=== PATIENT | female | born 1995 | race Caucasian/White ===

== ENCOUNTER 2020-06-07 16:32 | Observation (INO) | payer OTHER, SELFPAY ==
--- NOTE | 2020-06-07 16:32 | OBADM ---
This patient, Emi Harris, admitted to the OB room OB Post 115 for observation. Patient/family oriented to hospital policies and general routines including ID bracelet, bed and alarms, visiting hours, pain management, procedures, bathroom and other care routines, personal items, smoking policy, room service/diet, and visiting hours. Patient/Family are encouraged to report perceived risks to care and to ask questions if they do not understand what they are told or what they should do.
[2020-06-07 17:00] VITALS: TEMP 36.6; BMI 46.5
[2020-06-07 17:17] VITALS: BP 86/62; PULSE 108
[2020-06-07 17:31] VITALS: BP 103/70; PULSE 90
[2020-06-07 17:46] VITALS: BP 119/72; PULSE 89
--- NOTE | 2020-06-07 17:55 | PM.OBTRLD ---
OB - Triage/Final Diagnosis Visit Information Reason for evaluation: threatened labor Evaluation Vital signs: Vital Signs - 24 hr 06/07/20 17:17 06/07/20 17:31 06/07/20 17:46 Pulse Rate 108 H 90 89 Blood Pressure 86/62 L 103/70 119/72
[2020-06-07 18:19] LABS: Add Urine Microscopic? YES; Appearance Urine Clear (Clear); Bacteria Urine Trace /hpf; Bilirubin Urine Negative (Negative); Blood Urine Negative (Negative); Color Urine Yellow (Yellow); Glucose Urine UA 1+ mg/dL (Negative); Ketones Urine Negative (Negative); Leukocyte Esterase Ur Negative LEU/UL (NEGATIVE); Mucus Urine Few /lpf; Nitrate Urine Negative (Negative); Protein Urine 1+ mg/dL (Negative); RBC Urine 0-2 /hpf (0-2); Specific Grav Ur 1.017 (1.001-1.035); Squamous Epithelial Cell Urine Occasional /hpf (Few); Urobilinogen Urine Negative mg/dL (<2.0); WBC Urine 0-3 /hpf (0-3)
[2020-06-07 18:37] VITALS: RESP 18; TEMP 36.3
== END 2020-06-07 19:25 | disposition home or self-care (01) ==
PROVIDERS: Admitting Provider Obstetrics & Gynecology; Visit Provider Obstetrics & Gynecology
DX: O47.9 False labor, unspecified (principal); Z3A.00 Weeks of gestation of pregnancy not specified
CPT/HCPCS: 81001; 87086; 87088; G0378; G0379

== ENCOUNTER 2022-08-20 19:38 | Emergency (ER) | payer OTHER, SELFPAY ==
[2022-08-20] VITALS (11 sets, daily range): BP systolic 121–142; BP diastolic 77–92; PULSE 93; RESP 16; TEMP 36.8; O2SAT 99–100
--- NOTE | ~2022-08-20 | US_ITS ---
EXAMINATION: US OB <=14 wk fetus w TV DATE: 08/21/2022 01:55 INDICATION: Right lower quadrant pain during first trimester TECHNIQUE: Real-time pelvic transabdominal and transvaginal ultrasound was performed. COMPARISON: None. FINDINGS: The uterus measures 7.9 x 5.5 x 4.8 cm. There is an intrauterine gestational sac. There is a 9 mm x 5 mm hypoechoic area adjacent to the gestational sac. A yolk sac is identified. heart motion is identified measuring 96 beats per minute (bpm) by M-mode Doppler. The crown rump abdulaziz gth measures 4 mm, which correlates with an estimated gestational age of 6 weeks and 1 day(s) (+/-) 4 day(s). The right ovary measures 2.6 x 1.3 x 1.1 cm. The left ovary measures 3.7 x 2.4 x 2.3 cm and contains a corpus luteum. There is normal vascular flow in the ovaries. There is no free fluid in the pelvis. IMPRESSION: 1. Live intrauterine with an estimated gestational age of 6 weeks and 1 day(s) (+/-) 4 day( s) and an estimated delivery date of 04/15/2023. 2. Small subchorionic hematoma. 3. bradycardia. Reviewed, dictated and finalized at location A. CLERK IMPRESSION: 1. Live intrauterine with an estimated gestational age of 6 weeks and 1 day(s) (+/-) 4 day(s) and an estimated delivery date of 04/15/2023. 2. Small subchorionic hematoma. 3. bradycardia.
[2022-08-20 21:14] LABS: Basophils Absolute Auto 0.1 K/mm3 (0.0-0.1); Basophils Percent Auto 0.4 % (0.2-1.2); Eosinophils Absolute Auto 0.2 K/mm3 (0-0.3); Eosinophils Percent Auto 1.7 % (0-4.4); Hemoglobin 12.1 g/dL (12.0-15.0); Immature Granulocyte Absolute 0.06 K/mm3 (0.00-0.031); Immature Granulocyte Percent A 0.4 % (0-0.5); Lymphocytes Absolute Auto 2.89 K/mm3 (0.9-3.2); Lymphocytes Percent Auto 20.9 % (18.3-44.2); Mean Corpuscular HGB Conc 33.6 g/dl (32-36); Mean Corpuscular Hemoglobin 28.7 pg (26-34); Mean Corpuscular Volume 85.3 fl (80-100); Mean Platelet Volume 9.5 fl (7.4-10.4); Monocytes Absolute Auto 0.9 K/mm3 (0.1-0.6); Monocytes Percent Auto 6.3 % (2.6-8.5); Neutrophils Absolute Auto 9.7 K/mm3 (1.3-6.7); Neutrophils Percent Auto 70.3 % (45.5-73.1); Platelet Count Result 336 k/mm3 (150-375); Red Blood Count 4.22 M/mm3 (4.2-5.4); Red Cell Distribution Width 14.2 % (11.5-14.5); White Blood Count 13.8 K/mm3 (4.5-10.0)
[2022-08-20 21:16] LABS: Add Urine Microscopic? NO; Appearance Urine Clear (Clear); Bilirubin Urine Negative (Negative); Blood Urine Negative (Negative); Color Urine Light Yellow (Yellow); Glucose Urine UA Negative (Negative); Ketones Urine Negative (Negative); Leukocyte Esterase Ur Negative LEU/UL (Negative); Nitrate Urine Negative (Negative); Protein Urine Negative (Negative); Urobilinogen Urine 0.2 mg/dL (<2.0); pH Urine 6.5 (5.0-9.0)
[2022-08-20 21:18] LABS: Alanine Aminotransferase 19 U/L (6-35); Albumin Level 4.4 g/dL (3.5-5.1); Alkaline Phosphatase 85 U/L (38-126); Anion Gap 7 mmol/L (8-16); Aspartate Amino Transferase 16 U/L (14-36); Bilirubin,Total 0.3 mg/dL (0.2-1.3); Blood Urea Nitrogen 10 mg/dL (7-17); Calcium 8.9 mg/dL (8.4-10.2); Carbon Dioxide 24 mmol/L (22-30); Chloride 106 mmol/L (98-107); Estimated Glomerular Filt Rate > 60; Glucose 93 mg/dL (65-110); Lipase 45 U/L (23-300); Potassium 3.5 mmol/L (3.4-5.0); Sodium 137 mmol/L (137-145)
[2022-08-20 21:21] LABS: Bacteria Urine Trace /hpf; Mucus Urine Rare /lpf; RBC Urine 0-2 /hpf (0-2); WBC Urine 0-3 /hpf
[2022-08-21] VITALS: BP 132/80; O2SAT 100
[2022-08-21 00:01] VITALS: O2SAT 99
[2022-08-21 00:16] VITALS: O2SAT 100
[2022-08-21] MEDS: SODIUM CHLORIDE 0.9% IV 1,000 ML 999 ML IV CONT (00:37)
--- NOTE | 2022-08-21 00:40 | ED.ABDPAIN ---
HPI - Abdominal Pain General Chief Complaint: Abdominal Pain Stated Complaint: abd cramps/ 6 weeks Time Seen by Provider: 08/20/22 22:49 Source: patient Mode of arrival: ambulatory Limitations: no limitations History of Present Illness HPI narrative: Patient is a 27 y/o female who presents to the ED with c/o lower abdominal cramping. Patient is G6, P2 and currently approximately 6 weeks gestation by [facility]. She has not seen an MANAGER ENERGY yet but plans to follow with [facility] [place]. She developed cramping pain in her lower abdomen and lower back yesterday morning, 08/20, into today. Pain seems to be worse in her right lower abdomen. She has been taking Tylenol at home with minimal relief. She reports some nausea, denies vomiting, fever, diarrhea, constipation, vaginal bleeding, rectal bleeding, dysuria, hematuria. Related Data Home Medications Medication Instructions Recorded Confirmed No Home Medications 08/20/22 08/20/22 Allergies Allergy/AdvReac Type Severity Reaction Status Date / Time No Known Allergies Allergy Verified 08/20/22 19:39 Review of Systems Review of Systems: CONSTITUTIONAL: Denies fever, chills, or sweats. CARDIOVASCULAR: Denies chest pain. RESPIRATORY: Denies dyspnea. GASTROINTESTINAL: Reports lower ABD pain - worse in R lower abdomen, nausea. Denies constipation, rectal bleeding, vomiting, or diarrhea. GENITOURINARY: Denies vaginal bleeding, dysuria or hematuria. MUSCULOSKELETAL: Reports lower back cramping. All systems reviewed & are unremarkable except as noted in HPI and below PMFSH Past Medical History Medical History (Updated 08/21/22 @ 03:32 by Jeanna Marks PA-C) History of miscarriage Surgical History Surgical History (Updated 08/21/22 @ 00:56 by Jeanna Marks PA-C) No pertinent past surgical history Social History Social History (Updated 08/21/22 @ 00:56 by Jeanna Marks PA-C) Smoking status: Never smoker Exam Narrative: GENERAL: Well appearing, morbidly obese, non-toxic, in no acute distress. HEAD: Normocephalic, atraumatic. NECK: Supple. No adenopathy, no masses. RESPIRATORY: Airway patent, respirations nonlabored. Clear to auscultation bilaterally, no rales, rhonchi, wheezing. CARDIOVASCULAR: Regular rate and rhythm without murmurs, rubs, or gallops. Peripheral pulses 2+ and equal bilaterally. ABDOMINAL: Soft, mild tenderness throughout lower abdomen, worse on right side, nondistended, no hepatosplenomegaly. Normoactive BS. MUSCULOSKELETAL: Moves all extremities. Strength/ROM intact without gross deformities. SKIN: Warm, dry, normal color. No rashes. NEURO: A&O X3. Speech clear. Cranial nerves II-XII grossly intact. Steady gait. No ataxic movements. PSYCHIATRIC: Appropriate mood and affect. Normal interaction. Course Consultations Consultation #1: Discussed case w/ Dr. Cadena OBGYN, agrees w/ plan for outpatient f/u. Date: 08/21/22 Vital Signs Vital signs: Vital Signs Temperature 98.3 F 08/20/22 19:52 Pulse Rate 93 08/20/22 19:52 Respiratory Rate 16 08/20/22 19:52 Blood Pressure 139/77 08/20/22 19:52 Pulse Oximetry 99 08/20/22 19:52 Temperature 98.2 F 08/21/22 02:26 Pulse Rate 89 08/21/22 02:26 Respiratory Rate 18 08/21/22 02:26 Blood Pressure 128/84 08/21/22 02:26 Pulse Oximetry 99 08/21/22 02:26 MDM - Abdominal Pain MDM Narrative Medical decision making narrative: Patient presented to ED with report of lower abdominal cramping, approximately 6 weeks gestation, no confirmed IUP. Vitals stable upon arrival. Patient with mild lower abdominal tenderness on exam. Mild leukocytosis of 13.8. CMP unremarkable. UA without signs of infection. Beta quant ~[id number]. Ultrasound obtained to rule out ectopic and showing single live IUP, 6 weeks 1 day, with moderate subchorionic hemorrhage. Discussed case with MANAGER ENERGY on-call at [facility], patient can follow in office. No
[2022-08-21 02:26] VITALS: BP 128/84; PULSE 89; RESP 18; TEMP 36.8; O2SAT 99
[2022-08-21 02:30] VITALS: BP 129/78; PULSE 74; RESP 18; TEMP 36.8; O2SAT 100
[2022-08-21 03:41] VITALS: BP 112/74; PULSE 79; RESP 18; TEMP 36.8; O2SAT 98
== END 2022-08-21 03:43 | disposition home or self-care (01) ==
PROVIDERS: Emergency Medicine; Emergency Provider Physician Assistant; PCP Registered Nurse
DX: O26.891 Other specified pregnancy related conditions, first trimester (principal); R10.30 Lower abdominal pain, unspecified; Z3A.01 Less than 8 weeks gestation of pregnancy
CPT/HCPCS: 36415; 76801; 76817; 80053; 81003; 81025; 83690; 84702; 85025; 85461; 86850; 86900; 86901; 96361; 96365; 99284; J0131; J7030

== ENCOUNTER 2022-12-01 19:42 | Observation (INO) | payer OTHER, SELFPAY ==
[2022-12-01 20:01] VITALS: BP 134/85; PULSE 94
[2022-12-01 20:25] VITALS: BMI 38.5
--- NOTE | 2022-12-01 20:26 | OBADM ---
This patient, Emi Harris, admitted to the OB room OB Post 116 for observation. Patient/family oriented to hospital policies and general routines including ID bracelet, bed and alarms, visiting hours, pain management, procedures, bathroom and other care routines, personal items, smoking policy, room service/diet, and visiting hours. Patient/Family are encouraged to report perceived risks to care and to ask questions if they do not understand what they are told or what they should do.
--- NOTE | 2022-12-01 20:30 | PC.NURSE ---
pt presents to L&D with complaints of pelvic pressure and lower back pain. pt states she always has lower back pain but felt it was more significant today. pt states she does have a history of vaginal bleeding during this but denies any vaginal bleeding or leaking of fluid at this time. pt states she is on pelvic rest. pt does not have a history of natural pre-term labor. FHT doppled 150's. Dr. Vazquez notified of pt status and instructed to do a gentle SVE along with medication orders. Dr. Vazquez stated pt can be discharged after medications as long as SVE is appropriate.
[2022-12-01] MEDS: ACETAMINOPHEN 500 MG TABLET 1000 MG PO (20:45)
[2022-12-01] MEDS: CYCLOBENZAPRINE HCL 10 MG TABLET PO (20:47)
--- NOTE | 2022-12-01 20:49 | PC.NURSE ---
SVE done pt closed
--- NOTE | 2022-12-22 08:30 | PM.OBTRLD ---
OB - Triage/Final Diagnosis Visit Information Comments/Additional reasons for admission: I have assessed the risk for this patient, Emi Harris, and determined that she would benefit from observation care. Final Diagnosis (1) Pelvic pain: Code(s): R10.2 - Pelvic and perineal pain Status: Acute
== END 2022-12-01 21:15 | disposition home or self-care (01) ==
PROVIDERS: Admitting Provider Obstetrics & Gynecology; PCP Registered Nurse; Visit Provider Obstetrics & Gynecology
DX: O26.892 Other specified pregnancy related conditions, second trimester (principal); R10.2 Pelvic and perineal pain; Z3A.20 20 weeks gestation of pregnancy
CPT/HCPCS: 99199; A9270

== ENCOUNTER 2022-12-30 09:38 | Observation (INO) | payer OTHER, SELFPAY ==
[2022-12-30 10:00] VITALS: BMI 38.9
[2022-12-30 10:01] VITALS: BP 109/67; PULSE 92
[2022-12-30 10:16] VITALS: BP 111/69; PULSE 88
[2022-12-30 10:31] VITALS: BP 99/59; PULSE 90
[2022-12-30 10:46] VITALS: BP 112/58; PULSE 176
[2022-12-30 11:01] VITALS: BP 111/62; PULSE 75
[2022-12-30 15:14] VITALS: BP 115/64; PULSE 90
[2022-12-30] MEDS: RHO(D) IMMUNE GLOBULIN 300 MCG/2 ML SYRINGE IM (16:03)
--- NOTE | 2023-01-02 15:27 | PM.OBTRLD ---
OB - Triage/Final Diagnosis Visit Information Date of evaluation: 12/30/22 Reason for evaluation: other (abd trauma) Comments/Additional reasons for admission: I have assessed the risk for this patient, Emi Harris, and determined that she would benefit from observation care. Evaluation Laboratory results: Laboratory Tests 12/30/22 11:01 Blood Type A Negative Antibody Screen Negative Screen Not Reportable Baby's Blood Type Not Reportable Baby's YUNIOR Not Reportable KB Hemoglobin Negative Doses of RhIg Required 1
== END 2022-12-30 16:18 | disposition home or self-care (01) ==
PROVIDERS: Admitting Provider Obstetrics & Gynecology; PCP Registered Nurse; Visit Provider Obstetrics & Gynecology
DX: O9A.212 Injury, poisoning and certain other consequences of external causes complicating pregnancy, second trimester (principal); W50.0XXA Accidental hit or strike by another person, initial encounter; R10.9 Unspecified abdominal pain; Z3A.25 25 weeks gestation of pregnancy
CPT/HCPCS: 36415; 85460; 85461; 86850; 86900; 86901; 90384; 96372; G0378; G0379; J2790

== ENCOUNTER 2023-02-05 18:23 | Observation (INO) | payer OTHER, SELFPAY ==
[2023-02-05 18:41] VITALS: BMI 38.2
[2023-02-05 18:50] VITALS: BP 115/69; PULSE 87; RESP 17; TEMP 36.8
[2023-02-05 19:03] LABS: Appearance Urine Cloudy (Clear); Bacteria Urine None Seen /hpf; Bilirubin Urine Negative (Negative); Blood Urine Negative (Negative); Color Urine Dark Yellow (Yellow); Glucose Urine UA Negative (Negative); Ketones Urine Trace mg/dL (Negative); Leukocyte Esterase Ur Negative LEU/UL (Negative); Nitrate Urine Negative (Negative); Non Pathogenic Casts 0-2; Protein Urine Trace mg/dL (Negative); RBC Urine 0-2 /hpf (0-2); Specific Grav Ur 1.028 (1.001-1.035); Squamous Epithelial Cell Urine None seen /hpf (Few); WBC Urine 0-5 /hpf; pH Urine 6.5 (5.0-9.0)
[2023-02-05 19:09] LABS: Add Urine Microscopic? YES
--- NOTE | 2023-02-05 19:23 | PC.NURSE ---
Updated Dr. Vazquez on maternal and assessments. VSS. Updated on UA results. movement present. Discharge orders received.
--- NOTE | 2023-02-05 20:00 | PC.NURSE ---
Discharge instructions reviewed with patient. labor precautions and HIP precautions reviewed. Patient instructed to follow-up as schedule. Patient instructed to take home medications as prescribed. Patient declines transport to ED for evaluation of SOB and states she is not short of breath at time of discharge. Patient left OB unit ambulating without complaint at 1999.
--- NOTE | 2023-03-02 22:44 | PM.OBTRLD ---
OB - Triage/Final Diagnosis Visit Information Comments/Additional reasons for admission: I have assessed the risk for this patient, Emi Harris, and determined that she would benefit from observation care. Evaluation Laboratory results: Laboratory Tests 02/05/23 18:37 Urine Color Dark yellow Urine Appearance Cloudy H Urine pH 6.5 Ur Specific [place] 1.028 Urine Protein Trace Urine Glucose (UA) Negative Urine Ketones Trace H Ur Blood (Man) Negative Urine Nitrate Negative Urine Bilirubin Negative Urine Urobilinogen 1.0 Leukocyte Esterase Rfl Negative Urine RBC 0-2 Urine WBC 0-5 Ur Squamous Epith Cells None seen Urine Bacteria None seen Urine Casts 0-2 Final Diagnosis (1) Decreased movement: Code(s): O36.8190 - Decreased movements, unspecified trimester, not applicable or unspecified Status: Acute
== END 2023-02-05 20:00 | disposition home or self-care (01) ==
PROVIDERS: Admitting Provider Obstetrics & Gynecology; PCP Registered Nurse; Visit Provider Obstetrics & Gynecology
DX: O36.8130 Decreased fetal movements, third trimester, not applicable or unspecified (principal); Z3A.30 30 weeks gestation of pregnancy
CPT/HCPCS: 59025; 81001; 84112; G0378; G0379

== ENCOUNTER 2023-02-23 11:37 | Observation (INO) | payer OTHER, SELFPAY ==
[2023-02-23] VITALS (7 sets, daily range): BP systolic 113–126; BP diastolic 56–75; PULSE 86–114; RESP 18; TEMP 36.1–36.8; O2SAT 99–100; BMI 38.0
--- NOTE | ~2023-02-23 | CT_ITS ---
EXAMINATION: CTA chest PE protocol DATE: 02/23/2023 15:41 INDICATION: Pleuritic chest pain and dyspnea. Recent . TECHNIQUE: Computed tomography (CT) pulmonary angiogram of the chest was performed with 100 mL Omnipa que-350 intravenous contrast. Additional 3D reconstructions utilizing coronal maximum intensity proje ction (MIP) were performed. Automated exposure control and iterative reconstruction technique were em ployed. The dose-length product was 800.37 mGy-cm. COMPARISON: None FINDINGS: Good contrast opacification of the pulmonary arteries. There is mild streak artifact from dense contr ast in the superior vena cava and right atrium. Mild motion artifact most prominent in the infrahilar left lower lobe where it decreases sensitivity in the segmental and some of the subsegmental pulmona ry arteries. No pulmonary embolism. No pneumonia, pulmonary edema, pleural effusion or pneumothorax. Heart size is normal. No pericardial effusion. Thoracic aorta is normal in caliber with no dissection . No pathologically enlarged thoracic lymphadenopathy. Minimal thoracic levocurvature. IMPRESSION: 1. No pulmonary embolism or other acute cardiopulmonary disease. Reviewed, dictated and finalized at location A.
--- NOTE | ~2023-02-23 | XR_ITS ---
EXAMINATION: XR chest 2V 02/23/2023 14:34 INDICATION: Fever, shortness of breath PROCEDURE: AP portable chest COMPARISON: No prior studies for comparison. FINDINGS: The lungs are clear. The cardiomediastinal silhouette is within normal limits. There are no pleural effusions. There is no pneumothorax suspected. IMPRESSION: 1: NO ACUTE CARDIOPULMONARY DISEASE. Reviewed, dictated and finalized at location L.
--- NOTE | 2023-02-23 13:50 | ECG_ITS ---
Measurements Intervals [place] Rate: 109 P: 43 MS: 154 QRS: 24 QRSD: 86 T: 0 QT: 315 QTc: 425 Interpretive Statements SINUS TACHYCARDIA NONSPECIFIC ST AND T-WAVE ABNORMALITY ABNORMAL RHYTHM ECG NO PREVIOUS ECG AVAILABLE FOR COMPARISON Electronically Signed On 02-23-2023 16:06:11 CDT by Judson Penn M.D.
[2023-02-23] MEDS: ACETAMINOPHEN 500 MG TABLET 1000 MG PO ×2 (14:30→21:33)
[2023-02-23] MEDS: SODIUM CHLORIDE 0.9% IV 1,000 ML 999 ML IV CONT (14:31)
[2023-02-23] MEDS: ONDANSETRON INJ 4 MG/2 ML VIAL IV PUSH (14:31)
[2023-02-23 14:37] LABS: Basophils Percent Auto 0.1 % (0.2-1.2); Hematocrit 32.1 % (37.0-47.0); Hemoglobin 10.9 g/dL (12.0-15.0); Immature Granulocyte Absolute 0.09 K/mm3 (0.00-0.031); Immature Granulocyte Percent A 0.7 % (0-0.5); Lymphocytes Absolute Auto 0.81 K/mm3 (0.9-3.2); Lymphocytes Percent Auto 5.9 % (18.3-44.2); Mean Corpuscular Hemoglobin 29.2 pg (26-34); Mean Corpuscular Volume 86.1 fl (80-100); Mean Platelet Volume 9.5 fl (7.4-10.4); Monocytes Absolute Auto 0.8 K/mm3 (0.1-0.6); Monocytes Percent Auto 5.7 % (2.6-8.5); Neutrophils Absolute Auto 12.1 K/mm3 (1.3-6.7); Neutrophils Percent Auto 87.6 % (45.5-73.1); Platelet Count Result 267 k/mm3 (150-375); Red Blood Count 3.73 M/mm3 (4.2-5.4); Red Cell Distribution Width 13.2 % (11.5-14.5); White Blood Count 13.8 K/mm3 (4.5-10.0)
[2023-02-23 14:44] LABS: INR 1.1; Prothrombin Time 14.1 Seconds (11.1-14.7)
[2023-02-23 14:45] LABS: Appearance Urine Cloudy (Clear); Bacteria Urine 1+ /hpf; Bilirubin Urine 1+ (Negative); Blood Urine Negative (Negative); Color Urine Dark Yellow (Yellow); Glucose Urine UA Negative (Negative); Ketones Urine 1+ mg/dL (Negative); Leukocyte Esterase Ur 2+ LEU/UL (Negative); Need Manual Microscopic Reviewed; Nitrate Urine Negative (Negative); Non Pathogenic Casts 0-2; Partial Thromboplastin Time 29.9 SECONDS (22.3-36.8); Protein Urine 1+ mg/dL (Negative); Squamous Epithelial Cell Urine Moderate /hpf (Few); WBC Urine 21-50 /hpf; pH Urine 6.5 (5.0-9.0)
[2023-02-23 14:48] LABS: Add Urine Microscopic? YES
--- NOTE | 2023-02-23 14:55 | ED.FEVER ---
HPI - Fever General Chief Complaint: Fever Stated Complaint: fever 32 weeks Time Seen by Provider: 02/23/23 12:51 History of Present Illness HPI Narrative: 27-year-old female, G6, P2 who is currently 32 weeks , due date 04/14, reports for evaluation for multiple complaints. Patient reports sudden onset of symptoms last night including fever, generalized lower abdominal pain and cramping, nausea and vomiting, and tension type headache. Patient reports she took her temperature last night with a temporal thermometer reading 106, then took her temperature and her ear which read 105. She is reporting generalized lower abdominal pain and cramping which she states may be Yung Hackett. Her GLASS CUT OFF TENDER is Dr. Wade. She states she called the office this morning to talk to Zuleika Minaya's (ductfixing plumber) nurse who advised the patient to come to the ED for further evaluation. She is also complaining of substernal chest pain and shortness of breath. States the shortness of breath has been steadily increasing throughout her but the chest pain started last week. She reports the chest pain is intermittent in nature, worse when she is outside and better when she is inside. States the chest pain is also pleuritic in nature. Patient reports her headache is across her forehead and wraps to the back of her head. She last took Tylenol at 3 AM and has not had a fever. She denies sensation of indigestion or GERD, new onset back pain, vision changes, focal numbness or weakness, dysuria or hematuria, vaginal discharge or vaginal bleeding, rash. She does report a cough since January. Related Data Home Medications Medication Instructions Recorded Confirmed No Home Medications 08/20/22 08/20/22 Allergies Allergy/AdvReac Type Severity Reaction Status Date / Time latex Allergy Rash Verified 08/22/22 13:25 Review of Systems Review of Systems: CONSTITUTIONAL: See HPI s EYES: Denies visual changes, redness, or discharge. ENT: Denies rhinorrhea, congestion, sore throat, or otalgia. CARDIOVASCULAR: See HPI RESPIRATORY: See HPI. GASTROINTESTINAL: See HPI GENITOURINARY: Denies dysuria or hematuria. SKIN: Denies rash or itching. MUSCULOSKELETAL: Denies back pain, joint pain, or myalgia. NEUROLOGIC: See HPI PSYCHIATRIC: Denies anxiety or depression. [facility] Past Medical History Medical History History of miscarriage Surgical History Surgical History No pertinent past surgical history Social History Social History Smoking status: Never smoker Exam Narrative: GENERAL: Well-appearing, in no acute distress. Patient resting comfortably in exam bed. She is pleasant and conversational. Speaking in full sentences. HEAD: Normocephalic EYES: PERRLA, EOMI ENT: Nares clear. Mucous membranes moist. Oropharynx without tonsillar hypertrophy exudate or other lesions. Bilateral TMs are meza nonbulging. NECK: Supple. No nuchal rigidity, full range of motion of neck CHEST: No respiratory distress. Clear to auscultation, no adventitious breath sounds. No tenderness to chest wall when palpated HEART: Regular rate and rhythm. No murmur heard. Normal peripheral pulses. ABDOMEN: Soft, nontender, normal active bowel sounds. Gravid abdomen. No CVA tenderness. EXTREMITIES: Normal range of motion. No edema. SKIN: Warm, dry, no rash. NEURO: No focal deficits. Alert and oriented x3. Cranial nerves II through XII intact. Strength 5/5 in BUE and BLE. Sensation intact throughout. Ambulating w/o difficulty. PSYCH: Normal mood and affect. Course Vital Signs Vital signs: Vital Signs Pulse Rate 114 H 02/23/23 12:34 Respiratory Rate 18 02/23/23 12:34 Blood Pressure 121/74 02/23/23 12:34 Pulse Oximetry 100 02/23/23 12:34 Oxygen Delivery Room Air 06
[2023-02-23 14:58] LABS: Alanine Aminotransferase 22 U/L (6-35); Albumin Level 3.5 g/dL (3.5-5.1); Alkaline Phosphatase 140 U/L (38-126); Anion Gap 7 mmol/L (8-16); Aspartate Amino Transferase 19 U/L (14-36); Bilirubin,Total 0.9 mg/dL (0.2-1.3); Blood Urea Nitrogen 6 mg/dL (7-17); Calcium 8.3 mg/dL (8.4-10.2); Carbon Dioxide 22 mmol/L (22-30); Chloride 103 mmol/L (98-107); Estimated CRCL calculation 161 ml/min; Estimated Glomerular Filt Rate > 60; Glucose 86 mg/dL (65-110); Lipase 38 U/L (23-300); NT Pro B Type Natriuretic Pept 197 pg/mL (19.9-100); Potassium 3.7 mmol/L (3.4-5.0); Sodium 132 mmol/L (137-145); Troponin I < 0.012 ng/mL (0.000-0.034)
[2023-02-23 15:06] LABS: Strep Group A RT-PCR NOT DETECTED (Negative)
[2023-02-23 15:17] LABS: Influenza A QL RT-PCR Negative (Negative); Influenza B QL RT-PCR Negative (Negative); SARS-CoV-2 RNA PCR Negative (Negative)
[2023-02-23] MEDS: diphenhydrAMINE HCl INJ 50 MG/ML VIAL 25 MG IV PUSH (16:47)
[2023-02-23] MEDS: METOCLOPRAMIDE HCL INJ 10 MG/2 ML VIAL IV PUSH (16:48)
--- NOTE | 2023-02-23 17:21 | OBADM ---
This patient, Emi Harris, admitted to the OB room OB Post 113 for observation. Patient/family oriented to hospital policies and general routines including ID bracelet, bed and alarms, visiting hours, pain management, procedures, bathroom and other care routines, personal items, smoking policy, room service/diet, and visiting hours. Patient/Family are encouraged to report perceived risks to care and to ask questions if they do not understand what they are told or what they should do.
[2023-02-23] MEDS: LACTATED RINGERS 1,000 ML 125 ML IV CONT (19:25)
[2023-02-24] VITALS (8 sets, daily range): BP systolic 96–118; BP diastolic 55–69; PULSE 78–88; RESP 18; TEMP 36.4–36.6
[2023-02-24] MEDS: LACTATED RINGERS 1,000 ML 125 ML IV CONT ×2 (03:21→15:23)
--- NOTE | 2023-02-24 07:39 | PM.OBPNVD ---
OB - PN: Subj Subjective Date/time seen: 02/24/23 07:39 pt admitted by ED for pyelonephritis, wbc elevated, urine appears contaminated, awaiting culture. tx with rocephin. history of fever, but afebrile x 2 days. no current complaints pt is 33 gestation, , NST has been reactive Q shift OB - PN: Obj Data Labs 02/23/23 14:23 02/23/23 14:23 Labs: Laboratory Results - last 24 hr 02/23/23 02/23/23 14:23 14:30 WBC 13.8 H RBC 3.73 L Hgb 10.9 L Hct 32.1 L MCV 86.1 MCH 29.2 MCHC 34.0 RDW 13.2 Plt Count 267 MPV 9.5 Immature Gran % (Auto) 0.7 H Neut % (Auto) 87.6 H Lymph % (Auto) 5.9 L [place] % (Auto) 5.7 Eos % (Auto) 0.0 Baso % (Auto) 0.1 L Lymph # (Auto) 0.81 L [place] # (Auto) 0.8 H Eos # (Auto) 0.0 Baso # (Auto) 0.0 Abs Immat Gran (auto) 0.09 H Absolute Neuts (auto) 12.1 H Absolute Nucleated RBC 0.0 Nucleated RBC % 0.0 PT 14.1 INR 1.1 APTT 29.9 Sodium 132 L Potassium 3.7 Chloride 103 Carbon Dioxide 22 Anion Gap 7 L BUN 6 L Creatinine 0.60 L Estim Creat Clear Calc 161 Estimated GFR > 60 Glucose 86 Calcium 8.3 L Total Bilirubin 0.9 AST 19 ALT 22 Alkaline Phosphatase 140 H Troponin I < 0.012 NT-Pro-B Natriuret Pep 197 H Total Protein 7.0 Albumin 3.5 Lipase 38 Urine Color Dark yellow Urine Appearance Cloudy H Urine pH 6.5 Ur Specific [place] 1.020 Urine Protein 1+ H Urine Glucose (UA) Negative Urine Ketones 1+ H Ur Blood (Man) Negative Urine Nitrate Negative Urine Bilirubin 1+ H Urine Urobilinogen 1.0 Add Ur Microanalysis Reviewed Leukocyte Esterase Rfl 2+ H Urine RBC 3-5 H Urine WBC 21-50 H Ur Squamous Epith Cells Moderate Urine Bacteria 1+ H Urine Casts 0-2 Influenza A (RT-PCR) Negative Influenza B (RT-PCR) Negative SARS-CoV-2 RNA (RT-PCR) Negative Group A Strep (PCR) Not detected Imaging Radiologist's impression: Impressions Chest X-Ray 02/23/23 14:46 IMPRESSION: 1: NO ACUTE CARDIOPULMONARY DISEASE. Chest CTA 02/23/23 15:55 IMPRESSION: 1. No pulmonary embolism or other acute cardiopulmonary disease. OB - PN A/P Assessment and Plan (1) Pyelonephritis affecting : Qualifiers: Trimester: third trimester Qualified Code(s): O23.03 - Infections of kidney in , third trimester Code(s): O23.00 - Infections of kidney in , unspecified trimester Status: Acute Plan suspected pyelonephritis await cbc co managing with dr. jordan Time Spent With Patient Time: Total time spent is greater than 50% in coordination of care (as documented) at patient's floor/unit and/or counseling patient: Review of Systems Review of Systems: All systems reviewed & are unremarkable except as noted in HPI and below Exam Const: General: cooperative and healthy appearing Chest: Chest palpation & inspection: normal inspection of the chest Resp: Effort & Inspection: normal respiratory effort GI: Inspection: normal to inspection Skin: General skin exam: normal color Extrem: Right lower extremity: normal to inspection Left lower extremity: normal to inspection
[2023-02-24] MEDS: ONDANSETRON INJ 4 MG/2 ML VIAL IV PUSH (09:17)
[2023-02-24 09:33] LABS: Basophils Percent Auto 0.4 % (0.2-1.2); Eosinophils Absolute Auto 0.1 K/mm3 (0-0.3); Eosinophils Percent Auto 1.3 % (0-4.4); Hematocrit 28.8 % (37.0-47.0); Hemoglobin 9.6 g/dL (12.0-15.0); Immature Granulocyte Absolute 0.05 K/mm3 (0.00-0.031); Immature Granulocyte Percent A 0.6 % (0-0.5); Lymphocytes Absolute Auto 1.32 K/mm3 (0.9-3.2); Lymphocytes Percent Auto 16.1 % (18.3-44.2); Mean Corpuscular HGB Conc 33.3 g/dl (32-36); Mean Corpuscular Hemoglobin 29.1 pg (26-34); Mean Corpuscular Volume 87.3 fl (80-100); Mean Platelet Volume 9.7 fl (7.4-10.4); Monocytes Absolute Auto 0.6 K/mm3 (0.1-0.6); Monocytes Percent Auto 7.3 % (2.6-8.5); Neutrophils Absolute Auto 6.1 K/mm3 (1.3-6.7); Neutrophils Percent Auto 74.3 % (45.5-73.1); Platelet Count Result 265 k/mm3 (150-375); Red Cell Distribution Width 13.5 % (11.5-14.5); White Blood Count 8.2 K/mm3 (4.5-10.0)
--- NOTE | 2023-02-24 10:15 | PC.NURSE ---
Andrade Minaya notified of lab results, okay to D/C fluids. Give rocephin and okay to discharge.
--- NOTE | 2023-02-24 14:15 | PC.NURSE ---
1300- patient with complaints of spotting only when wiping. Patient describes as light pink and has had during . Andrade Minaya CNM notified. NST reactive. No contractions felt by patient, patient moving and movement.
--- NOTE | 2023-02-24 15:03 | PC.NURSE ---
1503- S. Marimar [facility] notified of patient's contractions. Orders received to do sterile vag exam.
--- NOTE | 2023-02-24 16:23 | PC.NURSE ---
1615--Gentle cervical exam done per orders from Andrade Minaya CNM. /50%/ballotable
[2023-02-24] MEDS: BETAMETHASONE SOD PHOS/ACETATE 30 MG/5 ML VIAL 12 MG IM (16:31)
--- NOTE | 2023-02-27 17:03 | PM.OBTRLD ---
OB - Triage/Final Diagnosis Visit Information Date of evaluation: 02/24/23 Reason for evaluation: other (pyelonephritis) Comments/Additional reasons for admission: I have assessed the risk for this patient, Emi Harris, and determined that she would benefit from observation care. Evaluation Laboratory results: Laboratory Tests 02/23/23 02/23/23 02/24/23 14:23 14:30 09:26 WBC 13.8 H 8.2 RBC 3.73 L 3.30 L Hgb 10.9 L 9.6 L Hct 32.1 L 28.8 L MCV 86.1 87.3 MCH 29.2 29.1 MCHC 34.0 33.3 RDW 13.2 13.5 Plt Count 267 265 MPV 9.5 9.7 Immature Gran % (Auto) 0.7 H 0.6 H Neut % (Auto) 87.6 H 74.3 H Lymph % (Auto) 5.9 L 16.1 L [place] % (Auto) 5.7 7.3 Eos % (Auto) 0.0 1.3 Baso % (Auto) 0.1 L 0.4 Lymph # (Auto) 0.81 L 1.32 [place] # (Auto) 0.8 H 0.6 Eos # (Auto) 0.0 0.1 Baso # (Auto) 0.0 0.0 Abs Immat Gran (auto) 0.09 H 0.05 H Absolute Neuts (auto) 12.1 H 6.1 Absolute Nucleated RBC 0.0 0.0 Nucleated RBC % 0.0 0.0 PT 14.1 INR 1.1 APTT 29.9 Sodium 132 L Potassium 3.7 Chloride 103 Carbon Dioxide 22 Anion Gap 7 L BUN 6 L Creatinine 0.60 L Estim Creat Clear Calc 161 Estimated GFR > 60 Glucose 86 Calcium 8.3 L Total Bilirubin 0.9 AST 19 ALT 22 Alkaline Phosphatase 140 H Troponin I < 0.012 NT-Pro-B Natriuret Pep 197 H Total Protein 7.0 Albumin 3.5 Lipase 38 Urine Color Dark yellow Urine Appearance Cloudy H Urine pH 6.5 Ur Specific [place] 1.020 Urine Protein 1+ H Urine Glucose (UA) Negative Urine Ketones 1+ H Ur Blood (Man) Negative Urine Nitrate Negative Urine Bilirubin 1+ H Urine Urobilinogen 1.0 Add Ur Microanalysis Reviewed Leukocyte Esterase Rfl 2+ H Urine RBC 3-5 H Urine WBC 21-50 H Ur Squamous Epith Cells Moderate Urine Bacteria 1+ H Urine Casts 0-2 Influenza A (RT-PCR) Negative Influenza B (RT-PCR) Negative SARS-CoV-2 RNA (RT-PCR) Negative Group A Strep (PCR) Not detected
== END 2023-02-24 16:40 | disposition home or self-care (01) ==
LOC: ANHED 16:44 → ANHOBPP 17:31
PROVIDERS: Advanced Practice Midwife; Admitting Provider Obstetrics & Gynecology; Emergency Provider Physician Assistant; PCP Registered Nurse; Visit Provider Obstetrics & Gynecology
DX: O23.03 Infections of kidney in pregnancy, third trimester (principal); O26.893 Other specified pregnancy related conditions, third trimester; R50.9 Fever, unspecified; R10.9 Unspecified abdominal pain; O21.9 Vomiting of pregnancy, unspecified; O99.353 Diseases of the nervous system complicating pregnancy, third trimester; Z20.822 Contact with and (suspected) exposure to COVID-19; G44.209 Tension-type headache, unspecified, not intractable; O99.513 Diseases of the respiratory system complicating pregnancy, third trimester; O99.413 Diseases of the circulatory system complicating pregnancy, third trimester; R06.02 Shortness of breath; Z3A.32 32 weeks gestation of pregnancy; R07.89 Other chest pain; R94.31 Abnormal electrocardiogram [ECG] [EKG]; Z87.59 Personal history of other complications of pregnancy, childbirth and the puerperium
CPT/HCPCS: 36415; 59025; 71046; 71275; 80053; 81001; 83690; 83880; 84484; 85025; 85610; 85730; 87086; 87088; 87636; 87651; 93005; 96361; 96365; 96372; 96375; 99285; A9270; G0378; J0696; J0702; J1200; J2405; J2765; J7030; J7120; Q9967

== ENCOUNTER 2023-02-25 14:02 | Observation (INO) | payer OTHER, SELFPAY ==
[2023-02-25] VITALS (9 sets, daily range): BP systolic 111–120; BP diastolic 67–77; PULSE 85–98; RESP 16; TEMP 36.7; O2SAT 96–100; BMI 38.0
--- NOTE | 2023-02-25 14:48 | OBADM ---
This patient, Emi Harris, admitted to the OB room OB Post 117 for observation. Patient/family oriented to hospital policies and general routines including ID bracelet, bed and alarms, visiting hours, pain management, procedures, bathroom and other care routines, personal items, smoking policy, room service/diet, and visiting hours. Patient/Family are encouraged to report perceived risks to care and to ask questions if they do not understand what they are told or what they should do.
[2023-02-25] MEDS: NIFEdipine 30 MG TAB.ER.24 PO (15:42)
[2023-02-25] MEDS: BETAMETHASONE SOD PHOS/ACETATE 30 MG/5 ML VIAL 12 MG IM (16:29)
--- NOTE | 2023-03-22 23:45 | PM.OBTRLD ---
OB - Triage/Final Diagnosis Visit Information Comments/Additional reasons for admission: I have assessed the risk for this patient, Emi Harris, and determined that she would benefit from observation care. Final Diagnosis (1) Pyelonephritis affecting : Qualifiers: Trimester: third trimester Qualified Code(s): O23.03 - Infections of kidney in , third trimester Code(s): O23.00 - Infections of kidney in , unspecified trimester Status: Acute
== END 2023-02-25 16:55 | disposition home or self-care (01) ==
PROVIDERS: Admitting Provider Obstetrics & Gynecology; PCP Registered Nurse; Visit Provider Obstetrics & Gynecology
DX: O23.03 Infections of kidney in pregnancy, third trimester (principal); Z3A.33 33 weeks gestation of pregnancy
CPT/HCPCS: 96372; A9270; G0378; G0379; J0702

== ENCOUNTER 2023-03-07 19:27 | Emergency (ER) | payer OTHER, SELFPAY ==
[2023-03-07 19:29] VITALS: BP 122/68; PULSE 100; RESP 16; TEMP 36.6; O2SAT 100
[2023-03-07 19:44] VITALS: PULSE 109; RESP 16; TEMP 36.6; O2SAT 99
--- NOTE | 2023-03-07 19:49 | ED.BACK ---
HPI - Back Pain/Injury General Chief Complaint: Urogenital-Female Stated Complaint: kidney infection-back pain/fever Time Seen by Provider: 03/07/23 19:38 Source: patient and family Mode of arrival: ambulatory Limitations: no limitations History of Present Illness HPI Narrative: 27 years old white female came to the emergency room by private car complaining of lower back pain bilaterally started 5 days ago, worse today. Worse with movement, no radiation of pain, patient is telling me that she was seen by her MINE SUPERINTENDENT recently for regular checkup and was found to have urinary tract infection started on Macrobid twice a day for 7 days, and has been on 1 tablet once a day for the last 4 days as a prophylaxis patient reported that she been running low-grade fever at 99 prior to arrival. She denies any chills, nausea, vomiting, abdominal pain, vaginal bleeding or discharge. Patient is 34 weeks , 6, para 2, abortions 3. Related Data Home Medications Medication Instructions Recorded Confirmed ferrous sulfate 325 mg (65 mg 325 mg PO DAILY 02/25/23 02/25/23 iron) tablet ondansetron 8 mg disintegrating 8 mg PO BID PRN Nausea 02/25/23 02/25/23 tablet vit no.95-ferrous 1 tablet PO DAILY 02/25/23 02/25/23 fumarate 28 mg-folic acid 800 mcg tablet () Allergies Allergy/AdvReac Type Severity Reaction Status Date / Time latex Allergy Rash Verified 03/07/23 19:32 Review of Systems Review of Systems: All systems reviewed & are unremarkable except as noted in HPI and below PMFSH Past Medical History Medical History History of miscarriage Surgical History Surgical History No pertinent past surgical history Social History Social History Smoking status: Never smoker Exam Narrative: General appearance: Well-developed, well-nourished Skin: Normal color Head: Normocephalic, nontraumatic Eyes: Clear conjunctiva ENT: Oropharynx normal, ears normal, nose normal Neck: Supple, nontender Chest and respiratory: Airway patent, no respiratory distress, no accessory muscle use Heart: Regular rate/rhythm Abdomen: Soft, nontender, no organomegaly, quiet bowel sounds Vascular: Normal peripheral pulses, normal capillary refill. Musculoskeletal: Mild diffuse tenderness across the lower back, no bruises, no swelling or rash slight limited range of motion Neurologic: Alert and oriented ?3, CONSTRUCTION QUALITY CONTROL MANAGER is normal as tested, no gross motor deficit Course Vital Signs Vital signs: Vital Signs Temperature 36.6 C 03/07/23 19:29 Pulse Rate 100 03/07/23 19:29 Respiratory Rate 16 03/07/23 19:29 Blood Pressure 122/68 03/07/23 19:29 Pulse Oximetry 100 03/07/23 19:29 Oxygen Delivery Room Air 03/07/23 19:29 Temperature 36.6 C 03/07/23 19:44 Pulse Rate 89 03/07/23 20:56 Respiratory Rate 14 03/07/23 20:56 Blood Pressure 126/64 03/07/23 20:56 Pulse Oximetry 100 03/07/23 20:56 Oxygen Delivery Room Air 03/07/23 19:29 MDM - Back Pain/Injury Lab Data 03/07/23 19:56 03/07/23 19:56 Labs: Lab Results 03/07/23 Range/Units 19:56 WBC 13.6 H (4.5-10.0) K/mm3 RBC 3.52 L (4.2-5.4) M/mm3 Hgb 10.2 L (12.0-15.0) g/dL Hct 30.1 L (37.0-47.0) % MCV 85.5 (80-100) fl MCH 29.0 (26-34) pg MCHC 33.9 (32-36) g/dl RDW 13.3 (11.5-14.5) % Plt Count 332 (150-375) k/mm3 MPV 9.2 (7.4-10.4) fl Immature Gran % (Auto) 0.5 (0-0.5) % Neut % (Auto) 75.5 H (45.5-73.1) % Lymph % (Auto) 16.
[2023-03-07] MEDS: ONDANSETRON INJ 4 MG/2 ML VIAL IV PUSH (19:59)
[2023-03-07] MEDS: SODIUM CHLORIDE 0.9% IV 1,000 ML 999 ML IV CONT (20:00)
[2023-03-07 20:02] LABS: Basophils Percent Auto 0.2 % (0.2-1.2); Eosinophils Absolute Auto 0.2 K/mm3 (0-0.3); Eosinophils Percent Auto 1.1 % (0-4.4); Hematocrit 30.1 % (37.0-47.0); Hemoglobin 10.2 g/dL (12.0-15.0); Immature Granulocyte Absolute 0.07 K/mm3 (0.00-0.031); Immature Granulocyte Percent A 0.5 % (0-0.5); Lymphocytes Absolute Auto 2.21 K/mm3 (0.9-3.2); Lymphocytes Percent Auto 16.3 % (18.3-44.2); Mean Corpuscular HGB Conc 33.9 g/dl (32-36); Mean Corpuscular Volume 85.5 fl (80-100); Mean Platelet Volume 9.2 fl (7.4-10.4); Monocytes Absolute Auto 0.9 K/mm3 (0.1-0.6); Monocytes Percent Auto 6.4 % (2.6-8.5); Neutrophils Absolute Auto 10.2 K/mm3 (1.3-6.7); Neutrophils Percent Auto 75.5 % (45.5-73.1); Platelet Count Result 332 k/mm3 (150-375); Red Blood Count 3.52 M/mm3 (4.2-5.4); Red Cell Distribution Width 13.3 % (11.5-14.5); White Blood Count 13.6 K/mm3 (4.5-10.0)
[2023-03-07 20:03] LABS: Appearance Urine Clear (Clear); Bilirubin Urine Negative (Negative); Blood Urine Negative (Negative); Color Urine Yellow (Yellow); Glucose Urine UA Negative (Negative); Ketones Urine 1+ mg/dL (Negative); Leukocyte Esterase Ur Negative LEU/UL (Negative); Nitrate Urine Negative (Negative); Protein Urine Negative (Negative); Urobilinogen Urine 0.2 mg/dL (<2.0)
[2023-03-07 20:06] LABS: Add Urine Microscopic? NO
[2023-03-07 20:12] LABS: Alanine Aminotransferase 19 U/L (6-35); Albumin Level 3.4 g/dL (3.5-5.1); Alkaline Phosphatase 119 U/L (38-126); Anion Gap 5 mmol/L (8-16); Aspartate Amino Transferase 15 U/L (14-36); Bilirubin,Total 0.3 mg/dL (0.2-1.3); Blood Urea Nitrogen 11 mg/dL (7-17); Calcium 8.6 mg/dL (8.4-10.2); Carbon Dioxide 21 mmol/L (22-30); Chloride 107 mmol/L (98-107); Estimated CRCL calculation 142 ml/min; Estimated Glomerular Filt Rate > 60; Glucose 111 mg/dL (65-110); Potassium 4.2 mmol/L (3.4-5.0); Sodium 133 mmol/L (137-145)
[2023-03-07 20:56] VITALS: BP 126/64; PULSE 89; RESP 14; O2SAT 100
[2023-03-07 21:58] VITALS: BP 127/77; PULSE 94; RESP 15; TEMP 36.6; O2SAT 99
== END 2023-03-07 21:59 | disposition home or self-care (01) ==
PROVIDERS: Emergency Provider Emergency Medicine; PCP Registered Nurse
DX: O99.891 Other specified diseases and conditions complicating pregnancy (principal); M54.50 Low back pain, unspecified; Z3A.34 34 weeks gestation of pregnancy
CPT/HCPCS: 36415; 80053; 81003; 85025; 96361; 96374; 99284; J2405; J7030

== ENCOUNTER 2023-03-09 16:34 | Observation (INO) | payer OTHER, SELFPAY ==
[2023-03-09 17:05] VITALS: BMI 38.0
[2023-03-09 17:16] VITALS: BP 113/65; PULSE 98
[2023-03-09 17:31] VITALS: BP 124/82; PULSE 91
[2023-03-09 17:33] LABS: Appearance Urine Clear (Clear); Bilirubin Urine Negative (Negative); Blood Urine Negative (Negative); Color Urine Yellow (Yellow); Glucose Urine UA Trace mg/dL (Negative); Ketones Urine Trace mg/dL (Negative); Leukocyte Esterase Ur Negative LEU/UL (NEGATIVE); Nitrate Urine Negative (Negative); Protein Urine Negative (Negative); Specific Grav Ur 1.015 (1.001-1.035); Urobilinogen Urine 0.2 mg/dL (<2.0)
[2023-03-09 17:46] VITALS: BP 118/74; PULSE 91
[2023-03-09 17:46] LABS: Add Urine Microscopic? NO
[2023-03-09 18:01] VITALS: BP 124/73; PULSE 91
[2023-03-09 18:16] VITALS: BP 127/72; PULSE 87
--- NOTE | 2023-03-09 18:29 | PC.NURSE ---
Dr Vazquez called via literary writer and informed of contraction pattern, FHTs, and UA results. Orders to discharge patient home with labor precautions and encouragement to drink her water.
--- NOTE | 2023-04-02 23:07 | P.PNOB_ITS ---
OB - Triage/Final Diagnosis Visit Information Comments/Additional reasons for admission: I have assessed the risk for this patient, Emi Harris, and determined that she would benefit from observation care. Evaluation Laboratory results: Laboratory Tests 03/09/23 17:21 Urine Color Yellow Urine Appearance Clear Urine pH 7.0 Ur Specific [place] 1.015 Urine Protein Negative Urine Glucose (UA) Trace H Urine Ketones Trace H Ur Blood (Man) Negative Urine Nitrate Negative Urine Bilirubin Negative Urine Urobilinogen 0.2 Ur Leukocyte Esterase Negative Final Diagnosis (1) False labor: Code(s): O47.9 - False labor, unspecified Status: Acute
== END 2023-03-09 18:56 | disposition home or self-care (01) ==
PROVIDERS: Admitting Provider Obstetrics & Gynecology; PCP Registered Nurse; Visit Provider Obstetrics & Gynecology
DX: O47.03 False labor before 37 completed weeks of gestation, third trimester (principal); O26.893 Other specified pregnancy related conditions, third trimester; R10.9 Unspecified abdominal pain; Z3A.34 34 weeks gestation of pregnancy
CPT/HCPCS: 81003; 87086; G0378; G0379

== ENCOUNTER 2023-03-17 10:25 | Outpatient (RCR) | payer OTHER, SELFPAY ==
[2023-03-18] MEDS: RHO(D) IMMUNE GLOBULIN 300 MCG/2 ML SYRINGE IM (12:43)
== END 2023-06-15 23:59 | disposition home or self-care (01) ==
LOC: ANHLAB 10:25
PROVIDERS: PCP Registered Nurse; Visit Provider Advanced Practice Midwife
DX: Z29.13 Encounter for prophylactic Rho(D) immune globulin (principal); O36.0130 Maternal care for anti-D [Rh] antibodies, third trimester, not applicable or unspecified; Z3A.00 Weeks of gestation of pregnancy not specified
CPT/HCPCS: 36415; 85461; 86850; 86900; 86901; 90384; 96372; J2790

== ENCOUNTER 2023-03-20 09:16 | Outpatient (RCR) | payer OTHER, SELFPAY ==
[2023-02-17 18:03] VITALS: BP 136/90; PULSE 96
[2023-02-17 18:15] VITALS: BP 133/79; PULSE 89; RESP 18; TEMP 36.6
--- NOTE | 2023-02-17 18:34 | PC.NURSE ---
Dr. Vazquez notified of 32 week PT arriving to unit with DFM. aware of vitals, reactive NST, PT marking movement via marker, no contractions. Orders for discharge received.
[2023-02-17 18:51] VITALS: BP 139/90; PULSE 96
[2023-03-20 10:15] VITALS: BP 114/61; PULSE 97
== END 2023-05-18 23:59 | disposition home or self-care (01) ==
LOC: ANHOBOP 09:16
PROVIDERS: PCP Registered Nurse; Visit Provider Obstetrics & Gynecology
DX: O36.8130 Decreased fetal movements, third trimester, not applicable or unspecified (principal); Z3A.32 32 weeks gestation of pregnancy
CPT/HCPCS: 59025

== ENCOUNTER 2023-03-26 14:06 | Observation (INO) | payer OTHER, SELFPAY ==
[2023-03-26 15:36] VITALS: BMI 40.2
--- NOTE | 2023-04-23 18:26 | PM.OBTRLD ---
OB - Triage/Final Diagnosis Visit Information Comments/Additional reasons for admission: I have assessed the risk for this patient, Emi Harris, and determined that she would benefit from observation care. Final Diagnosis (1) False labor: Code(s): O47.9 - False labor, unspecified Status: Acute
== END 2023-03-26 15:55 | disposition home or self-care (01) ==
PROVIDERS: Admitting Provider Obstetrics & Gynecology; PCP Registered Nurse; Visit Provider Obstetrics & Gynecology
DX: O47.1 False labor at or after 37 completed weeks of gestation (principal); Z3A.37 37 weeks gestation of pregnancy
CPT/HCPCS: G0378; G0379

== ENCOUNTER 2023-04-03 08:53 | Inpatient (IN) | payer OTHER, SELFPAY ==
[2023-04-03] VITALS (15 sets, daily range): BP systolic 119–142; BP diastolic 51–99; PULSE 82–110; TEMP 36.3–36.6; BMI 41.8
--- NOTE | 2023-04-03 09:37 | LDADM ---
This patient, Emi Harris, was admitted to Labor/Delivery/Recovery 101 on 04/03/23 at 08:53. Plans for labor, pain management and were discussed with patient. Patient/family oriented to hospital policies and general routines including ID bracelet, bed and alarms, visiting hours, pain management, procedures, bathroom and other care routines, personal items, smoking policy, room service/diet and guest tray routines, security routines, and visiting hours. Patient/Family are encouraged to report perceived risks to care and to ask questions if they do not understand what they are told or what they should do. See OBIX for further documentation.
[2023-04-03 09:57] LABS: Basophils Percent Auto 0.3 % (0.2-1.2); Eosinophils Absolute Auto 0.1 K/mm3 (0-0.3); Eosinophils Percent Auto 0.9 % (0-4.4); Hematocrit 29.1 % (37.0-47.0); Hemoglobin 9.7 g/dL (12.0-15.0); Immature Granulocyte Absolute 0.05 K/mm3 (0.00-0.031); Immature Granulocyte Percent A 0.5 % (0-0.5); Lymphocytes Absolute Auto 1.54 K/mm3 (0.9-3.2); Lymphocytes Percent Auto 15.4 % (18.3-44.2); Mean Corpuscular HGB Conc 33.3 g/dl (32-36); Mean Corpuscular Hemoglobin 28.1 pg (26-34); Mean Corpuscular Volume 84.3 fl (80-100); Monocytes Absolute Auto 0.5 K/mm3 (0.1-0.6); Monocytes Percent Auto 4.8 % (2.6-8.5); Neutrophils Absolute Auto 7.8 K/mm3 (1.3-6.7); Neutrophils Percent Auto 78.1 % (45.5-73.1); Platelet Count Result 276 k/mm3 (150-375); Red Blood Count 3.45 M/mm3 (4.2-5.4); Red Cell Distribution Width 13.3 % (11.5-14.5)
--- NOTE | 2023-04-03 10:25 | WPDOBADMIT ---
Obstetrics - Admit Note Admission Note: record reviewed. No pertinent additions to the history and/or any subsequent changes in the physical findings that are not consistent with the expected course of the were found. Pt arrived after SROM, hx asthma, anxiety, circumvallate placenta, anticipate vaginal delivery Additions to the history and/or subsequent changes in the physical findings follow. None.
[2023-04-03 14:19] LABS: Rapid Plasma Reagin Non-Reactive (NonReactive)
[2023-04-03] MEDS: LACTATED RINGERS 1,000 ML 125 ML IV CONT ×2 (14:32→22:45)
[2023-04-03] MEDS: OXYTOCIN 30 UNITS/NS 500 ML 30 UNITS/500 ML BAG IV CONT (14:33)
[2023-04-03] MEDS: ACETAMINOPHEN 500 MG TABLET 1000 MG PO (23:47)
[2023-04-03] MEDS: CALCIUM CARBONATE (TUMS) 500 MG (200 MG ELEMENTAL) PO (23:47)
[2023-04-04] VITALS (10 sets, daily range): BP systolic 101–137; BP diastolic 62–93; PULSE 67–132; RESP 16; TEMP 36.1–37.3; O2SAT 90–100
[2023-04-04] MEDS: AMPICILLIN 2 GM/NS 100 ML 2 GM/100 ML BAG IVPB (01:16)
--- NOTE | 2023-04-04 02:24 | P.PCNOB_ITS ---
OB - Delivery Note Procedure Delivery date: 04/04/23 Procedure: Induction method: None Delivery augmentation: Rupture of Membranes and Pitocin Delivery monitor: External FHT and Internal Uterine Route of delivery: Laceration Description: None Specimen: No Quantitative Blood Loss (ml): 100 Anesthesia type: None Disposition: Floor [place] Baby Date of : 04/04/23 Time of : 02:09 Weeks of gestation at delivery: 38 Infant gender: Female presentation: vertex position: Left Occiput Anterior Placenta delivery description: Spontaneous Cord Vessel Description: 3 Vessels and Delayed Cord Clamping score one minute: 8 score five minutes: 9 Narrative: mother and baby skin to skin in stable condition
[2023-04-04] MEDS: OXYTOCIN 30 UNITS/NS 500 ML 30 UNITS/500 ML BAG 125 UNITS IV CONT (02:40)
--- NOTE | 2023-04-04 04:12 | PC.NURSE ---
Report given to HARISH Tejeda
[2023-04-04] MEDS: IBUPROFEN 600 MG TABLET PO ×2 (04:45→16:10)
[2023-04-04] MEDS: ACETAMINOPHEN 325 MG TABLET 650 MG PO ×2 (08:09→20:36)
[2023-04-04] MEDS: MULTIVIT/MIN/PREN/FOL AC/IRON TABLET 1 TAB PO (08:09)
[2023-04-04] MEDS: DOCUSATE SODIUM 100 MG CAPSULE PO ×2 (08:09→16:10)
[2023-04-04] MEDS: POLYSACCHARIDE IRON COMPLEX 150 MG CAPSULE PO ×2 (08:09→16:10)
--- NOTE | 2023-04-04 09:19 | PM.OBPNVD ---
OB - PN: Subj Subjective Date/time seen: 04/04/23 09:19 Patient comments: no complaints and pain well controlled baby status: doing well and nursing well [place] feeding status: exclusively breast feeding OB - PN: Obj Data Labs 04/03/23 09:32 Labs: Laboratory Results - last 24 hr 04/03/23 09:32 WBC 10.0 RBC 3.45 L Hgb 9.7 L Hct 29.1 L MCV 84.3 MCH 28.1 MCHC 33.3 RDW 13.3 Plt Count 276 MPV 10.0 Immature Gran % (Auto) 0.5 Neut % (Auto) 78.1 H Lymph % (Auto) 15.4 L [place] % (Auto) 4.8 Eos % (Auto) 0.9 Baso % (Auto) 0.3 Lymph # (Auto) 1.54 [place] # (Auto) 0.5 Eos # (Auto) 0.1 Baso # (Auto) 0.0 Abs Immat Gran (auto) 0.05 H Absolute Neuts (auto) 7.8 H Absolute Nucleated RBC 0.0 Nucleated RBC % 0.0 RPR Non-reactive Blood Type A Negative Antibody Screen Positive Antibody Identification Passive Due to RH Imm Glob Antigen Identification TNP YUNIOR, IgG Interpret Not Performed YUNIOR, Poly Interpret Neg YUNIOR, Complement Interp Not Performed OB - PN A/P Plan day: 1 Plan: routine care Time Spent With Patient Time: Total time spent is greater than 50% in coordination of care (as documented) at patient's floor/unit and/or counseling patient: Time with patient: less than 15 minutes Exam Narrative: NAD abdomen soft, nontender, fundus firm below the umbilicus Extremities nontender, 1+ edema
--- NOTE | 2023-04-04 15:51 | PC.NURSE ---
1200 - RN reported that mother has been independently without pain. was sleepy at this feeding and mother requested Dolly MOREIRA to syringe feed the colostrum that mother had collected earlier so she could rest. Mother has a history and declines LC assistance at this time.
[2023-04-05 01:20] VITALS: BP 124/78; PULSE 79; RESP 16; TEMP 36.9; O2SAT 98
[2023-04-05 05:59] LABS: Hematocrit 26.5 % (37.0-47.0); Hemoglobin 8.6 g/dL (12.0-15.0)
--- NOTE | 2023-04-05 07:27 | PM.OBPNVD ---
OB - PN: Subj Subjective Date/time seen: 04/05/23 07:27 doing well, OB - PN: Obj Data Labs 04/05/23 05:42 Labs: Laboratory Results - last 24 hr 04/05/23 05:42 Hgb 8.6 L Hct 26.5 L Blood Type A Negative Baby's Blood Type A pos Baby's YUNIOR Positive OB - PN A/P Plan day: 1 Plan: routine care and discharge home Time Spent With Patient Time: Total time spent is greater than 50% in coordination of care (as documented) at patient's floor/unit and/or counseling patient: Review of Systems Review of Systems: All systems reviewed & are unremarkable except as noted in HPI and below Exam Const: General: cooperative, healthy appearing and comfortable Resp: Effort & Inspection: normal respiratory effort Cardio: Rate: regular rate Rhythm: regular rhythm GI: Other: soft Skin: General skin exam: normal color Extrem: Right lower extremity: normal to inspection Left lower extremity: normal to inspection
--- NOTE | 2023-04-05 07:32 | P.DS_ITS ---
DS: Admitting Diagnosis Discharge Date 04/05/23 Admitting Diagnosis SROM DS: Discharge Diagnosis Discharge Diagnosis (1) Vaginal delivery: Code(s): O80 - Encounter for full-term uncomplicated delivery Status: Acute OB - DS: Summary OB Procedures : None OB Procedures Intrapartum: Spontaneous Vag Delivery OB Procedures: : None Time Spent with Patient Time attestation: Total time spent providing and/or coordinating discharge services: DS: Data Data Completed and Pending Labs on day of discharge: Labs from last 24 hours 04/05/23 05:42 Hgb 8.6 L Hct 26.5 L Blood Type A Negative Antibody Screen Pending Screen Pending Baby's Blood Type A pos Baby's YUNIOR Positive Doses of RhIg Required Pending Discharge Plan Discharge Attending physician on discharge: Suzanne Vazquez Discharging Clinician: Zuleika Minaya Patient Disposition: Home, Self-Care Activity: pelvic rest Diet: regular Patient Instructions: Antibiotic Form Stand Alone Forms: General Discharge Information Follow-up/Referrals: Zuleika Minaya, KGM [Certified Nurse Assistant To The Director] - 4 Weeks Discharge Medications: New ibuprofen 600 mg Tablet 600 mg PO Q6H PRN (Reason: Cramping) Qty: 30 0RF Continued ferrous sulfate 325 mg (65 mg iron) Tablet 325 mg PO DAILY PNV cmb#95-ferrous fumarate-FA [] 28 mg iron- 800 mcg Tablet 1 tablet PO DAILY ipratropium-albuterol 18-103 mcg/actuation Aerosol 1 spray INHALATION Discontinued ondansetron 8 mg tablet,disintegrating 8 mg PO BID PRN (Reason: Nausea) Date of admission: 04/03/23 08:53 Primary Care Provider: AnelAlana Admitting Provider: Suzanne Vazquez Attending physician on admission: Suzanne Vazquez Condition: Stable
[2023-04-05 08:50] VITALS: BP 105/50; PULSE 65; RESP 16; TEMP 36.8; O2SAT 97
[2023-04-05] MEDS: MULTIVIT/MIN/PREN/FOL AC/IRON TABLET 1 TAB PO (10:07)
[2023-04-05] MEDS: DOCUSATE SODIUM 100 MG CAPSULE PO ×2 (10:07→17:20)
[2023-04-05] MEDS: POLYSACCHARIDE IRON COMPLEX 150 MG CAPSULE PO ×2 (10:07→17:20)
[2023-04-05] MEDS: IBUPROFEN 600 MG TABLET PO ×2 (10:13→19:51)
--- NOTE | 2023-04-05 14:25 | PC.NURSE ---
0457 - Introductions were made, then consulted with patient to assess needs related to . Mother led the conversation with her?plans to feed?her infant, the?experience so far and her history. Resources provided for inpatient and outpatient services with the feeding sheet, mom/baby guide and name written on the white board. Mother voiced understanding of information and will call if there is a request for assistance. Reported to the primary RN. [id number] Consulted with patient to assess needs related to . Reviewed working with infant, supporting breast and how to protect the nipples with an optimal deep latch, good positioning, and good hand washing. Reviewed positioning and alignment, supporting breast, off-centered (asymmetrical latch) and leading with the chin with big, open, wide gape. latched optimally to the right breast in football position. Education given to mother of how to visualize suck/swallow ratios and listen for drinking at the breast. was able to maintain latch without discomfort to mother. Nipple care reviewed with optimal deep latch and good positioning. Resources used to facilitate learning were used from the tool, along with the mom and baby guide. Mother voiced understanding of the education shared, to call for assistance if the does not latch or if there is discomfort with . Reported to the Primary RN
[2023-04-05] MEDS: RHO(D) IMMUNE GLOBULIN 300 MCG/2 ML SYRINGE IM (16:16)
[2023-04-05 20:00] VITALS: BP 118/76; PULSE 85; RESP 18; TEMP 36.6; O2SAT 99
[2023-04-05] MEDS: ACETAMINOPHEN 325 MG TABLET 650 MG PO (22:33)
[2023-04-06 07:25] VITALS: BP 113/69; PULSE 74; RESP 18; TEMP 36.9; O2SAT 97
[2023-04-06] MEDS: DOCUSATE SODIUM 100 MG CAPSULE PO (08:02)
[2023-04-06] MEDS: POLYSACCHARIDE IRON COMPLEX 150 MG CAPSULE PO (08:02)
[2023-04-06] MEDS: MULTIVIT/MIN/PREN/FOL AC/IRON TABLET 1 TAB PO (08:03)
[2023-04-06] MEDS: IBUPROFEN 600 MG TABLET PO (08:03)
--- NOTE | 2023-04-06 08:22 | PM.OBPNVD ---
OB - PN: Subj Subjective Date/time seen: 04/06/23 08:22 Patient comments: no complaints, pain well controlled and tolerating diet OB - PN: Obj Data Labs 04/05/23 05:42 Labs: Laboratory Results - last 24 hr 04/05/23 05:42 Blood Type A Negative Antibody Screen Not Reportable Screen Negative Baby's Blood Type A pos Baby's YUNIOR Positive Doses of RhIg Required 1 OB - PN A/P Plan day: 2 Plan: routine care and discharge home Time Spent With Patient Time: Total time spent is greater than 50% in coordination of care (as documented) at patient's floor/unit and/or counseling patient: Exam Const: General: comfortable and no acute distress Resp: Effort & Inspection: normal respiratory effort Auscultation: no rales, no rhonchi and no wheezes Cardio: Rate: regular rate Heart sounds: no click, no murmurs and no rubs GI: GI Palp: Yes Soft to palpation and No Tenderness to palpation present (GI) Auscultation: normal bowel sounds Extrem: General: normal to inspection, no pedal edema and no calf tenderness
--- NOTE | 2023-04-06 08:23 | PM.OBDSVD ---
DS: Admitting Diagnosis Discharge Date 04/06/2023 Admitting Diagnosis Term OB - DS: Summary OB Procedures : None OB Procedures Intrapartum: Spontaneous Vag Delivery OB Procedures: : None Time Spent with Patient Time attestation: Total time spent providing and/or coordinating discharge services: DS: Data Data Completed and Pending Labs on day of discharge: Labs from last 24 hours 04/05/23 05:42 Blood Type A Negative Antibody Screen Not Reportable Screen Negative Baby's Blood Type A pos Baby's YUNIOR Positive Doses of RhIg Required 1 Discharge Plan Discharge Attending physician on discharge: Suzanne Vazquez Discharging Clinician: Zuleika Minaya Patient Disposition: Home, Self-Care Activity: pelvic rest Diet: regular Patient Instructions: Antibiotic Form Stand Alone Forms: General Discharge Information Follow-up/Referrals: Zuleika Minaya, CNM [Certified Nurse Squirrel Worker] - 4 Weeks Discharge Medications: New ibuprofen 600 mg Tablet 600 mg PO Q6H PRN (Reason: Cramping) Qty: 30 0RF Continued ferrous sulfate 325 mg (65 mg iron) Tablet 325 mg PO DAILY PNV cmb#95-ferrous fumarate-FA [] 28 mg iron- 800 mcg Tablet 1 tablet PO DAILY ipratropium-albuterol 18-103 mcg/actuation Aerosol 1 spray INHALATION Discontinued ondansetron 8 mg tablet,disintegrating 8 mg PO BID PRN (Reason: Nausea) Date of admission: 04/03/23 08:53 Primary Care Provider: AnelAlana Admitting Provider: Suzanne Vazquez Attending physician on admission: Suzanne Vazquez Condition: Stable
--- NOTE | 2023-04-06 10:50 | PC.NURSE ---
Patient instructed on viewing the discharge video Mother & Baby Care, The First Two Weeks . Patient was given the opportunity and encouraged to ask questions. Patient verbalized understanding of information shared and has been given the mother/baby guide for home reference.
--- NOTE | 2023-04-06 16:13 | PC.NURSE ---
1132-Mother verbalizes she is able to independently latch infant with appropriate positioning/alignment. She denies any nipple discomfort and is responsively . Infant is currently meeting outcomes for weight, output, jaundice and feeding frequencies of 8-12 times in 24 hours. Mother declines any additional assistance/education at this time. Reminded parents to use good handwashing technique to prevent infection. Mother is feeding appropriately for growth of infant and understands stimulating to eat if needed. has had appropriate feedings in the last 24 hours meets the outcomes for weight, output and jaundice at this time. Mother states she is confident to continue breastfeed her infant at home, when to call for assistance and denies any additional assistance or education at this time. Reinforced understanding of milk production, transition of milk, signs of adequate intake, transition of stool, prevention/relief of engorgement, responsive watching for feeding cues, the different methods of stimulating to breastfeed 2-3 hours after the start of the last feeding, community resources, medication information reviewed per [facility] and when to call a provider using the resource of the mom and baby guide. Mother voiced understanding of the education shared. Reported to the primary RN.
== END 2023-04-06 11:50 | disposition home or self-care (01) | DRG 807 ==
LOC: ANHLDR 09:28 → ANHOB2 04-04 04:47
PROVIDERS: Advanced Practice Midwife; Admitting Provider Obstetrics & Gynecology; PCP Registered Nurse; Visit Provider Obstetrics & Gynecology
DX: O42.02 Full-term premature rupture of membranes, onset of labor within 24 hours of rupture (principal); Z37.0 Single live birth; Z3A.38 38 weeks gestation of pregnancy; O62.3 Precipitate labor
CPT/HCPCS: 36415; 84112; 85014; 85018; 85025; 85461; 86592; 86850; 86880; 86900; 86901; 90384; A9270; J0290; J2590; J2790; J7120

== ENCOUNTER 2024-05-20 15:51 | Emergency (ER) | payer OTHER, SELFPAY ==
[2024-05-20 15:55] VITALS: BP 144/86; PULSE 101; RESP 16; TEMP 36.8; O2SAT 100
--- NOTE | 2024-05-20 17:29 | ED.GENADULT ---
HPI - General Adult General Chief complaint: Recheck/Abnormal Lab/Rx <Tracey Wallace, OCEANOGRAPHY TEACHER - Last Filed: 05/20/24 17:33> Stated complaint: HTN 19 weeks preg <Tracey Wallace APRN - Last Filed: 05/20/24 17:33> Time Seen by Provider: 05/20/24 17:10 <Tracey Wallace APRN - Last Filed: 05/20/24 17:33> Focused HPI: Patient is a 29-year-old female who presents to the ER with complaints of high blood pressure. She is 19 weeks with her 4th child. Patient reports on Monday she had a lot of stressful events at home. She took her blood pressure and it was reading 140s to 150s over 100s. Patient reports her readings went back down to normal on Monday. She reports today she has symptoms including headache, neck pain, left eye twitching. Patient took her blood pressure readings at home and the highest she got was 160s over 130s. She called her women's health provider, Zuleika Minaya, from [facility], who advised her to come into the ER for evaluation. Patient endorses swollen fingers, but not shortness of breath, chest pain or lower extremity swelling. She took Tylenol to treat her headache earlier today, on but reports it is back and would like more Tylenol. GENERAL: Well-appearing, well-nourished, and in no acute distress. HEAD: Normocephalic, atraumatic. CHEST: Clear to auscultation. ?No respiratory distress. HEART: Regular rate and rhythm.? NEURO: ?Alert and oriented x3. Patient screened in triage and initial orders placed.? ?Additional care and disposition to be based upon?diagnostic testing and treatment. <Tracey Wallace APRN - Last Filed: 05/20/24 17:33> Related Data Home medications: Home Medications Medication Instructions Recorded Confirmed ferrous sulfate 325 mg (65 mg 325 mg PO DAILY 02/25/23 04/03/23 iron) tablet vit no.95-ferrous 1 tablet PO DAILY 02/25/23 04/03/23 fumarate 28 mg-folic acid 800 mcg tablet () ipratropium 18 mcg-albuterol 103 1 spray inhalation 03/23/23 mcg/actuation aerosol inhaler <Tracey Wallace APRN - Last Filed: 05/20/24 17:33> Allergies/adverse reactions: Allergies Allergy/AdvReac Type Severity Reaction Status Date / Time latex Allergy Rash Verified 05/20/24 15:52 <Tracey Wallace APRN - Last Filed: 05/20/24 17:33> Review of Systems Review of Systems: CONSTITUTIONAL: Denies fever GASTROINTESTINAL: Denies abdominal pain, nausea, vomiting NEUROLOGIC: Reports headache. Denies numbness, or weakness. <Cecilia Campoverde PA-C - Last Filed: 05/20/24 20:05> All systems reviewed & are unremarkable except as noted in HPI and below <Cecilia Campoverde PA-C - Last Filed: 05/20/24 20:05> [facility] Past Medical History Medical History: Medical History History of miscarriage <Tracey Wallace APRN - Last Filed: 05/20/24 17:33> Surgical History Surgical History: Surgical History No pertinent past surgical history <Tracey Wallace APRN - Last Filed: 05/20/24 17:33> Family History Family History: Family History (Updated 03/23/23 @ 15:17 by Elva Wilson RN) Grandparent Heart disease Mother Diabetes mellitus <Tracey Wallace APRN - Last Filed: 05/20/24 17:33> Social History Social History: Social History Smoking status: Never smoker Substance use: never Other substance usage details: occasional to smoke, uses a topical regularly Lack of Transportation: No Lack of Food: Never True Current Housing: I Have Housing Concerned About Future Housing: No Difficulty Paying Gas/Electric Bills: No Difficulty Paying for Meds: No Currently Unemployed: No Education: Don't Know Difficulty w/ Childcare or Family Care: No Spiritual care concerns: No <Aliya Jacob
[2024-05-20] MEDS: ACETAMINOPHEN 325 MG TABLET 650 MG PO (17:40)
[2024-05-20 17:46] LABS: Add Urine Microscopic? NO; Appearance Urine Clear (Clear); Bilirubin Urine Negative (Negative); Blood Urine Negative (Negative); Color Urine Yellow (Yellow); Glucose Urine UA Negative (Negative); Ketones Urine 2+ mg/dL (Negative); Leukocyte Esterase Ur Negative LEU/UL (Negative); Nitrate Urine Negative (Negative); Protein Urine Negative (Negative); Specific Grav Ur 1.009 (1.001-1.035); pH Urine 6.5 (5.0-9.0)
[2024-05-20 18:00] VITALS: RESP 20; O2SAT 100
[2024-05-20 18:02] VITALS: BP 138/84; PULSE 96; RESP 20; O2SAT 100
[2024-05-20] MEDS: SODIUM CHLORIDE 0.9% IV 1,000 ML 999 ML IV CONT (19:05)
[2024-05-20 19:12] LABS: Basophils Percent Auto 0.3 % (0.2-1.2); Eosinophils Absolute Auto 0.2 K/mm3 (0-0.3); Eosinophils Percent Auto 1.6 % (0-4.4); Hematocrit 31.9 % (37.0-47.0); Hemoglobin 10.9 g/dL (12.0-15.0); Immature Granulocyte Absolute 0.04 K/mm3 (0.00-0.031); Immature Granulocyte Percent A 0.3 % (0-0.5); Lymphocytes Absolute Auto 2.43 K/mm3 (0.9-3.2); Lymphocytes Percent Auto 19.1 % (18.3-44.2); Mean Corpuscular HGB Conc 34.2 g/dl (32-36); Mean Corpuscular Hemoglobin 29.5 pg (26-34); Mean Corpuscular Volume 86.2 fl (80-100); Mean Platelet Volume 9.5 fl (7.4-10.4); Monocytes Absolute Auto 0.7 K/mm3 (0.1-0.6); Monocytes Percent Auto 5.4 % (2.6-8.5); Neutrophils Absolute Auto 9.3 K/mm3 (1.3-6.7); Neutrophils Percent Auto 73.3 % (45.5-73.1); Platelet Count Result 298 k/mm3 (150-375); Red Cell Distribution Width 13.2 % (11.5-14.5); White Blood Count 12.7 K/mm3 (4.5-10.0)
[2024-05-20 19:28] LABS: Alanine Aminotransferase 12 U/L (6-35); Albumin Level 3.6 g/dL (3.5-5.1); Alkaline Phosphatase 77 U/L (38-126); Anion Gap 10 mmol/L (4-12); Aspartate Amino Transferase 14 U/L (14-36); Bilirubin,Total 0.2 mg/dL (0.2-1.3); Blood Urea Nitrogen 5 mg/dL (7-17); Calcium 9.2 mg/dL (8.4-10.2); Carbon Dioxide 22 mmol/L (22-30); Chloride 103 mmol/L (98-107); Estimated CRCL calculation 195 ml/min; Estimated Glomerular Filt Rate > 60; Glucose 101 mg/dL (65-110); Potassium 3.5 mmol/L (3.4-5.0); Sodium 135 mmol/L (137-145)
[2024-05-20 20:11] VITALS: BP 108/67; PULSE 79; RESP 13; O2SAT 100
== END 2024-05-20 20:17 | disposition home or self-care (01) ==
PROVIDERS: Registered Nurse; Emergency Provider Physician Assistant; PCP Registered Nurse
DX: O26.892 Other specified pregnancy related conditions, second trimester (principal); R03.0 Elevated blood-pressure reading, without diagnosis of hypertension; R51.9 Headache, unspecified; Z3A.19 19 weeks gestation of pregnancy
CPT/HCPCS: 36415; 80053; 81003; 85025; 96360; 99283; A9270; J7030

== ENCOUNTER 2024-06-21 13:21 | Observation (INO) | payer OTHER, SELFPAY ==
--- NOTE | ~2024-06-21 | US_ITS ---
LIMITED OBSTETRIC ULTRASOUND Ordering provider: Zuleika Minaya CNM History: . spotting/cramping/cervical length/check placenta . Comparison: None. FINDINGS: MATERNAL CERVIX: Measures 3.6 cm which is normal. PRESENTATION: Vertex. Longitudinal lie. PLACENTAL LOCATION: Anterior. No previa. HEART RATE: 157 bpm (normal is between 110 to 160 bpm). AMNIOTIC FLUID INDEX: Largest vertical pocket is 5.1 cm. OTHER: Maternal ovaries not visualized. IMPRESSION: Single live fetus of Vertex presentation. Reviewed, dictated and finalized at location A. IMPRESSION: Single live fetus of Vertex presentation.
[2024-06-21 13:40] VITALS: TEMP 36.2
[2024-06-21 13:51] VITALS: BP 132/68; PULSE 93
[2024-06-21 14:00] VITALS: BP 136/71; PULSE 91; BMI 56.2
[2024-06-21 14:22] LABS: Add Urine Microscopic? NO; Appearance Urine Clear (Clear); Bilirubin Urine Negative (Negative); Blood Urine Negative (Negative); Color Urine Yellow (Yellow); Glucose Urine UA Negative (Negative); Ketones Urine Negative (Negative); Leukocyte Esterase Ur Negative LEU/UL (Negative); Nitrate Urine Negative (Negative); Protein Urine Negative (Negative); Specific Grav Ur 1.023 (1.001-1.035); Urobilinogen Urine 0.2 mg/dL (<2.0); pH Urine 6.5 (5.0-9.0)
--- NOTE | 2024-06-21 14:55 | PC.NURSE ---
Called Andrade Minaya CNM with pt status. Informed of pt complaining of cramping and spotting. PT states that both have stopped since admission. Reactive tracing. No contractions seen on tracing. UA results given. Orders received.
--- NOTE | 2024-06-21 16:45 | PC.NURSE ---
Andrade Minaya CNM on unit. Ultrasound report given. Orders received to D/C home.
[2024-06-21] MEDS: RHO(D) IMMUNE GLOBULIN 300 MCG/2 ML SYRINGE IM (16:48)
--- NOTE | 2024-06-24 12:42 | P.PNOB_ITS ---
OB - Triage/Final Diagnosis Visit Information Date of evaluation: 06/21/24 Reason for evaluation: other (elevated blood pressure) Comments/Additional reasons for admission: I have assessed the risk for this patient, Emi Harris, and determined that she would benefit from observation care. Evaluation Laboratory results: Laboratory Tests 06/21/24 06/21/24 13:57 14:58 Urine Color Yellow Urine Appearance Clear Urine pH 6.5 Ur Specific [place] 1.023 Urine Protein Negative Urine Glucose (UA) Negative Urine Ketones Negative Ur Blood (Man) Negative Urine Nitrate Negative Urine Bilirubin Negative Urine Urobilinogen 0.2 Ur Leukocyte Esterase Negative Blood Type A Negative Antibody Screen Negative Screen Not Reportable Baby's Blood Type Not Reportable Baby's YUNIOR Not Reportable Doses of RhIg Required 1
== END 2024-06-21 16:55 | disposition home or self-care (01) ==
PROVIDERS: Advanced Practice Midwife; Admitting Provider Obstetrics & Gynecology; PCP Registered Nurse; Visit Provider Obstetrics & Gynecology
DX: O16.2 Unspecified maternal hypertension, second trimester (principal); Z3A.23 23 weeks gestation of pregnancy
CPT/HCPCS: 36415; 76815; 76817; 81003; 85461; 86850; 86900; 86901; 87086; 90384; 96372; G0378; J2790

== ENCOUNTER 2024-07-29 14:10 | Outpatient (CLI) | payer OTHER, SELFPAY | END 2024-07-29 14:11 | disposition home or self-care (01) | PROVIDERS: PCP Registered Nurse; Visit Provider Advanced Practice Midwife | DX: O99.413 Diseases of the circulatory system complicating pregnancy, third trimester (principal); R00.2 Palpitations; Z3A.28 28 weeks gestation of pregnancy | CPT/HCPCS: 93242 ==

== ENCOUNTER 2024-08-17 17:54 | Outpatient (RCR) | payer OTHER, SELFPAY ==
[2024-08-20 22:04] VITALS: BP 102/53; PULSE 107
== END 2024-11-15 23:59 | disposition home or self-care (01) ==
LOC: ANHOBOP 17:54
PROVIDERS: PCP Registered Nurse; Referring Provider Advanced Practice Midwife; Visit Provider Obstetrics & Gynecology
DX: O36.8190 Decreased fetal movements, unspecified trimester, not applicable or unspecified (principal)
CPT/HCPCS: 59025

== ENCOUNTER 2024-08-20 21:22 | Outpatient (CLI) | payer OTHER, SELFPAY ==
[2024-08-20 22:25] VITALS: BP 102/53; PULSE 107
== END 2024-08-20 22:23 | disposition home or self-care (01) ==
PROVIDERS: PCP Registered Nurse; Visit Provider Advanced Practice Midwife
DX: O41.8X90 Other specified disorders of amniotic fluid and membranes, unspecified trimester, not applicable or unspecified (principal); Z3A.00 Weeks of gestation of pregnancy not specified
CPT/HCPCS: 59025

== ENCOUNTER 2024-09-26 12:24 | Inpatient (IN) | payer OTHER, SELFPAY ==
[2024-09-26] VITALS (9 sets, daily range): BP systolic 136–144; BP diastolic 81–102; PULSE 82–108; RESP 16–18; TEMP 36.5–37; O2SAT 96–98; BMI 45.9
[2024-09-26 13:46] LABS: Basophils Percent Auto 0.3 % (0.2-1.2); Eosinophils Absolute Auto 0.1 K/mm3 (0-0.3); Eosinophils Percent Auto 1.2 % (0-4.4); Hematocrit 32.2 % (37.0-47.0); Hemoglobin 10.8 g/dL (12.0-15.0); Immature Granulocyte Absolute 0.06 K/mm3 (0.00-0.031); Immature Granulocyte Percent A 0.6 % (0-0.5); Lymphocytes Absolute Auto 1.89 K/mm3 (0.9-3.2); Lymphocytes Percent Auto 18.3 % (18.3-44.2); Mean Corpuscular HGB Conc 33.5 g/dl (32-36); Mean Corpuscular Hemoglobin 28.3 pg (26-34); Mean Corpuscular Volume 84.3 fl (80-100); Monocytes Absolute Auto 0.7 K/mm3 (0.1-0.6); Neutrophils Absolute Auto 7.5 K/mm3 (1.3-6.7); Neutrophils Percent Auto 72.6 % (45.5-73.1); Platelet Count Result 253 k/mm3 (150-375); Red Blood Count 3.82 M/mm3 (4.2-5.4); Red Cell Distribution Width 13.4 % (11.5-14.5); White Blood Count 10.3 K/mm3 (4.5-10.0)
[2024-09-26 14:01] LABS: Alanine Aminotransferase 11 U/L (6-35); Albumin Level 2.9 g/dL (3.5-5.1); Alkaline Phosphatase 138 U/L (38-126); Anion Gap 8 mmol/L (4-12); Aspartate Amino Transferase 14 U/L (14-36); Bilirubin,Total 0.4 mg/dL (0.2-1.3); Blood Urea Nitrogen 14 mg/dL (7-17); Calcium 8.7 mg/dL (8.4-10.2); Carbon Dioxide 17 mmol/L (22-30); Chloride 109 mmol/L (98-107); Estimated Glomerular Filt Rate > 60; Glucose 116 mg/dL (65-110); Potassium 4.3 mmol/L (3.4-5.0); Sodium 134 mmol/L (137-145)
[2024-09-26 14:24] LABS: Rapid Plasma Reagin Non-Reactive (NonReactive)
[2024-09-26 14:40] LABS: HIV 1/2 Ab P24 Ag Result Negative (Negative)
--- NOTE | 2024-09-26 15:36 | LDADM ---
This patient, Emi Harris, was admitted to Labor/Delivery/Recovery 106 on 09/26/24 at 12:24. Plans for labor, pain management and were discussed with patient. Patient/family oriented to hospital policies and general routines including ID bracelet, bed and alarms, visiting hours, pain management, procedures, bathroom and other care routines, personal items, smoking policy, room service/diet and guest tray routines, security routines, and visiting hours. Patient/Family are encouraged to report perceived risks to care and to ask questions if they do not understand what they are told or what they should do. See OBIX for further documentation.
--- NOTE | 2024-09-26 16:01 | WPDOBADMIT ---
Obstetrics - Admit Note Admission Note: record reviewed. No pertinent additions to the history and/or any subsequent changes in the physical findings that are not consistent with the expected course of the were found. Additions to the history and/or subsequent changes in the physical findings follow. 37 weeks, admit in labor, SVE 6-7/75/-2 AROM large amount of clear, odorless fluid, anticipate vaginal delivery
[2024-09-26 16:48] LABS: OBXCEM ROM Plus Negative (Negative)
[2024-09-26] MEDS: LACTATED RINGERS 1,000 ML 125 ML IV CONT (18:14)
[2024-09-26] MEDS: OXYTOCIN 30 UNITS/NS 500 ML 30 UNITS/500 ML BAG IV CONT (18:15)
--- NOTE | 2024-09-26 19:37 | P.PCNOB_ITS ---
OB - Vaginal Delivery Note Procedure Delivery date: 09/26/24 Delivery augmentation: Rupture of Membranes and Pitocin Delivery monitor: External FHT and External Uterine Route of delivery: Episiotomy description: None Laceration Description: Perineal - 1st Degree Specimen: No Quantitative Blood Loss (ml): 50 Anesthesia type: None Disposition: Floor Complications: No immediate complications [place] Baby Date of : 09/[birth year]/24 Time of : 19:24 Gestational Age by Date: 37 Infant gender: Male presentation: vertex position: Left Occiput Anterior Placenta delivery description: Spontaneous Cord Vessel Description: 3 Vessels score one minute: 9 score five minutes: 9
[2024-09-26] MEDS: OXYTOCIN 30 UNITS/NS 500 ML 30 UNITS/500 ML BAG 125 UNITS IV CONT (20:05)
[2024-09-26] MEDS: IBUPROFEN 600 MG TABLET PO (21:25)
[2024-09-26] MEDS: ACETAMINOPHEN 325 MG TABLET 650 MG PO (22:20)
[2024-09-27 04:00] VITALS: BP 134/91; PULSE 87; RESP 16; TEMP 36.6; O2SAT 99
--- OUTSIDE RECORDS SUMMARY | 2024-09-27 05:07 | XMS_ITS | Data Portability ---
Author Organization [facility] Address [address] [place] [address] Care Team Providers Care Field Account Director Name Role Phone KAYLA GALICIA Primary Care Provider Assessment Encounter Date Assessment Date Assessment LastModified by Organization Details LastModified Time 09/19/2024 09/19/2024 Patient is ___weeks . Discussed plan. [email or web address] Not available 09/19/2024 11:53:37 Plan of Treatment Reminders Order Date Submit Date Provider Last Modified By Organization Details Last Modified Time Details Appointments U/S OB BPP 2024 10:30A M ULTRASOUND Not available Not available Not available NST 2024 11:00A M NST SCHEDULE Not available Not available Not available OB ROUTINE 2024 11:30A M KG WeissM Not available Not available Not available U/S OB BPP 2024 10:30A M ULTRASOUND Not available Not available Not available NST 2024 11:00A M NST SCHEDULE Not available Not available Not available OB ROUTINE 2024 11:30A M KG WeissM Not available Not available Not available U/S OB BPP 2024 10:00A M ULTRASOUND Not available Not available Not available NST 2024 10:30A M NST SCHEDULE Not available Not available Not available OB ROUTINE 2024 11:15A M Suzanne VAZQUEZ MD Not available Not available Not available Lab None recorde d. Referral None recorde d. Procedures None recorde d. Surgeries None recorde d. Imaging non-str ess test [address]24 [email or web address], [address], [address], [place], [address], 09/16/2024 12:24:23 US, obstetr ic, biophys ical profile + non-str ess test [address], [address], [address], [place], [address], 09/13/2024 17:16:50 non-str ess test 2024 025 [email or web address], [address], [address], [place], [address], 09/23/2024 03:06:11 US, obstetr ic, follow- up [address], [address], [address], [place], [address], 09/19/2024 20:17:34 US, obstetr ic, biophys ical profile + non-str ess test 2024 [address], [address], [place], [address], 09/19/2024 20:17:34 Medication Orders None recorde d. Patient TargetsNo targets recorded. Patient InstructionsNo instructions recorded. Reason for Referral None Reported. Results Created Date Observation Date Name Description Value Unit Range Abnormal Flag Note LastModifiedBy Organization Detail LastModifiedTime 09/05/1909/05/2024 [facility], PHILLIP bacterial vaginosis (bv), tma Negati ve negati ve Not Available [facility] (Lab) [address] [facility], [place], [address], 09/06/2024 15:37:23 09/05/19 25 09/05/2024 [facility]OM[facility] H SWAB PLUS, PHILLIP orlando species, tma Negati ve negati ve Not Available [facility] (Lab) [address] [place], [address], 09/06/2024 15:37:23 09/05/19 25 09/05/2024 [facility] orlando glabrata, tma Negati ve negati ve Not Available [facility] (Lab) [address] [place], [address], 09/06/2024 15:37:23 09/05/19 25 09/05/2024 [facility] trichomonas vaginalis, tma Negati ve negati ve Not Available [facility] (Lab) [address] [place], [address], 09/06/2024 15:37:23 09/05/19 25 09/05/2024 [facility]IP chlamydia trachomatis, PCR Negati ve negati ve Not Available [facility] (Lab) [address] [place], [address], 09/06/2024 15:37:23 09/05/19 25 09/05/2024 [facility] neisseria gonorrhoeae, PCR Negati ve negati ve Bacte rial vagin osis detec ts the follo wing bacte monica assoc iated with bacte rial vagin osis (BV): Lacto bacil david (L. gasse ri, L. crisp atus and L. jense allegra), Gardn erell a vagin malena, and Atopo bium vagin ae. A singl e quali tativ e resul t is repor amira base on instr ument softw are to deter mine BV posit leah or negat leah statu s. The [facility] speci es group tests for C. albic ans, C. tropi calis , C. parap justine is, C. dubli niens is. Testi ng is perfo rmed using the Trans cript ion Media amira Ampli ficat ion metho d. Tests for Whitney da glabr dorita, Trich omona s vagin malena, Chlam ydia trach omati s, and Neiss eria gonor rhoea e are also inclu ded in this panel . Not Available [facility] (Lab) [address], [place], [address], 09/06/2024 15:37:23 08/20/20 24 08/20/2024 non-s tress test No observ ation record ed. [email or web address] [facility] [address], [place], [address], 08/22/2024 09:29:03 08/22/20 24 08/22/2024 US, obste tric, follo w-up No observ ation record ed. [email or web address] [address], [place], [address], 08/22/2024 13:05:40 08/22/20 24 08/22/2024 US, obste tric, follo w-up No observ ation record ed. [email or web address] [address], [place], [address], 08/23/2024 08:54:20 09/03/20 24 08/30/2024 imagi ng/di agnos tic resul t No observ ation record ed. [facility] [address], [place], [address], 09/05/2024 14:18:39 09/05/19 25 09/05/2024 non-s tress test No observ ation record ed. [email or web address] [address], [place], [address], 09/05/2024 15:36:53 09/05/19 25 09/05/2024 US, obste tric, bioph ysica l profi le + non-s tress test No observ ation record ed. [email or web address] [address], [place], [address], 09/05/2024 18:24:02 09/05/19 25 09/05/2024 US, obste tric, bioph ysica l profi le + non-s tress test No observ ation record ed. [email or web address] [address], [place], [address], 09/07/2024 13:11:57 09/13/19 25 09/13/2024 US, obste tric, bioph ysica l profi le + non-s tress test No observ ation record ed. [email or web address] [address], [place], [address], 09/13/2024 16:26:47 09/13/19 25 09/13/2024 US, obste tric, bioph ysica l profi le + non-s tress test No observ ation record ed. [email or web address] [address], [place], [address], 09/13/2024 17:48:23 09/13/19 25 09/13/2024 US, obste tric, bioph ysica l profi le + non-s tress test No observ ation record ed. [email or web address] [address], [place], [address], 09/13/2024 17:48:23 09/13/19 25 09/13/2024 non-s tress test No observ ation record ed. [email or web address] [address], [place], [address], 09/13/2024 17:49:34 09/19/19 25 09/19/2024 US, obste tric, follo w-up No observ ation record ed. [email or web address] [address], [place], [address], 09/19/2024 13:11:41 09/19/19 25 09/19/2024 US, obste tric, bioph ysica l profi le + non-s tress test No observ ation record ed. [email or web address] [address], [place], [address], 09/19/2024 13:11:51 09/19/19 25 09/19/2024 US, obste tric, follo w-up No observ ation record ed. [email or web address] [address], [place], [address], 09/25/2024 07:32:54 09/19/1909/19/2024 non-s tress test No observ ation record ed. [email or web address] [address], [place], [address], 09/19/2024 12:38:56 09/19/19 non-s tress test No observ ation record ed. [email or web address] [address], [place], [address], 09/19/2024 12:44:42 Result Notes None recorded. Problems Name Problem SNOMED Code Status Onset Date Resolution Date Notes Provider Name and Address Organization Details Recorded Time Pregnanc y 96780477 Completed 202204/17/2023 Lucero Argueta null, [facility] 4 13:03:01 Placenta l abruptio n 341714749 Completed story unclear Jony Murillo null, [facility] 3 16:40:14 Group B Streptoc occus carrier 6266725320 103 Completed Positive in previous pregnanc y Ramonita Cadena MD [address], [place], [address], [facility] 3 12:29:04 RhD negative 821303892 Completed 08/28/22 , 03/18/23 Jony Murillo [facility], [facility] 3 16:40:14 [facility] 700239338 [facility] 3 16:40:14 Anxiety 60976187 [facility], [facility] 3 16:40:13 Hypereme sis 219708244 Completed zofran pump [facility], [facility] 3 16:40:14 Placenta circumva llata 5893164 Completed [facility] 3 16:40:14 Anemia of pregnanc y 11844770 Completed 2022 [facility], [facility] 3 16:40:13 SARS-CoV -2 vaccinat ion declined 8614274761 Active 2021 Lucero Argueta [facility] 4 13:01:38 Bipolar disorder 01792204 Active 2016 Lucero Argueta [facility] 4 13:01:38 Chronic pain of right upper limb 0481042819 7416417 Active 2018 Lucero Argueta [facility], [facility] 4 13:01:38 Folic acid deficien cy 058001941 Active 2011 Lucero Argueta [facility], [facility] 4 13:01:38 Asthma 560563637 Active 2011 Lucero Argueta [facility] 4 13:01:38 Allergic rhinitis caused by pollen 63015823 Active 2018 Lucero Argueta [facility], [facility] 4 13:01:38 Chronic tension- type headache 896958243 Active 2012 Lucero kennedy, [facility] 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 4 13:01:38 Shoulder joint unstable 472969778 Active 2013 Lucero kennedy, [facility] 4 13:01:38 Attentio n deficit hyperact ivity disorder , predomin antly inattent leah type 71512907 Active 2015 Lucero kennedy, [facility] 4 13:01:38 Depressi ve disorder 56136446 Active 2017 Lucero kennedy, [facility] 4 13:01:38 Anxiety 44040638 Active 2015 Lucero Argueta [facility], [facility] 4 13:01:38 Hyperlip idemia 64093696 Active 2021 Lucero kennedy, [facility] 4 13:01:38 Subjecti ve tinnitus 71358638 Active 2012 Lucero kennedy, [facility] 4 13:01:38 Marijuan a user 084456390 Active 2019 Lucero Argueta [facility], [facility] 4 13:01:38 Hypermob ility of joint 717921749 Active 2022 Lucero kennedy, [facility] 4 13:01:38 Severe obesity 8901790017 9104 Active 2019 Lucero kennedy, [facility] 4 13:01:38 Pregnanc y 22401952 Active 2023 Lucero Argueta [facility], [facility] 4 13:03:00 Mixed anxiety and depressi ve disorder 978695958 Active Zuleika Minaya CNM [address], [place], [address], [facility] 4 14:02:49 Attentio n deficit hyperact ivity disorder 024481803 Active Luceromonika Argueta [facility], [facility] 4 13:06:36 Anterior synechia e 02715128 Active f/u 4 weeks Zuleika Minaya CNM [address], [place], [address], [facility] 4 13:48:01 Obesity 461450894 Active antenata l testing @ 34 weeks weekly; BMI 42 Jony Murillo [facility], [facility] 4 15:33:48 Placenta circumva llata 3644485 Active 2023 32wk growth u/s Jony Murillo [facility], [facility] 4 15:33:34 COVID-19 642882496 Active 2023 ASA & serial growth Suzy Hassan [facility], [facility] 4 17:42:30 Prophyla ctic immunoth erapy Active 2023 rhogam received 03/22/24 @ [facility] Jony Murillo [facility], [facility] 4 11:33:13 Hypereme sis 370780266 Active history of in last 2 pregnanc ies Jony Murillo [facility], [facility] 4 15:33:20 Migraine 83749761 Active Jony Murillo null, [facility] 4 15:34:21 Large for gestatio n age fetus 129656448 Active 97% Joe Vazquez MD [address], [place], [address], [facility] 5 12:27:52 Placenta l abruptio n 956379142 Active HISTORIC AL Joe Vazquez MD [address], [place], [address], [facility] 5 12:27:33 Problem Notes None recorded. Procedures Surgical History Date Name Laterality Status Provider Name and Address Organization Details Recorded Time 4 Date of Last Pap Smear completed Lucero Argueta [facility] 11/22/2023 13:00:24 9 Date of Last Mammogram completed Lucero Argueta [facility] 09/08/2022 10:11:27 1 drainage of abdominal wall abscess completed Luceromonika Argueta [facility] 09/08/2022 10:21:31 Imaging Results Imaging Date Name Status LastModified by Organiz ation Details LastModified Time 08/20/2024 non-stress test completed [address] [facility] [address], [place], [address], 08/22/2024 09:29:03 08/22/2024 US, obstetric, follow-up completed [facility] [address], [place], [address], 08/22/2024 13:05:40 08/22/2024 US, obstetric, follow-up completed [place] [address] [address], [place], [address], 08/23/2024 08:54:20 08/30/2024 imaging/diagnos tic result completed [facility] [address], [place], [address], 09/05/2024 14:18:39 09/05/2024 non-stress test completed [email or web address], [place], [address], 09/05/2024 15:36:53 09/05/2024 US, obstetric, biophysical profile + non-stress test completed [email or web address] [address], [place], [address], 09/05/2024 18:24:02 09/05/2024 US, obstetric, biophysical profile + non-stress test completed [email or web address] [address], [place], [address], 09/07/2024 13:11:57 09/13/2024 US, obstetric, biophysical profile + non-stress test completed angelic [address], [place], [address], 09/13/2024 16:26:47 09/13/2024 US, obstetric, biophysical profile + non-stress test completed [email or web address] [address], [place], [address], 09/13/2024 17:48:23 09/13/2024 US, obstetric, biophysical profile + non-stress test completed [email or web address], [place], [address], 09/13/2024 17:48:23 09/13/2024 non-stress test completed [email or web address] [address], [place], [address], 09/13/2024 17:49:34 09/19/2024 US, obstetric, follow-up completed [email or web address], [place], [address], 09/19/2024 13:11:41 09/19/2024 US, obstetric, biophysical profile + non-stress test completed [email or web address], [place], [address], 09/19/2024 13:11:51 09/19/2024 US, obstetric, follow-up completed [email or web address] [address], [place], [address], 09/25/2024 07:32:54 09/19/2024 [facility]-stress test [email or web address] [address], [place], [address], 09/19/2024 12:38:56 09/19/2024 non-stress test completed [email or web address] [address], [place], [address], 09/19/2024 12:44:42 Procedure Notes None recorded. Medical Equipment None Reported. Allergies Allergen ID Allergen Name Allergen Category Reaction Reaction Severity Criticality Documentation Date Start Date Code Code System Note Provider Name and Address Organization Details Recorded Time 47539 latex environme nt,medica tion itching swelling moderate moderate Not available 09/08/2022 17394 91 RxNorm Lucero kennedy [facility] 3 10:10:18 95529 Latex (substanc e) environme nt,medica tion hives rash Not available Not available Not available 04/12/20242019 84225 8007 SNOMED Lucero kennedy [facility] 4 13:01:37 Medications Name Sig Start Date Stop Date Status Note LastModified by Organization Details LastModified Time amoxicillin 500 mg capsule TAKE 1 CAPSULE BY MOUTH TWICE A DAY FOR 10 DAYS 12/23 completed Not Available Not Available Not Available promethazin e 25 mg rectal suppository Insert 1 supposito ry every day by rectal route. 11/24 completed Not Available Not Available Not Available ondansetron HCl 2 mg/mL intravenous solution 03/17 completed Not Available Not Available Not Available prednisone 20 mg tablet active Not Available Not Available Not Available nifedipine ER 30 mg tablet,exte nded release TAKE 1 TABLET BY MOUTH ONCE DAILY 03/17 completed Not Available Not Available Not Available aspirin 81 mg tablet,karoline yed release TAKE 1 TABLET BY MOUTH EVERY DAY active Not Available Not Available No t Available ondansetron 8 mg disintegrat ing tablet Place 1 tablet twice a day by transling ual route. active Not Available Not Available No t Available cephalexin 500 mg capsule 500 mg 3 times a day by oral route. 03/28 completed Not Available Not Available Not Available oseltamivir 75 mg capsule TAKE 1 CAPSULE BY MOUTH ONCE DAILY DIRECTED FOR 10 DAYS 03/17 completed Not Available Not Available Not Available lidocaine 5 % topical patch active Not Available Not Available Not Available ergocalcife rol (vitamin D2) 1,250 mcg (50,000 unit) capsule TAKE 1 CAPSULE BY MOUTH ONCE A WEEK active Not Available Not Available No t Available ibuprofen 600 mg tablet TAKE 1 TABLET BY MOUTH EVERY 6 HOURS NEEDED FOR CRAMPS 05/05 completed Not Available Not Available Not Available scopolamine 1 mg over 3 days transdermal patch Apply 1 patch transderm al route every 3 days as needed for nausea 11/24 completed Not Available Not Available Not Available ondansetron 4 mg disintegrat ing tablet DISSOLVE 1 TABLET IN MOUTH EVERY 4 TO 6 HOURS NEEDED 06/26 completed Not Available Not Available Not Available metoclopram erika 10 mg tablet Take 1 tablet 4 times a day by oral route as needed. 12/23 completed Not Available Not Available Not Available Vitamin B6 50 mg tablet Take 1 unit every day by oral route. 12/23 completed Not Available Not Available Not Available nitrofurant oin monohydrate /macrocryst als 100 mg capsule TAKE 1 CAPSULE BY MOUTH EVERY 12 HOURS 03/24 completed Not Available Not Available Not Available magnesium 12/23 completed Not Available Not Available Not Available Vitamin 11/21 completed Not Available Not Available Not Available Vitamin D3 25 mcg (1,000 unit) chewable tablet Take 2 units every day by oral route. 03/17 completed Not Available Not Available Not Available Natroba 0.9 % topical suspension 02/25 completed Not Available Not Available Not Available Emverm 100 mg chewable tablet CHEW 1 TABLET BY MOUTH ONCE. REPEAT IN 2 WEEKS 06/26 completed Not Available Not Available Not Available M-Sheri Plus 27 mg iron-1 mg tablet TAKE 1 TABLET BY MOUTH ONCE DAILY 11/24 completed Not Available Not Available Not Available Airsupra 90 mcg-80 mcg/actuati on HFA aerosol inhaler active Not Available Not Available Not Available Vitals Date Recorded Body height Body mass index (BMI) Body weight Body height Body mass index (BMI) Body weight Systolic blood pressure Diastolic blood pressure Systolic blood pressure Diastolic blood pressure Provider Name and Address Organization Details Last Updated DateTime 5 171.45 cm 46.1 kg/m2 231380. 12 g 171.45 cm 46.1 kg/m2 602527. 12 g 128 mm[Hg] 82 mm[Hg] 128 mm[Hg] 88 mm[Hg] Lucero Argueta [facility] 5 17:48:17 Date Recorded Body weight Body height Body mass index (BMI) Body weight Systolic blood pressure Diastolic blood pressure Systolic blood pressure Diastolic blood pressure Provider Name and Address Organization Details Last Updated DateTime 5 078477. 13005 g 171.45 cm 46.1 kg/m2 543937. 12 g 124 mm[Hg] 82 mm[Hg] 124 mm[Hg] 82 mm[Hg] Daniela Remy [facility] 5 12:37:21 Social History Question Answer Notes LastModified by Organizat ion Details LastModified Time Tobacco Smoking Status Never Smoker Glo Sung brent, [facility] 11/25/2022 11:02:40 What Is Your Level Of Alcohol Consumption? None [email or web address] Information not available 09/08/2022 If You Are , What Was Your Level Of Alcohol Consumption Prior To ? Occasional [email or web address] Information not available 11/25/2022 Are You Blind Or Do You Have Difficulty Seeing? No [email or web address] Information n ot available 09/08/2022 What Is Your Level Of Caffeine Consumption? Occasional [email or web address] Information not available 09/08/2022 In The 14 Days Before Symptom Onset, Have You Had Close Contact With A Laboratory-confirm ed COVID-19 While That Case Was Ill? No Information n ot available 09/08/2022 In The 14 Days Before Symptom Onset, Have You Had Close Contact With A Person Who Is Under Investigation For COVID-19 While That Person Was Ill? No [email or web address] Information not available 09/08/2022 Have You Been To An Area Known To Be High Risk For COVID-19? No [email or web address] Information not available 09/08/2022 Are You Deaf Or Do You Have Serious Difficulty Hearing? No [email or web address] Information not available 09/08/2022 What Type Of Diet Are You Following? REGULAR [email or web address] Information n ot available 09/08/2022 Do You Use Your Seat Belt Or Car Seat Routinely? Yes [email or web address] Information not available 09/08/2022 Do You Have Smoke And Carbon Monoxide Detectors In Your Home? Yes [email or web address] Information not available 09/08/2022 Do You Feel Stressed (tense, Restless, Nervous, Or Anxious, Or Unable To Sleep At Night)? [id number] [email or web address] Information not available 09/08/2022 Do You Use Any Illicit Or Recreational Drugs? Yes [address] [email or web address] Information not available 09/08/2022 Do You Use Sunscreen Routinely? Yes [email or web address] Information not available 09/08/2022 Has Tobacco Cessation Counseling Been Provided? No [email or web address] Information not available 11/25/2022 Have You Used IV Drugs? No [email or web address] Information not available 09/08/2022 Do You Or Have You Ever Used Any Other Forms Of Tobacco Or Nicotine? No Information not available 11/25/2022 Sex: Unknown Functional Status Question Answer Note LastModified by Organizat ion Details LastModified Time Do you have difficulty walking or climbing stairs? No Information not available 11/25/2022 Are you able to walk? [email or web address] Information not available 09/08/2022 Are you able to care for yourself? Yes [email or web address] Information not available 11/25/2022 Do you have difficulty dressing or bathing? No [email or web address] Information not available 11/25/2022 What is your exercise level? Occasional [email or web address] Information not available 09/08/2022 Mental Status None recorded. Family History Relationship Description Onset Age of this Age Resolved Age Notes LastModified by Organization Details LastModified Time Maternal Grandmother Bipolar disorder [email or web address] Not available 2023 10:55:47 Maternal Grandmother Depressive disorder [email or web address] Not available 12/23 11:41:24 Maternal Grandmother Anxiety disorder [email or web address] Not available 12/23 11:41:24 Maternal Grandmother Lupus erythematosu s [email or web address] Not available 2023 10:55:47 Maternal Grandmother Alzheimer's disease [email or web address] Not available 2023 10:55:47 Maternal Grandmother Heart disease [email or web address] Not available 12/23 11:41:24 Mother Diabetes mellitus [email or web address] Not available 12/23 11:41:24 Mother Hypertension screening [email or web address] Not available 2023 10:55:47 Mother Asthma [email or web address] Not available 12/23/2022 11:41:24 Paternal Grandmother Heart disease [email or web address] Not available 12/23 11:41:24 Maternal Aunt Malignant tumor of breast Not available 12/23 11:41:24 Medical History Condition Response Allergies (Food, seasonal, environmental ) Y Other Y Breast Cancer N Drug/Latex Allergies/Reactions N Blood Transfusion N Dermatologic Disorders N Lung Disease N Defects or Inherited Disease N Breast Problem N Gestational Diabetes N Hematologic disorders N Anesthesia Complications N History of STI N Deep Vein Thrombosis N Polycystic ovary syndrome N Anxiety Disorder Y Autoimmune disease N Arthritis N Infertility N Polyps Y Acid Reflux (GERD) N History of abnormal pap N Cancer N Stroke N Varicosities N Neurologic/Epilepsy Y Endometriosis N High Cholesterol N Headaches Y Fibromyalgia N Kidney Disease N Heart Problems N Kidney or Bladder Problems N Thyroid Problems Y GI Problems Y Eating Disorder N Anemia Y Art (IVF or FET) N Psychiatric Illness Y Ovarian Cancer N Diabetes N Pulmonary (TB, Asthma) N Hepatitis/Liver Disease N No Past Medical History N Eczema N Urinary Tract Infection N Abuse/Domestic Violence N Asthma Y Trauma/Violence N Depression/ depression Y Heart Disease N Pre-Eclampsia N Hypertension N Osteoporosis N Thrombophilias N Gynecological History Statement/Question Response Abnormal Pap N Date of Last Mammogram 08/26/2019 Flow Moderate Date of LMP 01/11/2024 Was last menstrual period normal Y STIs/STDs N HPV Vaccine N Duration of Flow (days) 5 Current Control Method Age at First Child 21 Date of control 12/03/2021 Are cycles usually normal Y Sexually Active? Y Menses Monthly Y Date of DEXA bone scan Age of first menstrual cycle 13 Date of Last Pap Smear 11/22/2023 Sexual Problems? N Desired Control Method N/A LMP Definite Obstetrics History GPAL:G 7 P 3 0 3 3 Type Value Full Term 3 Spontaneous 3 Living 3 Total 7 Immunizations Vaccine Type Date Status Note Provider Nam e and Address Organization Details Recorded Time Hib, unspecified formulation 8 completed Lucero kennedy, [facility] 04/12/2024 13:01:39 Hib, unspecified formulation 8 bijal kennedy, [facility] 04/12/2024 13:01:39 Hib, unspecified formulation 7 bijal kennedy, [facility] 04/12/2024 13:01:39 Hib, unspecified formulation 8 bijal kennedy, [facility] 04/12/2024 13:01:39 meningococcal B, unspecified 8 bijal kennedy [facility] 04/12/2024 13:01:39 meningococcal, unknown serogroups 8 bijal kennedy, [facility] 04/12/2024 13:01:39 meningococcal, unknown serogroups 8 bijal kennedy, [facility] 04/12/2024 13:01:39 OPV, Unspecified 8 completed Lucero Argueta null, [facility] 04/12/2024 13:01:39 OPV, Unspecified 7 completed Lucero Argueta null, [facility] 04/12/2024 13:01:39 MMRV 8 completed Lucero Ellie null, [facility] 04/12/2024 13:01:39 MMRV 8 completed Luceor Argueta null, [facility] 04/12/2024 13:01:39 MMRV 1 completed Lucero Argueta null, [facility] 04/12/2024 13:01:39 MMRV 1 completed Lucero Argueta null, [facility] 04/12/2024 13:01:39 DTaP-IPV 8 completed Lucero Argueta null, [facility] 04/12/2024 13:01:39 DTaP-IPV 8 completed Lucero Argueta null, [facility] 04/12/2024 13:01:39 DTaP-IPV 1 completed Lucero Argueta null, [facility] 04/12/2024 13:01:39 DTaP-IPV 1 completed Lucero Argueta null, [facility] 04/12/2024 13:01:39 pneumococcal polysaccharide PPV23 7 completed Lucero Argueta null, [facility] 04/12/2024 13:01:39 influenza, unspecified formulation 5 completed Lucero Argueta null, [facility] 04/12/2024 13:01:39 influenza, unspecified formulation 5 completed Lucero Argueta null, [facility] 04/12/2024 13:01:39 influenza, unspecified formulation 6 completed Lucero Argueta null, [facility] 04/12/2024 13:01:39 influenza, unspecified formulation 6 completed Lucero Duenastz null, [facility] 04/12/2024 13:01:39 influenza, unspecified formulation 7 completed Lucero Duenastz null, [facility] 04/12/2024 13:01:39 influenza, unspecified formulation 7 completed Lucero Argueta null, [facility] 04/12/2024 13:01:39 influenza, unspecified formulation 8 completed Lucero Argueta null, [facility] 04/12/2024 13:01:39 influenza, unspecified formulation 8 completed Lucero Argueta null, [facility] 04/12/2024 13:01:39 Tdap 8 completed Lucero Argueta null, [facility] 04/12/2024 13:01:39 Tdap 8 completed Lucero Argueta null, [facility] 04/12/2024 13:01:39 Tdap 1 completed Lucero Argueta null, [facility] 04/12/2024 13:01:39 Tdap 8 completed Luceromonika Argueta null, [facility] 04/12/2024 13:01:39 Tdap 8 completed Lucero Argueta null, [facility] 04/12/2024 13:01:39 Tdap 8 completed Lucero Argueta null, [facility] 04/12/2024 13:01:39 Tdap 6 completed Luecro Argueta null, [facility] 04/12/2024 13:01:39 Tdap 6 completed Lucero Argueta null, [facility] 04/12/2024 13:01:39 Tdap 7 completed Lucero Argueta null, [facility] 04/12/2024 13:01:39 varicella 8 completed Lucero Argueta null, [facility] 04/12/2024 13:01:39 varicella 8 completed Lucero Duenastz null, [facility] 04/12/2024 13:01:39 DTP 8 completed Lucero Argueta null, [facility] 04/12/2024 13:01:39 DTP 8 completed Lucero Argueta null, [facility] 04/12/2024 13:01:39 DTP 7 completed Lucero Argueta null, [facility] 04/12/2024 13:01:39 Hep B, unspecified formulation 8 completed Lucero Argueta null, [facility] 04/12/2024 13:01:39 Hep B, unspecified formulation 7 completed Lucero Argueta null, [facility] 04/12/2024 13:01:39 Hep B, unspecified formulation 5 completed Lucero Argueta null, [facility] 04/12/2024 13:01:39 Hep B, unspecified formulation 7 completed Lucero Argueta null, [facility] 04/12/2024 13:01:39 HPV, unspecified formulation 9 completed Lucero Argueta null, [facility] 04/12/2024 13:01:39 HPV, unspecified formulation 8 completed Lucero Argueta null, [facility] 04/12/2024 13:01:39 HPV, unspecified formulation 8 completed Lucero Argueta null, [facility] 04/12/2024 13:01:39 Hep B, adolescent or pediatric 6 completed Lucero Argueta null, [facility] 04/12/2024 13:01:39 Hep B, adolescent or pediatric 8 completed Lucero Argueta null, [facility] 04/12/2024 13:01:39 Hep B, adolescent or pediatric 7 completed Lucero Argueta null, [facility] 04/12/2024 13:01:39 Hep B, adolescent or pediatric 7 completed Lucero Argueta null, [facility] 04/12/2024 13:01:40 Hep B, adolescent or pediatric 5 completed Lucero Argueta null, [facility] 04/12/2024 13:01:40 Hep B, adult 8 completed Lucero Argueta null, [facility] 04/12/2024 13:01:40 Hep B, adult 7 completed Lucero Argueta null, [facility] 04/12/2024 13:01:40 Hep B, adult 5 completed Lucero Argueta null, [facility] 04/12/2024 13:01:40 Hep B, adult 7 completed Lucero Argueta null, [facility] 04/12/2024 13:01:40 Hib (HbO) 8 completed Lucero Argueta null, [facility] 04/12/2024 13:01:40 Hib (HbO) 8 completed Lucero Argueta null, [facility] 04/12/2024 13:01:40 Hib (HbO) 7 completed Lucero Argueta null, [facility] 04/12/2024 13:01:40 Hib (HbO) 8 completed Lucero kennedy, [facility] 04/12/2024 13:01:40 meningococcal MCV4P 5 completed Lucero kennedy, [facility] 04/12/2024 13:01:40 DTaP 8 completed Lucero Argueta null, [facility] 04/12/2024 13:01:40 DTaP 1 completed Lucero kennedy, [facility] 04/12/2024 13:01:40 DTaP, unspecified formulation 8 completed Lucero Argueta [facility], [facility] 04/12/2024 13:01:40 DTaP, unspecified formulation 1 completed Lucero kennedy, [facility] 04/12/2024 13:01:40 meningococcal MCV4, unspecified formulation 5 completed Lucero kennedy, [facility] 04/12/2024 13:01:40 Influenza, split virus, quadrivalent, PF 0 completed Lucero kennedy, [facility] 04/12/2024 13:01:40 Past Encounters Encounter ID Performer Location Encounter Start Date Encounter Closed Date Diagnosis/Indication Diagnosis SNOMED-CT Code Diagnosis ICD10 Code Diagnosis Note [id number] Alta Houston [facility] [address] [address] 09/08/2022 10:03:44 09/08/2022 10:54:24 [id number] Nicole Zarate [facility] [address] [address] 09/08/2022 10:04:06 09/08/2022 17:44:46 Hyperemesis gravidarum 60865901 O21.0 Little improvemen t with zofran or b6 and unisom. Difficult to keep it down. Pt has not yet tried suppositor y. Will do a trial of this. If unable to hold anything down x 24 hours she will go in for evaluation and hydration. We did briefly discuss zofran pump and this could be considered if no improvemen t. States she was miserable last and was very unhappy with care. She states that they told her it was just the baby pushing on her diaphragm and that there was nothing that could be tried. She will keep us updated and let us know if no improvemen t. We also discussed that zofran is not recommende d prior to 10 weeks. test positive [id number] Z32.01 Risk factors addressed: Tobacco Cessation, Safe Sexual Practices, environmen jim, work hazards, travel restrictio ns, seat belt use.Eat a health well balanced diet, avoid alcohol, tobacco, and street drugs.Enga ge in daily low impact exercise, avoid temperatur e extremes, and cat, rodent, and bird feces.Avoi d travel to areas where zika virus is a concern.Of fered cf/sma/nip t. Handouts given and discussed with patient.Ch ildbirth classes recommende d.New OB sheet given.If previous , counseling .Pt verbalizes that she understand s the importance of above instructio ns.All questions were answered.P atient reminded to have annual well woman examinatio n and address preventati ve healthcare . Gynecologi c examination 79841393 Z01.419 Amenorrhea 41441795 N91. 2 [id number] Alta Patino [facility] [address] [address] 09/29/2022 10:03:57 09/29/2022 11:08:56 screening 535899674 Z36.82 [id number] Joe Vazquez MD [facility] [address],[place] [address] 09/29/2022 10:05:14 09/29/2022 12:05:08 Routine care 069835311 Z34.91 [id number] Steph Tenorio [facility] [address],[place] [address] 10/13/2022 10:04:45 10/13/2022 10:37:04 Threatened miscarriage 58712368 O20.0 Z3A.13 [id number] [facility] [address],[place] [address] 10/28/2022 11:07:19 10/28/2022 11:57:48 Routine care 565640911 Z34.92 [id number] Lamar Cerna [facility] [address],[place] [address] 11/09/2022 16:36:16 11/09/2022 17:25:39 Spotting per vagina in 584778938 O26.859 Z3A.17 [id number] Deanna Paintergerardobryson [facility] [address],[place] [address] 11/09/2022 16:37:29 11/09/2022 18:15:44 Routine care 141824086 Z34.91 Pt here for BP and BS check due to abnormal symptoms. BP 138/87. BS 107. Pt reports feeling dizzy and light headed with quick movements and position changes. Pt instructed on orthostati c hypotensio n and taking position changes slowly. Pt also instructed to increase hydration. Pt states she is tolerating fluids better now with zofran pump but has just now started to keep food and fluids down. Pt informed symptoms are likely due to dehydratio n and orthostati c hypotensio n. Pt verbalized understand ing but requests CBC and CMP due to history of anemia and abnormal electrolyt es with one ER eval for IV hydration. Labs ordered and pt to lab. Deanna Guillaume ieqian, [place] [id number] Alta Patino [facility] [address],[place] [address] 11/25/2022 11:02:03 11/25/2022 13:35:21 screening 092855020 Z36.3 [id number] [facility] [address],[place] [address] 11/25/2022 11:02:32 11/25/2022 13:35:09 Routine care 851369389 Z34.92 [facility] [id number] R42 [id number] Alta Patino [facility] [address],[place] [address] 12/23/2022 09:53:00 12/23/2022 11:22:59 screening 175441964 Z36.2 O43.119 Z3A.23 [id number] [facility] [address],[place] [address] 12/23/2022 10:03:38 12/23/2022 12:34:52 Routine care 120201217 Z34.92 [id number] Steph Tenorio [facility] [address],[place] [address] 01/20/2023 11:23:02 01/20/2023 15:32:00 screening 250133485 Z36.2 O43.112 Z3A.27 [id number] Zuleika Minaya [facility] [address],[place] [address] 01/20/2023 11:23:45 01/20/2023 15:31:05 Routine care 368397905 Z34.92 [id number] Joe Vazquez MD [facility] [address],[place] [address] 02/03/2023 09:25:23 02/03/2023 10:35:56 Routine care 062415476 Z34.91 Pt here for BP and BS check due to abnormal symptoms. BP 138/87. BS 107. Pt reports feeling dizzy and light headed with quick movements and position changes. Pt instructed on orthostati c hypotensio n and taking position changes slowly. Pt also instructed to increase hydration. Pt states she is tolerating fluids better now with zofran pump but has just now started to keep food and fluids down. Pt informed symptoms are likely due to dehydratio n and orthostati c hypotensio n. Pt verbalized understand ing but requests CBC and CMP due to history of anemia and abnormal electrolyt es with one ER eval for IV hydration. Labs ordered and pt to lab. Deanna Guillaume ier, RN [id number] [facility] [address],[place] [address] 02/17/2023 11:24:45 02/17/2023 12:12:29 Maternal obesity complicating , childbirth and the puerperium, antepartum 0090616018 07 O99.213 O43.119 Z3A.31 [id number] Ramonita Cadena MD [facility] [address],[place] [address] 02/17/2023 11:25:04 02/20/2023 14:18:50 Routine care 913554464 Z34.83 Anemia of 2734 2003 O99.019 [id number] Joe Vazquez MD [facility] [address],[place] [address] 03/02/2023 15:17:03 03/02/2023 16:16:18 Routine care 558827325 Z34.91 Pyelonephritis 70376242 N12 [id number] Suzy Hassan [facility] [address],[place] [address] 03/17/2023 09:34:27 03/17/2023 10:48:08 Maternal obesity complicating , childbirth and the puerperium, antepartum 4026062565 07 O99.213 O43.[id number] [facility] [address],[place] [address] 03/17/2023 09:34:50 03/17/2023 10:40:52 Maternal obesity complicating , childbirth and the puerperium, antepartum 5648710936 07 O99.213 O43.113 Z3A.35 [id number] Zuleika Minaya [facility] [address],[place] [address] 03/17/2023 09:35:13 03/17/2023 12:18:55 Routine care 421164550 Z34.92 [id number] [facility] [address],[place] [address] 03/24/2023 09:49:45 03/24/2023 10:54:26 Maternal obesity complicating , childbirth and the puerperium, antepartum 0639682499 07 O99.213 Z3A.36 [id number] [facility] [address],[place] [address] 03/24/2023 09:50:47 03/24/2023 10:26:45 Maternal obesity complicating , childbirth and the puerperium, antepartum 9847116849 07 O99.213 Z3A.36 [id number] Zuleika Minaya [facility] [address],[place] [address] 03/24/2023 09:51:30 03/24/2023 11:11:53 Routine care 075853250 Z34.92 [id number] [facility] [address],[place] [address] 1 03/28/2023 09:49:46 03/28/2023 11:06:23 Reduced movement 704980236 O36.8199 [id number] [facility] [address],[place] [address] 03/31/2023 10:01:11 03/31/2023 10:30:16 Maternal obesity complicating , childbirth and the puerperium, antepartum 0659610511 07 O99.213 Z3A.37 [id number] [facility] [address],[place] [address] 03/31/2023 10:01:44 03/31/2023 11:06:50 Maternal obesity complicating , childbirth and the puerperium, antepartum 0768359755 07 O99.213 Z3A.37 [id number] Zuleika Minaya [facility] [address],[place] [address] 03/31/2023 10:03:08 03/31/2023 14:09:30 Routine care 884121191 Z34.92 [id number] Ramonita Cadena MD [facility] [address],[place] [address] 04/10/2023 12:08:15 04/12/2023 18:02:19 Low back pain 684916778 M54.50 Inguinal pain 406561353 R10.2 Urinary incontinence 165 270583 R32 [id number] Lucero Argueta [facility] [address],[place] [address] 05/05/2023 14:05:03 05/05/2023 14:44:09 care 208882948 Z39.2 monitor cycles, natural family planningph exxi as needed, ok for rx if desiresf.u . wwe 09/27 [id number] Zuleika Minaya [facility] [address] [address] 11/22/2023 10:46:31 11/22/2023 11:39:56 Gynecologic examination 82572094 Z01.419 [facility] 91899951 R53.83 check labs [id number] [facility] [address],[place] [address] 02/27/2024 10:55:35 02/27/2024 11:49:28 Uterine size for dates discrepancy 938265140 O26.841 Z3A.01 [facility] [address] [place] [address] 03/13/2024 13:54:56 03/13/2024 14:25:48 [id number] [facility] [address] [place] [address] 03/13/2024 13:55:48 03/13/2024 15:08:33 Amenorrhea 46220752 N91.2 + pregnancys tart vitamins Venereal d isease screening 349303011 Z11.3 Nausea and vomiting 1693 2000 R11.2 zofran as needed 4mg up to QID [id number] [facility] [address],[place] [address] 04/12/2024 11:52:58 04/12/2024 12:40:21 screening 211302320 Z36.82 Z3A.13 [id number] [facility] [address] [place] [address] 1 04/12/2024 11:53:26 04/12/2024 14:19:07 Gestation period, 12 weeks 78438312 Z3A.12 continue vitamin [id number] [facility] [address],[place] [address] 05/10/2024 09:02:08 05/10/2024 09:41:03 Placenta circumvallata 8242864 O43.112 Z3A.17 [id number] Zuleika Minaya [facility] [address] [place] [address] 05/10/2024 09:07:28 05/10/2024 10:10:37 Gestation period, 33 weeks 57130218 Z3A.33 continue vitamin Routine an [facility] care 496901929 Z34.92 screening 2437 89106 Z36.89 Gestation period, 17 weeks 63794973 Z3A.17 Intrauteri ne synechiae 841607179 N85.6 [id number] [facility] [address] [place] [address] 1 05/24/2024 10:11:30 05/24/2024 11:20:12 Increased blood pressure 99995173 R03.0 Anxiety 05122627 F41.9 send to cachorro watson CNM/MIRTHA [id number] Ste[facility] [address] [place] [address] 05/31/2024 10:57:14 05/31/2024 12:18:05 screening for malformation 296857596 Z36.3 Z3A.20 [id number] [facility] [address],[place] [address] 05/31/2024 10:58:11 05/31/2024 13:45:10 Gestation period, 20 weeks 12309062 Z3A.20 continue vitamin [id number] Zuleika Minaya [facility] [address],[place] [address] 06/26/2024 14:19:36 06/26/2024 15:06:18 Gestation period, 23 weeks 42152373 Z3A.23 [id number] [facility] [address],[place] [address] 07/26/2024 09:44:42 07/26/2024 11:11:25 Maternal obesity complicating , childbirth and the puerperium, antepartum 9091442562 07 O99.213 Z86.16 O43.113 Z3A.28 [id number] Zuleika Minaya [facility] [address],[place] [address] 07/26/2024 09:45:23 07/26/2024 11:30:51 Gestation period, 28 weeks 02061865 Z3A.28 [id number] NICOLAS ANN MD [facility] [address],[place] [address] 08/09/2024 15:53:52 08/09/2024 16:29:59 Placenta circumvallata 1014135 O43.119 - growth at 32 weeks Maternal o besity complicating , childbirth and the puerperium, antepartum 0892053388 07 O99.213 - testing at 34 weeks Prophylact ic immunotherapy 126082781 Z29.11 - needs Rhogam 09/09/23 Gestation period, 30 weeks 56895149 Z3A.30 [id number] Steph Tenorio [facility] [address],[place] [address] 08/22/2024 10:13:50 08/22/2024 11:07:40 Placenta circumvallata 2245786 O43.113 O35.3XX0 O99.213 Z3A.32 [id number] Joe Vazquez MD [facility] [address],[place] [address] 08/22/2024 10:14:33 08/22/2024 11:57:50 Nausea and vomiting 59104847 R11.2 Routine an tenatal care 321354874 Z34.91 [id number] Chelsie Farooq [facility] [address],[place] [address] 09/05/2024 14:14:59 09/05/2024 15:49:05 Maternal obesity complicating , childbirth and the puerperium, antepartum 0024599479 07 O99.213 - testing at 34 weeks [id number] Steph Tenorio [facility] [address],[place] [address] 09/05/2024 15:32:55 09/05/2024 16:15:04 Maternal obesity complicating , childbirth and the puerperium, antepartum 8243591699 07 O99.213 O16.3 Z3A.34 [id number] NICOLAS ANN MD [facility] [address],[place] [address] 09/05/2024 15:33:06 09/05/2024 17:12:58 Large for gestation age fetus 512725214 O36.60X0 Placenta circumvallata 5761691 O43.119 - growth at 32 weeks Maternal o besity complicating , childbirth and the puerperium, antepartum 9541923457 07 O99.213 - testing at 34 weeks Attention deficit hyperactivity disorder 144229158 F90.9 [id number] Lamar Cerna [facility] [address],[place] [address] 09/13/2024 11:18:35 09/13/2024 11:57:40 Maternal obesity complicating , childbirth and the puerperium, antepartum 6499091039 07 O99.213 Z3A.35 [id number] Lucero Argueta [facility] [address],[place] [address] 09/13/2024 11:18:50 09/16/2024 12:24:23 Maternal obesity complicating , childbirth and the puerperium, antepartum 1186427496 07 O99.210 [id number] [facility] [address],[place] [address] 09/13/2024 11:19:17 09/13/2024 13:45:58 Gestation period, 35 weeks 49393792 Z3A.35 [id number] Lamar Nehemiah [facility] [address],[place] [address] 09/19/2024 10:19:18 09/19/2024 11:01:52 Maternal obesity complicating , childbirth and the puerperium, antepartum 9047930761 07 O99.213 O36.60X0 O43.113 Z3A.36 [id number] Daniela Remy [facility] [address],[place] [address] 1 09/19/2024 10:19:43 09/19/2024 12:40:52 Maternal obesity complicating , childbirth and the puerperium, antepartum 5297925504 07 O99.210 [id number] Joe Vazquez MD [facility] [address],[place] [address] 09/19/2024 10:20:11 09/19/2024 12:39:23 Routine care 444481339 Z34.91 Health Concerns Section Related Observation LastModified by Organization Detai ls LastModified Time None Recorded Concern Status LastModified by Organization Details LastModified Time None Recorded Advance Directives Directive None Recorded Payers Encounter Date Sequence Insurance Name Policy Number Policy Trujillo Covered Member ID Trujillo Member ID Guarantor Name 09/13/2024 1 [employer] [facility] [address] [facility] [id number] Emi Harris [id number] Emi Harris 09/13/2024 2 [facility] (MEDICAID HMO) [id number] Emi Harris [id number] Emi Harris 09/13/2024 1 [employer] LOCAL [address] H AND W [place] [id number] Emi Kious [id number] Emi Kious 09/13/2024 2 [facility] (MEDICAID HMO) [id number] Emi Kious [id number] Emi Kious 09/19/2024 1 [employer] LOCAL [address] H AND [address] FUND [id number] Emi Kious [id number] Emi Kious 09/19/2024 2 [facility] (MEDICAID HMO) [id number] Emi Kious [id number] Emi Kious 09/19/2024 1 [employer] LOCAL [address] W FUND [id number] Emi Kious [id number] Emi Kious 09/19/2024 2 [facility] (MEDICAID HMO) [id number] Emi Kious [id number] Emi Kious 09/19/2024 1 [employer] - [employer] LOCAL [address] FUND [id number] Emi Kious [id number] Emi Kious 09/19/2024 2 [facility] (MEDICAID HMO) [id number] Emi Kious [id number] Emi Kious OBGyn Episode Ob Episode Information Episode Created Date Number of Fetuses Patient Bloodtype Patient rh Status Prepregnancy Weight lbs Domestic Partner Domestic Partner Phone Father Name Building Appraiser Status 09/08/19 23 1 CLOSED Fetus Data First Name Last Name Admitted to NICU Weight (g) Sex Living Outcome Pediatric Complications Fetus ID Race Codes Race Delivery Type , Spontane ous [id number] Preston Calculation Initial Preston Date Initial Exam Date Initial Exam Provider Initial Ultrasound Date Last Menstrual Period Date Ultra Sound Weeks Gestation 0 Eighteen To Twenty Week Preston Update Ultra Sound Date Fundal Height At Umbil Quickening Date Ultra Sound Latest Weeks Gestation Final Preston Confirmed By Final Preston Confirmed Date Final Preston Date Ultra Sound Latest Days Gestation 0 0 Menstrual History Last Menstrual Date Menses Monthly On Bcp Conception Prior Menses Frequency Hcg Plus Date Menarche Onset Age Delivery Information Delivery Date Delivery Type Labor Anesthesia Weeks Gestation Incision Type Labor Labor Length Hrs Delivered By Post Complications Tubal Sterilization Discharge Date Comments Discharge Information Feeding Method Contraceptive Method Maternal HG B and HCT Levels Ob Episode Information Episode Created Date Number of Fetuses Patient Bloodtype Patient rh Status Prepregnancy Weight lbs Domestic Partner Domestic Partner Phone Father Name Building Appraiser Status 09/08/19 23 1 CLOSED Fetus Data First Name Last Name Admitted to NICU Weight (g) Sex Living Outcome Pediatric Complications Fetus ID Race Codes Race Delivery Type , Spontane ous [id number] Preston Calculation Initial Preston Date Initial Exam Date Initial Exam Provider Initial Ultrasound Date Last Menstrual Period Date Ultra Sound Weeks Gestation 0 Eighteen To Twenty Week Preston Update Ultra Sound Date Fundal Height At Umbil Quickening Date Ultra Sound Latest Weeks Gestation Final Preston Confirmed By Final Preston Confirmed Date Final Preston Date Ultra Sound Latest Days Gestation 0 0 Menstrual History Last Menstrual Date Menses Monthly On Bcp Conception Prior Menses Frequency Hcg Plus Date Menarche Onset Age Delivery Information Delivery Date Delivery Type Labor Anesthesia Weeks Gestation Incision Type Labor Labor Length Hrs Delivered By Post Complications Tubal Sterilization Discharge Date Comments 2 Discharge Information Feeding Method Contraceptive Method Maternal HG B and HCT Levels Ob Episode Information Episode Created Date Number of Fetuses Patient Bloodtype Patient rh Status Prepregnancy Weight lbs Domestic Partner Domestic Partner Phone Father Name Building Appraiser Status 09/08/19 23 1 CLOSED Fetus Data First Name Last Name Admitted to NICU Weight (g) Sex Living Outcome Pediatric Complications Fetus ID Race Codes Race Delivery Type , Spontane ous [id number] Preston Calculation Initial Preston Date Initial Exam Date Initial Exam Provider Initial Ultrasound Date Last Menstrual Period Date Ultra Sound Weeks Gestation 0 Eighteen To Twenty Week Preston Update Ultra Sound Date Fundal Height At Umbil Quickening Date Ultra Sound Latest Weeks Gestation Final Preston Confirmed By Final Preston Confirmed Date Final Preston Date Ultra Sound Latest Days Gestation 0 0 Menstrual History Last Menstrual Date Menses Monthly On Bcp Conception Prior Menses Frequency Hcg Plus Date Menarche Onset Age Delivery Information Delivery Date Delivery Type Labor Anesthesia Weeks Gestation Incision Type Labor Labor Length Hrs Delivered By Post Complications Tubal Sterilization Discharge Date Comments 2 Discharge Information Feeding Method Contraceptive Method Maternal HG B and HCT Levels Ob Episode Information Episode Created Date Number of Fetuses Patient Bloodtype Patient rh Status Prepregnancy Weight lbs Domestic Partner Domestic Partner Phone Father Name Building Appraiser Status 09/29/19 23 1 A Negative 250 CLOSED Fetus Data First Name Last Name Admitted to NICU Weight (g) Sex Living Outcome Pediatric Complications Fetus ID Race Codes Race Delivery Type 3486.98 85 F true Full Term [id number] Vaginal Delivery Problems Problem Notes rhogam received at [facility] 08/28/22 r/t clots - passed SCHUC WNLmacrobid suppressive therapy for recent pyelonephritis Problem Name Start Date End Date Resolution Snomed Code Not e Asthma [id number] Anxiety 78321916 Placenta circumvallata [id number] serial growth u/s Placental abruption [id number] story unclear RhD negative [id number] 2, 03/18/23 Hyperemesis [id number] zofran p ump Anemia of 02/20/2023 [id number] Preston Calculation Initial Preston Date Initial Exam Date Initial Exam Provider Initial Ultrasound Date Last Menstrual Period Date Ultra Sound Weeks Gestation 04/16/2023 09/29/2022 09/08/2022 07/10/2022 9 Eighteen To Twenty Week Preston Update Ultra Sound Date Fundal Height At Umbil Quickening Date Ultra Sound Latest Weeks Gestation Final Preston Confirmed By Final Preston Confirmed Date Final Preston Date Ultra Sound Latest Days Gestation 0 04/16/20 23 0 Pre-sheri Flowsheet Flowsheet Date 09/29/2022 Willingham Score Blood Edema Fundus Height Fundus Units Glucose Ketones Leukocytes Nitrite Labor Signs Protein Cervic Dilation Cervic Effacement Cervic Station 11 Type Weight in lbs Pre/Post Dialysis Refused Weight 248.131185023924 BP Diastolic BP Location Tested BP Systolic BP Type 92 R arm 148 sitting 87 L arm 136 sitting Fetus Heart Rate Present A 145 Fetus Movement Comments S patient is a 27-year-old m ultiparous female at 11 weeks gestation she has 2 previous vaginal births at term. She is on vaccinated but has previously been infected or exposed. She was given vaccine recommendations. She has a history that is vague of abruption. Medical history of anxiety and asthma. She currently has severe hyperemesis and is using Zofran pump. we spoke care in great detail. Her anxiety and asthma appear to be stable. She will begin routine care. She is getting genetic testing. Flowsheet Date 10/13/2022 Willingham Score Blood Edema Fundus Height Fundus Units Glucose Ketones Leukocytes Nitrite Labor Signs Protein Cervic Dilation Cervic Effacement Cervic Station Type Weight in lbs Pre/Post Dialysis Refused BP Diastolic BP Location Tested BP Systolic BP Type Fetus Heart Rate Present Fetus Movement Comments Flowsheet Date 10/28/2022 Willingham Score Blood Edema Fundus Height Fundus Units Glucose Ketones Leukocytes Nitrite Labor Signs Protein Cervic Dilation Cervic Effacement Cervic Station neg none none trace Type Weight in lbs Pre/Post Dialysis Refused Weight 251.84631603933 BP Diastolic BP Location Tested BP Systolic BP Type 77 119 Fetus Heart Rate Present A 150 Present Fetus Movement A No Comments patient states that had blee ding 2 weeks ago and nausea. was seen in [facility] and had f/u US here, no bleeding since, hyperemesis still bad some days, has zofran pump when needed. last 2 babies were OP position and she did get epidural. precautions reviewed. PLan anatomy at next visit Flowsheet Date 11/09/2022 Willingham Score Blood Edema Fundus Height Fundus Units Glucose Ketones Leukocytes Nitrite Labor Signs Protein Cervic Dilation Cervic Effacement Cervic Station Type Weight in lbs Pre/Post Dialysis Refused BP Diastolic BP Location Tested BP Systolic BP Type Fetus Heart Rate Present Fetus Movement Comments Flowsheet Date 11/09/2022 Willingham Score Blood Edema Fundus Height Fundus Units Glucose Ketones Leukocytes Nitrite Labor Signs Protein Cervic Dilation Cervic Effacement Cervic Station Type Weight in lbs Pre/Post Dialysis Refused BP Diastolic BP Location Tested BP Systolic BP Type Fetus Heart Rate Present Fetus Movement Comments Flowsheet Date 11/25/2022 Willingham Score Blood Edema Fundus Height Fundus Units Glucose Ketones Leukocytes Nitrite Labor Signs Protein Cervic Dilation Cervic Effacement Cervic Station Type Weight in lbs Pre/Post Dialysis Refused BP Diastolic BP Location Tested BP Systolic BP Type Fetus Heart Rate Present Fetus Movement Comments Flowsheet Date 11/25/2022 Willingham Score Blood Edema Fundus Height Fundus Units Glucose Ketones Leukocytes Nitrite Labor Signs Protein Cervic Dilation Cervic Effacement Cervic Station neg none none trace Type Weight in lbs Pre/Post Dialysis Refused Weight 253.815741685560 BP Diastolic BP Location Tested BP Systolic BP Type 84 123 Fetus Heart Rate Present Fetus Movement A Yes Comments patient is having back pain, round ligament pain, dizzy, and spotting with intercourse. pelvic rest x 2 weeks, placenta not low lying, anatomy incomplete iron low at wic, trying to eat more protein, red meat, will check labs Flowsheet Date 12/23/2022 Willingham Score Blood Edema Fundus Height Fundus Units Glucose Ketones Leukocytes Nitrite Labor Signs Protein Cervic Dilation Cervic Effacement Cervic Station Type Weight in lbs Pre/Post Dialysis Refused BP Diastolic BP Location Tested BP Systolic BP Type Fetus Heart Rate Present Fetus Movement Comments Flowsheet Date 12/23/2022 Willingham Score Blood Edema Fundus Height Fundus Units Glucose Ketones Leukocytes Nitrite Labor Signs Protein Cervic Dilation Cervic Effacement Cervic Station Type Weight in lbs Pre/Post Dialysis Refused Weight 255.557306273664 BP Diastolic BP Location Tested BP Systolic BP Type 70 130 Fetus Heart Rate Present Fetus Movement Comments EFW 88%, anatomy incomplete, f/u 4 weeks, interested in alternatives, while gold standard for glucola, can do juice, will bring in juice and measuring cup, precautions reviewed Flowsheet Date 01/20/2023 Willingham Score Blood Edema Fundus Height Fundus Units Glucose Ketones Leukocytes Nitrite Labor Signs Protein Cervic Dilation Cervic Effacement Cervic Station Type Weight in lbs Pre/Post Dialysis Refused BP Diastolic BP Location Tested BP Systolic BP Type Fetus Heart Rate Present Fetus Movement Comments Flowsheet Date 01/20/2023 Willingham Score Blood Edema Fundus Height Fundus Units Glucose Ketones Leukocytes Nitrite Labor Signs Protein Cervic Dilation Cervic Effacement Cervic Station neg none none trace Type Weight in lbs Pre/Post Dialysis Refused Weight 256.274296104380 BP Diastolic BP Location Tested BP Systolic BP Type 81 128 Fetus Heart Rate Present Fetus Movement A Yes Comments patient is having some hip p ain, nausea and vomiting. anatomy complete, gct today, rhogam order, had rhogam last month (daughter jumped on her belly) plan second week of march efw 81% Flowsheet Date 02/03/2023 Willingham Score Blood Edema Fundus Height Fundus Units Glucose Ketones Leukocytes Nitrite Labor Signs Protein Cervic Dilation Cervic Effacement Cervic Station none trace Type Weight in lbs Pre/Post Dialysis Refused Weight 256.455729127883 BP Diastolic BP Location Tested BP Systolic BP Type 83 R arm 133 sitting Fetus Heart Rate Present A 145 Fetus Movement Comments patient is having bilateral hip pain, has not been using Zofran pump as often, would like to switch to oral as needed. was sent, Tylenol he rest for hip pain, discussed contraception after -considering trial of IUD Flowsheet Date 02/17/2023 Willingham Score Blood Edema Fundus Height Fundus Units Glucose Ketones Leukocytes Nitrite Labor Signs Protein Cervic Dilation Cervic Effacement Cervic Station Type Weight in lbs Pre/Post Dialysis Refused BP Diastolic BP Location Tested BP Systolic BP Type Fetus Heart Rate Present Fetus Movement Comments Flowsheet Date 02/17/2023 Willingham Score Blood Edema Fundus Height Fundus Units Glucose Ketones Leukocytes Nitrite Labor Signs Protein Cervic Dilation Cervic Effacement Cervic Station none 34 Type Weight in lbs Pre/Post Dialysis Refused Weight 254.656273476797 BP Diastolic BP Location Tested BP Systolic BP Type 82 118 Fetus Heart Rate Present A 150 Fetus Movement A Yes Comments Doing well. US today 58% GCT wnl. Is taking iron. Has testing scheduled for obesity. Flowsheet Date 03/02/2023 Willingham Score Blood Edema Fundus Height Fundus Units Glucose Ketones Leukocytes Nitrite Labor Signs Protein Cervic Dilation Cervic Effacement Cervic Station 33 1+ trace Type Weight in lbs Pre/Post Dialysis Refused Weight 257.417052512948 BP Diastolic BP Location Tested BP Systolic BP Type 81 R arm 126 sitting Fetus Heart Rate Present A 145 Fetus Movement Comments Prescribed suppressive thera py for recent pyelonephritis. Being monitored with growth ultrasounds, to have NSTs for abruption history. Flowsheet Date 03/17/2023 Willingham Score Blood Edema Fundus Height Fundus Units Glucose Ketones Leukocytes Nitrite Labor Signs Protein Cervic Dilation Cervic Effacement Cervic Station Type Weight in lbs Pre/Post Dialysis Refused BP Diastolic BP Location Tested BP Systolic BP Type Fetus Heart Rate Present Fetus Movement Comments Flowsheet Date 03/17/2023 Willingham Score Blood Edema Fundus Height Fundus Units Glucose Ketones Leukocytes Nitrite Labor Signs Protein Cervic Dilation Cervic Effacement Cervic Station Type Weight in lbs Pre/Post Dialysis Refused BP Diastolic BP Location Tested BP Systolic BP Type Fetus Heart Rate Present Fetus Movement Comments Flowsheet Date 03/17/2023 Willingham Score Blood Edema Fundus Height Fundus Units Glucose Ketones Leukocytes Nitrite Labor Signs Protein Cervic Dilation Cervic Effacement Cervic Station neg none none trace 1cm 30% -2 Type Weight in lbs Pre/Post Dialysis Refused Weight 263.624239959505 BP Diastolic BP Location Tested BP Systolic BP Type 83 126 Fetus Heart Rate Present Fetus Movement A Decreased Comments patient is having some contr actions, discharge and nausea. doing well, taking macrobid, gbs today, nst R, precautions reviewed f/u one week, efw 78% Flowsheet Date 03/24/2023 Willingham Score Blood Edema Fundus Height Fundus Units Glucose Ketones Leukocytes Nitrite Labor Signs Protein Cervic Dilation Cervic Effacement Cervic Station Type Weight in lbs Pre/Post Dialysis Refused BP Diastolic BP Location Tested BP Systolic BP Type Fetus Heart Rate Present Fetus Movement Comments Flowsheet Date 03/24/2023 Willingham Score Blood Edema Fundus Height Fundus Units Glucose Ketones Leukocytes Nitrite Labor Signs Protein Cervic Dilation Cervic Effacement Cervic Station Type Weight in lbs Pre/Post Dialysis Refused BP Diastolic BP Location Tested BP Systolic BP Type Fetus Heart Rate Present Fetus Movement Comments Flowsheet Date 03/24/2023 Willingham Score Blood Edema Fundus Height Fundus Units Glucose Ketones Leukocytes Nitrite Labor Signs Protein Cervic Dilation Cervic Effacement Cervic Station trace none trace 3cm 50% -2 Type Weight in lbs Pre/Post Dialysis Refused Weight 263.834479932568 BP Diastolic BP Location Tested BP Systolic BP Type 88 127 Fetus Heart Rate Present Fetus Movement A Yes Comments patient is having some swell ing, contractions, and discharge. outer of 4cm, labor precautions, ok for bid nst due to decreased movement, precautions bpp 8/8 today Flowsheet Date 03/28/2023 Willingham Score Blood Edema Fundus Height Fundus Units Glucose Ketones Leukocytes Nitrite Labor Signs Protein Cervic Dilation Cervic Effacement Cervic Station Type Weight in lbs Pre/Post Dialysis Refused Weight 267.065371450439 BP Diastolic BP Location Tested BP Systolic BP Type 80 141 Fetus Heart Rate Present Fetus Movement Comments Flowsheet Date 03/31/2023 Willingham Score Blood Edema Fundus Height Fundus Units Glucose Ketones Leukocytes Nitrite Labor Signs Protein Cervic Dilation Cervic Effacement Cervic Station Type Weight in lbs Pre/Post Dialysis Refused BP Diastolic BP Location Tested BP Systolic BP Type Fetus Heart Rate Present Fetus Movement Comments Flowsheet Date 03/31/2023 Willingham Score Blood Edema Fundus Height Fundus Units Glucose Ketones Leukocytes Nitrite Labor Signs Protein Cervic Dilation Cervic Effacement Cervic Station Type Weight in lbs Pre/Post Dialysis Refused BP Diastolic BP Location Tested BP Systolic BP Type Fetus Heart Rate Present Fetus Movement Comments Flowsheet Date 03/31/2023 Willingham Score Blood Edema Fundus Height Fundus Units Glucose Ketones Leukocytes Nitrite Labor Signs Protein Cervic Dilation Cervic Effacement Cervic Station neg none none trace 3cm 60% -2 Type Weight in lbs Pre/Post Dialysis Refused Weight 270.04335439290 BP Diastolic BP Location Tested BP Systolic BP Type 79 122 Fetus Heart Rate Present Fetus Movement A Yes Comments patient is having some contr actions, discharge and nausea. external os 5, labor precautions bpp 04/11 Flowsheet Date 04/10/2023 Willingham Score Blood Edema Fundus Height Fundus Units Glucose Ketones Leukocytes Nitrite Labor Signs Protein Cervic Dilation Cervic Effacement Cervic Station Type Weight in lbs Pre/Post Dialysis Refused Weight 253.907068120433 BP Diastolic BP Location Tested BP Systolic BP Type 86 122 Fetus Heart Rate Present Fetus Movement Comments Menstrual History Last Menstrual Date Menses Monthly On Bcp Conception Prior Menses Frequency Hcg Plus Date Menarche Onset Age 1107/10/2022 Genetic Screening And Infection History Question Response Note Mental Retardation/Autism false Patient's Age Will Be 35 Years Or Older At Estim ated Date of Delivery false Thalassemia (Chinese, Romansh, Mediterranean, Or Background): MCV < 80 false Neural Tube Defect (Meningomyelocele, Spina Bifi da, Or Anencephaly) false Congenital Heart Defect false Down Syndrome false Kali-Sachs (eg, Restoration, Cajun, Bulgarian-[place]) f alse Yuli Disease false Sickle Cell Disease Or Trait () false Hemophilia Or Other Blood Disorders false Muscular Dystrophy false Cystic Fibrosis false Levasy's Chorea false Intellectual Disability/Autism false If Yes, Was Person Tested For Fragile X? false Other Inherited Genetic Or Chromosomal Disorder false Maternal Metabolic Disorder (eg, Type 1 Diabetes , PKU) false Patient Or Baby's Father Had A Child With Defects Not Listed Above false Recurrent Loss, Or A Stillbirth false Medications (including Suppl ements, Vitamins, Herbs, OTC Drugs), Illicit/Recreational Drugs, Alcohol false If Yes, Agent(s) And Strength/Dosage false Any Other Genetic History false Live With Someone With TB Or Exposed To TB false Patient Or Partner Has History Of Genital Herpes false Rash Or Viral Illness Since Last Menstrual Perio d false History Of STD, Gonorrhea, Chlamydia, HPV, Syphi lis false Other Infection History false History of HIV false History of Hepatitis false Prior GBS-infected child false Hemoglobinopathy Or Carrier false Other Structural Defect false Recent Travel History Outside of Country false Delivery Information Delivery Date Delivery Type Labor Anesthesia Weeks Gestation Incision Type Labor Labor Length Hrs Delivered By Post Complications Tubal Sterilization Discharge Date Comments 3 Augmen amira None 38.2 false Marimar, Zuleika CNM Anemia of , Anxiety, Asthma, Hyperemes is, Placenta circumval steve, RhD negative, prolonged rupture, precip labor Discharge Information Feeding Method Contraceptive Method Maternal HG B and HCT Levels Ob Episode Information Episode Created Date Number of Fetuses Patient Bloodtype Patient rh Status Prepregnancy Weight lbs Domestic Partner Domestic Partner Phone Father Name Building Appraiser Status 09/08/19 23 1 CLOSED Fetus Data First Name Last Name Admitted to NICU Weight (g) Sex Living Outcome Pediatric Complications Fetus ID Race Codes Race Delivery Type 3912.23 1 F Full Term [id number] Vaginal Delivery Preston Calculation Initial Preston Date Initial Exam Date Initial Exam Provider Initial Ultrasound Date Last Menstrual Period Date Ultra Sound Weeks Gestation 0 Eighteen To Twenty Week Preston Update Ultra Sound Date Fundal Height At Umbil Quickening Date Ultra Sound Latest Weeks Gestation Final Preston Confirmed By Final Preston Confirmed Date Final Preston Date Ultra Sound Latest Days Gestation 0 0 Menstrual History Last Menstrual Date Menses Monthly On Bcp Conception Prior Menses Frequency Hcg Plus Date Menarche Onset Age Delivery Information Delivery Date Delivery Type Labor Anesthesia Weeks Gestation Incision Type Labor Labor Length Hrs Delivered By Post Complications Tubal Sterilization Discharge Date Comments 1 38 Discharge Information Feeding Method Contraceptive Method Maternal HG B and HCT Levels Ob Episode Information Episode Created Date Number of Fetuses Patient Bloodtype Patient rh Status Prepregnancy Weight lbs Domestic Partner Domestic Partner Phone Father Name Building Appraiser Status 09/08/19 23 1 CLOSED Fetus Data First Name Last Name Admitted to NICU Weight (g) Sex Living Outcome Pediatric Complications Fetus ID Race Codes Race Delivery Type 3486.76 1704 F Full Term [id number] Vaginal Delivery Preston Calculation Initial Preston Date Initial Exam Date Initial Exam Provider Initial Ultrasound Date Last Menstrual Period Date Ultra Sound Weeks Gestation 0 Eighteen To Twenty Week Preston Update Ultra Sound Date Fundal Height At Umbil Quickening Date Ultra Sound Latest Weeks Gestation Final Preston Confirmed By Final Preston Confirmed Date Final Preston Date Ultra Sound Latest Days Gestation 0 0 Menstrual History Last Menstrual Date Menses Monthly On Bcp Conception Prior Menses Frequency Hcg Plus Date Menarche Onset Age Delivery Information Delivery Date Delivery Type Labor Anesthesia Weeks Gestation Incision Type Labor Labor Length Hrs Delivered By Post Complications Tubal Sterilization Discharge Date Comments 6 39 Discharge Information Feeding Method Contraceptive Method Maternal HG B and HCT Levels Ob Episode Information Episode Created Date Number of Fetuses Patient Bloodtype Patient rh Status Prepregnancy Weight lbs Domestic Partner Domestic Partner Phone Father Name Building Appraiser Status 04/12/20 24 1 A Negative 272 OPEN Fetus Data First Name Last Name Admitted to NICU Weight (g) Sex Living Outcome Pediatric Complications Fetus ID Race Codes Race Delivery Type [id number] Problems Problem Notes seizures only as a child due to head trauma? 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 940831 0 32wk growth u/s Prophylactic immunotherapy 04/18/2024 [id number] rhogam receive d 03/22/24 @ [facility] Attention deficit hyperactivity disorder [id number] Obesity 135159770 testing @ 34 weeks weekly; BMI 42 COVID-19 04/17/2024 787813631 ASA & ser ial growth Hyperemesis 357183093 history of in last 2 pregnancies Mixed anxiety and depressive disorder 862988079 Anterior synechiae 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 f /u 4 weeks Preston Calculation Initial Preston Date Initial Exam Date Initial Exam Provider Initial Ultrasound Date Last Menstrual Period Date Ultra Sound Weeks Gestation 10/17/2024 02/27/2024 02/27/2024 01/11/2024 6 Eighteen To Twenty Week Preston Update Ultra Sound Date Fundal Height At Umbil Quickening Date Ultra Sound Latest Weeks Gestation Final Preston Confirmed By Final Preston Confirmed Date Final Preston Date Ultra Sound Latest Days Gestation 0 0 Pre-sheri Flowsheet Flowsheet Date 04/12/2024 Willingham Score Blood Edema Fundus Height Fundus Units Glucose Ketones Leukocytes Nitrite Labor Signs Protein Cervic Dilation Cervic Effacement Cervic Station neg none none trace Type Weight in lbs Pre/Post Dialysis Refused Weight 272.447324779475 BP Diastolic BP Location Tested BP Systolic BP Type 78 137 Fetus Heart Rate Present Fetus Movement A No Comments Patient has had some bleedin g and cramping. bleeding resolved with UTI. reviewed precautions and education, rec basa, pt unsurebegine routine course, testing, reviewed us wnl Flowsheet Date 05/10/2024 Willingham Score Blood Edema Fundus Height Fundus Units Glucose Ketones Leukocytes Nitrite Labor Signs Protein Cervic Dilation Cervic Effacement Cervic Station Type Weight in lbs Pre/Post Dialysis Refused BP Diastolic BP Location Tested BP Systolic BP Type Fetus Heart Rate Present Fetus Movement Comments Flowsheet Date 05/10/2024 Willingham Score Blood Edema Fundus Height Fundus Units Glucose Ketones Leukocytes Nitrite Labor Signs Protein Cervic Dilation Cervic Effacement Cervic Station Type Weight in lbs Pre/Post Dialysis Refused 274.965834008067 BP Diastolic BP Location Tested BP Systolic BP Type 85 128 Fetus Heart Rate Present Fetus Movement A No Comments Patient states that is havin g some cramping, discharge and nausea. baby moving freely, uterine synechaie, us otherwise unremarkable, pt doing well, nausea is getting better, thinking about unisom for sleep, undecided on circumcision Flowsheet Date 05/24/2024 Willingham Score Blood Edema Fundus Height Fundus Units Glucose Ketones Leukocytes Nitrite Labor Signs Protein Cervic Dilation Cervic Effacement Cervic Station trace trace Type Weight in lbs Pre/Post Dialysis Refused 276.223965377484 BP Diastolic BP Location Tested BP Systolic BP Type 85 132 Fetus Heart Rate Present Fetus Movement A No Comments Patient states thta is havin g s lot of stress and anxiety, cramping, spotting and swelling. discussed stress, anxiety, no suicidal symptoms, f/u next ob visit, f/u with mc watson DESULFURIZER MACHINE for anxiety treatment Flowsheet Date 05/31/2024 Willingham Score Blood Edema Fundus Height Fundus Units Glucose Ketones Leukocytes Nitrite Labor Signs Protein Cervic Dilation Cervic Effacement Cervic Station Type Weight in lbs Pre/Post Dialysis Refused BP Diastolic BP Location Tested BP Systolic BP Type Fetus Heart Rate Present Fetus Movement Comments Flowsheet Date 05/31/2024 Willingham Score Blood Edema Fundus Height Fundus Units Glucose Ketones Leukocytes Nitrite Labor Signs Protein Cervic Dilation Cervic Effacement Cervic Station Type Weight in lbs Pre/Post Dialysis Refused 279.885785089958 BP Diastolic BP Location Tested BP Systolic BP Type 85 122 Fetus Heart Rate Present Fetus Movement A Yes Comments Patient states that has some anxiety but is little better and is having some right side pain. reviewed education and precautions wants to wait on [facility] visit, will continue to monitor mood, +FM, anatomy complete Flowsheet Date 06/26/2024 Willingham Score Blood Edema Fundus Height Fundus Units Glucose Ketones Leukocytes Nitrite Labor Signs Protein Cervic Dilation Cervic Effacement Cervic Station trace none Type Weight in lbs Pre/Post Dialysis Refused 285.140326510859 BP Diastolic BP Location Tested BP Systolic BP Type 82 135 Fetus Heart Rate Present A 145 Present Fetus Movement A Yes Comments Patient fell last week and h as had some bleeding and spotting and did receive rhogam last week. Patient states that has had some cramping, pressure and pain. went to ld got rhogam, will rpt in 12 weeks. +FM precautions and education f/u 2 weeks Flowsheet Date 07/26/2024 Willingham Score Blood Edema Fundus Height Fundus Units Glucose Ketones Leukocytes Nitrite Labor Signs Protein Cervic Dilation Cervic Effacement Cervic Station Type Weight in lbs Pre/Post Dialysis Refused BP Diastolic BP Location Tested BP Systolic BP Type Fetus Heart Rate Present Fetus Movement Comments Flowsheet Date 07/26/2024 Willingham Score Blood Edema Fundus Height Fundus Units Glucose Ketones Leukocytes Nitrite Labor Signs Protein Cervic Dilation Cervic Effacement Cervic Station Type Weight in lbs Pre/Post Dialysis Refused 290.8601101459 BP Diastolic BP Location Tested BP Systolic BP Type 83 130 Fetus Heart Rate Present Fetus Movement A Yes Comments Patient is having some press ure, hip pain, trouble breathing and some BH contractions. plan spinning babies, gct today EFW 98%, discussed zurzuvae for pp, hx pp depression. reviewed precaution and education. not planning a circumcision f/u 2 weekscardiac monitor ordered x 3 days Flowsheet Date 08/09/2024 Willingham Score Blood Edema Fundus Height Fundus Units Glucose Ketones Leukocytes Nitrite Labor Signs Protein Cervic Dilation Cervic Effacement Cervic Station neg none Type Weight in lbs Pre/Post Dialysis Refused Weight 296.346331485736 BP Diastolic BP Location Tested BP Systolic BP Type 81 L arm 134 sitting Fetus Heart Rate Present Fetus Movement A Yes Comments Patient c/o of Yung [place] , states gets hard to breath sometimes with chest pains and really fast heartbeats. Completed holter monitor, overall normal, rare PVCs. Discussed monitoring symptoms if worsening. Discussed tdap. Will discuss RSV next visit. Passed GCT and labs. RTC 2 weeks with growth US. Flowsheet Date 08/22/2024 Willingham Score Blood Edema Fundus Height Fundus Units Glucose Ketones Leukocytes Nitrite Labor Signs Protein Cervic Dilation Cervic Effacement Cervic Station Type Weight in lbs Pre/Post Dialysis Refused BP Diastolic BP Location Tested BP Systolic BP Type Fetus Heart Rate Present Fetus Movement Comments Flowsheet Date 08/22/2024 Willingham Score Blood Edema Fundus Height Fundus Units Glucose Ketones Leukocytes Nitrite Labor Signs Protein Cervic Dilation Cervic Effacement Cervic Station Type Weight in lbs Pre/Post Dialysis Refused Weight 300.556579643122 BP Diastolic BP Location Tested BP Systolic BP Type 84 L arm 128 sitting Fetus Heart Rate Present A 145 Fetus Movement A Yes Comments no complaints, no problems, routine care, no contractions, no vaginal bleeding, no loss of fluid, no cramping. DIscussed [place] Flowsheet Date 09/05/2024 Willingham Score Blood Edema Fundus Height Fundus Units Glucose Ketones Leukocytes Nitrite Labor Signs Protein Cervic Dilation Cervic Effacement Cervic Station Type Weight in lbs Pre/Post Dialysis Refused BP Diastolic BP Location Tested BP Systolic BP Type Fetus Heart Rate Present Fetus Movement Comments Flowsheet Date 09/05/2024 Willingham Score Blood Edema Fundus Height Fundus Units Glucose Ketones Leukocytes Nitrite Labor Signs Protein Cervic Dilation Cervic Effacement Cervic Station Type Weight in lbs Pre/Post Dialysis Refused BP Diastolic BP Location Tested BP Systolic BP Type Fetus Heart Rate Present Fetus Movement Comments Flowsheet Date 09/05/2024 Willingham Score Blood Edema Fundus Height Fundus Units Glucose Ketones Leukocytes Nitrite Labor Signs Protein Cervic Dilation Cervic Effacement Cervic Station neg none 2cm 50% -2 Type Weight in lbs Pre/Post Dialysis Refused Weight 301.260108371039 BP Diastolic BP Location Tested BP Systolic BP Type 84 L arm 127 sitting Fetus Heart Rate Present A 145 Fetus Movement A Yes Comments Has been sick recently with URI, feeling better now. Some mild cramping, no bleeding. movement stable, somewhat decreased while sick but still moving well. BPP 8/10 today, nonreactive NST. SVE performed per patient request due to recent admission at [facility] for PTL; unchanged at 2cm. RTC 1 week. Flowsheet Date 09/13/2024 Willingham Score Blood Edema Fundus Height Fundus Units Glucose Ketones Leukocytes Nitrite Labor Signs Protein Cervic Dilation Cervic Effacement Cervic Station Type Weight in lbs Pre/Post Dialysis Refused BP Diastolic BP Location Tested BP Systolic BP Type Fetus Heart Rate Present Fetus Movement Comments Flowsheet Date 09/13/2024 Willingham Score Blood Edema Fundus Height Fundus Units Glucose Ketones Leukocytes Nitrite Labor Signs Protein Cervic Dilation Cervic Effacement Cervic Station Type Weight in lbs Pre/Post Dialysis Refused Weight 299.393701393359 BP Diastolic BP Location Tested BP Systolic BP Type 88 128 Fetus Heart Rate Present Fetus Movement Comments Flowsheet Date 09/13/2024 Willingham Score Blood Edema Fundus Height Fundus Units Glucose Ketones Leukocytes Nitrite Labor Signs Protein Cervic Dilation Cervic Effacement Cervic Station Type Weight in lbs Pre/Post Dialysis Refused Weight 299.373018155448 BP Diastolic BP Location Tested BP Systolic BP Type 82 128 Fetus Heart Rate Present Fetus Movement Comments doing well +FM bpp 06/13, ge tting over her URI, precautions and education f/u one week plan gbs at next visit Flowsheet Date 09/19/2024 Willingham Score Blood Edema Fundus Height Fundus Units Glucose Ketones Leukocytes Nitrite Labor Signs Protein Cervic Dilation Cervic Effacement Cervic Station Type Weight in lbs Pre/Post Dialysis Refused BP Diastolic BP Location Tested BP Systolic BP Type Fetus Heart Rate Present Fetus Movement Comments Flowsheet Date 09/19/2024 Willingham Score Blood Edema Fundus Height Fundus Units Glucose Ketones Leukocytes Nitrite Labor Signs Protein Cervic Dilation Cervic Effacement Cervic Station Type Weight in lbs Pre/Post Dialysis Refused Weight 299.799673659644 BP Diastolic BP Location Tested BP Systolic BP Type 82 R arm 124 sitting Fetus Heart Rate Present Fetus Movement Comments Flowsheet Date 09/19/2024 Willingham Score Blood Edema Fundus Height Fundus Units Glucose Ketones Leukocytes Nitrite Labor Signs Protein Cervic Dilation Cervic Effacement Cervic Station 4cm Type Weight in lbs Pre/Post Dialysis Refused 299.7836766820 BP Diastolic BP Location Tested BP Systolic BP Type 82 R arm 124 sitting Fetus Heart Rate Present A 144 Fetus Movement A Decreased Comments no complaints, no problems, routine care, no contractions, no vaginal bleeding, no loss of fluid, no cramping Menstrual History Last Menstrual Date Menses Monthly On Bcp Conception Prior Menses Frequency Hcg Plus Date Menarche Onset Age 0501/11/[birth year]24 Delivery Information Delivery Date Delivery Type Labor Anesthesia Weeks Gestation Incision Type Labor Labor Length Hrs Delivered By Post Complications Tubal Sterilization Discharge Date Comments Discharge Information Feeding Method Contraceptive Method Maternal HG B and HCT Levels
--- NOTE | 2024-09-27 05:38 | PC.NURSE ---
2150- Pt and infant admitted to room 288, pt and FOB oriented to room and admission packet.
[2024-09-27 05:50] LABS: Hematocrit 30.2 % (37.0-47.0); Hemoglobin 9.8 g/dL (12.0-15.0)
[2024-09-27 07:46] LABS: Glucose Point of Care 75 mg/dl (65-105)
[2024-09-27 07:52] VITALS: BP 136/88; PULSE 64; RESP 20; TEMP 37; O2SAT 93
--- NOTE | 2024-09-27 07:59 | PM.OBPNVD ---
OB - PN: Subj Subjective Date/time seen: 09/27/24 07:59 Interval history: post day 1 doing well breast feeding OB - PN: Obj Data Labs 09/27/24 04:43 09/26/24 13:36 Labs: Laboratory Results - last 24 hr 09/26/24 09/26/24 09/27/24 12:50 13:36 04:43 WBC 10.3 H RBC 3.82 L Hgb 10.8 L 9.8 L Hct 32.2 L 30.2 L MCV 84.3 MCH 28.3 MCHC 33.5 RDW 13.4 Plt Count 253 MPV 10.0 Immature Gran % (Auto) 0.6 H Neut % (Auto) 72.6 Lymph % (Auto) 18.3 [place] % (Auto) 7.0 Eos % (Auto) 1.2 Baso % (Auto) 0.3 Lymph # (Auto) 1.89 [place] # (Auto) 0.7 H Eos # (Auto) 0.1 Baso # (Auto) 0.0 Abs Immat Gran (auto) 0.06 H Absolute Neuts (auto) 7.5 H Absolute Nucleated RBC 0.000 Nucleated RBC % 0.0 Sodium 134 L Potassium 4.3 Chloride 109 H Carbon Dioxide 17 L Anion Gap 8 BUN 14 D Creatinine 0.61 L Estim Creat Clear Calc Not Reportable Estimated GFR > 60 Glucose 116 H POC Capillary Glucose Uric Acid 7.0 Calcium 8.7 Total Bilirubin 0.4 AST 14 ALT 11 Alkaline Phosphatase 138 H Total Protein 6.0 L Albumin 2.9 L Membranes Rupture Rom plus negative RPR Non-reactive HIV 1&2 Ab/P24 Ag 4thGn Negative Blood Type A Negative Antibody Screen Negative 09/27/24 07:44 WBC RBC Hgb Hct MCV MCH MCHC RDW Plt Count MPV Immature Gran % (Auto) Neut % (Auto) Lymph % (Auto) [place] % (Auto) Eos % (Auto) Baso % (Auto) Lymph # (Auto) [place] # (Auto) Eos # (Auto) Baso # (Auto) Abs Immat Gran (auto) Absolute Neuts (auto) Absolute Nucleated RBC Nucleated RBC % Sodium Potassium Chloride Carbon Dioxide Anion Gap BUN Creatinine Estim Creat Clear Calc Estimated GFR Glucose POC Capillary Glucose 75 Uric Acid Calcium Total Bilirubin AST ALT Alkaline Phosphatase Total Protein Albumin Membranes Rupture RPR HIV 1&2 Ab/P24 Ag 4thGn Blood Type Antibody Screen OB - PN A/P Plan day: 1 Plan: routine care and discharge home Time Spent With Patient Time: Total time spent is greater than 50% in coordination of care (as documented) at patient's floor/unit and/or counseling patient: Review of Systems Review of Systems: All systems reviewed & are unremarkable except as noted in HPI and below Exam Const: General: cooperative and healthy appearing Resp: Effort & Inspection: normal respiratory effort Back/Spine/Pelvis: Back: no CVA tenderness Skin: General skin exam: normal color Neuro: General: patient oriented x3 Extrem: General: normal to inspection Psych: Appearance: grossly normal
[2024-09-27] MEDS: POLYSACCHARIDE IRON COMPLEX 150 MG CAPSULE PO ×2 (08:15→22:42)
[2024-09-27] MEDS: MULTIVIT/MIN/PREN/FOL AC/IRON TABLET 1 TAB PO (08:15)
[2024-09-27 08:35] VITALS: BP 128/80; PULSE 77; RESP 16; TEMP 36.6; O2SAT 98
--- NOTE | 2024-09-27 08:57 | PC.NURSE ---
Provider Zuleika Minaya CNM at bedside - discussed patients concern of vision changes and lightheaded/nausea when changing position from sitting to standing. Blood sugar was ordered provider, which resulted as 75. Provider aware and no further orders were received. Patient encouraged to drink her juice at breakfast and assure she is getting adequate fluid.
[2024-09-27] MEDS: ACETAMINOPHEN 325 MG TABLET 650 MG PO ×2 (09:35→22:39)
[2024-09-27 12:34] VITALS: BP 128/67; PULSE 78; RESP 16; TEMP 37.3; O2SAT 98
[2024-09-27] MEDS: DOCUSATE SODIUM 100 MG CAPSULE PO (15:02)
[2024-09-27] MEDS: IBUPROFEN 600 MG TABLET PO ×2 (15:03→22:39)
--- NOTE | 2024-09-27 19:51 | PC.NURSE ---
1700. Consulted with patient to assess needs related to she explains it is her intent to exclusively breastfeed infant. Discussed with mother her successes, concerns and any questions she has. We reviewed working with the , supporting breast, protecting her nipples with an optimal deep latch, good positioning, and good hand washing. Encouraged understanding the benefits of skin to skin, responding to feeding cues, frequencies of feeding 8-12 times in 24 hours (approximately 2-3 hours), duration of feedings, milk production, intake/output feeding sheet and signs of adequate intake encouraging swallowing at the breast. Mother verbalizes she is able to independently latch with appropriate positioning and alignment. She denies any nipple discomfort and is responsively . is currently meeting outcomes for weight, output, jaundice, blood sugar and feeding frequencies of 8-12 times in 24 hours. Mother declines any additional assistance or education at this time. Mother is encouraged to call for assistance if her infant doesn?t latch, pain with latching, questions or concerns. Mother voiced understanding of information shared along with the mom/baby guide for an additional resource. Reported to the Primary RN.
[2024-09-27 19:53] VITALS: BP 117/87; PULSE 95; RESP 18; TEMP 36.8; O2SAT 99
[2024-09-27 19:54] VITALS: PULSE 95; RESP 18; O2SAT 99
[2024-09-27] MEDS: LIDOCAINE 5% PATCH 1 PATCH (22:40)
[2024-09-28 08:15] VITALS: BP 114/90; PULSE 82; RESP 16; TEMP 36.4; O2SAT 98
[2024-09-28] MEDS: DOCUSATE SODIUM 100 MG CAPSULE PO ×2 (08:20→17:19)
[2024-09-28] MEDS: MULTIVIT/MIN/PREN/FOL AC/IRON TABLET 1 TAB PO (08:20)
[2024-09-28] MEDS: POLYSACCHARIDE IRON COMPLEX 150 MG CAPSULE PO ×2 (08:20→17:19)
[2024-09-28] MEDS: ACETAMINOPHEN 325 MG TABLET 650 MG PO ×2 (08:21→17:19)
[2024-09-28] MEDS: IBUPROFEN 600 MG TABLET PO ×2 (08:21→17:19)
--- NOTE | 2024-09-28 08:35 | P.DS_ITS ---
DS: Admitting Diagnosis Discharge Date September 28, 2023 Admitting Diagnosis term DS: Discharge Diagnosis Discharge Diagnosis (1) Term delivered: Code(s): O80 - Encounter for full-term uncomplicated delivery Status: Acute OB - DS: Summary OB Procedures : None OB Procedures Intrapartum: Spontaneous Vag Delivery OB Procedures: : None Peripartum Data Laceration Description: Perineal - 1st Degree Episiotomy description: None Time Spent with Patient Time attestation: Total time spent providing and/or coordinating discharge services: Exam Const: General: comfortable and no acute distress Resp: Effort & Inspection: normal respiratory effort Auscultation: no rales, no rhonchi and no wheezes Cardio: Rate: regular rate Heart sounds: no click, no murmurs and no rubs GI: GI Palp: Yes Soft to palpation and No Tenderness to palpation present (GI) Auscultation: normal bowel sounds Extrem: General: normal to inspection, no pedal edema and no calf tenderness Discharge Plan Discharge Discharging Clinician: Joe Vazquez Patient Disposition: Home, Self-Care Activity: pelvic rest Diet: regular Patient Instructions: Antibiotic Form Patient Language: Luxembour[place] Stand Alone Forms: General Discharge Information Follow-up/Referrals: Joe Vazquez MD [Physician] - Discharge Medications: Continued PNV [id number] [] 28 mg iron- 800 mcg Tablet 1 tablet PO DAILY ipratropium-albuterol 18-103 mcg/actuation Aerosol 1 spray INHALATION PRN Date of admission: 09/26/24 12:24 Primary Care Provider: AnelAlana Admitting Provider: Joe Vazquez Attending physician on admission: Joe Vazquez Condition: Stable
== END 2024-09-28 17:45 | disposition home or self-care (01) | DRG 807 ==
LOC: ANHLDR 13:14 → ANHOB2 21:57
PROVIDERS: Advanced Practice Midwife; Admitting Provider Obstetrics & Gynecology; PCP Registered Nurse; Visit Provider Obstetrics & Gynecology
DX: O70.0 First degree perineal laceration during delivery (principal); Z37.0 Single live birth; Z3A.37 37 weeks gestation of pregnancy
CPT/HCPCS: 36415; 80053; 82948; 84112; 84550; 85014; 85018; 85025; 86592; 86703; 86850; 86900; 86901; A9270; G0432; J2590; J7120

== ENCOUNTER 2024-10-04 13:44 | Outpatient (CLI) | payer OTHER, SELFPAY ==
--- OUTSIDE RECORDS SUMMARY | 2024-10-04 13:59 | XMS_ITS | Continuity of Care Document ---
Author Organization [facility] [place] Address [address] [place] [address] Care Team Providers Care Director Operating Name Role Phone PRATIBHAJett KAYLA Primary Care Provider Assessment No assessment recorded. 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 Referral None recorde d. Procedures None recorde d. Surgeries None recorde d. Imaging US, pelvis 2024 025 [facility], [address], [address], [place], [address], 10/04/2024 14:25:47 Medication Orders None recorde d. Patient TargetsNo targets recorded. Patient InstructionsNo instructions recorded. Reason for Referral None Reported. Results Created Date Observation Date Name Description Value Unit Range Abnormal Flag Note LastModifiedBy Organization Detail LastModifiedTime 04/12/20 24 04/12/2024 US, obste tric, nucha l trans lucen cy No observ ation record ed. [facility] [address], [place], [address], 04/12/2024 13:44:09 04/12/20 24 04/12/2024 US, obste tric, nucha l trans lucen cy No observ ation record ed. [facility] [address], [place], [address], 04/15/2024 11:34:01 05/10/20 24 05/10/2024 US, obste tric, limit ed No observ ation record ed. [email or web address] [place] [address], [place], [address], 05/10/2024 11:24:11 05/10/20 24 05/10/2024 US, obste tric, limit ed No observ ation record ed. [facility], [place], [address], 05/13/2024 12:20:33 05/31/20 24 05/31/2024 US, obste tric, 2nd or 3rd trime ster No observ ation record ed. [address], [place], [address], 05/31/2024 13:14:45 05/31/20 24 05/31/2024 US, obste tric, 2nd or 3rd trime ster No observ ation record ed. [facility] [address], [place], [address], 06/03/2024 11:12:53 06/21/20 24 06/21/2024 imagi ng/di agnos tic resul t No observ ation record ed. [facility] [address], [place], [address], 06/24/2024 10:52:33 07/26/20 24 07/26/2024 US, obste tric, follo w-up No observ ation record ed. [facility] [address], [place], [address], 07/26/2024 17:01:39 07/26/20 24 07/26/2024 US, obste tric, follo w-up No observ ation record ed. [facility] [address], [place], [address], 07/29/2024 11:51:46 08/08/20 24 07/29/2024 kb r monit or No observ ation record ed. [place] [id number] [facility] [address], [place], [address], 08/13/2024 12:33:10 08/08/20 24 08/04/2024 kb r monit or No observ ation record ed. [employer] [address] [address], [place], [address], 08/08/2024 20:14:50 08/20/2008/20/2024 non-s tress test No observ ation record ed. [address] [facility] [address], [place], [address], 08/22/2024 09:29:03 08/22/20 24 08/22/2024 US, obste tric, follo w-up No observ [facility]ion [facility] ed. [facility] [address], [place], [address], 08/22/2024 13:05:40 08/22/20 24 08/22/2024 US, obste tric, follo w-up No observ ation record ed. [email or web address] [address], [place], [address], 08/23/2024 08:54:20 09/03/20 24 08/30/2024 imagi ng/di agnos tic resul t No observ ation record ed. [facility] [address], [place], [address], 09/05/2024 14:18:39 09/05/19 25 09/05/2024 non-s tress test No observ ation record ed. [email or web address] [place] [address], [place], [address], 09/05/2024 15:36:53 09/05/19 25 09/05/2024 US, obste tric, bioph ysica l profi le + non-s tress test No observ ation record ed. [email or web address] [place] [address], [place], [address], 09/05/2024 18:24:02 09/05/19 25 09/05/2024 US, obste tric, bioph ysica l profi le + non-s tress test No observ ation record ed. [email or web address] [address], [place], [address], 09/07/2024 13:11:57 09/13/19 25 09/13/2024 US, obste tric, bioph ysica l profi le + non-s tress test No observ ation record ed. [email or web address] [place] [address], [place], [address], 09/13/2024 16:26:47 09/13/19 25 09/13/2024 US, obste tric, bioph ysica l profi le + non-s tress test No observ ation record ed. [email or web address] [address], [place], [address], 09/13/2024 17:48:23 09/13/19 25 09/13/2024 US, obste tric, bioph ysica l profi le + non-s tress test No observ ation record ed. [email or web address] [address], [place], [address], 09/13/2024 17:48:23 09/13/19 25 09/13/2024 non-s tress test No observ ation record ed. [email or web address] [place] [address], [place], [address], 09/13/2024 17:49:34 09/19/19 25 09/19/2024 US, obste tric, follo w-up No observ ation record ed. [email or web address] [place] [address], [place], [address], 09/19/2024 13:11:41 09/19/19 25 09/19/2024 US, obste tric, bioph ysica l profi le + non-s tress test No observ ation record ed. [email or web address] [place] [address], [place], [address], 09/19/2024 13:11:51 09/19/19 25 09/19/2024 US, obste tric, follo w-up No observ ation record ed. [email or web address] [address], [place], [address], 09/25/2024 07:32:54 09/19/19 25 09/19/2024 non-s tress test No observ ation record ed. [email or web address] [place] [address], [place], [address], 09/19/2024 12:38:56 09/19/19 non-s tress test No observ ation record ed. [email or web address] [place] [address], [place], [address], 09/19/2024 12:44:42 10/04/19 US, pelvi s No observ ation record ed. angelic [place] [address], [place], [address], 10/04/2024 14:21:39 10/04/19 25 10/04/2024 US, pelvi s No observ ation record ed. [email or web address] [address], [place], [address], 10/04/2024 14:25:47 Result Notes None recorded. Problems Name Problem SNOMED Code Status Onset Date Resolution Date Notes Provider Name and Address Organization Details Recorded Time Pregnanc y 56952310 Completed 202204/17/[address] [facility] 4 13:03:01 Placenta l abruptio n 445569055 Completed story unclear [facility] 3 16:40:14 Group B Streptoc occus carrier 4604090401 103 Completed Positive in previous pregnanc y Ramonita Cadena MD [address], [place], [address], [facility] 3 12:29:04 RhD negative 383535647 Completed 08/28/22 , 03/18/[address] [facility] 3 16:40:14 Asthma 594652228 Completed [facility] 3 16:40:14 Anxiety 97783631 Completed [facility] 3 16:40:13 Hypereme sis 463600207 Completed zofran pump [facility] 3 16:40:14 Placenta circumva llata 8132262 Completed serial growth u/s [facility] 3 16:40:14 Anemia of pregnanc y 83873662 Completed 2022 [facility] 3 16:40:13 SARS-CoV -2 vaccinat ion declined 3234890810 Active [address] [facility] 4 13:01:38 Bipolar disorder 71241075 Active 2016 Lucero kennedy [facility] 4 13:01:38 Chronic pain of right upper limb 0410315156 4954506 Active 2018 Lucero kennedy, [facility] 4 13:01:38 Folic acid deficien cy 620788605 Active 2011 Lucero kennedy, [facility] 4 13:01:38 Asthma 006637437 Active 2011 Lucero kennedy, [facility] 4 13:01:38 Allergic rhinitis caused by pollen 49099414 Active [address] [facility] 4 13:01:38 Chronic tension- type headache 189468451 Active 2012 Luc[facility]gueta [facility], [facility] 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 4 13:01:38 Shoulder joint unstable 656593093 Active 2013 [facility] 4 13:01:38 Attentio n deficit hyperact ivity disorder , predomin antly inattent leah type 59849185 Active 2015 [facility] 4 13:01:38 Depressi ve disorder 84826120 Active 2017 [facility] 4 13:01:38 Anxiety 66199079 Active 2015 [facility] 4 13:01:38 Hyperlip idemia 31640847 Active 2021 Lucero Argueta null, [facility] 4 13:01:38 Subjecti ve tinnitus 55134738 Active 2012 Luceromonika Argueta null, [facility] 4 13:01:38 Donald a user 153534392 Active 2019 Lucero Argueta null, [facility] 4 13:01:38 Hypermob ility of joint 679851066 Active 2022 Lucero Argueta null, [facility] 4 13:01:38 Severe obesity 5637334309 9104 Active 2019 Luceromonika Argueta null, [facility] 4 13:01:38 Pregnanc y 21879863 Active 2023 Luc[facility], [facility] 4 13:03:00 Mixed anxiety and depressi ve disorder 385437055 Active Zuleika Minaya CNM [address], [place], [address], [facility] 4 14:02:49 Attentio n deficit hyperact ivity disorder 727711583 Active Lucero Ellie [facility], [facility] 4 13:06:36 Anterior synechia e 24526241 Active f/u 4 weeks Zuleika Minaya CNM [address], [place], [address], [facility] 4 13:48:01 Obesity 313743866 Active antenata l testing @ 34 weeks weekly; BMI 42 Jony Chaidezizzle null, [facility] 4 15:33:48 Placenta circumva llata 9057408 Active 2023 32wk growth u/s Jony kennedy, [facility] 4 15:33:34 COVID-19 954753927 Active 2023 ASA & serial growth Suzy kennedy, [facility] 4 17:42:30 Prophyla ctic immunoth erapy Active 2023 rhogam received 03/22/24 @ [facility] Jony kennedy, [facility] 4 11:33:13 Hypereme sis 674757993 Active history of in last 2 pregnanc ies Jony [facility]illo [facility], [facility] 4 15:33:20 Migraine 3[address]2684 Active Jony Murillo [facility] 4 15:34:21 Large for gestatio n age fetus 320142390 Active 97% Joe Vazquez MD [address], [place], [address], [facility] 5 12:27:52 Placenta l abruptio n 960814509 Active HISTORIC HEIKE Vazquez MD [address], [place], [address], [facility] 5 12:27:33 Problem Notes None recorded. Procedures Surgical History Date Name Laterality Status Provider Name and Address Organization Details Recorded Time 4 Date of Last Pap Smear completed Lucero Argueta [facility] 11/22/2023 13:00:24 9 Date of Last Mammogram completed Lucero Argueta [facility] 09/08/2022 10:11:27 1 drainage of abdominal wall abscess completed Lucero Argueta [facility] 09/08/2022 10:21:31 Imaging Results Imaging Date Name Status LastModified by Organiz ation Details LastModified Time 10/04/2024 US, pelvis active [facility] [address], [place], [address], 10/04/2024 14:21:39 Procedure Notes None recorded. Medical Equipment None Reported. Allergies Allergen ID Allergen Name Allergen Category Reaction Reaction Severity Criticality Documentation Date Start Date Code Code System Note Provider Name and Address Organization Details Recorded Time latex environme nt,medica tion itching swelling moderate moderate Not available 09/08/2022 18587 91 RxNorm Lucero kennedy, [facility] 3 10:10:18 57421 Latex (substanc e) environme nt,medica tion hives rash Not available Not available Not available 04/12/20242019 05540 8007 SNOMED Lucero kennedy, [facility] 4 13:01:37 Medications Name Sig [...] completed Not Available Not Available Not Available M- Plus 27 mg iron-1 mg tablet TAKE 1 TABLET BY MOUTH ONCE DAILY 11/24 completed Not Available Not Available Not Available Airsupra 90 mcg-80 mcg/actuati on HFA aerosol inhaler active Not Available Not Available Not Available Zurzuvae 25 mg capsule 2 CAPS DAILY active Not Available Not Available No t Available Vitals None Recorded Social History Question Answer Notes LastModified by Organizat ion Details LastModified Time Tobacco Smoking Status Never Smoker [facility] 11/25/2022 11:02:40 What Is Your Level Of Alcohol Consumption? None [email or web address] Information not available 09/08/2022 If You Are , What Was Your Level Of Alcohol Consumption Prior To ? Occasional [email or web address] Information not available 11/25/2022 Are You Blind Or Do You Have Difficulty Seeing? No [email or web address] Information n ot available 09/08/2022 What Is Your Level Of Caffeine Consumption? Occasional [email or web address] Information not available 09/08/2022 In The 14 Days Before Symptom Onset, Have You Had Close Contact With A Laboratory-confirm ed COVID-19 While That Case Was Ill? No [email or web address] Information n ot available 09/08/2022 In The 14 Days Before Symptom Onset, Have You Had Close Contact With A Person Who Is Under Investigation For COVID-19 While That Person Was Ill? No [email or web address] Information not available 09/08/2022 Have You Been To An Area Known To Be High Risk For COVID-19? No [email or web address] Information not available 09/08/2022 Are You Deaf Or Do You Have Serious Difficulty Hearing? No [email or web address] Information not available 09/08/2022 What Type Of Diet Are You Following? REGULAR [email or web address] Information n ot available 09/08/2022 Do You Use Your Seat Belt Or Car Seat Routinely? Yes [email or web address] Information not available 09/08/2022 Do You Have Smoke And Carbon Monoxide Detectors In Your Home? Yes [email or web address] Information not available 09/08/2022 Do You Feel Stressed (tense, Restless, Nervous, Or Anxious, Or Unable To Sleep At Night)? VS39030-8 [email or web address] Information not available 09/08/2022 Do You Use Any Illicit Or Recreational Drugs? Yes [place] [email or web address] Information not available 09/08/2022 Do You Use Sunscreen Routinely? Yes Information not available 09/08/2022 Has Tobacco Cessation Counseling Been Provided? No [email or web address] Information not available 11/25/2022 Have You Used IV Drugs? No [email or web address] Information not available 09/08/2022 Do You Or Have You Ever Used Any Other Forms Of Tobacco Or Nicotine? No [email or web address] Information not available 11/25/2022 Sex: Unknown Functional Status Question Answer Note LastModified by Organizat ion Details LastModified Time Do you have difficulty walking or climbing stairs? No [email or web address] Information not available 11/25/2022 Are you able to walk? YESWOREST [email or web address] Information not available 09/08/2022 Are you able to care for yourself? Yes [email or web address] Information not available 11/25/2022 Do you have difficulty dressing or bathing? No [email or web address] Information not available 11/25/2022 What is your exercise level? Occasional [email or web address] Information not available 09/08/2022 Mental Status None recorded. Family History Relationship Description Onset Age of this Age Resolved Age Notes LastModified by Organization Details LastModified Time Maternal Grandmother Bipolar disorder [email or web address] Not available 2023 10:55:47 Maternal Grandmother Depressive disorder [email or web address] Not available 12/23 11:41:24 Maternal Grandmother Anxiety disorder Not available 12/23 11:41:24 Maternal Grandmother Lupus erythematosu s [email or web address] Not available 2023 10:55:47 Maternal Grandmother Alzheimer's disease [email or web address] Not available 2023 10:55:47 Maternal Grandmother Heart disease [email or web address] Not available 12/23 11:41:24 Mother Diabetes mellitus Not available 12/23 11:41:24 Mother Hypertension screening [email or web address] Not available 2023 10:55:47 Mother Asthma [email or web address] Not available 12/23/2022 11:41:24 Paternal Grandmother Heart disease [email or web address] Not available 12/23 11:41:24 Maternal Aunt Malignant tumor of breast [email or web address] Not available 12/23 11:41:24 Medical History Condition Response Allergies (Food, seasonal, environmental ) Y Other Y Drug/Latex Allergies/Reactions N Blood Transfusion N Breast Cancer N Dermatologic Disorders N Lung Disease N Defects or Inherited Disease N Breast Problem N Gestational Diabetes N Hematologic disorders N Anesthesia Complications N History of STI N Deep Vein Thrombosis N Polycystic ovary syndrome N Anxiety Disorder Y Autoimmune disease N Arthritis N Polyps Y Infertility N Acid Reflux (GERD) N History of abnormal pap N Cancer N Varicosities N Stroke N Neurologic/Epilepsy Y Endometriosis N High Cholesterol N Fibromyalgia N Headaches Y Kidney Disease N Heart Problems N Thyroid Problems Y Kidney or Bladder Problems N GI Problems Y Eating Disorder N Anemia [...] Hib, unspecified formulation 8 completed Lucero kennedy, [facility] 04/12/2024 13:01:39 Hib, unspecified formulation 8 bijal kennedy, [facility] 04/12/2024 13:01:39 Hib, unspecified formulation 7 bijal kennedy [facility] 04/12/2024 13:01:39 Hib, unspecified formulation 8 bijal kennedy [facility] 04/12/2024 13:01:39 meningococcal B, unspecified 8 bijal kennedy [facility] 04/12/2024 13:01:39 meningococcal, unknown serogroups 8 completed Lucero Argueta null, [facility] 04/12/2024 13:01:39 meningococcal, unknown serogroups 8 completed Lucero Argueta null, [facility] 04/12/2024 13:01:39 OPV, Unspecified 8 completed Lucero Argueta null, [facility] 04/12/2024 13:01:39 OPV, Unspecified 7 completed Lucero Argueta null, [facility] 04/12/2024 13:01:39 MMRV 8 completed Lucero Argueta null, [facility] 04/12/2024 13:01:39 MMRV 8 completed Lucero Argueta null, [facility] 04/12/2024 13:01:39 MMRV 1 completed Lucero Argueta null, [facility] 04/12/2024 13:01:39 MMRV 1 completed Lucero Argueta null, [facility] 04/12/2024 13:01:39 DTaP-IPV 8 completed Lucero Argueta null, [facility] 04/12/2024 13:01:39 DTaP-IPV 8 completed Lucero Argueta null, [facility] 04/12/2024 13:01:39 DTaP-IPV 1 completed Lucero Argueta null, [facility] 04/12/2024 13:01:39 DTaP-IPV 1 completed Lucero Argueta null, [facility] 04/12/2024 13:01:39 pneumococcal polysaccharide PPV23 7 completed Lucero Argueta null, [facility] 04/12/2024 13:01:39 influenza, unspecified formulation 5 completed Lucero Argueta null, [facility] 04/12/2024 13:01:39 influenza, unspecified formulation 5 completed Lucero Argueta null, [facility] 04/12/2024 13:01:39 influenza, unspecified formulation 6 completed Lucero Argueta null, [facility] 04/12/2024 13:01:39 influenza, unspecified formulation 6 completed Lucero Argueta null, [facility] 04/12/2024 13:01:39 influenza, unspecified formulation 7 completed Lucero Argueta null, [facility] 04/12/2024 13:01:39 influenza, unspecified formulation 7 completed Lucero Argueta null, [facility] 04/12/2024 13:01:39 influenza, unspecified formulation 8 completed Lucero Argueta null, [facility] 04/12/2024 13:01:39 influenza, unspecified formulation 8 completed Lucero Argueta null, [facility] 04/12/2024 13:01:39 Tdap 8 completed Lucero Argueta null, [facility] 04/12/2024 13:01:39 Tdap 8 completed Lucero Argueta null, [facility] 04/12/2024 13:01:39 Tdap 1 completed Lucero Argueta null, [facility] 04/12/2024 13:01:39 Tdap 8 completed Lucero Argueta null, [facility] 04/12/2024 13:01:39 Tdap 8 completed Lucero Argueta null, [facility] 04/12/2024 13:01:39 Tdap 8 completed Lucero Argueta null, [facility] 04/12/2024 13:01:39 Tdap 6 completed Lucero Argueta null, [facility] 04/12/2024 13:01:39 Tdap 6 completed Lucero Argueta null, [facility] 04/12/2024 13:01:39 Tdap 7 completed Lucero Argueta null, [facility] 04/12/2024 13:01:39 varicella 8 completed Lucero Argueta null, [facility] 04/12/2024 13:01:39 varicella 8 completed Lucero Argueta null, [facility] 04/12/2024 13:01:39 DTP 8 completed Lucero Argueta null, [facility] 04/12/2024 13:01:39 DTP 8 completed Lucero Argueta null, [facility] 04/12/2024 13:01:39 DTP 7 completed Lucero Argueta null, [facility] 04/12/2024 13:01:39 Hep B, unspecified formulation 8 completed Lucero Argueta null, [facility] 04/12/2024 13:01:39 Hep B, unspecified formulation 7 completed Lucero Argueta null, [facility] 04/12/2024 13:01:39 Hep B, unspecified formulation 5 completed Lucero Argueta null, [facility] 04/12/2024 13:01:39 Hep B, unspecified formulation 7 completed Lucero Argueta null, [facility] 04/12/2024 13:01:39 HPV, unspecified formulation 9 completed Lucero Argueta null, [facility] 04/12/2024 13:01:39 HPV, unspecified formulation 8 completed Lucero Argueta null, [facility] 04/12/2024 13:01:39 HPV, unspecified formulation 8 completed Lucero Argueta null, [facility] 04/12/2024 13:01:39 Hep B, adolescent or pediatric 6 completed Lucero Argueta null, [facility] 04/12/2024 13:01:39 Hep B, adolescent or pediatric 8 completed Lucero Argueta null, [facility] 04/12/2024 13:01:39 Hep B, adolescent or pediatric 7 completed Lucero Argueta null, [facility] 04/12/2024 13:01:39 Hep B, adolescent or pediatric 7 completed Lucero Argueta null, [facility] 04/12/2024 13:01:40 Hep B, adolescent or pediatric 5 completed Lucero Argueta null, [facility] 04/12/2024 13:01:40 Hep B, adult 8 completed Lucero Argueta null, [facility] 04/12/2024 13:01:40 Hep B, adult 7 completed Lucero Argueta null, [facility] 04/12/2024 13:01:40 Hep B, adult 5 completed Lucero Argueta null, [facility] 04/12/2024 13:01:40 Hep B, adult 7 completed Lucero Argueta null, [facility] 04/12/2024 13:01:40 Hib (HbO) 8 completed Lucero Argueta null, [facility] 04/12/2024 13:01:40 Hib (HbO) 8 completed Lucero Argueta null, [facility] 04/12/2024 13:01:40 Hib (HbO) 7 completed Lucero Argueta null, [facility] 04/12/2024 13:01:40 Hib (HbOC) 8 completed Lucero Argueta null, [facility] 04/12/2024 13:01:40 meningococcal MCV4P 5 completed Lucero Argueta null, [facility] 04/12/2024 13:01:40 DTaP 8 completed Lucero Argueta null, [facility] 04/12/2024 13:01:40 DTaP 1 completed Lucero Argueta null, [facility] [facility] 04/12/2024 13:01:40 DTaP, unspecified formulation 8 completed Lucero Argueta null, [facility] 04/12/2024 13:01:40 DTaP, unspecified formulation 1 completed Lucero Argueta null, [facility] 04/12/2024 13:01:40 meningococcal MCV4, unspecified formulation 5 completed Lucero kennedy, [facility] 04/12/2024 13:01:40 Influenza, split virus, quadrivalent, PF 0 completed Lucero kennedy, [facility] 04/12/2024 13:01:40 Past Encounters Encounter ID Performer Location Encounter Start Date Encounter Closed Date Diagnosis/Indication Diagnosis SNOMED-CT Code Diagnosis ICD10 Code Diagnosis Note [id number] Chelsie Farooq [facility] [address],[place] [address] 09/05/2024 14:14:59 09/05/2024 15:49:05 Maternal obesity complicating , childbirth and the puerperium, antepartum 4296145016 07 O99.213 - testing at 34 weeks [id number] Steph [facility] [address],[place] [address] 09/05/2024 15:32:55 09/05/2024 16:15:04 Maternal obesity complicating , childbirth and the puerperium, antepartum 3092324249 07 O99.213 O16.3 Z3A.34 [id number] NICOLAS ANN MD [facility] [address],[place] [address] 09/05/2024 15:33:06 09/05/2024 17:12:58 Large for gestation age fetus 321260986 O36.60X0 Placenta circumvallata 5538075 O43.119 - growth at 32 weeks Maternal o besity complicating , childbirth and the puerperium, antepartum 6575317639 07 O99.213 - testing at 34 weeks Attention deficit hyperactivity disorder 392429012 F90.9 [id number] Lamar Cerna [facility] [address],[place] [address] 09/13/2024 11:18:35 09/13/2024 11:57:40 Maternal obesity complicating , childbirth and the puerperium, antepartum 3660144411 07 O99.213 Z3A.35 [id number] Lucero Argueta [facility] [address],[place] [address] 09/13/2024 11:18:50 09/16/2024 12:24:23 Maternal obesity complicating , childbirth and the puerperium, antepartum 8788782991 07 O99.210 [id number] Zuleika Minaya CNM [facility] [address],[place] [address] 09/13/2024 11:19:17 09/13/2024 13:45:58 Gestation period, 35 weeks 57599033 Z3A.35 [id number] [facility] [address],[place] [address] 09/19/2024 10:19:18 09/19/2024 11:01:52 Maternal obesity complicating , childbirth and the puerperium, antepartum 3443460754 07 O99.213 O36.60X0 O43.113 Z3A.36 [id number] Daniela Remy [facility] [address],[place] [address] 09/19/2024 10:19:43 09/19/2024 12:40:52 Maternal obesity complicating , childbirth and the puerperium, antepartum 4521303953 07 O99.210 [id number] Joe Vazquez MD [facility] [address],[place] [address] 09/19/2024 10:20:11 09/19/2024 12:39:23 Routine care 471183146 Z34.91 [id number] [facility] [address],[place] [address] 10/04/2024 13:41:55 10/04/2024 14:23:24 Abnormal uterine bleeding 2026398204 9100 N93.9 Health Concerns Section Related Observation LastModified by Organization Detai ls LastModified Time None Recorded Concern Status LastModified by Organization Details LastModified Time None Recorded Payers Encounter Date Sequence Insurance Name Policy Number Policy Trujillo Covered Member ID Trujillo Member ID Guarantor Name 10/04/2024 1 [employer] - [employer] LOCAL [address] [facility] [id number] Emi Harris [id number] Emi Harris 10/04/2024 2 [facility] (MEDICAID HMO) [id number] 003 Emi Harris [id number] Emi Harris OBGyn Episode Ob Episode Information Episode Created Date Number of Fetuses Patient Bloodtype Patient rh Status Prepregnancy Weight lbs Domestic Partner Domestic Partner Phone Father Name Power Line Lineman Status 04/12/20 24 1 A Negative 272 OPEN Fetus Data First Name Last Name Admitted to NICU Weight (g) Sex Living Outcome Pediatric Complications Fetus ID Race Codes Race Delivery Type [id number] Problems Problem Notes seizures only as a child due to head trauma? placental abruption with first Problem Name Start Date End Date Resolution Snomed Code Not e Large for gestation age fetus 97% Placental abruption [id number] HISTORICAL Migraine 42614097 Placenta circumvallata 04/15/2024 445561 0 32wk growth u/s Prophylactic immunotherapy 04/18/2024 [id number] rhogam receive d 03/22/24 @ [facility] Attention deficit hyperactivity disorder 073112603 Obesity 459286243 testing @ 34 weeks weekly; BMI 42 COVID-19 04/17/2024 012237172 ASA & ser ial growth Hyperemesis 471582763 history of in last 2 pregnancies Mixed anxiety and depressive disorder 990778860 Anterior synechiae 65990196 f /u 4 weeks [place] Calculation Initial [...] Ultra Sound Latest Days Gestation 0 0 Pre-leandro Flowsheet Flowsheet Date 04/12/2024 [place]ham Score Blood Edema Fundus Height Fundus Units Glucose Ketones Leukocytes Nitrite Labor Signs Protein Cervic Dilation Cervic Effacement Cervic Station neg none none trace Type Weight in lbs Pre/Post Dialysis Refused Weight 272.834011408540 BP Diastolic BP Location Tested BP Systolic [...] Type Weight in lbs Pre/Post Dialysis Refused 274.766921084499 BP Diastolic BP Location Tested BP Systolic [...] Type Weight in lbs Pre/Post Dialysis Refused 276.596868857407 BP Diastolic BP Location Tested BP Systolic BP Type 85 132 Fetus Heart Rate Present Fetus Movement A No Comments Patient states thta is havin g s lot of stress and anxiety, cramping, spotting and swelling. discussed stress, anxiety, no suicidal symptoms, f/u next ob visit, f/u with mc [facility]son [employer] for anxiety treatment Flowsheet Date 05/31/2024 [place] [...] Type Weight in lbs Pre/Post Dialysis Refused 279.261073025461 BP Diastolic BP Location Tested BP Systolic BP Type 85 122 Fetus Heart Rate Present Fetus Movement A Yes Comments Patient states that has some anxiety but is little better and is having some right side pain. reviewed education and precautions wants to wait on naya [employer] visit, will continue to monitor mood, +FM, anatomy complete Flowsheet Date 06/26/2024 [place] Score Blood Edema Fundus Height Fundus Units Glucose Ketones Leukocytes Nitrite Labor Signs Protein Cervic Dilation Cervic Effacement Cervic Station trace none Type Weight in lbs Pre/Post Dialysis Refused 285.569156372045 BP Diastolic BP Location Tested BP Systolic [...] Type Weight in lbs Pre/Post Dialysis Refused 290.8125838074 BP Diastolic BP Location Tested BP Systolic [...] Weight in lbs Pre/Post Dialysis Refused Weight 296.952450101386 BP Diastolic BP Location Tested BP Systolic BP Type 81 L arm 134 sitting Fetus Heart Rate Present Fetus Movement A Yes Comments Patient c/o of [place] , states gets hard to breath [...] Weight in lbs Pre/Post Dialysis Refused Weight 300.935440169924 BP Diastolic BP Location Tested BP Systolic [...] Weight in lbs Pre/Post Dialysis Refused Weight 301.069501307006 BP Diastolic BP Location Tested BP Systolic [...] Weight in lbs Pre/Post Dialysis Refused Weight 299.262786879651 BP Diastolic BP Location Tested BP Systolic BP Type 88 128 Fetus Heart Rate Present Fetus Movement Comments Flowsheet Date 09/13/2024 [place]ham Score Blood Edema Fundus Height Fundus Units Glucose Ketones Leukocytes Nitrite Labor Signs Protein Cervic Dilation Cervic Effacement Cervic Station Type Weight in lbs Pre/Post Dialysis Refused Weight 299.883023529552 BP Diastolic BP Location Tested BP Systolic [...] Weight in lbs Pre/Post Dialysis Refused Weight 299.397335133971 BP Diastolic BP Location Tested BP Systolic BP Type 82 R arm 124 sitting Fetus Heart Rate Present Fetus Movement Comments Flowsheet Date 09/19/2024 [place]ham Score Blood Edema Fundus Height Fundus Units Glucose Ketones Leukocytes Nitrite Labor Signs Protein Cervic Dilation Cervic Effacement Cervic Station 4cm Type Weight in lbs Pre/Post Dialysis Refused 299.2872767350 BP Diastolic BP Location Tested BP Systolic BP Type 82 R arm 124 sitting Fetus Heart Rate Present A 144 Fetus Movement A Decreased Comments no complaints, no problems, routine care, no contractions, no vaginal bleeding, no loss of fluid, no cramping Flowsheet Date 10/04/2024 [place] Score Blood Edema Fundus Height Fundus [...]
--- OUTSIDE RECORDS SUMMARY | 2024-10-04 13:59 | XMS_ITS | Clinical Summary ---
Author Organization [facility] Address [address] [place] [address]. [place], [place] [address] [place] [address] Care Team Providers Care Processing Rep Name Role Phone Alana Sanchez [facility] Primary Care Provider [phone] Allergies Active Allergy Reactions Criticality Noted Date Comments Latex Hives,Rash Medium 01/29/2020 Medications vitamin D2, ergocalciferol, (DRISDOL) 1.25 mg capsule Take 1 capsule (1.25 mg total) by mouth every 7 days. 4 Active ondansetron (ZOFRAN-ODT) 4 MG disintegrating tablet Take 1 tablet (4 mg total) by mouth every 12 (twelve) hours as needed. 4 Active Albuterol-Budesoni de (AIRSUPRA) 90-80 MCG/ACT AerosolIndications :Mild intermittent asthma with exacerbation (HHS/HCC) Inhale 2 puffs into the lungs every 4 (four) hours as needed (wheezing). 32.1 g 1 5 Active dextromethorphan-g uaiFENesin ER (MUCINEX DM) 30-600 MG TABLET SR 12 HR 12 hr tabletIndications: Acute cough,Fluid level behind tympanic membrane of both ears,COVID-19 Take 1 tablet by mouth every 12 (twelve) hours as needed. 28 tablet 4 025 Discontinu ed(Therapy completed) predniSONE (DELTASONE) 20 MG tabletIndications: Mild intermittent asthma with exacerbation (HHS/HCC) Take 1 tablet (20 mg total) by mouth daily for 5 days. 5 tablet 5 025 Active Problems Problem Noted Date Diagnosed Date Hypermobile joints 01/18/2023 COVID-19 vaccination declined 01/13/2022 Hyperlipidemia 01/13/2022 Class 3 severe obesity due t o excess calories without serious comorbidity with body mass index (BMI) of 40.0 to 44.9 in adult ([facility]) 01/20/2020 Marijuana use 01/20/2020 Acromioclavicular joint separation, right, seque la 10/22/2019 Seasonal allergic rhinitis due to pollen 019 Chronic right shoulder pain 04/10/2019 Depressive disorder 02/12/2018 Bipolar affective disorder ([facility]) Anxiety 10/21/2015 Overview (08/02/2018): Date Onset: 10/21/2015 Attention deficit hyperactiv ity disorder (ADHD), 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 Overview (08/02/2018): Date Onset: 05/15/2015 Shoulder instability 12/09/2013 Chronic tension headache 11/28/2012 Subjective tinnitus 11/28/2012 Folate deficiency 10/08/2011 Overview (08/02/2018): Note: ADD Asthma ([facility]) 10/08/2011 Estimated Date of Delivery Comme nts Yes 10/16/2024 Resolved Problems Problem Noted Date Diagnosed Date Resolved Date ([facility]) 10/19/2020 01/14/20 22 Prior with placent al abruption, antepartum ([facility]) 06/24/2020 01/13/2022 Overview (08/21/2020): Last Assessment & Plan: Denies having hypertension and her last . We discussed the risk of recurrence of placental abruption and or hemorrhage. Maternal Medicine recommendations: 1. aspirin prescribed for preeclampsia risk reduction 2. recommend anticipation, by the referring professor of psychiatry, of potential recurrence of placental abruption and or hemorrhage Abnormal maternal glucose to lerance, antepartum ([facility]) 06/24/2020 01/25/2024 Overview (08/21/2020): First-trimester glucose challenge test elevated with appropriate GTT. Last Assessment & Plan: At increased risk of gestational diabetes. Maternal Medicine recommendations: 1. repeat glucose testing at 26-28 weeks Oligohydramnios, antepartum ([facility]) 06/22/2020 01/13/2022 Overview (08/21/2020): 06/16/20 borderline GÓMEZ 9cm on outside scan. Hypothyroid 06/22/2020 01/25/2024 Overview (08/21/2020): Per PNR-SOGA checking labs q trimester. Last Assessment & Plan: Maternal Medicine recommendations: 1. reassess thyroid function every trimester Suicidal thoughts 06/01/2020 01/25/2024 Nausea and vomiting during p regnancy prior to 22 weeks gestation ([facility]) 05/15/2020 01/13/2022 Circumvallate placenta in se cond trimester ([facility]) 03/08/2016 09/18/2018 Obesity 03/08/2016 01/20/2020 Supervision of normal first teen in first trimester ([facility]) 02/25/2016 09/18/2018 Uncomplicated asthma ([facility]) 02/25/2016 09/18/2018 Neck pain 08/29/2013 12/28/2018 Encounter for other general counseling or advice on contraception 06/06/2013 09/18/2018 Overview (08/02/2018): Date Onset: 06/06/2013 Chronic pharyngitis 11/28/2012 09/19/19 20 Dizziness 11/28/2012 05/18/2020 Other disorder of bone and cartilage 11/06/2012 12/28/2018 Overview (08/02/2018): Date Onset: 11/06/2012 MRSA infection 11/05/2012 10/18/2018 Overview (08/02/2018): Date Onset: 11/05/2012 Tonsillar hypertrophy 11/05/20122018 Overview (08/02/2018): Date Onset: 11/05/2012 Prediabetes 01/25/2024 Encounters Date Type Department Care Team Description 09/10/2024 10:00 AM SKETCH ARTIST Office Visit [facility] [address] [place], [place] [id number] Alana Sanchez FNP Cough (Pt is here for a cough, she has had this cough for about 2 weeks, pt thinks she may have bronchitis) 09/10/2024 Travel 08/29/2024 1:25 PM SKETCH ARTIST - 08/29/2024 6:56 PM SKETCH ARTIST Emergency [facility] Emergency Room [address] [place] [address] Saman Amado MD Flank Pain (33 weeks /) Discharge Disposition: Transfer to Acute Care Hospital 08/29/2024 Travel 07/29/2024 Scan HEALTH INFO SRVCS Scanned, Doc Med Group Holter Monitor Report (SCAN) from Last 3 Months Immunizations Name Administration Dates Next Due DTaP-IPV (Kinrix) 08/16/2001,05/04/1998 Dtap (Acel-Immune) 08/16/2001,08/07/1998 Dtap (Generic) 08/16/2001,08/07/1998 Dtp (Generic) 1997,1997,1997 Fluzone 6 Months+ Quad (0.5 mL Prefilled Syringe) 06/02/2020 HPV 12/19/2008,08/07/2008,06/06/2008 Hepatitis B 05/13/2015, 8,1997,04/30 Hepatitis B (Generic: Adult) 05/13/2015, 02/10/1998,1997,04/30 Hepatitis B Pediatric 11/17/2015, 015,02/10/1998,05/29,1997 Hib (Generic) 08/07/1998, 8,1997,07/10 Hib Vaccine, Hboc 08/07/1998, 8,1997,07/10 Influenza (Generic) 07/16/2018, 7,06/06/2016,06/01 Influenza Adult (Generic) 07/16/2018,02/2017,06/06/2016,06/01 MMR (Generic) 08/16/2001,08/07/1998 Mebjjfj-Yxygg-Kcxuwfq-Varicell Sc Inj 08/16/2001 ,08/07/1998 Meningococcal 08/07/2008 Meningococcal (Generic) 08/07/2008 Meningococcal (Menactra) 06/01/2015 Meningococcal B 08/07/2008 Meningococcal Vac A,C,Y,W-135 Sc 06/01/2015 Opv 1997,1997 Pneumococcal (Pneumovax 23) 09/04/2016 Polio Ipv (Generic) 08/16/2001,05/04/1998 Tdap (Boostrix) 06/21/2016,06/06/2008 Tdap (Generic) 09/09/2017, 6,10/24/2010,06/06,1997,1997,1997 Varicella Vaccine 12/06/2017,05/04/1998 Family History Medical History Relation Comments No Known Problems Father Alzheimers Maternal Aunt No Known Problems Maternal Grandfather No Known Problems Maternal Grandmother Diabetes Mother Hypertension Mother Lung Disease Mother Asthma Other Breast Cancer Other family hx Diabetes Other family hx Hypertension Other cardiac arrest Other Heart Disease Paternal Grandfather No Known Problems Paternal Grandmother Relation Status Comments Father Maternal Aunt Maternal Grandfather Maternal Grandmother Mother Other Paternal Grandfather Paternal Grandmother Social History Tobacco Use Types Packs/Day Years Used Date Smoking Tobacco: Former Cigarettes Q uit: 11/2023 Smokeless Tobacco: Never Tobacco Cessation:Counseling Given: Yes Comments:smokes marijuana Alcohol Use Standard Drinks/Week Comments No 0 (1 standard drink = 0.6 oz pur e alcohol) AUDIT-C Answer Date Recorded Frequency of Alcohol Consumption Never 10/18/2018 Average Number of Drinks Not on file 019 Frequency of Binge Drinking Not on file 10/05 PHQ-2 Answer Date Recorded Patient Health Questionnaire-2 Score 0 04/28/2023 Estimated Date of Delivery Comme nts Yes 10/16/2024 Sex and Gender Information Value Date Recorded Sex Assigned at Female 01/29/2020 9:58 AM CDT Legal Sex Female 5:31 PM CDT Gender Identity Female 01/29/2020 9:58 AM CDT Sexual Orientation Straight 01/29/2020 9: 58 AM CDT Last Filed Vital Signs Vital Sign Reading Time Taken Comments Blood Pressure 124/79 09/10/2024 9:55 AM SKETCH ARTIST Pulse 102 09/10/2024 9:55 AM SKETCH ARTIST Temperature 36.8 ??C (98.3 ??F) 09/10/2024 9:55 AM CS T Respiratory Rate 18 09/10/2024 9:55 AM SKETCH ARTIST Oxygen Saturation 98% 09/10/2024 9:55 AM SKETCH ARTIST Inhaled Oxygen Concentration - - Weight 137 kg (302 lb) 09/10/2024 9:55 AM SKETCH ARTIST Height 172.7 cm (5' 8 ) 09/10/2024 9:55 AM SKETCH ARTIST Body Mass Index 45.92 09/10/2024 9:55 AM SKETCH ARTIST Plan of Treatment Upcoming Encounters Date Type Department Care Team (Late st Contact Info) Description 01/24/2025 2:00 PM CDT Office Visit [facility] [address] [place] [address] Alana Sanchez [place] [address] [place] [address] Health Maintenance Due Date Last Done Comments Pneumococcal Vaccine: Pediatrics (0 to 5 Years) and At-Risk Patients (6 to 64 Years) (2 of 2 - PCV) 09/04/2017 09/04/2016 PHQ-2 (Physician Dunn Loring) 04/28/2024 04/28/2023 COVID-19 Vaccine ( season) 2024 Influenza Adult (#1) 2024 06/02/2020, 07/16/2018, 07/16/2018, Additional history exists PHQ-2 (Physician Dunn Loring) 09/04/2024 04/28/2023 Annual Physical 01/24/2025 01/25/2024, 01/02, 01/13/2022, Additional history exists Cervical Cancer Screening Pap Smear (Age 21 to 29) Every 3 Years 08/29/2027 08/29/2024, 08/29/2024, 03/13/2024, Additional history exists Cervical Cancer Screening 08/29/2027 DTaP, Tdap and Td Vaccines (12 - Td or Tdap) 09/09/2027 09/09/2017, 06/21/2016, 06/21/2016, Additional history exists HPV Vaccines Completed 12/19/2008, 12/2007, 06/06/2008 Meningococcal Vaccine Aged Out 06/01/2015 , 06/01/2015, 08/07/2008, Additional history exists No longer eligible based on patient's age to complete this topic Hepatitis B Vaccines Completed 11/17/2015, 06/29/2015, 05/13/2015, Additional history exists Hepatitis C Completed 04/12/2024, 05/2024, 09/29/2022, Additional history exists Meningococcal B Vaccine Aged Out No l onger eligible based on patient's age to complete this topic RSV Immunization or 60+ Years (No Doses Required) Completed RSV Immunizations Under 20 Months Aged Out No longer eligible based on patient's age to complete this topic Procedures Procedure Name Priority Date/Time Associated Diagnosis Comments DRUG SCREEN RAPID STAT 08/29/2024 2:4 0 PM SKETCH ARTIST URINALYSIS, AUTO, COMPLETE STAT 08/29/2024 2:40 PM SKETCH ARTIST CRITICAL CARE Routine 08/29/2024 2:00 PM SKETCH ARTIST URIC ACID BLOOD STAT 08/29/2024 1:35 PM SKETCH ARTIST MAGNESIUM STAT 08/29/2024 1:35 PM SKETCH ARTIST LACTIC ACID W REFLEX (SEPSIS) STAT 08/29/2024 1:35 PM SKETCH ARTIST HCG QUANT (SERUM)-CHORIONIC GONADOTROPIN STAT 08/29/2024 1:35 PM SKETCH ARTIST LIPASE STAT 08/29/2024 1:35 PM SKETCH ARTIST COMPREHENSIVE METABOLIC PANEL STAT 08/29/2024 1:35 PM SKETCH ARTIST CBC W/DIFF AUTOMATED STAT 08/29/2024 1:35 PM SKETCH ARTIST HOLTER DOCUMENT (SCAN ORDER) 07/29/2024 OUTSIDE CYTOPATH CERV/VAG INTERPRET (PAP) (SCAN ORDER) 04/24/2019 from Last 3 Months or Most Recently Relevant to Health Maintenance Results * DRUG SCREEN RAPID (08/29/2024 2:40 PM SKETCH ARTIST) AMPHETAMINE (U) NONE DETECTED NONE DETECTED 08/29/2024 3:19 PM SKETCH ARTIST [facility] BARBITURATES SCREEN (U) NONE DETECTED NONE DETECTED 08/29/2024 3:19 PM SKETCH ARTIST [facility] BENZODIAZEPINES SCREEN (U) NONE DETECTED NONE DETECTED 08/29/2024 3:19 PM [facility] BUPRENORPHINE SCREEN (U) NONE DETECTED NONE DETECTED 08/29/2024 3:19 PM [facility] COCAINE METABOLITES (U) NONE DETECTED NONE DETECTED 08/29/2024 3:19 PM [facility] METHAMPHETAMINE (U) NONE DETECTED NONE DETECTED 08/29/2024 3:19 PM [facility] METHADONE (U) NONE DETECTED NONE DETECTED 08/29/2024 3:19 PM [facility] OPIATE SCREEN (U) NONE DETECTED NONE DETECTED 08/29/2024 3:19 PM [facility] OXYCODONE SCREEN (U) NONE DETECTED NONE DETECTED 08/29/2024 3:19 PM [facility] PHENCYCLIDINE PCP (U) NONE DETECTED NONE DETECTED 08/29/2024 3:19 PM [facility] CANNABINOIDS SCREEN (U) NONE DETECTED NONE DETECTED 08/29/2024 3:19 PM [facility] TRICYCLIC ANTIDEPRESSANT SCREEN (U) NONE DETECTED NONE DETECTED 08/29/2024 3:19 PM [facility] Comment: NOTE: RESULTS OF THIS DRUG SCREEN SHOULD BE USED FOR MEDICAL PURPOSES ONLY AND NOT FOR LEGAL OR EMPLOYEMENT PURPOSES. MEDICATIONS CONTAINING EPHEDRINE MAY CAUSE FALSE POSITIVE AMPHETAMINE. AMPHETAMINE- ?500 NG/ML BARBITURATE- ?200 NG/ML BENZODIAZEPINE- ?? 150 NG/ML BUPRENORPHINE- ? 10 NG/ML COCAINE- ?150 NG/ML METHAMPHETAMINES- 500 NG/ML METHADONE- ?200 NG/ML OPIATE- ? 100 NG/ML OXYCODONE- ?100 NG/ML PCP- ? 25 NG/ML THC- ? 50 NG/ML TCA- ?300 NG/ML URINE SPECIMEN / Unknown 08/29/2024 2:40 PM SKETCH ARTIST Saman Amado MD URINE ORDERABLES Final Result [facility] [address] [place] [address], * (ABNORMAL) URINALYSIS, AUTO, COMPLETE (08/29/2024 2:40 PM SKETCH ARTIST) COLOR (U) YELLOW 08/29/2024 3:16 PM [facility] TRANSPARENCY CLEAR 08/29/2024 3:16 PM [facility] SPECIFIC GRAVITY (U) 1.015 1.000 - 1.030 08/29/2024 3:16 PM [facility] U PH 6.0 5.0 - 9.0 08/29/2024 3:16 PM [facility] LEUKOCYTES (U) NEGATIVE NEGATIVE 08/29/2024 3:16 PM [facility] NITRITES NEGATIVE NEGATIVE 08/29/2024 3:16 PM SKETCH ARTIST [facility] PROTEIN RANDOM (U) NEGATIVE NEGATIVE 08/29/2024 3:16 PM [facility] GLUCOSE (U) TRACE(A) NEGATIVE 08/29/2024 3:16 PM [facility] KETONES MG/DL (U) NEGATIVE NEGATIVE 08/29/2024 3:16 PM [facility] BILIRUBIN (U) NEGATIVE NEGATIVE 08/29/2024 3:16 PM [facility] BLOOD (U) NEGATIVE NEGATIVE 08/29/2024 3:16 PM [facility] WBC/HPF NONE SEEN 0 - 5 /HPF 08/29/2024 3:16 PM [facility] RBC/HPF NONE SEEN 0 - 5 /HPF 08/29/2024 3:16 PM [facility] EPI/HPF NONE SEEN /HPF 08/29/2024 3:16 PM [facility] URINE SPECIMEN OBTAINED BY CLEAN CATCH PROCEDURE / Unknown 08/29/2024 2:40 PM SKETCH ARTIST Saman Amado MD URINE ORDERABLES Final Result Performing Organization Address City/State/[facility] Co de Phone Number [facility] [address] [place] [address], * Critical Care (08/29/2024 2:00 PM SKETCH ARTIST) Narrative Saman Amado MD - 08/29/2024 2:00 PM SKETCH ARTIST Saman Amado MD ? 08/29/2024 ??6:56 PM Critical Care Performed by: Saman Amado MD Authorized by: Saman Amado MD ?? Critical care provider statement: ??Critical care time (minutes): ??47 ??Critical care time was exclusive of: ??Separately billable procedures and treating other patients ??Critical care was necessary to treat or prevent imminent or life-threatening deterioration of the following conditions: OB emergency. ??Critical care was time spent personally by me on the following activities: ??Blood draw for specimens, development of treatment plan with patient or surrogate, discussions with consultants, evaluation of patient's response to treatment, examination of patient and pulse oximetry ??I assumed direction of critical care for this patient from another provider in my specialty: yes ?Care discussed with: accepting provider at another facility ?? Saman Amado MD PROCEDURE/MINOR SURGICA L ORDERABLES Final Result * LACTIC ACID W REFLEX (SEPSIS) (08/29/2024 1:35 PM SKETCH ARTIST) Pathologist [facility] LACTIC ACID VENOUS 1.2 0.4 - 2.0 MMOL/L 08/29/2024 2:16 PM [facility] 08/29/2024 1:35 PM SKETCH ARTIST Saman Amado MD LABORATORY Final R esult [facility] [address] [place] [address], [place] [phone] * (ABNORMAL) COMPREHENSIVE METABOLIC PANEL (08/29/2024 1:35 PM SKETCH ARTIST) Pathologist [facility] GLUCOSE 105(H) 70 - 99 MG/DL 08/29/2024 2:28 PM [facility] BUN 9 7 - 18 MG/DL 08/29/2024 2:28 PM [facility] CREATININE S/P/B 0.75 0.55 - 1.02 MG/DL 08/29/2024 2:28 PM [facility] SODIUM S/P/B 139 136 - 145 MMOL/L 08/29/2024 2:28 PM [facility] POTASSIUM S/P/B 3.9 3.5 - 5.1 MMOL/L 08/29/2024 2:28 PM [facility] CHLORIDE S/P/B 106 100 - 108 MMOL/L 08/29/2024 2:28 PM [facility] CO2 21.4 21 - 32 MMOL/L 08/29/2024 2:28 PM [facility] CALCIUM S/P/B 8.9 8.5 - 10.1 MG/DL 08/29/2024 2:28 PM [facility] BILIRUBIN TOTAL S/P/B 0.2 0.2 - 1.2 MG/DL 08/29/2024 2:28 PM [facility] TOTAL PROTEIN S/P/B 6.4 6.4 - 8.2 G/DL 08/29/2024 2:28 PM [facility] ALBUMIN S/P/B 2.3(L) 3.4 - 5.0 G/DL 08/29/2024 2:28 PM [facility] AST 11(L) 15 - 37 U/L 08/29/2024 2:28 PM [facility] ALT 16 14 - 55 U/L 08/29/2024 2:28 PM [facility] ALKALINE PHOSPHATASE S/P/B 131 50 - 136 U/L 08/29/2024 2:28 PM [facility] ANION GAP 11.6 5 - 15 MMOL/L 08/29/2024 2:28 PM [facility] BUN CREATININE RATIO 12.0 6 - 26 08/29/2024 2:28 PM [facility] A/G RATIO 0.6(L) 1.0 - 2.0 RATIO 08/29/2024 2:28 PM [facility] GFR ESTIMATE >90 >90 ML/MIN/1.7 3 M2 08/29/2024 2:28 PM [facility] Comment: NOTE: eGFR is not calculated for patients <18 years of age. This is an estimated GFR calculation using the new CKD EPI creatinine equation without race and so does not require a correction factor for race. This estimated GFR should not be used for calculating drug doses. 08/29/2024 1:35 PM SKETCH ARTIST Saman Amado MD LABORATORY Final R esult Performing Organization Address [facility] de Phone Number [facility] [address] [place] [phone], * (ABNORMAL) Quantitative HCG (08/29/2024 1:35 PM SKETCH ARTIST) [facility] HCG QUANTITATIVE 14,919(H) 0 - 6 MIU/ML 08/29/2024 2:28 PM SKETCH ARTIST [facility] Comment: WEEKS OF ? REFERENCE RANGES NON- FEMALE ?0-6 ? 0.2 - 1 ? 5 - 50 ? 1 - 2 ? 50 - 500 ? 2 - 3 ? 100 - 5000 ? 3 - 4 ? 500 - 10,000 ? 4 - 5 ? 1000 - 50,000 ? 5 - 6 ? 10,000 - 100,000 ? 6 - 8 ? 15,000 - 200,000 ? 2 - 3 MONTHS ?10,000 - 100,000 08/29/2024 1:35 PM SKETCH ARTIST Saman Amado MD LABORATORY Final R esult Performing Organization Address [facility]/State/ZIP Co de Phone Number [facility] [address] [facility] [place] [address], * (ABNORMAL) CBC W/DIFF AUTOMATED (08/29/2024 1:35 PM SKETCH ARTIST) WBC 11.95(H) 4.4 - 11.0 x10'3/uL 08/29/2024 1:46 PM SKETCH ARTIST [facility] RBC 3.61(L) 4.50 - 5.10 x10'6/uL 08/29/2024 1:46 PM [facility] HGB 10.4(L) 12.3 - 15.3 G/DL 08/29/2024 1:46 PM [facility] HCT 30.3(L) 35.9 - 44.6 % 08/29/2024 1:46 PM [facility] MCV 83.9 80.0 - 96.0 FL 08/29/2024 1:46 PM [facility] MCH 28.8 25.3 - 30.9 PG 08/29/2024 1:46 PM [facility] MCHC 34.3(H) 31.0 - 34.1 G/DL 08/29/2024 1:46 PM [facility] RDW 13.0 12.4 - 15.1 % 08/29/2024 1:46 PM [facility] PLT 292 151 - 353 x10'3/uL 08/29/2024 1:46 PM [facility] MPV 9.3(L) 9.6 - 12.0 FL 08/29/2024 1:46 PM [facility] RBC MORPHOLOGY NORMAL 08/29/2024 1:46 PM [facility] PLT MORPH. NORMAL 08/29/2024 1:46 PM [facility] WBC MORPHOLOGY NORMAL 08/29/2024 1:46 PM [facility] LYMPHOCYTES % 16.5 15.8 - 45.0 % 08/29/2024 1:46 PM [facility] NEUTROPHILS % 74.7(H) 42.1 - 71.9 % 08/29/2024 1:46 PM SKETCH ARTIST [facility] MONOCYTES % 6.7 5.7 - 12.5 % 08/29/2024 1:46 PM [facility] EOSINOPHILS 1.4 0.0 - 5.6 % 08/29/2024 1:46 PM [facility] BASOPHILS 0.2 0.0 - 1.3 % 08/29/2024 1:46 PM [facility] ABS. NEUTROPHILS 8.93(H) 1.40 - 6.00 x10'3/uL 08/29/2024 1:46 PM [facility] IMMATURE GRANS % 0.5 0.0 - 0.5 % 08/29/2024 1:46 PM [facility] ABS. LYMPHOCYTES 1.97 0.80 - 4.70 x10'3/uL 08/29/2024 1:46 PM [facility] 08/29/2024 1:35 PM SKETCH ARTIST us Saman Amado MD LABORATORY Final R esult [facility] [address] [place] [address], * (ABNORMAL) MAGNESIUM (08/29/2024 1:35 PM SKETCH ARTIST) MAGNESIUM 1.5(L) 1.8 - 2.4 MG/DL 08/29/2024 5:04 PM [facility] 08/29/2024 1:35 PM SKETCH ARTIST Saman Amado MD LABORATORY Final R esult Performing Organization Address City/[facility] Co de Phone Number [facility] [address] [place] [address], [place] [phone] * LIPASE (08/29/2024 1:35 PM SKETCH ARTIST) LIPASE 19 16 - 77 UNITS/L 08/29/2024 2:28 PM SKETCH ARTIST [facility] 08/29/2024 1:35 PM SKETCH ARTIST Saman Amado MD LABORATORY Final R esult Performing Organization Address [facility] de Phone Number [facility] [address] [place] [address], [place] [phone] * URIC ACID BLOOD (08/29/2024 1:35 PM SKETCH ARTIST) URIC ACID 4.8 2.6 - 6.0 MG/DL 08/29/2024 5:16 PM SKETCH ARTIST [facility] 08/29/2024 1:35 PM SKETCH ARTIST Saman Amado MD LABORATORY Final R esult Performing Organization Address City/[facility] Co de Phone Number [facility] [address] [place] [address], [place] [phone] * HOLTER DOCUMENT (SCAN ORDER) (07/29/2024) 07/29/2024 [facility] Scanned SCANNING Final Resu lt * PAP SMEAR (04/24/2019) 04/24/2019 [facility] Scanned SCANNING Final Resu lt from Last 3 Months or Most Recently Relevant to Health Maintenance Additional Health Concerns Infection Onset Date Last Indicated MRSA 09/23/2018 09/23/2018 Insurance [employer] Advance Directives Documents on File Type Date Recorded Patient Clinical Rehabilitation Coordinator Expl anation Legal Documents 09/22/2020 2:48 PM RECVD/C OMPLETED ATTY REQUEST FOR [facility] [employer] DOS 07/17/20-PRESENT * Full Code (Latest Code Status on File) Date Activated Date Inactivated Comments 10/19/2020 7:01 PM 10/22/2020 5:22 PM * Full Code Date Activated Date Inactivated Comments 10/16/2020 1:34 PM 10/16/2020 4:43 PM * Full Code Date Activated Date Inactivated Comments 09/24/2020 11:38 AM 09/24/2020 2:08 PM * Full Code Date Activated Date Inactivated Comments 07/17/2020 10:19 PM 07/18/2020 11:36 AM * Full Code Date Activated Date Inactivated Comments 07/09/2020 10:20 PM 07/10/2020 12:36 AM Care Teams Processing Rep Relationship Specialty Start Date End Date Alana Sanchez FNP [address] [place] [address] [place] [address] PCP - General NURSE PRACTITIONER 04/06/24
--- OUTSIDE RECORDS SUMMARY | 2024-10-04 13:59 | XMS_ITS | Clinical Summary ---
Author Organization [facility] Address [address] [place] [address] Care Team Providers Care Insurance Special Agent Name Role Phone Juan Castillo MD Primary Care Provider [phone] Source Comments [facility],non-owned Affiliates and Associated Physician Practices is amultiple site organization consisting of ambulatory clinics and hospital sitesin [place], [place], [place] and [place]. This disclosure is being madepursuant to the Care Everywhere program and may not contain all information available regarding this patient. Last updated 18.[facility] Loccit (ML4D) Allergies Active Allergy Reactions Criticality Noted Date Comments Latex Rash Medium 06/24/2020 Medications * Be aware that medications may not be up to date on this document. Alwaysverify current medications with the patient. Medication Sig Dispensed Refills Start Date End Date Status montelukast (SINGULAIR) 10 MG tablet Take 10 mg by mouth at bedtime. Active loratadine (CLARITIN) 10 MG tablet Take 10 mg by mouth once daily. Active budesonide-formote rol (SYMBICORT) 80-4.5 MCG/ACT inhaler Inhale 2 Puffs by mouth 2 times daily. Active albuterol HFA (PROVENTIL;VENTOLI N;PROAIR) 108 (90 BASE) MCG/ACT inhaler Inhale 2 Puffs by mouth every 6 hours as needed. Active albuterol-ipratrop ium (DUO-NEB) 0.5-2.5 (3) MG/3ML nebulizer solution ipratropium 0.5 mg-albuterol 3 mg (2.5 mg base)/3 mL nebulization soln 06/25/2019 Active levothyroxine (SYNTHROID) 50 MCG tabletIndications: Hypothyroidism Take 75 mcg by mouth once daily Reasons: Underactive Thyroid 10/04/2019 Active venlafaxine XR 24hr (EFFEXOR XR) 150 MG capsule venlafaxine ER 150 mg capsule,extended release 24 hr Active magnesium 30 MG tablet Take 30 mg by mouth once daily Active pyridoxine (VITAMIN B-6) 25 MG tablet Take 50 mg by mouth once daily Active ondansetron (ZOFRAN) 4 MG tabletIndications: Nausea and/or Vomiting in Take 4 mg by mouth every 6 hours as needed for Nausea/Vomiting Reasons: Nausea and Vomiting in Active metoclopramide (REGLAN) 10 MG tabletIndications: Nausea and/or Vomiting in Take 10 mg by mouth 3 times daily before meals Reasons: Nausea and Vomiting in Active busPIRone (BUSPAR) 10 MG tabletIndications: Major Depressive Disorder Take 10 mg by mouth once Reasons: Major Depressive Disorder Active FLUoxetine (PROZAC) 40 MG capsuleIndications :Depression Take 40 mg by mouth once daily Reasons: Depression Active diphenhydrAMINE (BENADRYL) 25 MG capsule Take 25 mg by mouth at bedtime Active aspirin (ASPIRIN) 81 MG chew tabletIndications: preeclampsia prevention Take 2 tablets by mouth once daily Reasons: preeclampsia prevention 100 tablet 11 06/24/2020 Active lidocaine (Lidoderm) 5 % patch Apply 1 (one) patch to skin every 24 hours Apply patch to most painful area and remove after 12 hours. May reapply a new patch 12 hours later. 3 patch 2 09/01/2024 Active Vit-DSS-Fe Fum-FA ( vitamin with iron) tabletIndications: Elevated blood pressure affecting in third trimester, antepartum (HCC) Take 1 (one) tablet by mouth once daily 90 tablet 3 09/02/2024 Active Active Problems Problem Noted Date Diagnosed Date Elevated blood pressure affe cting in third trimester, antepartum 08/29/2024 Abnormal maternal glucose tolerance, antepartum 06/24/2020 Overview (06/24/2020): First-trimester glucose challenge test elevated with appropriate GTT. Assessment & Plan (06/24/2020 11:37 AM CDT): At increased risk of gestational diabetes. Maternal Medicine recommendations: 1. repeat glucose testing at 26-28 weeks Prior with placental abruption, antepa rtum 06/24/2020 Assessment & Plan (06/24/2020 11:39 AM CDT): Denies having hypertension and her last . We discussed the risk of recurrence of placental abruption and or hemorrhage. Maternal Medicine recommendations: 1. aspirin prescribed for preeclampsia risk reduction 2. recommend anticipation, by the referring institutional custodian, of potential recurrence of placental abruption and or hemorrhage Oligohydramnios, antepartum 06/22/2020 Overview (06/22/2020): 06/16/20 borderline GÓMEZ 9cm on outside scan. Hypothyroid 06/22/2020 Overview (06/22/2020): Per PNR-SOGA checking labs q trimester. Assessment & Plan (06/24/2020 11:29 AM CDT): Maternal Medicine recommendations: 1. reassess thyroid function every trimester Suicidal ideation 06/22/2020 Overview (06/22/2020): Depression with suicidal ideation this per PNR. Patient has counselor and on Prozac. Has safety contract with [facility]. Supervision of high-risk of walter rollins igravida 06/22/2020 Overview (06/24/2020): A-, Negative, Immune, RPR-NR, Hbsag-NR, HIV-NR plts-330 Quad= Negative 03/25 GCT-144 04/02 3hr : 99,165,140,118 Depression 02/12/2018 Assessment & Plan (06/24/2020 11:29 AM CDT): Mood appears appropriate on current medication. At risk for mood deterioration in and . We discussed the safety of fluoxetine and . Fluoxetine (Prozac): U.S. FDA category C. Animal Reproductive studies have shown an adverse effect on the fetus; however, there are no adequate well controlled studies in humans. Slight increased risk of cardiovascular defects compared to the general population (2 in 100). The use of SSRIs late in may increase the risk of persistent pulmonary hypertension in the , abstinence syndrome (tremors, sleep disturbance, hypertonicity, high-pitched cry) after . Newborns exposed late in the 3rd trimester should be closely monitored for 48 hours after . Maternal Medicine recommendations: 1. Reassess mood at visits 2. Notify Ski Lift Mechanic of fluoxetine use if continued into the 3rd trimester, as the would benefit from increased supervision in the first 48 hr of life Maternal morbid obesity, antepartum 03/08/2016 Overview (06/24/2020): 2TM anatomy: incomplete Assessment & Plan (06/24/2020 11:41 AM CDT): Obese women have higher rates of spontaneous miscarriage. Morbid obesity is associated with a host of complications: increased risk for preeclampsia and gestational hypertension, delivery, macrosomia, gestational diabetes, deep venous thrombosis, delivery, stillbirth and certain defects, such as open neural tube defects. deliveries are associated with an increased risk of complications, such as anesthetic complications, wound complications and infections. During , limited weight gain is recommended. The [place] of Medicine recommends a total weight gain in between 11-20 lb for women who have obese body habitus as defined by a body mass index greater than or equal to 30. Maternal Medicine recommendations: 1. Aspirin prescribed for preeclampsia risk reduction 2. Total weight gain goal 0 to 15 lb 3. Reassess growth at 32 and 36 weeks 4. Weekly BPP starting at 36 weeks Encounter for anatomic survey 02/25/2016 Anxiety Assessment & Plan (06/24/2020 11:31 AM CDT): Mood appears appropriate today. Remains at risk for mood deterioration in and . Buspar [Buspirone]: US FDA class B. Limited data. No increased risk of congenital anomalies. It is excreted in breast milk. No strong contraindication to . 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 [address] [place] [address] Gisela Arceo RN Hospital Follow-up 09/02/2024 Orders Only [facility] [address] [place] [address]. [address] [place] [address] Alva Johnson RN Elevated blood pressure affecting in third trimester, antepartum (HCC) 08/30/2024 Telephone [facility] [address] [place] [address]. [address] [place] [address] Gisela Arceo RN Hospitalization 08/29/2024 7:30 PM BIOLOGICAL PLANT OPERATOR - 08/31/2024 11:30 AM BIOLOGICAL PLANT OPERATOR Hospital Encounter [facility] 5E ANTEPARTUM/MOTHER BABY [address] [place] [address] Carlos Lee MD Maternal Medicine Discharge Disposition: Home or Self Care 08/29/2024 Travel from Last 3 Months Immunizations Name Administration Dates Next Due DTAP/IPV 08/16/2001,05/04/1998 DTaP VACCINE IM (6wk-6yrs) 08/16/2001,08/07/1998 HEP B VACCINE, ADULT 3 DOSE 05/13/2015,0 02/10/1998,1997,04/30 HEP B VACCINE, PED/ADOL 11/17/2015,06/29/2015 HIB-HAEMOPHILUS INFLUENZAE B CONJUGATE VACCINE 08/07/1998,1997,1997,07/10 Human Papilloma Virus Vaccine 12/19/2008, 008,06/06/2008 INFLUENZA VACCINE 07/16/2018, 7,06/06/2016,06/01 Immune Globulin (Gamastan/baygan) 09/03/2016, MENINGOCOCCAL CONJUGATE (MCV4P) 06/01/2015 MENINGOCOCCAL VACCINE 08/07/2008 MMR/VARICELLA 08/16/2001,08/07/1998 Meningococcal B Recombinant 2 Dose, IM 8 PNEUMOCOCCAL PPSV23 09/04/2016 POLIO OPV 1997,1997 TDAP (7yrs+) 09/09/2017, 6,10/24/2010,06/06,1997,1997,1997 VARICELLA 12/06/2017,05/04/1998 Family History Medical History Relation Name Comments Alcohol abuse Father Hypertension Mother Anesthesia Reaction Neg Hx Bleeding Disorders Neg Hx Childhood Hearing Disorder Neg Hx Relation Name Status Comments Father Maternal Grandfather Alive Maternal Grandmother Alive Mother Alive Paternal Grandfather Alive Paternal Grandmother Alive half-sister Alive Social History Tobacco Use Types Packs/Day Years Used Date Smoking Tobacco: Never Passive Smoke Exposure: Never Smokeless Tobacco: Never Tobacco Cessation:Counseling Given: No Alcohol Use Standard Drinks/Week Comments Not Currently 0 (1 standard drink = 0.6 oz pur e alcohol) Overall Financial Resource Strain (CARDIA) Answe r Date Recorded How hard is it for you to pa y for the very basics like food, housing, medical care, and heating? Not hard at all 08/29/2024 [facility] [place] [facility] ional [facility] - Occupational Stress Questionnaire Answer Date Recorded Do you feel stress - tense, restless, nervous, or anxious, or unable to sleep at night because your mind is troubled all the time - these days? Only a little 08/29/2024 Hunger Vital Sign Answer Date Recorded Within the past 12 months, y ou worried that your food would run out before you got the money to buy more. Never true 08/29/20 24 Within the past 12 months, t he food you bought just didn't last and you didn't have money to get more. Never true 08/29/2024 PRAPARE - Transportation Answer Date Re corded In the past 12 months, has l ack of transportation kept you from medical appointments or from getting medications? No 08/05 In the past 12 months, has l ack of transportation kept you from meetings, work, or from getting things needed for daily living? No 08/29/2024 Housing Stability Vital Sign Answer Bautista e Recorded In the last 12 months, was t here a time when you were not able to pay the mortgage or rent on time? No 08/29/2024 In the past 12 months, how m any times have you moved where you were living? 0 08/29/2024 At any time in the past 12 m [facility], were you homeless or living in a long term (including now)? No 08/29/2024 Estimated Date of Delivery Comme nts Yes 10/17/2024 Based on Ultraso und Sex and Gender Information Value Date Recorded Sex Assigned at Not on file Gender Identity Not on file Sexual Orientation Not on file Last Filed Vital Signs Vital Sign Reading Time Taken Comments Blood Pressure 97/62 08/31/2024 8:59 AM BIOLOGICAL PLANT OPERATOR Pulse 101 08/31/2024 9:34 AM BIOLOGICAL PLANT OPERATOR Temperature 37 ??C (98.6 ??F) 08/31/2024 8:59 AM BIOLOGICAL PLANT OPERATOR Respiratory Rate 18 08/31/2024 8:59 AM BIOLOGICAL PLANT OPERATOR Oxygen Saturation 99% 08/31/2024 8:59 AM BIOLOGICAL PLANT OPERATOR Inhaled Oxygen Concentration - - Weight 136.1 kg (300 lb) 08/29/2024 7:50 PM BIOLOGICAL PLANT OPERATOR Height 172.7 cm (5' 8 ) 08/29/2024 7:50 PM BIOLOGICAL PLANT OPERATOR Body Mass Index 45.61 08/29/2024 7:50 PM BIOLOGICAL PLANT OPERATOR Plan of Treatment Health Maintenance Due Date Last Done Comments PAP SMEAR 1997 HIV SCREENING 2012 MENINGOCOCCAL (Group B) VACCINE (2 of 2 - Bexsero SCDM 2-dose series) 2013 08/07/2008 HEPATITIS C SCREENING 04/26/2015 COVID-19 VACCINE ( - season) 2024 INFLUENZA VACCINE (#1) 2024 , 07/16/2018, 06/09/2017, Additional history exists OB-ONE HOUR GLUCOSE 07/11/2024 OB-TDAP CURRENT 07/18/20242017, 06/21/2016, 10/24/2010, Additional history exists OB-RHOGAM INJECTION 07/25/2024 DEPRESSION SCREENING 09/04/2024 DTAP/TDAP/TD VACCINES (8 - Td or Tdap) 09/09/2027 09/09/2017, 06/21/2016, 10/24/2010, Additional history exists ZOSTER VACCINE (1 of 2) 2047 HIB VACCINE Completed 08/07/1998, 11/02, 1997, Additional history exists HPV VACCINE Completed 12/19/2008, 12/2007, 06/06/2008 MENINGOCOCCAL VACCINE Completed 06/01/2015, 008 HEPATITIS B VACCINE Completed 11/17/2015, 06/29/2015, 05/13/2015, Additional history exists PNEUMOCOCCAL VACCINE Aged Out 09/04/2016 No long er eligible based on patient's age to complete this topic OB-GROUP B STREP SCREEN Completed 08/29/2024 Respiratory Syncytial Virus (RSV) Vaccine Pt: or over 60 yrs (No Doses Required) Completed Procedures Procedure Name Priority Date/Time Associated Diagnosis Comments IMAGING/RADIOLOGY/XRAY RESULTS ORDER 09/02/2024 10:35 PM BIOLOGICAL PLANT OPERATOR PROTEIN URINE TIMED QUANTITATIVE Routine 08/30/2024 7:41 PM BIOLOGICAL PLANT OPERATOR Elevated blood pressure affecting in third trimester, antepartum (HCC) SONOGRAM - COMPLETE Routine 08/30/2024 8 :15 AM BIOLOGICAL PLANT OPERATOR US RETROPERITONEAL COMPLETE STAT 08/30/2024 7:30 AM BIOLOGICAL PLANT OPERATOR Elevated blood pressure affecting in third trimester, antepartum (HCC) labor in third trimester without delivery (HCC) TRICHOMONAS VAGINALIS AMPLIFIED PROBE Routine 08/29/2024 10:21 PM BIOLOGICAL PLANT OPERATOR CHLAMYDIA + GC AMPLIFIED PROBE Routine 08/29/2024 10:20 PM BIOLOGICAL PLANT OPERATOR CULTURE STREP B Routine 08/29/2024 10:20 PM BIOLOGICAL PLANT OPERATOR URINALYSIS REFLEX MICROSCOPIC REFLEX CULTURE STAT 08/29/2024 8:47 PM BIOLOGICAL PLANT OPERATOR Elevated blood pressure affecting in third trimester, antepartum (HCC) PROTEIN CREATININE RATIO URINE RANDOM PNL STAT 08/29/2024 8:47 PM BIOLOGICAL PLANT OPERATOR Elevated blood pressure affecting in third trimester, antepartum (HCC) BLOOD TYPE VERIFICATION Routine 08/29/20 8:15 PM BIOLOGICAL PLANT OPERATOR TYPE + SCREEN PANEL STAT 08/29/2024 7 :59 PM BIOLOGICAL PLANT OPERATOR Elevated blood pressure affecting in third trimester, antepartum (HCC) LDH BLOOD STAT 08/29/2024 7:59 PM BIOLOGICAL PLANT OPERATOR Elevated blood pressure affecting in third trimester, antepartum (HCC) SYPHILIS ANTIBODY CASCADING REFLEX STAT 08/29/2024 7:59 PM BIOLOGICAL PLANT OPERATOR Elevated blood pressure affecting in third trimester, antepartum (HCC) COMPREHENSIVE METABOLIC PANEL STAT 08/29/2024 7:59 PM BIOLOGICAL PLANT OPERATOR Elevated blood pressure affecting in third trimester, antepartum (HCC) CBC W AUTO DIFFERENTIAL STAT 08/29/20 7:59 PM BIOLOGICAL PLANT OPERATOR Elevated blood pressure affecting in third trimester, antepartum (HCC) from Last 3 Months Results * IMAGING RADIOLOGY XRAY RESULTS ORDER (09/02/2024 10:35 PM BIOLOGICAL PLANT OPERATOR) Anatomical Region Laterality Modality Other Narrative 09/02/2024 10:35 PM BIOLOGICAL PLANT OPERATOR Ordered by an unspecified provider. Scanned Document IMAGING * PROTEIN URINE TIMED QUANTITATIVE (08/30/2024 7:41 PM BIOLOGICAL PLANT OPERATOR) Volume 24 Hour Urine 1,900 mL 08/30/2024 8:12 PM BIOLOGICAL PLANT OPERATOR [facility] Collection Time Hours 24 hrs 08/30/2024 8:12 PM BIOLOGICAL PLANT OPERATOR [facility] Protein 24 Hour Urine 144 <300 mg/24hr 08/30/2024 8:12 PM BIOLOGICAL PLANT OPERATOR [facility] Protein Urine 7.6 <11.9 mg/dL 08/30/2024 8:12 PM BIOLOGICAL PLANT OPERATOR [facility] Urine TIMED URINE SPECIMEN / Unknown Timed Urine Volume Measurement / Unknown 08/30/2024 7:41 PM BIOLOGICAL PLANT OPERATOR 08/30/2024 7:55 PM BIOLOGICAL PLANT OPERATOR Carlos Lee MD LAB - URINE CH EMISTRY ORDERABLES Performing Organization Address City/State/[facility] Co de Phone Number [facility] [address] [place] [address] * SONOGRAM - COMPLETE (08/30/2024 8:15 AM BIOLOGICAL PLANT OPERATOR) Linked Results Indication ======== Class III , Obesity GHTN vs Preeclampsia History ====== OB History ? 7. Para 3 ? [id number] Maternal Assessment Physical Exam ??Height 170 cm, 5 ft 7 in. Weight 123 kg, 272 lb. Initial weight 123 kg, 271 lb. BMI 42.60 kg/m?. Initial BMI 42.44 kg/m?. Weight gain 0 ? kg, 1 lb Method ====== Transabdominal ultrasound, Transabdominal ultrasound examination ========= [place] . Number of fetuses: 1 Dating ====== ? Date ?Details ? Gest. age ? ZEB Stated ZEB ? 33 w + 1 d ?10/17/2024 Previous U/S ?? 02/27/2024 ? GA, GA 6 w + 5 d ? 33 w + 1 d ? 10/17/2024 Assigned dating based on ultrasound (GA), selected on 08/30/2024 ? 33 w + 1 d ?10/17/2024 General Evaluation Cardiac activity present. FHR 155 bpm. Presentation: cephalic Placenta: Placental site: anterior Umbilical cord: Cord vessels: 3 vessel cord. Insertion site: suboptimal Amniotic Fluid Assessment === Amount of AF: normal MVP 6.1 cm. GÓMEZ 19.7 cm. Q1 6.1 cm, Q2 3.1 cm, Q3 5.0 cm, Q4 5.5 cm Biophysical Profile 2: breathing movements 2: Gross body movements 2: tone 2: Amniotic fluid volume 8/8 Biophysical profile score Biometry BPD ?90.9 ?mm ?36w 6d ??>99% ?Hadlock HC ? 333.2 ?? mm ?38w 0d ??>99% ?Hadlock AC ? 320.5 ?? mm ?36w 0d ??99% ? Hadlock Femur ?65.9 ?mm ?34w 0d ??61% ? Hadlock Humerus ?61.5 ?mm ?35w 4d ??98% ? Kwaku HC / AC ?1.04 Weight Calculation: EFW ?2,760 ?? g ? 97% ? Hadlock EFW (lb,oz) ?6 lb 1 ??oz EFW by ? Hadlock (UWE-PI-PA-FL) LGA Growth Overview Exam date ?GA ?BPD (mm) ?HC (mm) AC (mm) FL (mm) HL (mm) EFW (g) 08/30/2024 ? 33w 1d ??90.9 ?>99% ?333.2 ?? >99% ?320.5 ?? 99% ? 65.9 ?61% ? 61.5 ?98% ? 2760 ?97% Anatomy The following structures appear normal: Head / Neck ?Cranium. Lateral ventricles. Choroid plexus. Midline falx. Cavum septi pellucidi. Face ?Lips. Profile. Nose. Nasal bone. Heart / Thorax Aortic arch view. ? Right lung. Left lung. Diaphragm. Abdomen ?Stomach. Kidneys. Bladder. Extremities / Skeleton Left leg. The following structures could not be adequately visualized: Head / Neck ?Cerebellum. Cisterna magna. Heart / Thorax 4-chamber view. RVOT view. LVOT view. 3-vessel view. 3-ctdxdy-egiyrmu view. Situs. Bicaval view. Ductal arch view. Great vessels. Abdomen ?Cord insertion. Bowel. Spine ??Cervical spine. Thoracic spine. Lumbar spine. Sacral spine. Extremities / Skeleton Arms. Hands. Feet. Right leg. sex: male. Doppler Umbilical Artery: normal PI ? 0.70 ?11% ? Cory S / D ?2.11 ?16% ? Cory Impression ========= Single, live intrauterine at 33w1d Amniotic fluid volume: normal size is LGA Biophysical profile: 04/11 Umbilical Artery Doppler is normal Incomplete anatomic survey No malformations seen within the limitations of ultrasound Comment ======== The patient was inpatient at the time of the study Follow-up ======== Follow up ultrasound/anaten atal testing/Doppler studies as clinically indicated and per inpatient MFM team Coding ====== Procedures ? 28052: Umbilical Doppler ? 25923: US Preg Uterus Detailed ? 17688: Biophysical Profile W/O [employer] PACS Anatomical Region Laterality Modality Other 08/30/2024 8:15 AM BIOLOGICAL PLANT OPERATOR Carlos Lee MD [facility] ORDERABLES * US Retroperitoneal Complete (08/30/2024 7:30 AM BIOLOGICAL PLANT OPERATOR) Anatomical Region Laterality Modality Abdomen Ultrasound 08/30/2024 8:25 AM BIOLOGICAL PLANT OPERATOR Impressions 08/30/2024 9:58 AM BIOLOGICAL PLANT OPERATOR IMPRESSION: 1.Normal renal size. No evidence of nephrolithiasis, hydronephrosis, or solid renal mass. > Dictated by Krupa Nielson Dr, MD (residential worker). I, Mic Bolton MD have personally reviewed and interpreted this examination/study. > Interpreting Provider: Mic Bolton MD on 08/30/2024 9:58 AM Narrative 08/30/2024 9:58 AM BIOLOGICAL PLANT OPERATOR PROCEDURE: ??US RETROPERITONEAL COMPLETE, DATE/TIME OF EXAM: ??08/30/2024 7:52 AM, LOCATION ??[facility] INDICATION: O16.3: Unspecified maternal hypertension, third trimester (HCC) O60.03: labor without delivery, third trimester ([facility]) ADDITIONAL CLINICAL INFORMATION: Ordering Provider Reason For Exam: ??Flank pain, r/o kidney stone Technologist Note: Additional: COMPARISON: None. FINDINGS: Right kidney: 11.7 x 7.1 x 7.0 cm Left kidney: 12.7 x 6.7 x 6.8 cm The renal parenchymal echogenicity is normal. There is no evidence of a solid renal mass, renal calculi, or hydronephrosis. Blood flow is seen within the renal arteries and veins. The bladder is distended and appears normal. Procedure Note Mic Bolton MD - 08/30/2024 PROCEDURE: US RETROPERITONEAL COMPLETE, DATE/TIME OF EXAM: 08/30/2024 7:52 AM, LOCATION [facility] INDICATION: O16.3: Unspecified maternal hypertension, third trimester (HCC) O60.03: labor without delivery, third trimester ([facility]) ADDITIONAL CLINICAL INFORMATION: Ordering Provider Reason For Exam: Flank pain, r/o kidney stone Technologist Note: Additional: COMPARISON: None. FINDINGS: Right kidney: 11.7 x 7.1 x 7.0 cm Left kidney: 12.7 x 6.7 x 6.8 cm The renal parenchymal echogenicity is normal. There is no evidence of a solid renal mass, renal calculi, or hydronephrosis. Blood flow is seen within the renal arteries and veins. The bladder is distended andappears normal. IMPRESSION: 1.Normal renal size. No evidence of nephrolithiasis, hydronephrosis, or solid renal mass. > Dictated by Krupa Nielson Dr, MD (residential worker). I, Mic Bolton MD have personally reviewed and interpreted this examination/study. > Interpreting Provider: Mic Bolton MD on 08/30/2024 9:58 AM Carlos Lee MD US ORDERABLES * TRICHOMONAS VAGINALIS AMPLIFIED PROBE (08/29/2024 10:21 PM BIOLOGICAL PLANT OPERATOR) Trichomonas vaginalis Amplified Probe Negative Negative 08/30/2024 8:39 PM BIOLOGICAL PLANT OPERATOR [facility] Other URINE / Unknown Collection / Unknown 08/29/2024 10:21 PM BIOLOGICAL PLANT OPERATOR 08/29/2024 10:32 PM BIOLOGICAL PLANT OPERATOR Narrative [facility] - 08/30/2024 8:39 PM BIOLOGICAL PLANT OPERATOR This test was developed and its performance characteristics determined by the [facility], [facility]. Urine specimens tested by the [facility] have not been cleared or approved by the U.S. Food and Drug Administration (FDA). The laboratory is regulated under the Clinical Laboratory Improvement Amendments (CLIA) as qualified to perform high-complexity testing. This test is used for clinical purposes. It should not be regarded as investigational or for research. Results based on detection/no detection of ribosomal RNA by amplified method. Carlos Lee MD LAB - MICROBIO LOGY ORDERABLES [facility] [address] [place] [address], [facility] [phone] * CHLAMYDIA + GC AMPLIFIED PROBE (08/29/2024 10:20 PM BIOLOGICAL PLANT OPERATOR) Chlamydia Amplified Probe Negative Negative 08/30/2024 8:37 PM BIOLOGICAL PLANT OPERATOR [facility] GC Amplified Probe Negative Negative 08/30/2024 8:37 PM [employer]OLOGICAL PLANT OPERATOR [facility] Microbiology URINE / Unknown Collection / Unknown 08/29/2024 10:20 PM [employer]OLOGICAL PLANT OPERATOR 08/29/2024 10:38 PM BIOLOGICAL PLANT OPERATOR Narrative [facility] - 08/30/2024 8:37 PM BIOLOGICAL PLANT OPERATOR Results based on detection/no detection of ribosomal RNA by amplified method. Carlos Lee MD LAB - MICROBIO LOGY ORDERABLES Performing Organization Address City/[facility]/ZIP Co de Phone Number [facility] [address] [place] [address], [facility] [phone] * CULTURE STREP B (08/29/2024 10:20 PM BIOLOGICAL PLANT OPERATOR) Culture Strep B Negative for beta-hemolytic Streptococcus Group B NAHUN 09/02/2024 7:03 AM BIOLOGICAL PLANT OPERATOR [facility] Microbiology MISCELLANEOUS SAMPLES / Unknown Collection / Unknown 08/29/2024 10:20 PM BIOLOGICAL PLANT OPERATOR 08/29/2024 10:34 PM BIOLOGICAL PLANT OPERATOR Carlos Lee MD LAB - MICROBIO LOGY ORDERABLES Performing Organization Address City/[facility] Co de Phone Number [facility] [address] [place] [address], [facility] [phone] * (ABNORMAL) URINALYSIS REFLEX MICROSCOPIC REFLEX CULTURE (08/29/2024 8:47 PM BIOLOGICAL PLANT OPERATOR) Color UA Yellow Yellow, Straw 08/29/2024 10:45 PM BIOLOGICAL PLANT OPERATOR [facility] Clarity UA Clear Clear 08/29/2024 10:45 PM BIOLOGICAL PLANT OPERATOR [facility] Glucose UA Normal Normal 08/29/2024 10:45 PM BIOLOGICAL PLANT OPERATOR [facility] Bilirubin UA Negative Negative 08/29/2024 10:45 PM BIOLOGICAL PLANT OPERATOR [facility] Ketone UA 2+(A) Negative 08/29/2024 10:45 PM BIOLOGICAL PLANT OPERATOR [facility] Specific [place] UA 1.021 1.005 - 1.030 08/29/2024 10:45 PM BIOLOGICAL PLANT OPERATOR [facility] Blood UA Negative Negative 08/29/2024 10:45 PM BIOLOGICAL PLANT OPERATOR [facility] pH UA 5.5 5.0 - 9.0 pH 08/29/2024 10:45 PM BIOLOGICAL PLANT OPERATOR [facility] Protein UA Negative Negative 08/29/2024 10:45 PM BIOLOGICAL PLANT OPERATOR [facility] Urobilinogen UA Normal Normal mg/dL 024 10:45 PM BIOLOGICAL PLANT OPERATOR [facility] Nitrite UA Negative Negative 08/29/2024 10:45 PM BIOLOGICAL PLANT OPERATOR [facility] Leukocyte UA Negative Negative 08/29/2024 10:45 PM BIOLOGICAL PLANT OPERATOR [facility] Urine URINE SPECIMEN OBTAINED BY CLEAN CATCH PROCEDURE / Unknown Collection / Unknown 08/29/2024 8:47 PM BIOLOGICAL PLANT OPERATOR 08/29/2024 10:31 PM BIOLOGICAL PLANT OPERATOR Narrative [facility] - 08/29/2024 10:45 PM BIOLOGICAL PLANT OPERATOR Carlos Lee MD LAB - URINALYS IS ORDERABLES [facility] [address] [place] [address] * PROTEIN CREATININE RATIO URINE RANDOM PNL (08/29/2024 8:47 PM BIOLOGICAL PLANT OPERATOR) Pathologist [facility] Protein Urine 7.0 <11.9 mg/dL 08/29/2024 10:58 PM BIOLOGICAL PLANT OPERATOR [facility] Creatinine Urine 83.54 mg/dL 08/29/2024 10:[address] [facility] Protein/Creatin ine Ratio Urine 0.08 08/29/2024 10:[address] [facility] Urine URINE SPECIMEN OBTAINED BY CLEAN CATCH PROCEDURE / Unknown Collection / Unknown 08/29/2024 8:47 PM BIOLOGICAL PLANT OPERATOR 08/29/2024 10:31 PM BIOLOGICAL PLANT OPERATOR Carlos Lee MD LAB - URINE CH EMISTRY ORDERABLES [facility] [address] [place] [address] * BLOOD TYPE VERIFICATION (08/29/2024 8:15 PM BIOLOGICAL PLANT OPERATOR) ABO Rh A NEG 08/29/2024 9:1 6 PM BIOLOGICAL PLANT OPERATOR [facility] Blood Bank BLOOD SPECIMEN / Unknown Lab Venipuncture / Unknown 08/29/2024 8:15 PM BIOLOGICAL PLANT OPERATOR 08/29/2024 8:15 PM BIOLOGICAL PLANT OPERATOR Carlos Lee MD LAB - BLOOD BA NK ORDERABLES Performing Organization Address [facility] Co de Phone Number [facility] [address] [place] [address] * SYPHILIS ANTIBODY CASCADING REFLEX (08/29/2024 7:59 PM BIOLOGICAL PLANT OPERATOR) Pathologist [facility] Treponema pallidum Antibody Non Reactive Non Reactive 08/29/2024 8:48 PM BIOLOGICAL PLANT OPERATOR [facility] Comment: No Laboratory evidence of syphilis infection. ?? Note: ??Circulating antibodies may be low or undetectable in early infection. ??If recent exposure is suspected, re-draw sample in 2-4 weeks and repeat testing. Blood BLOOD SPECIMEN / Unknown Lab Venipuncture / Unknown 08/29/2024 7:59 PM BIOLOGICAL PLANT OPERATOR 08/29/2024 8:04 PM BIOLOGICAL PLANT OPERATOR Carlos Lee MD LAB - SEROLOGY ORDERABLES Performing Organization Address [facility] de Phone Number [facility] [address] [place] [address] * TYPE + SCREEN PANEL (08/29/2024 7:59 PM BIOLOGICAL PLANT OPERATOR) [facility] ABO Rh A NEG 08/29/2024 8:43 PM BIOLOGICAL PLANT OPERATOR [facility] Comment:No history; collect retype. Antibody Screen NEG 8:43 PM BIOLOGICAL PLANT OPERATOR [facility] Blood Bank BLOOD SPECIMEN / Unknown Lab Venipuncture / Unknown 08/29/2024 7:59 PM BIOLOGICAL PLANT OPERATOR 08/29/2024 8:04 PM BIOLOGICAL PLANT OPERATOR Carlos Lee MD LAB - BLOOD BA NK ORDERABLES Performing Organization Address [facility] de Phone Number [facility] [address] [place] [address] * (ABNORMAL) CBC W AUTO DIFFERENTIAL (08/29/2024 7:59 PM BIOLOGICAL PLANT OPERATOR) [facility] WBC 13.6(H) 4.0 - 10.7 x10E9/L 08/29/2024 8:[address] [facility] RBC Count 3.66(L) 3.90 - 5.20 x10E12/L 08/29/2024 8:[address] [facility] Hemoglobin 10.3(L) 11.9 - 15.8 g/dL 08/29/2024 8:[address] [facility] Hematocrit 31.5(L) 34.8 - 46.1 % 08/29/2024 8:[address] [facility] MCV 86.1 80.0 - 98.0 fL 08/29/2024 8:[address] [facility] MCH 28.1 26.7 - 33.6 pg 08/29/2024 8:[address] [facility] MCHC 32.7 31.7 - 36.3 g/dL 08/29/2024 8:[address] [facility] RDW-CV 13.0 11.3 - 14.8 % 08/29/2024 8:[address] [facility] Platelet Count 302 150 - 420 x10E9/L 08/29/2024 8:[address] [facility] MPV 9.4 7.8 - 11.4 fL 08/29/2024 8:[address] [facility] Neutrophil % 76.6(H) 41.0 - 74.0 % 08/29/2024 8:[address] [facility] Lymphocyte % 16.7(L) 17.0 - 47.0 % 08/29/2024 8:[address] [facility] Monocyte % 5.2 3.0 - 11.0 % 08/29/2024 8:[address] [facility] Eosinophil % 0.8 0.0 - 7.0 % 08/29/2024 8:[address] [facility] Basophil % 0.3 0.0 - 1.6 % 08/29/2024 8:[address] [facility] Immature Granulocytes % 0.4 0.0 - 1.0 % 08/29/2024 8:[address] [facility] Neutrophil Absolute 10.38(H) 1.60 - 7.50 x10E9/L 08/29/2024 8:[address] [facility] Lymphocyte Absolute 2.27 1.00 - 4.40 x10E9/L 08/29/2024 8:[address] [facility] Monocyte Absolute 0.71 0.15 - 1.00 x10E9/L 08/29/2024 8:[address] [facility] Eosinophil Absolute 0.11 0.00 - 0.60 x10E9/L 08/29/2024 8:[address] [facility] Basophil Absolute 0.04 0.00 - 0.13 x10E9/L 08/29/2024 8:[address] [facility] Blood BLOOD SPECIMEN / Unknown Lab Venipuncture / Unknown 08/29/2024 7:59 PM BIOLOGICAL PLANT OPERATOR 08/29/2024 8:[address] [facility] Carlos Lee MD LAB - HEMATOLO GY ORDERABLES [facility] [address] [place], [place] [id number] * (ABNORMAL) COMPREHENSIVE METABOLIC PANEL (08/29/2024 7:59 PM BIOLOGICAL PLANT OPERATOR) [facility] Glucose 85 70 - 99 mg/dL 08/29/2024 8:[address] [facility] Sodium 137 136 - 145 mmol/L 08/29/2024 8:[address] [facility] Potassium 3.8 3.5 - 5.1 mmol/L 08/29/2024 8:[address] [facility] Chloride 111(H) 98 - 107 mmol/L 08/29/2024 8:[address] [facility] CO2 19(L) 22 - 29 mmol/L 08/29/2024 8:[address] [facility] Calcium 8.7 8.4 - 10.4 mg/dL 08/29/2024 8:[address] [facility] Anion Gap 7 6 - 16 mmol/L 08/29/2024 8:[address] [facility] BUN 9 5.3 - 18.7 mg/dL 08/29/2024 8:[address] [facility] Creatinine 0.57 0.57 - 1.11 mg/dL 08/29/2024 8:[address] [facility] Alkaline Phosphatase 122 40 - 150 U/L 08/29/2024 8:31 PM BIOLOGICAL PLANT OPERATOR [facility] ALT 9 0 - 55 U/L 08/29/2024 8:31 PM BIOLOGICAL PLANT OPERATOR [facility] AST 10 5 - 34 U/L 08/29/2024 8:31 PM BIOLOGICAL PLANT OPERATOR [facility] Protein Total 6.5 6.4 - 8.3 gm/dL 08/29/2024 8:31 PM BIOLOGICAL PLANT OPERATOR [facility] Albumin 2.5(L) 3.4 - 5.0 gm/dL 08/29/2024 8:31 PM BIOLOGICAL PLANT OPERATOR [facility] Bilirubin Total 0.2 0.2 - 1.2 mg/dL 08/29/2024 8:31 PM BIOLOGICAL PLANT OPERATOR [facility] eGFR by CKD-EPI >90 >=90 mL/min/1.7 3 m2 08/29/2024 8:31 PM BIOLOGICAL PLANT OPERATOR [facility] Blood BLOOD SPECIMEN / Unknown Lab Venipuncture / Unknown 08/29/2024 7:59 PM BIOLOGICAL PLANT OPERATOR 08/29/2024 8:04 PM BIOLOGICAL PLANT OPERATOR Carlos Lee MD LAB - CHEMISTR Y ORDERABLES [facility] [address] [place] [address] * LDH BLOOD (08/29/2024 7:59 PM BIOLOGICAL PLANT OPERATOR) LDH 136 125 - 220 U/L 08/29/2024 8:31 PM BIOLOGICAL PLANT OPERATOR [facility] Blood BLOOD SPECIMEN / Unknown Lab Venipuncture / Unknown 08/29/2024 7:59 PM BIOLOGICAL PLANT OPERATOR 08/29/2024 8:04 PM BIOLOGICAL PLANT OPERATOR Carlos Lee MD LAB - CHEMISTR Y ORDERABLES Performing Organization Address City/[facility]/ZIP Co de Phone Number [facility] [address] [place] [address] from Last 3 Months Additional Health Concerns Infection Onset Date 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 Source: [facility]. 09/23/2018 Advance Directives * Full Code (Latest Code Status on File) Date Activated Date Inactivated Comments 08/29/2024 7:38 PM 08/31/2024 12:42 PM Care Teams Insurance Special Agent Relationship Specialty Start Date End Date Juan Castillo MD [facility] [place] [address] PCP - General Family Medicine 06/07/13
--- OUTSIDE RECORDS SUMMARY | 2024-10-04 13:59 | XMS_ITS | Data Portability ---
Author Organization [facility] [place] Address [address] [place] [place] [address] [place] [address] Care Team Providers Care Confectionery Maker Name Role Phone FARHAD GALICIAIE Primary Care Provider [phone] Assessment Encounter Date Assessment Date Assessment LastModified by Organization Details LastModified Time 09/19/2024 09/19/2024 Patient is ___weeks . Discussed plan. [email or web address] Not available 09/19/2024 11:53:37 Plan of Treatment Reminders Order Date Submit Date Provider Last Modified By Organization Details Last Modified Time Details Appointments U/S BENCH JEWELER COMPLET E 2024 01:20P M ULTRASOUND Not available Not available Not available Lab None recorde d. Referral None recorde d. Procedures None recorde d. Surgeries None recorde d. Imaging US, obstetr ic, biophys ical profile + non-str ess test 2024 025 [email or web address] [place], [address], [place], [address], 09/13/2024 17:16:50 non-str ess test 2024 025 [email or web address] [place], [address], [place], [address], 09/23/2024 03:06:11 US, obstetr ic, follow- up 2024 025 [email or web address] [place], [address], [place], [address], 09/19/2024 20:17:34 US, obstetr ic, biophys ical profile + non-str ess test 2024 025 [email or web address] [place], [address], [place], [address], 09/19/2024 20:17:34 US, pelvis 2024 025 [email or web address] [place], [address], [place], [address], 10/04/2024 14:25:47 Medication Orders None recorde d. Patient TargetsNo targets recorded. Patient InstructionsNo instructions recorded. Reason for Referral None Reported. Results Created Date Observation Date Name Description Value Unit Range Abnormal Flag Note LastModifiedBy Organization Detail LastModifiedTime 09/05/19 25 09/05/2024 [facility] PHILLIP bacterial vaginosis (bv), tma Negati ve negati ve Not Available [facility] (Lab) [address] [place], [address], 09/06/2024 15:37:23 09/05/19 25 09/05/2024 [facility] orlando species, tma Negati ve negati ve Not Available [facility] (Lab) [address] [place], [address], 09/06/2024 15:37:23 09/05/19 25 09/05/2024 [facility] orlando glabrata, tma Negati ve negati ve Not Available [facility] (Lab) [address] [place], [address], 09/06/2024 15:37:23 09/05/19 25 09/05/2024 [facility]IP trichomonas vaginalis, tma Negati ve negati ve Not Available [facility] (Lab) [address] [place], [address], 09/06/2024 15:37:23 09/05/19 25 09/05/2024 [facility], PHILLIP chlamydia trachomatis, PCR Negati ve negati ve Not Available [facility] (Lab) [address] [facility], [place], [address], 09/06/2024 15:37:23 09/05/19 25 09/05/2024 [facility], PHILLIP neisseria gonorrhoeae, PCR [...] ded in this panel . Not Available [facility] (Lab) [address], [place], [address], 09/06/2024 15:37:23 08/20/20 24 08/20/2024 non-s tress test No observ ation record ed. [address] [facility] [address], [place], [address], 08/22/2024 09:29:03 08/22/20 24 08/22/2024 US, obste tric, follo w-up No observ ation record ed. [facility] [address], [place], [address], 08/22/2024 13:05:40 08/22/20 24 08/22/2024 US, obste tric, follo w-up No observ ation record ed. [email or web address] [address], [place], [address], 08/23/2024 08:54:20 09/03/20 24 08/30/2024 imagi ng/di agnos tic resul t No observ ation record ed. [facility] [address] [facility] [place], [address], 09/05/2024 14:18:39 09/05/19 25 09/05/2024 non-s tress test No observ ation record ed. [place] [address], [place], [address], 09/05/2024 15:36:53 09/05/19 25 09/05/2024 US, obste tric, bioph ysica l profi le + non-s tress test No observ ation record ed. [email or web address] [place] [address], [place], [address], 09/05/2024 18:24:02 09/05/19 25 09/05/2024 US, obste tric, bioph ysica l profi le + non-s tress test No observ ation record ed. [email or web address] [address], [place], [address], 09/07/2024 13:11:57 09/13/19 25 09/13/2024 US, obste tric, bioph ysica l profi le + non-s tress test No observ ation record ed. [email or web address] [place] [address], [place], [address], 09/13/2024 16:26:47 09/13/19 25 09/13/2024 US, obste tric, bioph ysica l profi le + non-s tress test No observ ation record ed. [email or web address] [address], [place], [address], 09/13/2024 17:48:23 09/13/19 25 09/13/2024 US, obste tric, bioph ysica l profi le + non-s tress test No observ ation record ed. [email or web address] [address], [place], [address], 09/13/2024 17:48:23 09/13/1909/13/2024 non-s tress test No observ ation record ed. [email or web address] [place] [address], [place], [address], 09/13/2024 17:49:34 09/19/19 25 09/19/2024 US, obste tric, follo w-up No observ ation record ed. [email or web address] [place] [address], [place], [address], 09/19/2024 13:11:41 09/19/19 25 09/19/2024 US, obste tric, bioph ysica l profi le + non-s tress test No observ ation record ed. [email or web address] [place] [address], [place], [address], 09/19/2024 13:11:51 09/19/19 25 09/19/2024 US, obste tric, follo w-up No observ ation record ed. [email or web address] [address], [place], [address], 09/25/2024 07:32:54 09/19/19 25 09/19/2024 non-s tress test No observ ation record ed. [email or web address] [place] [address], [place], [address], 09/19/2024 12:38:56 09/19/19 non-s tress test No observ ation record ed. [email or web address] [place] [address], [place], [address], 09/19/2024 12:44:42 10/04/19 25 US, pelvi s No observ ation record ed. [email or web address] [place] [address], [place], [address], 10/04/2024 14:21:39 10/04/1910/04/2024 US, pelvi s No observ ation record ed. [email or web address], [place], [address], 10/04/2024 14:25:47 Result Notes None recorded. Problems Name Problem SNOMED Code Status Onset Date Resolution Date Notes Provider Name and Address Organization Details Recorded Time Pregnanc y 62484439 Completed 202204/17/2023 Lucero kennedy, [facility] 4 13:03:01 Placenta l abruptio n 945095283 Completed story unclear Jony kennedy, [facility] 3 16:40:14 Group B Streptoc occus carrier 0528461974 103 Completed Positive in previous pregnanc y Ramonita Cadena MD [address], [place], [address], [facility] 3 12:29:04 RhD negative 462429570 Completed 08/28/22 , 03/18/23 Jony kennedy, [facility] 3 16:40:14 Asthma 880503708 Completed Jony kennedy [facility] 3 16:40:14 Anxiety 71372350 Completed Jony Murillo [facility], [facility] 3 16:40:13 Hypereme sis 461595736 Completed zofran pump Jony Murillo [facility], [facility] 3 16:40:14 Placenta circumva llata 2595051 Completed serial growth u/s Jony Murillo [facility], [facility] 3 16:40:14 Anemia of pregnanc y 20968963 Completed 2022 Jony Murillo [facility], [facility] 3 16:40:13 SARS-CoV -2 vaccinat ion declined 7736784966 Active 2021 Lucero Argueta [facility] 4 13:01:38 Bipolar disorder 77839674 Active 2016 Lucero Argueta [facility], [facility] 4 13:01:38 Chronic pain of right upper limb 1973375131 4277916 Active 2018 Lucero Argueta [facility] 4 13:01:38 Folic acid deficien cy 244086235 Active 2011 Lucero Argueta [facility], [facility] 4 13:01:38 Asthma 935289548 Active 2011 Lucero Argueta [facility] 4 13:01:38 Allergic rhinitis caused by pollen 04735947 Active 2018 Lucero Argueta [facility] 4 13:01:38 Chronic tension- type headache 440335653 Active 2012 Lucero Argueta [facility] 4 13:01:38 Dislocat ion of acromioc lavicula r joint 711824670 Active 2019 Lucero kennedy, [facility] 4 13:01:38 Shoulder joint unstable 509735040 Active 2013 Lucero kennedy, [facility] 4 13:01:38 Attentio n deficit hyperact ivity disorder , predomin antly inattent leah type 48338089 Active 2015 Lucero kennedy, [facility] 4 13:01:38 Depressi ve disorder 47185642 Active 2017 Lucero Argueta [facility], [facility] 4 13:01:38 Anxiety 73380275 Active 2015 Lucero Argueta [facility], [facility] 4 13:01:38 Hyperlip idemia 42639497 Active 2021 Lucero Argueta [facility], [facility] 4 13:01:38 Subjecti ve tinnitus 66591624 Active 2012 Lucero Argueta [facility], [facility] 4 13:01:38 Marijuan a user 430954795 Active 2019 Lucero kennedy, [facility] 4 13:01:38 Hypermob ility of joint 357421510 Active 2022 Lucero kennedy, [facility] 4 13:01:38 Severe obesity 8887498382 9104 Active 2019 Lucero Argueta [facility], [facility] 4 13:01:38 Pregnanc y 70513674 Active 2023 Lucero kennedy, [facility] 4 13:03:00 Mixed anxiety and depressi ve disorder 681563509 Active Zuleika Minaya CNM [address], [place], [address], [facility] 4 14:02:49 Attentio n deficit hyperact ivity disorder 582052504 Active Lucero Duenastz null, [facility] 4 13:06:36 Anterior synechia e 21223350 Active f/u 4 weeks Zuleika Minaya CNM [address], [place], [address], [facility] 4 13:48:01 Obesity 790544102 Active antenata l testing @ 34 weeks weekly; BMI 42 Jony Murillo [facility], [facility] 4 15:33:48 Placenta circumva llata 1162752 Active 2023 32wk growth u/s Jony Murillo [facility], [facility] 4 15:33:34 COVID-19 054262103 Active 2023 ASA & serial growth Suzy Hassan [facility], [facility] 4 17:42:30 Prophyla ctic immunoth erapy Active 2023 rhogam received 03/22/24 @ [facility] Jony Murillo [facility], [facility] 4 11:33:13 Hypereme sis 689964095 Active history of in last 2 pregnanc ies Jony Murillo [facility], [facility] 4 15:33:20 Migraine 38087954 Active Jony Murillo [facility] 4 15:34:21 Large for gestatio n age fetus 690722315 Active 97% Joe Vazquez MD [address], [place], [address], [place] [facility] 5 12:27:52 Placenta l abruptio n 126596662 Active HISTORIC HEIKE Vazquez MD [address], [place], [address], [place] [facility] 5 12:27:33 Problem Notes None recorded. Procedures Surgical History Date Name Laterality Status Provider Name and Address Organization Details Recorded Time 4 Date of Last Pap Smear completed [facility] 11/22/2023 13:00:24 9 Date of [facility] 10:11:27 1 drainage of abdominal wall abscess [facility] 09/08/2022 10:21:31 Imaging Results Imaging Date Name Status LastModified by Organiz ation Details LastModified Time 08/20/2024 non-stress test completed [address] [facility] [address], [place], [address], 08/22/2024 09:29:03 08/22/2024 US, obstetric, follow-up completed [facility] [address], [place], [address], 08/22/2024 13:05:40 08/22/2024 US, obstetric, follow-up completed [place] [email or web address] [address], [place], [address], 08/23/2024 08:54:20 08/30/2024 imaging/diagnos tic result completed [facility] [address] , [place], [address], 09/05/2024 14:18:39 09/05/2024 non-stress test completed [email or web address] [place] [address], [place], [address], 09/05/2024 15:36:53 09/05/2024 US, obstetric, biophysical profile + non-stress test completed [email or web address] [place] [address], [place], [address], 09/05/2024 18:24:02 09/05/2024 US, obstetric, biophysical profile + non-stress test completed [email or web address] [address], [place], [address], 09/07/2024 13:11:57 09/13/2024 US, obstetric, biophysical profile + [facility] [address], [place], [address], 09/13/2024 16:26:47 09/13/2024 US, obstetric, biophysical profile + non-stress test completed [email or web address] [address], [place], [address], 09/13/2024 17:48:23 09/13/2024 US, obstetric, biophysical profile + non-stress test completed [email or web address] [address], [place], [address], 09/13/2024 17:48:23 09/13/2024 non-stress test completed [email or web address] [place] [address], [place], [address], 09/13/2024 17:49:34 09/19/2024 US, obstetric, follow-up completed [email or web address] [place] [address], [place], [address], 09/19/2024 13:11:41 09/19/2024 US, obstetric, biophysical profile + non-stress test completed [email or web address] [place] [address], [place], [address], 09/19/2024 13:11:51 09/19/2024 US, obstetric, follow-up completed [address], [place], [address], 09/25/2024 07:32:54 09/19/2024 non-stress test active [address], [place], [address], 09/19/2024 12:38:56 09/19/2024 non-stress test completed [address], [place], [address], 09/19/2024 12:44:42 10/04/2024 US, pelvis active [email or web address] [place] [address], [place], [address], 10/04/2024 14:21:39 10/04/2024 US, pelvis active [email or web address], [place], [address], 10/04/2024 14:25:47 Procedure Notes None recorded. Medical Equipment None Reported. Allergies Allergen ID Allergen Name Allergen Category Reaction Reaction Severity Criticality Documentation Date Start Date Code Code System Note Provider Name and Address Organization Details Recorded Time 18482 latex environme nt,medica tion itching swelling moderate moderate Not available 09/08/2022 59070 91 RxNorm Lucero kennedy [facility] 3 10:10:18 50837 Latex (substanc e) environme nt,medica tion hives rash Not available Not available Not available 04/12/20242019 00191 8007 SNOMED Lucero kennedy [facility] 4 13:01:37 Medications Name Sig Start [...] Available Not Available No t Available Vitals Date Recorded Body height Body mass index (BMI) Body weight Body height Body mass index (BMI) Body weight Systolic blood pressure Diastolic blood pressure Systolic blood pressure Diastolic blood pressure Provider Name and Address Organization Details Last Updated DateTime 5 171.45 cm 46.1 kg/m2 341694. 12 g 171.45 cm 46.1 kg/m2 480828. 12 g 128 mm[Hg] 82 mm[Hg] 128 mm[Hg] 88 mm[Hg] Lucero Argueta [facility] 5 17:48:17 Date Recorded Body weight Body height Body mass index (BMI) Body weight Systolic blood pressure Diastolic blood pressure Systolic blood pressure Diastolic blood pressure Provider Name and Address Organization Details Last Updated DateTime 5 318299. 18949 g 171.45 cm 46.1 kg/m2 889727. 12 g 124 mm[Hg] 82 mm[Hg] 124 mm[Hg] 82 mm[Hg] Daniela Remy [facility] 5 12:37:21 Social History Question Answer Notes LastModified by Organizat ion Details LastModified Time Tobacco Smoking Status Never Smoker Glo kennedy, [facility] 11/25/2022 11:02:40 What Is Your Level Of Alcohol Consumption? None [email or web address] Information not available 09/08/2022 If You Are , What Was Your Level Of Alcohol Consumption Prior To ? Occasional Information not available 11/25/2022 Are You Blind Or Do You Have Difficulty Seeing? No [email or web address] Information n ot available 09/08/2022 What Is Your Level Of Caffeine Consumption? Occasional [email or web address] Information not available 09/08/2022 In The 14 Days Before Symptom Onset, Have You Had Close Contact With A Laboratory-confirm ed COVID-19 While That Case Was Ill? No [email or web address] Information n ot available 09/08/2022 In The 14 Days Before Symptom Onset, Have You Had Close Contact With A Person Who Is Under Investigation For COVID-19 While That Person Was Ill? No [email or web address] Information not available 09/08/2022 Have You Been To An Area Known To Be High Risk For COVID-19? No [email or web address] Information not available 09/08/2022 Are You Deaf Or Do You Have Serious Difficulty Hearing? No Information not available 09/08/2022 What Type Of Diet Are You Following? REGULAR [email or web address] Information n ot available 09/08/2022 Do You Use Your Seat Belt Or Car Seat Routinely? Yes [email or web address] Information not available 09/08/2022 Do You Have Smoke And Carbon Monoxide Detectors In Your Home? Yes [email or web address] Information not available 09/08/2022 Do You Feel Stressed (tense, Restless, Nervous, Or Anxious, Or Unable To Sleep At Night)? [id number] [email or web address] Information not available 09/08/2022 Do You Use Any Illicit Or Recreational Drugs? Yes [place] Information not available 09/08/2022 Do You Use Sunscreen Routinely? Yes [email or web address] Information not available 09/08/2022 Has Tobacco Cessation Counseling Been Provided? No [email or web address] Information not available 11/25/2022 Have You Used IV Drugs? No [email or web address] Information not available 09/08/2022 Do You Or Have You Ever Used Any Other Forms Of Tobacco Or Nicotine? No [email or web address] Information not available 11/25/2022 Sex: Unknown Functional Status Question Answer Note LastModified by Organizat ion Details LastModified Time Do you have difficulty walking or climbing stairs? No [email or web address] Information not available 11/25/2022 Are you able to walk? YESWOREST [email or web address] Information not available 09/08/2022 Are you able to care for yourself? Yes [email or web address] Information not available 11/25/2022 Do you have difficulty dressing or bathing? No Information not available 11/25/2022 What is your exercise level? Occasional Information not available 09/08/2022 Mental Status None recorded. Family History Relationship Description Onset Age of this Age Resolved Age Notes LastModified by Organization Details LastModified Time Maternal Grandmother Bipolar disorder [email or web address] Not available 2023 10:55:47 Maternal Grandmother Depressive disorder [email or web address] Not available 12/23 11:41:24 Maternal Grandmother Anxiety disorder [email or web address] Not available 12/23 11:41:24 Maternal Grandmother Lupus erythematosu s [email or web address] Not available 2023 10:55:47 Maternal Grandmother Alzheimer's disease [email or web address] Not available 2023 10:55:47 Maternal Grandmother Heart disease [email or web address] Not available 12/23 11:41:24 Mother Diabetes mellitus [email or web address] Not available 12/23 11:41:24 Mother Hypertension screening [email or web address] Not available 2023 10:55:47 Mother Asthma [email or web address] Not available 12/23/2022 11:41:24 Paternal Grandmother Heart disease [email or web address] Not available 12/23 11:41:24 Maternal Aunt Malignant tumor of breast [email or web address] Not available 12/23 11:41:24 Medical History Condition [...] Time Hib, unspecified formulation 8 completed Lucero kennedy [facility] 04/12/2024 13:01:39 Hib, unspecified formulation 8 bijal kennedy [facility] 04/12/2024 13:01:39 Hib, unspecified formulation 7 bijal kennedy [facility] 04/12/2024 13:01:39 Hib, unspecified formulation 8 bijal kennedy [facility] 04/12/2024 13:01:39 meningococcal B, unspecified 8 bijal kennedy [facility] 04/12/2024 13:01:39 meningococcal, unknown serogroups 8 completed Lucero Argueta null, [facility] 04/12/2024 13:01:39 meningococcal, unknown serogroups 8 completed Lucero Argueta null, [facility] 04/12/2024 13:01:39 OPV, Unspecified 8 completed Lucero Argueta null, [facility] 04/12/2024 13:01:39 OPV, Unspecified 7 completed Lucero Argueta null, [facility] 04/12/2024 13:01:39 MMRV 8 completed Lucero Argueta null, [facility] 04/12/2024 13:01:39 MMRV 8 completed Lucero Argueta null, [facility] 04/12/2024 13:01:39 MMRV 1 completed Lucero Argueta null, [facility] 04/12/2024 13:01:39 MMRV 1 completed Lucero Argueta null, [facility] 04/12/2024 13:01:39 DTaP-IPV 8 completed Lucero Argueta null, [facility] 04/12/2024 13:01:39 DTaP-IPV 8 completed Lucero Argueta null, [facility] 04/12/2024 13:01:39 DTaP-IPV 1 completed Lucero Argueta null, [facility] 04/12/2024 13:01:39 DTaP-IPV 1 completed Lucero Argueta null, [facility] 04/12/2024 13:01:39 pneumococcal polysaccharide PPV23 7 completed Lucero Argueta null, [facility] 04/12/2024 13:01:39 influenza, unspecified formulation 5 completed Lucero Argueta null, [facility] 04/12/2024 13:01:39 influenza, unspecified formulation 5 completed Lucero Argueta null, [facility] 04/12/2024 13:01:39 influenza, unspecified formulation 6 completed Lucero Argueta null, [facility] 04/12/2024 13:01:39 influenza, unspecified formulation 6 completed Lucero Argueta null, [facility] 04/12/2024 13:01:39 influenza, unspecified formulation 7 completed Lucero Argueta null, [facility] 04/12/2024 13:01:39 influenza, unspecified formulation 7 completed Lucero Argueta null, [facility] 04/12/2024 13:01:39 influenza, unspecified formulation 8 completed Lucero Argueta null, [facility] 04/12/2024 13:01:39 influenza, unspecified formulation 8 completed Lucero Argueta null, [facility] 04/12/2024 13:01:39 Tdap 8 completed Lucero Argueta null, [facility] 04/12/2024 13:01:39 Tdap 8 completed Lucero Argueta null, [facility] 04/12/2024 13:01:39 Tdap 1 completed Lucero Argueta null, [facility] 04/12/2024 13:01:39 Tdap 8 completed Lucero Argueta null, [facility] 04/12/2024 13:01:39 Tdap 8 completed Lucero Argueta null, [facility] 04/12/2024 13:01:39 Tdap 8 completed Lucero Argueta null, [facility] 04/12/2024 13:01:39 Tdap 6 completed Lucero Argueta null, [facility] 04/12/2024 13:01:39 Tdap 6 completed Lucero Argueta null, [facility] 04/12/2024 13:01:39 Tdap 7 completed Lucero Argueta null, [facility] 04/12/2024 13:01:39 varicella 8 completed Lucero Argueta null, [facility] 04/12/2024 13:01:39 varicella 8 completed Lucero Argueta null, [facility] 04/12/2024 13:01:39 DTP 8 completed Lucero Argueta null, [facility] 04/12/2024 13:01:39 DTP 8 completed Lucero Argueta null, [facility] 04/12/2024 13:01:39 DTP 7 completed Luceromonika Argueta null, [facility] 04/12/2024 13:01:39 Hep B, unspecified formulation 8 completed Lucero Argueta null, [facility] 04/12/2024 13:01:39 Hep B, unspecified formulation 7 completed Lucero Argueta null, [facility] 04/12/2024 13:01:39 Hep B, unspecified formulation 5 completed Lucero Argueta null, [facility] 04/12/2024 13:01:39 Hep B, unspecified formulation 7 completed Lucero Argueta null, [facility] 04/12/2024 13:01:39 HPV, unspecified formulation 9 completed Lucero Argueta null, [facility] 04/12/2024 13:01:39 HPV, unspecified formulation 8 completed Lucero Argueta null, [facility] 04/12/2024 13:01:39 HPV, unspecified formulation 8 completed Lucero Argueta null, [facility] 04/12/2024 13:01:39 Hep B, adolescent or pediatric 6 completed Lucero Argueta null, [facility] 04/12/2024 13:01:39 Hep B, adolescent or pediatric 8 completed Lucero Argueta null, [facility] 04/12/2024 13:01:39 Hep B, adolescent or pediatric 7 completed Lucero Argueta null, [facility] 04/12/2024 13:01:39 Hep B, adolescent or pediatric 7 completed Lucero Argueta null, [facility] 04/12/2024 13:01:40 Hep B, adolescent or pediatric 5 completed Lucero Argueta null, [facility] 04/12/2024 13:01:40 Hep B, adult 8 completed Lucero Argueta null, [facility] 04/12/2024 13:01:40 Hep B, adult 7 completed Lucero Argueta null, [facility] 04/12/2024 13:01:40 Hep B, adult 5 completed Lucero Argueta null, [facility] 04/12/2024 13:01:40 Hep B, adult 7 completed Lucero Argueta null, [facility] 04/12/2024 13:01:40 Hib ([facility]) 8 completed Lucero Argueta null, [facility] 04/12/2024 13:01:40 Hib ([facility]) 8 completed Lucero Argueta null, [facility] 04/12/2024 13:01:40 Hib ([facility]) 7 completed Lucero Argueta null, [facility] 04/12/2024 13:01:40 Hib ([facility]) 8 completed Lucero Argueta null, [facility] 04/12/2024 13:01:40 meningococcal MCV4P 5 completed Lucero Argueta null, [facility] 04/12/2024 13:01:40 DTaP 8 completed Lucero Argueta null, [facility] 04/12/2024 13:01:40 DTaP 1 completed Lucero Argueta null, [facility] 04/12/2024 13:01:40 DTaP, unspecified formulation 8 completed Lucero Argueta null, [facility] 04/12/2024 13:01:40 DTaP, unspecified formulation 1 completed Lucero Argueta null, [facility] 04/12/2024 13:01:40 meningococcal MCV4, unspecified formulation 5 completed Lucero Ellie null, [facility] 04/12/2024 13:01:40 Influenza, split virus, quadrivalent, PF 0 completed Lucero Argueta [facility] 04/12/2024 13:01:40 Past Encounters Encounter ID Performer Location Encounter Start Date Encounter Closed Date Diagnosis/Indication Diagnosis SNOMED-CT Code Diagnosis ICD10 Code Diagnosis Note [id number] Alta Patino [place] [address] [address] 09/08/2022 10:03:44 09/08/2022 10:54:24 [id number] Nicole Zarate [place] [address] [address] 09/08/2022 10:04:06 09/08/2022 17:44:46 Hyperemesis gravidarum 76944695 O21.0 Little improvemen t with zofran or [...] d prior to 10 weeks. test positive 113641389 Z32.01 Risk factors addressed: Tobacco Cessation, Safe [...] annual well woman examinatio n and address [facility] . Gynecologi c examination 72147990 Z01.419 Amenorrhea 47305742 N91. 2 [id number] Alta Patino [place] [address],[place] [address] 09/29/2022 10:03:57 09/29/2022 11:08:56 screening 250496855 Z36.82 [id number] Joe Vazquez MD [place] [address],[place] [address] 09/29/2022 10:05:14 09/29/2022 12:05:08 Routine care 018216737 Z34.91 [id number] Steph Tenorio [place] [address],[place] [address] 10/13/2022 10:04:45 10/13/2022 10:37:04 Threatened miscarriage 97936084 O20.0 Z3A.13 [id number] [facility] [address],[place] [address] 10/28/2022 11:07:19 10/28/2022 11:57:48 Routine care 312483427 Z34.92 [id number] Lamar Cerna [place] [address],[place] [address] 11/09/2022 16:36:16 11/09/2022 17:25:39 Spotting per vagina in 509135140 O26.859 Z3A.17 [id number] Deanna molina [place] [address],[place] [address] 11/09/2022 16:37:29 11/09/2022 18:15:44 Routine care 116679268 Z34.91 Pt here for BP and BS [...] pt to lab. Deanna Guillaume ier, RN [id number] Alta Patino [place] [address],[place] [address] 1 11/25/2022 11:02:03 11/25/2022 13:35:21 screening 986443258 Z36.3 [id number] Zuleika Minaya [facility] [address],[place] [address] 11/25/2022 11:02:32 11/25/2022 13:35:09 Routine care 700459070 Z34.92 [facility] 688425269 R42 [id number] [facility] [address],[place] [address] 12/23/2022 09:53:00 12/23/2022 11:22:59 screening 867248996 Z36.2 O43.119 Z3A.23 [id number] Zuleika Minaya [facility] [address],[place] [address] 1 12/23/2022 10:03:38 12/23/2022 12:34:52 Routine care 119546104 Z34.92 [id number] Steph Tenorio [place] [address],[place] [address] 01/20/2023 11:23:02 01/20/2023 15:32:00 screening 986523594 Z36.2 O43.112 Z3A.27 [id number] Zuleika Minaya [facility] [address],[place] [address] 1 01/20/2023 11:23:45 01/20/2023 15:31:05 Routine care 933679826 Z34.92 [id number] Joe Vazquez MD [place] [address],[place] [address] 1 02/03/2023 09:25:23 02/03/2023 10:35:56 Routine care 632156797 Z34.91 Pt here for BP and BS [...] Labs ordered and pt to lab. Deanna molina, RN [id number] Lamar Cerna [place] [address],[place] [address] 02/17/2023 11:24:45 02/17/2023 12:12:29 Maternal obesity complicating , childbirth and the puerperium, antepartum 4262292207 07 O99.213 O43.119 Z3A.31 [id number] Ramonita Cadena MD [place] [address],[place] [address] 02/17/2023 11:25:04 02/20/2023 14:18:50 Routine care 051471778 Z34.83 [place]emia of 2734 2003 O99.019 [id number] Joe Vazquez MD [place] [address],[place] [address] 03/02/2023 15:17:03 03/02/2023 16:16:18 Routine care 070373248 Z34.91 Pyelonephritis 96256662 N12 [id number] Suzy Hassan [place] [address],[place] [address] 03/17/2023 09:34:27 03/17/2023 10:48:08 Maternal obesity complicating , childbirth and the puerperium, antepartum 6433136831 07 O99.213 O43.113 Z3A.35 [id number] [facility] [address],[place] [address] 03/17/2023 09:34:50 03/17/2023 10:40:52 Maternal obesity complicating , childbirth and the puerperium, antepartum 2969065890 07 O99.213 O43.113 Z3A.35 [id number] Zuleika Minaya [facility] [address],[place] [address] 03/17/2023 09:35:13 03/17/2023 12:18:55 Routine care 790520728 Z34.92 [id number] [facility] [address],[place] [address] 03/24/2023 09:49:45 03/24/2023 10:54:26 Maternal obesity complicating , childbirth and the puerperium, antepartum 7832217284 07 O99.213 Z3A.36 [id number] [facility] [address],[place] [address] 03/24/2023 09:50:47 03/24/2023 10:26:45 Maternal obesity complicating , childbirth and the puerperium, antepartum 7894697025 07 O99.213 Z3A.36 [id number] Zuleika Minaya [facility] [address],[place] [address] 1 03/24/2023 09:51:30 03/24/2023 11:11:53 Routine care 995492046 Z34.92 [id number] [facility] [address] [place] [address] 03/28/2023 09:49:46 03/28/2023 11:06:23 Reduced movement 962331047 O36.8199 [id number] [facility] [address],[place] [address] 1 03/31/2023 10:01:11 03/31/2023 10:30:16 Maternal obesity complicating , childbirth and the puerperium, antepartum 4622490746 07 O99.213 Z3A.37 [id number] Aiyana Mcwilliams [place] [address],[place] [address] 03/31/2023 10:01:44 03/31/2023 11:06:50 Maternal obesity complicating , childbirth and the puerperium, antepartum 3791515321 07 O99.213 Z3A.37 [id number] Zuleika Minaya [facility] [address],[place] [address] 03/31/2023 10:03:08 03/31/2023 14:09:30 Routine care 647164787 Z34.92 [id number] Ramonita Cadena MD [place] [address],[place] [address] 04/10/2023 12:08:15 04/12/2023 18:02:19 Low back pain 773509134 M54.50 Inguinal pain 597187074 R10.2 Urinary incontinence 165 897859 R32 [id number] Lucero Argueta [place] [address],[place] [address] 05/05/2023 14:05:03 05/05/2023 14:44:09 care 667522176 Z39.2 monitor cycles, natural family planningph exxi as needed, ok for rx if desiresf.u . wwe 09/27 [id number] Zuleika Minaya [facility] [address],[place] [address] 11/22/2023 10:46:31 11/22/2023 11:39:56 Gynecologic examination 81200195 Z01.419 Fatigue 34352140 R53.83 check labs [id number] [facility] [address],[place] [address] 02/27/2024 10:55:35 02/27/2024 11:49:28 Uterine size for dates discrepancy 884863058 O26.841 Z3A.01 [facility] [address],[place] [address] 03/13/2024 13:54:56 03/13/2024 14:25:48 [id number] [facility] [address],[place] [address] 03/13/2024 13:55:48 03/13/2024 15:08:33 Amenorrhea 59255379 N91.2 + pregnancys tart vitamins Venereal d isease screening 641940164 Z11.3 Nausea and vomiting 1693 1999 R11.2 zofran as needed 4mg up to QID [id number] [facility] [address],[place] [address] 04/12/2024 11:52:58 04/12/2024 12:40:21 screening 913610352 Z36.82 Z3A.13 [id number] [facility] [address],[place] [address] 04/12/2024 11:53:26 04/12/2024 14:19:07 Gestation period, 12 weeks 15925959 Z3A.12 continue vitamin [id number] [place] [address] [place] [address] 05/10/2024 09:02:08 05/10/2024 09:41:03 Placenta circumvallata 1765778 O43.112 Z3A.17 [id number] Zuleika Minaya [facility] [address],[place] [address] 05/10/2024 09:07:28 05/10/2024 10:10:37 Gestation period, 33 weeks 71695001 Z3A.33 continue vitamin Routine an [facility] 485556503 Z34.92 screening 2437 60704 Z36.89 Gestation period, 17 weeks 68771507 Z3A.17 Intrauteri ne synechiae 591057051 N85.6 [id number] [facility] [address] [place] [address] 05/24/2024 10:11:30 05/24/2024 11:20:12 Increased blood pressure 53401710 R03.0 Anxiety 70657941 F41.9 send to cachorro watson CNM/MIRTHA [id number] Steph Tenorio [place] [address],[place] [address] 1 05/31/2024 10:57:14 05/31/2024 12:18:05 screening for malformation 158083374 Z36.3 Z3A.20 [id number] Zuleika Minaya [facility] [address],[place] [address] 05/31/2024 10:58:11 05/31/2024 13:45:10 Gestation period, 20 weeks 66722871 Z3A.20 continue vitamin [id number] Zuleika Minaya [facility] [address],[place] [address] 06/26/2024 14:19:36 06/26/2024 15:06:18 Gestation period, 23 weeks 80949089 Z3A.23 [id number] [facility] [address],[place] [address] 07/26/2024 09:44:42 07/26/2024 11:11:25 Maternal obesity complicating , childbirth and the puerperium, antepartum 6305440397 07 O99.213 Z86.16 O43.113 Z3A.28 [id number] Zuleika Minaya [facility] [address],[place] [address] 07/26/2024 09:45:23 07/26/2024 11:30:51 Gestation period, 28 weeks 47581012 Z3A.28 [id number] NICOLAS ANN MD [facility] [address],[place] [address] 08/09/2024 15:53:52 08/09/2024 16:29:59 Placenta circumvallata 3800171 O43.119 - growth at 32 weeks Maternal o besity complicating , childbirth and the puerperium, antepartum 3059364272 07 O99.213 - testing at 34 weeks Prophylact ic immunotherapy 767378255 Z29.11 - needs Rhogam 09/09/23 Gestation period, 30 weeks 11580335 Z3A.30 [id number] [facility] [address],[place] [address] 08/22/2024 10:13:50 08/22/2024 11:07:40 Placenta circumvallata 2536213 O43.113 O35.3XX0 O99.213 Z3A.32 [id number] Joe Vazquez MD [place] [address],[place] [address] 08/22/2024 10:14:33 08/22/2024 11:57:50 Nausea and vomiting 94778609 R11.2 Routine an tenatal care 268638171 Z34.91 [id number] Chelsie Farooq [place] [address],[place] [address] 09/05/2024 14:14:59 09/05/2024 15:49:05 Maternal obesity complicating , childbirth and the puerperium, antepartum 5935266110 07 O99.213 - testing at 34 weeks [id number] [facility] [address],[place] [address] 1 09/05/2024 15:32:55 09/05/2024 16:15:04 Maternal obesity complicating , childbirth and the puerperium, antepartum 2433850293 07 O99.213 O16.3 Z3A.34 [id number] NICOLAS ANN MD [facility] [address],[place] [address] 09/05/2024 15:33:06 09/05/2024 17:12:58 Large for gestation age fetus 989479834 O36.60X0 Placenta circumvallata 3315943 O43.119 - growth at 32 weeks Maternal o besity complicating , childbirth and the puerperium, antepartum 6751709200 07 O99.213 - testing at 34 weeks Attention deficit hyperactivity disorder 668557960 F90.9 [id number] Lamar Cerna [place] [address],[place] [address] 09/13/2024 11:18:35 09/13/2024 11:57:40 Maternal obesity complicating , childbirth and the puerperium, antepartum 9880699880 07 O99.213 Z3A.35 [id number] Lucero Argueta [facility] [address],[place] [address] 09/13/2024 11:18:50 09/16/2024 12:24:23 Maternal obesity complicating , childbirth and the puerperium, antepartum 8641325856 07 O99.210 [id number] Zuleika Minaya [facility] [address],[place] [address] 09/13/2024 11:19:17 09/13/2024 13:45:58 Gestation period, 35 weeks 09665115 Z3A.35 [id number] [facility] [address],[place] [address] 1 09/19/2024 10:19:18 09/19/2024 11:01:52 Maternal obesity complicating , childbirth and the puerperium, antepartum 3768849221 07 O99.213 O36.60X0 O43.113 Z3A.36 [id number] Daniela Remy [facility] [address],[place] [address] 09/19/2024 10:19:43 09/19/2024 12:40:52 Maternal obesity complicating , childbirth and the puerperium, antepartum 6399365652 07 O99.210 [id number] Joe Vazquez MD [facility] [address],[place] [address] 09/19/2024 10:20:11 09/19/2024 12:39:23 Routine care 607002839 Z34.[id number] [facility] [address],[place] [address] 10/04/2024 13:41:55 10/04/2024 14:23:24 Abnormal uterine bleeding 9310537106 9100 N93.9 Health Concerns Section Related Observation LastModified by Organization Detai ls LastModified Time None Recorded Concern Status LastModified by Organization Details LastModified Time None Recorded Advance Directives Directive None Recorded Payers Encounter Date Sequence Insurance Name Policy Number Policy Trujillo Covered Member ID Trujillo Member ID Guarantor Name 09/13/2024 1 [employer] LOCAL [address] H AND W FUND [id number] Emi Kious [id number] Emi Kious 09/13/2024 2 [facility] (MEDICAID HMO) [id number] Emi Kious [id number] Emi Kious 09/19/2024 1 [employer] LOCAL 520 H AND W FUND [id number] Emi Kious [id number] Emi Kious 09/19/2024 2 [facility] (MEDICAID HMO) [id number] Emi Kious [id number] Emi Kious 09/19/2024 1 [employer] LOCAL 520 H AND W FUND [id number] Emi Kious [id number] Emi Kious 09/19/2024 2 [facility] (MEDICAID HMO) [id number] Emi Kious [id number] Emi Kious 09/19/2024 1 [employer] LOCAL 520 H AND W FUND [id number] Emi Kious [id number] Emi Kious 09/19/2024 2 [facility] (MEDICAID HMO) [id number] Emi Kious [id number] Emi Kious 10/04/2024 1 [employer] LOCAL 520 H AND W FUND [id number] Emi Kious [id number] Emi Kious 10/04/2024 2 [facility] (MEDICAID HMO) [id number] Emi Kious [id number] Emi Kious OBGyn Episode Ob Episode Information Episode Created Date Number of Fetuses Patient Bloodtype Patient rh Status Prepregnancy Weight lbs Domestic Partner Domestic Partner Phone Father Name Quality Management Coordinator Status 09/08/19 23 1 CLOSED Fetus Data First Name Last Name Admitted to NICU Weight (g) Sex Living Outcome Pediatric Complications Fetus ID Race Codes Race Delivery Type , Spontane ous 13573 Preston Calculation Initial Preston Date Initial Exam [...] Post Complications Tubal Sterilization Discharge Date Comments 9 Discharge Information Feeding Method Contraceptive Method Maternal HG B and HCT Levels Ob Episode Information Episode Created Date Number of Fetuses Patient Bloodtype Patient rh Status Prepregnancy Weight lbs Domestic Partner Domestic Partner Phone Father Name Quality Management Coordinator Status 09/08/19 23 1 CLOSED Fetus Data First Name Last Name Admitted to NICU Weight (g) Sex Living Outcome Pediatric Complications Fetus ID Race Codes Race Delivery Type , Spontane ous 86061 Preston Calculation Initial Preston Date Initial Exam [...] Domestic Partner Domestic Partner Phone Father Name Quality Management Coordinator Status 09/08/19 23 1 CLOSED Fetus Data First Name Last Name Admitted to NICU Weight (g) Sex Living Outcome Pediatric Complications Fetus ID Race Codes Race Delivery Type , Spontane ous 87293 Preston Calculation Initial Preston Date Initial Exam [...] Domestic Partner Domestic Partner Phone Father Name Quality Management Coordinator Status 09/29/19 23 1 A Negative 250 CLOSED Fetus Data First Name Last Name Admitted to NICU Weight (g) Sex Living Outcome Pediatric Complications Fetus ID Race Codes Race Delivery Type 3486.98 85 F true Full Term 87537 Vaginal Delivery Problems Problem Notes rhogam received at [facility] 08/28/22 r/t clots - passed SCHUC WNLmacrobid suppressive therapy for recent pyelonephritis Problem Name Start Date End Date Resolution Snomed Code Not e Asthma 072479550 Anxiety 48713686 Placenta circumvallata 2733336 serial growth u/s Placental abruption 552804593 story unclear RhD negative 525986246 2, 03/18/23 Hyperemesis 066174729 zofran p ump Anemia of 02/20/2023 [id number] Preston Calculation Initial Preston Date Initial Exam [...] Latest Days Gestation 0 04/16/20 23 0 Pre- Flowsheet Flowsheet Date 09/29/2022 [place] Score Blood Edema Fundus Height Fundus Units Glucose Ketones Leukocytes Nitrite Labor Signs Protein Cervic Dilation Cervic Effacement Cervic Station 11 Type Weight in lbs Pre/Post Dialysis Refused Weight 248.787464492782 BP Diastolic BP Location Tested BP Systolic [...] Weight in lbs Pre/Post Dialysis Refused Weight 251.63225656487 BP Diastolic BP Location Tested BP Systolic BP Type 77 119 Fetus Heart Rate Present A 150 Present Fetus Movement A No Comments patient states that had blee ding 2 weeks ago and nausea. was seen in [place] and had f/u US here, no bleeding [...] Weight in lbs Pre/Post Dialysis Refused Weight 253.462264739162 BP Diastolic BP Location Tested BP Systolic [...] Weight in lbs Pre/Post Dialysis Refused Weight 255.921603313025 BP Diastolic BP Location Tested BP Systolic [...] Weight in lbs Pre/Post Dialysis Refused Weight 256.181843901594 BP Diastolic BP Location Tested BP Systolic [...] Weight in lbs Pre/Post Dialysis Refused Weight 256.885584626034 BP Diastolic BP Location Tested BP Systolic [...] Weight in lbs Pre/Post Dialysis Refused Weight 254.182039904986 BP Diastolic BP Location Tested BP Systolic [...] Weight in lbs Pre/Post Dialysis Refused Weight 257.884532031501 BP Diastolic BP Location Tested BP Systolic [...] Weight in lbs Pre/Post Dialysis Refused Weight 263.264828777403 BP Diastolic BP Location Tested BP Systolic [...] Weight in lbs Pre/Post Dialysis Refused Weight 263.843738520456 BP Diastolic BP Location Tested BP Systolic [...] Weight in lbs Pre/Post Dialysis Refused Weight 267.988569930563 BP Diastolic BP Location Tested BP Systolic [...] Weight in lbs Pre/Post Dialysis Refused Weight 270.95254391876 BP Diastolic BP Location Tested BP Systolic BP Type 79 122 Fetus Heart Rate Present Fetus Movement A Yes Comments patient is having some contr actions, discharge and nausea. external os 5, labor precautions bpp 8/8 Flowsheet Date 04/10/2023 [place] Score Blood Edema Fundus Height Fundus Units Glucose Ketones Leukocytes Nitrite Labor Signs Protein Cervic Dilation Cervic Effacement Cervic Station Type Weight in lbs Pre/Post Dialysis Refused Weight 253.801799583659 BP Diastolic BP Location Tested BP Systolic [...] Estim ated Date of Delivery false Thalassemia (Citizen Of [place], [place]ese, Mediterranean, Or Background): MCV < 80 false Neural Tube Defect (Meningomyelocele, Spina Bifi da, Or Anencephaly) false Congenital Heart Defect false Down Syndrome false K[place]-Sachs (eg, Sabianist, Cajun, Colombian-[place]) f alse Yuli Disease false Sickle Cell Disease Or Trait () false Hemophilia Or Other Blood Disorders false Muscular Dystrophy false Cystic Fibrosis false Henderson's Chorea false Intellectual Disability/Autism false If Yes, [...] Complications Tubal Sterilization Discharge Date Comments 3 amira None 38.2 false Marimar, Zuleika CNM Anemia of , Anxiety, Asthma, Hyperemes is, Placenta circumval steve, RhD negative, prolonged rupture, precip labor Discharge Information Feeding Method Contraceptive Method Maternal HG B and HCT Levels Ob Episode Information Episode Created Date Number of Fetuses Patient Bloodtype Patient rh Status Prepregnancy Weight lbs Domestic Partner Domestic Partner Phone Father Name Quality Management Coordinator Status 09/08/19 1 CLOSED Fetus Data First Name Last Name Admitted to NICU Weight (g) Sex Living Outcome Pediatric Complications Fetus ID Race Codes Race Delivery Type 3912.23 1 F Full Term 91146 Vaginal Delivery Preston Calculation Initial Preston Date [...] Domestic Partner Domestic Partner Phone Father Name Quality Management Coordinator Status 09/08/19 1 CLOSED Fetus Data First Name Last Name Admitted to NICU Weight (g) Sex Living Outcome Pediatric Complications Fetus ID Race Codes Race Delivery Type 3486.76 1704 F Full Term 51243 Vaginal Delivery Preston Calculation Initial Preston Date [...] Domestic Partner Domestic Partner Phone Father Name Quality Management Coordinator Status 04/12/20 24 1 A Negative 272 OPEN Fetus Data First Name Last Name Admitted to NICU Weight (g) Sex Living Outcome Pediatric Complications Fetus ID Race Codes Race Delivery Type 39458 Problems Problem Notes seizures only as a child due to head trauma? placental abruption with first Problem Name Start Date End Date Resolution Snomed Code Not e Large for gestation age fetus 634750208 97% Placental abruption [id number] HISTORICAL Migraine [id number] Placenta circumvallata 04/15/2024 [id number] 0 32wk growth u/s Prophylactic immunotherapy 04/18/2024 [id number] rhogam receive d 03/22/24 @ [facility] Attention deficit hyperactivity disorder [id number] Obesity 956544913 testing @ 34 weeks weekly; BMI 42 COVID-19 04/17/2024 [id number] ASA & ser ial growth Hyperemesis 766524602 history of in last 2 pregnancies Mixed anxiety and depressive disorder 374780855 Anterior synechiae 19670721 f /u 4 weeks Preston Calculation Initial [...] Ultra Sound Latest Days Gestation 0 0 Pre- Flowsheet Flowsheet Date 04/12/2024 Willingham Score Blood Edema Fundus Height Fundus Units Glucose Ketones Leukocytes Nitrite Labor Signs Protein Cervic Dilation Cervic Effacement Cervic Station neg none none trace Type Weight in lbs Pre/Post Dialysis Refused Weight 272.943430909096 BP Diastolic BP Location Tested BP Systolic [...] Type Weight in lbs Pre/Post Dialysis Refused 274.929128330599 BP Diastolic BP Location Tested BP Systolic [...] Type Weight in lbs Pre/Post Dialysis Refused 276.926938205623 BP Diastolic BP Location Tested BP Systolic BP Type 85 132 Fetus Heart Rate Present Fetus Movement A No Comments Patient states thta is havin g s lot of stress and anxiety, cramping, spotting and swelling. discussed stress, anxiety, no suicidal symptoms, f/u next ob visit, f/u with [facility] LUMBER CHECKER for anxiety treatment Flowsheet Date 05/31/2024 [place]illingham [...] Type Weight in lbs Pre/Post Dialysis Refused 279.899710001633 BP Diastolic BP Location Tested BP Systolic BP Type 85 122 Fetus Heart Rate Present Fetus Movement A Yes Comments Patient states that has some anxiety but is little better and is having some right side pain. reviewed education and precautions wants to wait on pysch LUMBER CHECKER visit, will continue to monitor mood, +FM, anatomy complete Flowsheet Date 06/26/2024 Willingham Score Blood Edema Fundus Height Fundus Units Glucose Ketones Leukocytes Nitrite Labor Signs Protein Cervic Dilation Cervic Effacement Cervic Station trace none Type Weight in lbs Pre/Post Dialysis Refused 285.177811451172 BP Diastolic BP Location Tested BP Systolic [...] Type Weight in lbs Pre/Post Dialysis Refused 290.7999403802 BP Diastolic BP Location Tested BP Systolic [...] Weight in lbs Pre/Post Dialysis Refused Weight 296.684203291612 BP Diastolic BP Location Tested BP Systolic [...] Weight in lbs Pre/Post Dialysis Refused Weight 300.315289353189 BP Diastolic BP Location Tested BP Systolic [...] Weight in lbs Pre/Post Dialysis Refused Weight 301.023435277744 BP Diastolic BP Location Tested BP Systolic [...] Weight in lbs Pre/Post Dialysis Refused Weight 299.251607049279 BP Diastolic BP Location Tested BP Systolic BP Type 88 128 Fetus Heart Rate Present Fetus Movement Comments Flowsheet Date 09/13/2024 Willingham Score Blood Edema Fundus Height Fundus Units Glucose Ketones Leukocytes Nitrite Labor Signs Protein Cervic Dilation Cervic Effacement Cervic Station Type Weight in lbs Pre/Post Dialysis Refused Weight 299.909535197011 BP Diastolic BP Location Tested BP Systolic BP Type 82 128 Fetus Heart Rate Present Fetus Movement Comments doing well +FM bpp 10/10, ge tting over her URI, precautions and [...] Weight in lbs Pre/Post Dialysis Refused Weight 299.199387670746 BP Diastolic BP Location Tested BP Systolic BP Type 82 R arm 124 sitting Fetus Heart Rate Present Fetus Movement Comments Flowsheet Date 09/19/2024 Willingham Score Blood Edema Fundus Height Fundus Units Glucose Ketones Leukocytes Nitrite Labor Signs Protein Cervic Dilation Cervic Effacement Cervic Station 4cm Type Weight in lbs Pre/Post Dialysis Refused 299.4921294540 BP Diastolic BP Location Tested BP Systolic [...]
--- OUTSIDE RECORDS SUMMARY | 2024-10-04 13:59 | XMS_ITS | Encounter Summary ---
Author Organization [facility] Address [address] [place] [address]. [place], [place] [address] [place] [address] Care Team Providers Care Ore Washer Name Role Phone BrenAlana massey Aliya [facility] Primary Care Provider [phone] BrenAlana massey [facility] Primary Care Provider [phone] Encounter Details Date Type Department Care Team (Late st Contact Info) Description 03/01/2023 MyChart Message Enc [facility] [address] [place] [address] [place], [facility] Provider Air Quality Message Social History Tobacco Use Types Packs/Day Years Used Date Smoking Tobacco: Every Day Smokeless Tobacco: Never Comments:smokes marijuana Alcohol Use Standard Drinks/Week Comments No 0 (1 standard drink = 0.6 oz pur e alcohol) AUDIT-C Answer Date Recorded Frequency of Alcohol Consumption Never 10/18/2018 Average Number of Drinks Not on file 019 Frequency of Binge Drinking Not on file 10/05 PHQ-2 Answer Date Recorded Patient Health Questionnaire-2 Score 0 01/16/2023 Comments Yes Sex and Gender Information Value Date Recorded Sex Assigned at Female 01/29/2020 9:58 AM CDT Legal Sex Female 5:31 PM CDT Gender Identity Female 01/29/2020 9:58 AM CDT Sexual Orientation Straight 01/29/2020 9: 58 AM CDT documented as of this encounter Functional Status * RETIRED Are you deaf or do you have serious difficulty hearing Answer Date of Assessment Author Status No 10/20/2020 4:38 AM 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 Answer Date of Assessment Author Status No 10/20/2020 4:38 AM MACHINE OPERATOR SLITTER TECHNICIAN Activ e * Do you have serious difficulty walking or climbing stairs? Answer Date of Assessment Author Status No 10/20/2020 4:38 AM Melody Harp R N Active * Do you have difficulty dressing or bathing? Answer Date of Assessment Author Status No 10/20/2020 4:38 AM Melody Harp R N Active * Because of a physical, mental, or emotional condition, do you have difficulty doing errands alone such as visiting a doctor's office or shopping? Answer Date of Assessment Author Status No 10/20/2020 4:38 AM Melody Harp R N Active documented as of this encounter Mental Status * Because of a physical, mental, or emotional condition, do you have serious difficulty concentrating, remembering, or making decisions? Answer Entry Date Author Status No 10/20/2020 4:38 AM Melody Harp R N Active documented in this encounter Plan of Treatment Upcoming Encounters Date Type Department Care Team (Late st Contact Info) Description 01/24/2025 2:00 PM CDT Office Visit [facility] [address] [place] [address] Alana Sanchez FNP [address] [place] [address] documented as of this encounter Visit Diagnoses Not on filedocumented in this encounter Additional Health Concerns Infection Onset Date Last Indicated Resolved Time MRSA 09/23/2018 09/23/2018 COVID-19 Rule Out 04/17/2024 04/17/2024 04/17/2024 11:24 AM CDT COVID-19 Confirmed 04/17/2024 04/17/2024 12:32 AM CDT documented as of this encounter Care Teams Ore Washer Relationship Specialty Start Date End Date Alana Sanchez FNP [address] [place] [address] PCP - General NURSE PRACTITIONER 07/31/18 03/21/24 Alana Sanchez, RANGEL [address] [place] [address] [place] [address] PCP - General NURSE PRACTITIONER 04/06/24 documented as of this encounter
--- OUTSIDE RECORDS SUMMARY | 2024-10-04 13:59 | XMS_ITS | Referral Summary ---
Author Organization [facility] Address [address] [place] [address] Care Team Providers Care Rental Clerk Name Role Phone Juan Castillo MD Primary Care Provider [phone] Source Comments [facility],non-owned Affiliates and Associated Physician Practices is amultiple site organization consisting of ambulatory clinics and hospital sitesin [place], [place], [place] and [place]. This disclosure is being madepursuant to the Care Everywhere program and may not contain all information available regarding this patient. Last updated 18.[facility] Encounters Date Type Department Care Team Description 09/02/2024 Telephone [facility] MATERNAL/ EVALUATION UNIT [address] [place] [address]. [address] [place] [address] Gisela Arceo, RN Hospital Follow-up 09/02/2024 Orders Only [facility]/ EV[facility]UATION UNIT [address] [place] [address]. [address] [place] [id number] Alva Johnson, HARISH Elevated blood pressure affecting in third trimester, antepartum (HCC) 08/29/2024 7:30 PM PET TRAINING INSTRUCTOR - 08/31/2024 11:30 AM PET TRAINING INSTRUCTOR Hospital Encounter [facility] 5E ANTEPARTUM/MOTHER BABY [address] [phone] Carlos Lee MD Maternal Medicine Discharge Disposition: Home or Self Care 08/30/2024 Telephone [facility]/ EVALUATION UNIT [address] [place] [address]. [address] [place] [phone] Gisela Arceo, RN Hospitalization 08/29/2024 Travel from Last 3 Months Allergies Active Allergy Reactions Criticality Noted Date [...] reduction 2. recommend anticipation, by the referring certified court/medical interpreter, of potential recurrence of placental abruption and [...] with CRC. Supervision of high-risk of walter bailey 06/22/2020 Overview (06/24/2020): A-, Negative, Immune, RPR-NR, [...] 1. Reassess mood at visits 2. Notify Shower Attendant of fluoxetine use if continued into the [...] , limited weight gain is recommended. The [place] recommends a total weight gain [...] deficiency 10/08/2011 06/22/2020 Overview (10/30/2019): Note: ADD Immunizations Name Administration Dates Next Due DTAP/IPV [...] 1997,1997 TDAP (7yrs+) 09/09/2017, 6,10/24/2010,06/06,1997,1997,1997 VARICELLA 12/06/2017,05/04/1998 Social History Tobacco Use Types Packs/Day Years [...] and heating? Not hard at all 08/29/2024 [facility] - Occupational Stress [...] any time in the past 12 m [facility], were you homeless or living in a [facility] (including now)? No 08/29/2024 Estimated Date of Delivery Comme nts Yes 10/17/2024 Based on Ultraso und Sex and Gender Information Value Date Recorded Sex Assigned at Not on file Gender Identity Not on file Sexual Orientation Not on file Last Filed Vital Signs Vital Sign Reading Time Taken Comments Blood Pressure 97/62 08/31/2024 8:59 AM PET TRAINING INSTRUCTOR Pulse 101 08/31/2024 9:34 AM PET TRAINING INSTRUCTOR Temperature 37 ??C (98.6 ??F) 08/31/2024 8:59 AM PET TRAINING INSTRUCTOR Respiratory Rate 18 08/31/2024 8:59 AM PET TRAINING INSTRUCTOR Oxygen Saturation 99% 08/31/2024 8:59 AM PET TRAINING INSTRUCTOR Inhaled Oxygen Concentration - - Weight 136.1 kg (300 lb) 08/29/2024 7:50 PM PET TRAINING INSTRUCTOR Height 172.7 cm (5' 8 ) 08/29/2024 7:50 PM PET TRAINING INSTRUCTOR Body Mass Index 45.61 08/29/2024 7:50 PM PET TRAINING INSTRUCTOR Functional Status Functional Status Response Date of Assess ment Is person deaf or have serious hearing difficult y? No 08/29/2024 Is person blind or have serious difficulty seein g? No 08/29/2024 Does person have serious dif ficulty walking/climbing stairs? No 08/29/2024 Does person have difficulty dressing/bathing? No 08/29/2024 Does person have difficulty doing errands alone? No 08/29/2024 Cognitive Status Response Date of Assessm ent Does person have difficulty concentrating/remembering/making decisions? No 08/29/2024 Plan of Treatment Not on file Procedures Procedure Name Priority Date/Time Associated Diagnosis Comments IMAGING/RADIOLOGY/XRAY RESULTS ORDER 09/02/2024 10:35 PM PET TRAINING INSTRUCTOR PROTEIN URINE TIMED QUANTITATIVE Routine 08/30/2024 7:41 PM PET TRAINING INSTRUCTOR Elevated blood pressure affecting in third trimester, antepartum (HCC) SONOGRAM - COMPLETE Routine 08/30/2024 8 :15 AM PET TRAINING INSTRUCTOR US RETROPERITONEAL COMPLETE STAT 08/30/2024 7:30 AM PET TRAINING INSTRUCTOR Elevated blood pressure affecting in third trimester, antepartum (HCC) labor in third trimester without delivery (HCC) TRICHOMONAS VAGINALIS AMPLIFIED PROBE Routine 08/29/2024 10:21 PM PET TRAINING INSTRUCTOR CHLAMYDIA + GC AMPLIFIED PROBE Routine 08/29/2024 10:20 PM PET TRAINING INSTRUCTOR CULTURE STREP B Routine 08/29/2024 10:20 PM PET TRAINING INSTRUCTOR URINALYSIS REFLEX MICROSCOPIC REFLEX CULTURE STAT 08/29/2024 8:47 PM PET TRAINING INSTRUCTOR Elevated blood pressure affecting in third trimester, antepartum (HCC) PROTEIN CREATININE RATIO URINE RANDOM PNL STAT 08/29/2024 8:47 PM PET TRAINING INSTRUCTOR Elevated blood pressure affecting in third trimester, antepartum (HCC) BLOOD TYPE VERIFICATION Routine 08/29/20 8:15 PM PET TRAINING INSTRUCTOR TYPE + SCREEN PANEL STAT 08/29/2024 7 :59 PM PET TRAINING INSTRUCTOR Elevated blood pressure affecting in third trimester, antepartum (HCC) LDH BLOOD STAT 08/29/2024 7:59 PM PET TRAINING INSTRUCTOR Elevated blood pressure affecting in third trimester, antepartum (HCC) SYPHILIS ANTIBODY CASCADING REFLEX STAT 08/29/2024 7:59 PM PET TRAINING INSTRUCTOR Elevated blood pressure affecting in third trimester, antepartum (HCC) COMPREHENSIVE METABOLIC PANEL STAT 08/29/2024 7:59 PM PET TRAINING INSTRUCTOR Elevated blood pressure affecting in third trimester, antepartum (HCC) CBC W AUTO DIFFERENTIAL STAT 08/29/20 7:59 PM PET TRAINING INSTRUCTOR Elevated blood pressure affecting in third trimester, antepartum (HCC) from Last 3 Months Results * IMAGING RADIOLOGY XRAY RESULTS ORDER (09/02/2024 10:35 PM PET TRAINING INSTRUCTOR) Anatomical Region Laterality Modality Other Narrative 09/02/2024 10:35 PM PET TRAINING INSTRUCTOR Ordered by an unspecified provider. Scanned Document IMAGING * PROTEIN URINE TIMED QUANTITATIVE (08/30/2024 7:41 PM PET TRAINING INSTRUCTOR) Volume 24 Hour Urine 1,900 mL 08/30/2024 8:12 PM PET TRAINING INSTRUCTOR [facility] Collection Time Hours 24 hrs 08/30/2024 8:12 PM PET TRAINING INSTRUCTOR [facility] Protein 24 Hour Urine 144 <300 mg/24hr 08/30/2024 8:12 PM PET TRAINING INSTRUCTOR [facility] Protein Urine 7.6 <11.9 mg/dL 08/30/2024 8:12 PM PET TRAINING INSTRUCTOR [facility] Urine TIMED URINE SPECIMEN / Unknown Timed Urine Volume Measurement / Unknown 08/30/2024 7:41 PM PET TRAINING INSTRUCTOR 08/30/2024 7:55 PM PET TRAINING INSTRUCTOR Carlos Lee MD LAB - URINE CH EMISTRY ORDERABLES [facility] [address] [place], [place] [id number] * SONOGRAM - COMPLETE (08/30/2024 8:15 AM PET TRAINING INSTRUCTOR) Linked Results Indication ======== Class III , [...] movements 2: tone 2: Amniotic fluid volume 04/11 Biophysical profile score Biometry BPD ?90.9 ?mm [...] lb 1 ??oz EFW by ? Hadlock ([id number]-PV-FL) LGA Growth Overview Exam date ?GA ?BPD [...] view. RVOT view. LVOT view. 3-vessel view. 3-qjeotw-ixsgnho view. Situs. Bicaval view. Ductal arch view. [...] studies as clinically indicated and per inpatient [facility] team Coding ====== Procedures ? 91453: Umbilical Doppler ? 64571: US Preg Uterus Detailed ? 18535: Biophysical Profile W/O NST [facility] [place] PACS Anatomical Region Laterality Modality Other 08/30/2024 8:15 AM PET TRAINING INSTRUCTOR Carlos Lee MD [facility] ORDERABLES * US Retroperitoneal Complete (08/30/2024 7:30 AM PET TRAINING INSTRUCTOR) Anatomical Region Laterality Modality Abdomen Ultrasound 08/30/2024 8:25 AM PET TRAINING INSTRUCTOR Impressions 08/30/2024 9:58 AM PET TRAINING INSTRUCTOR IMPRESSION: 1.Normal renal size. No evidence of nephrolithiasis, hydronephrosis, or solid renal mass. > Dictated by Krupa Nielson Dr, MD (residential green building designer). I, Mic Bolton MD have personally reviewed and interpreted this examination/study. > Interpreting Provider: Mic Bolton MD on 08/30/2024 9:58 AM Narrative 08/30/2024 9:58 AM PET TRAINING INSTRUCTOR PROCEDURE: ??US RETROPERITONEAL COMPLETE, DATE/TIME OF EXAM: ??08/30/2024 7:52 AM, LOCATION ??[facility] INDICATION: O16.3: Unspecified maternal hypertension, third trimester (HCC) O60.03: labor without delivery, third trimester ([facility]) ADDITIONAL CLINICAL INFORMATION: Ordering Provider Reason For [...] DATE/TIME OF EXAM: 08/30/2024 7:52 AM, LOCATION [facility] INDICATION: O16.3: Unspecified maternal hypertension, third trimester (HCC) O60.03: labor without delivery, third trimester ([facility]) ADDITIONAL CLINICAL INFORMATION: Ordering Provider Reason For [...] Dictated by Krupa Nielson Dr, MD (residential green building designer). I, Mic Bolton MD have personally reviewed and interpreted this examination/study. > Interpreting Provider: Mic Bolton MD on 08/30/2024 9:58 AM Carlos Lee MD US ORDERABLES * TRICHOMONAS VAGINALIS AMPLIFIED PROBE (08/29/2024 10:21 PM PET TRAINING INSTRUCTOR) Trichomonas vaginalis Amplified Probe Negative Negative 08/30/2024 8:39 PM PET TRAINING INSTRUCTOR [facility] MICROBIOLOGY Other URINE / Unknown Collection / Unknown 08/29/2024 10:21 PM PET TRAINING INSTRUCTOR 08/29/2024 10:32 PM PET TRAINING INSTRUCTOR Narrative [facility] MICROBIOLOGY - 08/30/2024 8:39 PM PET TRAINING INSTRUCTOR This test was developed and its performance characteristics determined by the [facility] Microbiology Laboratory, [facility]. Urine specimens tested by the [facility] [place] have not been cleared or approved by [...] - MICROBIO LOGY ORDERABLES Performing Organization Address [facility] Co de Phone Number [facility] MICROBIOLOGY [address] [place] [address], [facility] [phone] * CHLAMYDIA + GC AMPLIFIED PROBE (08/29/2024 10:20 PM PET TRAINING INSTRUCTOR) Chlamydia Amplified Probe Negative Negative 08/30/2024 8:37 PM PET TRAINING INSTRUCTOR [facility] MICROBIOLOGY GC Amplified Probe Negative Negative 08/30/2024 8:37 PM PET TRAINING INSTRUCTOR [facility] MICROBIOLOGY Microbiology URINE / Unknown Collection / Unknown 08/29/2024 10:20 PM PET TRAINING INSTRUCTOR 08/29/2024 10:38 PM PET TRAINING INSTRUCTOR Narrative [facility] MICROBIOLOGY - 08/30/2024 8:37 PM PET TRAINING INSTRUCTOR Results based on detection/no detection of ribosomal RNA by amplified method. Carlos Lee MD LAB - MICROBIO LOGY ORDERABLES Performing Organization Address [facility] Phone Number [facility] MICROBIOLOGY [address] [place] [address], [facility] [phone] * CULTURE STREP B (08/29/2024 10:20 PM PET TRAINING INSTRUCTOR) Culture Strep B Negative for beta-hemolytic Streptococcus Group B NAHUN 09/02/2024 7:03 AM PET TRAINING INSTRUCTOR [facility] MICROBIOLOGY Microbiology MISCELLANEOUS SAMPLES / Unknown Collection / Unknown 08/29/2024 10:20 PM PET TRAINING INSTRUCTOR 08/29/2024 10:34 PM PET TRAINING INSTRUCTOR Carlos Lee MD LAB - MICROBIO LOGY ORDERABLES Performing Organization Address [facility] Co de Phone Number [facility] MICROBIOLOGY [address] [place] [address], [facility] [phone] * (ABNORMAL) URINALYSIS REFLEX MICROSCOPIC REFLEX CULTURE (08/29/2024 8:47 PM PET TRAINING INSTRUCTOR) Color UA Yellow Yellow, Straw 08/29/2024 10:45 PM PET TRAINING INSTRUCTOR [facility] Clarity UA Clear Clear 08/29/2024 10:45 PM PET TRAINING INSTRUCTOR [facility] Glucose UA Normal Normal 08/29/2024 10:45 PM PET TRAINING INSTRUCTOR [facility] Bilirubin UA Negative Negative 08/29/2024 10:45 PM PET TRAINING INSTRUCTOR [facility] Ketone UA 2+(A) Negative 08/29/2024 10:45 PM [facility] Specific [place] UA 1.021 1.005 - 1.030 08/29/2024 10:45 PM PET TRAINING INSTRUCTOR [facility] Blood UA Negative Negative 08/29/2024 10:45 PM [facility] pH UA 5.5 5.0 - 9.0 pH 08/29/2024 10:45 PM PET TRAINING INSTRUCTOR [facility] Protein UA Negative Negative 08/29/2024 10:45 PM PET TRAINING INSTRUCTOR [facility] Urobilinogen UA Normal Normal mg/dL 024 10:45 PM [facility] Nitrite UA Negative Negative 08/29/2024 10:45 PM [facility] Leukocyte UA Negative Negative 08/29/2024 10:45 PM [facility] Urine URINE SPECIMEN OBTAINED BY CLEAN CATCH PROCEDURE / Unknown Collection / Unknown 08/29/2024 8:47 PM PET TRAINING INSTRUCTOR 08/29/2024 10:31 PM PET TRAINING INSTRUCTOR Narrative [facility] - 08/29/2024 10:45 PM PET TRAINING INSTRUCTOR Carlos Lee MD LAB - URINALYS IS ORDERABLES [facility] [address] [place], [place] [id number] * PROTEIN CREATININE RATIO URINE RANDOM PNL (08/29/2024 8:47 PM PET TRAINING INSTRUCTOR) Protein Urine 7.0 <11.9 mg/dL 08/29/2024 10:58 PM PET TRAINING INSTRUCTOR [facility] Creatinine Urine 83.54 mg/dL 08/29/2024 10:58 PM [facility] Protein/Creatin ine Ratio Urine 0.08 08/29/2024 10:58 PM PET TRAINING INSTRUCTOR [facility] Urine URINE SPECIMEN OBTAINED BY CLEAN CATCH PROCEDURE / Unknown Collection / Unknown 08/29/2024 8:47 PM PET TRAINING INSTRUCTOR 08/29/2024 10:31 PM PET TRAINING INSTRUCTOR Carlos Lee MD LAB - URINE CH EMISTRY ORDERABLES Performing Organization Address [facility] Co de Phone Number [facility] [address] [place] [address] * BLOOD TYPE VERIFICATION (08/29/2024 8:15 PM PET TRAINING INSTRUCTOR) ABO Rh A NEG 08/29/2024 9:1 6 PM PET TRAINING INSTRUCTOR [facility] Blood Bank BLOOD SPECIMEN / Unknown Lab Venipuncture / Unknown 08/29/2024 8:15 PM PET TRAINING INSTRUCTOR 08/29/2024 8:15 PM PET TRAINING INSTRUCTOR Carlos Lee MD LAB - BLOOD BA NK ORDERABLES Performing Organization Address [facility] Co de Phone Number [facility] [address] [place] [address] * SYPHILIS ANTIBODY CASCADING REFLEX (08/29/2024 7:59 PM PET TRAINING INSTRUCTOR) Treponema pallidum Antibody Non Reactive Non Reactive 08/29/2024 8:48 PM PET TRAINING INSTRUCTOR [facility] Comment: No Laboratory evidence of syphilis infection. ?? Note: ??Circulating antibodies may be low or undetectable in early infection. ??If recent exposure is suspected, re-draw sample in 2-4 weeks and repeat testing. Blood BLOOD SPECIMEN / Unknown Lab Venipuncture / Unknown 08/29/2024 7:59 PM PET TRAINING INSTRUCTOR 08/29/2024 8:04 PM PET TRAINING INSTRUCTOR Carlos Lee MD LAB - SEROLOGY ORDERABLES Performing Organization Address [facility] Co de Phone Number [facility] [address] [place] [address] * TYPE + SCREEN PANEL (08/29/2024 7:59 PM PET TRAINING INSTRUCTOR) ABO Rh A NEG 08/29/2024 8:43 PM [facility] Comment:No history; collect retype. Antibody Screen NEG 8:43 PM [facility] Blood Bank BLOOD SPECIMEN / Unknown Lab Venipuncture / Unknown 08/29/2024 7:59 PM PET TRAINING INSTRUCTOR 08/29/2024 8:04 PM PET TRAINING INSTRUCTOR Carlos Lee MD LAB - BLOOD BA NK ORDERABLES [facility] [address] [phone] * (ABNORMAL) CBC W AUTO DIFFERENTIAL (08/29/2024 7:59 PM PET TRAINING INSTRUCTOR) Pathologist [facility] WBC 13.6(H) 4.0 - 10.7 x10E9/L 08/29/2024 8:09 PM [facility] RBC Count 3.66(L) 3.90 - 5.20 x10E12/L 08/29/2024 8:09 PM [facility] Hemoglobin 10.3(L) 11.9 - 15.8 g/dL 08/29/2024 8:09 PM [facility] Hematocrit 31.5(L) 34.8 - 46.1 % 08/29/2024 8:09 PM [facility] MCV 86.1 80.0 - 98.0 fL 08/29/2024 8:09 PM [facility] MCH 28.1 26.7 - 33.6 pg 08/29/2024 8:09 PM [facility] MCHC 32.7 31.7 - 36.3 g/dL 08/29/2024 8:09 PM [facility] RDW-CV 13.0 11.3 - 14.8 % 08/29/2024 8:09 PM [facility] Platelet Count 302 150 - 420 x10E9/L 08/29/2024 8:09 PM [facility] MPV 9.4 7.8 - 11.4 fL 08/29/2024 8:09 PM [facility] Neutrophil % 76.6(H) 41.0 - 74.0 % 08/29/2024 8:09 PM [facility] Lymphocyte % 16.7(L) 17.0 - 47.0 % 08/29/2024 8:09 PM [facility] Monocyte % 5.2 3.0 - 11.0 % 08/29/2024 8:09 PM [facility] Eosinophil % 0.8 0.0 - 7.0 % 08/29/2024 8:09 PM [facility] Basophil % 0.3 0.0 - 1.6 % 08/29/2024 8:09 PM [facility] Immature Granulocytes % 0.4 0.0 - 1.0 % 08/29/2024 8:09 PM [facility] Neutrophil Absolute 10.38(H) 1.60 - 7.50 x10E9/L 08/29/2024 8:09 PM [facility] Lymphocyte Absolute 2.27 1.00 - 4.40 x10E9/L 08/29/2024 8:09 PM [facility] Monocyte Absolute 0.71 0.15 - 1.00 x10E9/L 08/29/2024 8:09 PM [facility] Eosinophil Absolute 0.11 0.00 - 0.60 x10E9/L 08/29/2024 8:09 PM [facility] Basophil Absolute 0.04 0.00 - 0.13 x10E9/L 08/29/2024 8:09 PM [facility] Blood BLOOD SPECIMEN / Unknown Lab Venipuncture / Unknown 08/29/2024 7:59 PM PET TRAINING INSTRUCTOR 08/29/2024 8:04 PM [facility] Carlos Lee MD LAB - HEMATOLO GY ORDERABLES [facility] [address] [place] [address] * (ABNORMAL) COMPREHENSIVE METABOLIC PANEL (08/29/2024 7:59 PM PET TRAINING INSTRUCTOR) [facility] Signature Glucose 85 70 - 99 mg/dL 08/29/2024 8:31 PM [facility] Sodium 137 136 - 145 mmol/L 08/29/2024 8:31 PM [facility] Potassium 3.8 3.5 - 5.1 mmol/L 08/29/2024 8:31 PM [facility] Chloride 111(H) 98 - 107 mmol/L 08/29/2024 8:31 PM [facility] CO2 19(L) 22 - 29 mmol/L 08/29/2024 8:31 PM [facility] Calcium 8.7 8.4 - 10.4 mg/dL 08/29/2024 8:31 PM [facility] Anion Gap 7 6 - 16 mmol/L 08/29/2024 8:31 PM [facility] BUN 9 5.3 - 18.7 mg/dL 08/29/2024 8:31 PM [facility] Creatinine 0.57 0.57 - 1.11 mg/dL 08/29/2024 8:31 PM [facility] Alkaline Phosphatase 122 40 - 150 U/L 08/29/2024 8:31 PM [facility] ALT 9 0 - 55 U/L 08/29/2024 8:31 PM [facility] AST 10 5 - 34 U/L 08/29/2024 8:31 PM [facility] Protein Total 6.5 6.4 - 8.3 gm/dL 08/29/2024 8:31 PM [facility] Albumin 2.5(L) 3.4 - 5.0 gm/dL 08/29/2024 8:31 PM [facility] Bilirubin Total 0.2 0.2 - 1.2 mg/dL 08/29/2024 8:31 PM [facility] eGFR by CKD-EPI >90 >=90 mL/min/1.7 3 m2 08/29/2024 8:31 PM [facility] Blood BLOOD SPECIMEN / Unknown Lab Venipuncture / Unknown 08/29/2024 7:59 PM PET TRAINING INSTRUCTOR 08/29/2024 8:04 PM [facility] Carlos Lee MD LAB - CHEMISTR Y ORDERABLES [facility] [address] [place] [address] * LDH BLOOD (08/29/2024 7:59 PM PET TRAINING INSTRUCTOR) LDH 136 125 - 220 U/L 08/29/2024 8:31 PM PET TRAINING INSTRUCTOR [facility] Blood BLOOD SPECIMEN / Unknown Lab Venipuncture / Unknown 08/29/2024 7:59 PM PET TRAINING INSTRUCTOR 08/29/2024 8:04 PM PET TRAINING INSTRUCTOR Carlos Lee MD LAB - CHEMISTR Y ORDERABLES [facility] [address] [place] [address] from Last 3 Months Additional Health Concerns Infection Onset Date 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 Source: [facility] - [facility]. 09/23/2018 Advance Directives * Full Code (Latest Code Status on File) Date Activated Date Inactivated Comments 08/29/2024 7:38 PM 08/31/2024 12:42 PM Care Teams Rental Clerk Relationship Specialty Start Date End Date Juan Castillo MD [address] [place] [address] [place] [address] PCP - General Family Medicine 06/07/13
--- OUTSIDE RECORDS SUMMARY | 2024-10-04 13:59 | XMS_ITS | Encounter Summary ---
Author Organization [facility] Address [address] [place] [address] Care Team Providers Care Manager Universal Name Role Phone Juan Castillo MD Primary Care Provider Encounter Details Date Type Department Care Team (Late st Contact Info) Description 03/24/2016 Office Visit [facility] Maternal & Care [address] [place] [id number] [facility] Social History Tobacco Use Types Packs/Day Years Used Date Smoking Tobacco: Never Smokeless Tobacco: Never Alcohol Use Standard Drinks/Week Comments No 0 (1 standard drink = 0.6 oz pur e alcohol) Comments Yes Sex and Gender Information Value Date Recorded Sex Assigned at Not on file Gender Identity Not on file Sexual Orientation Not on file documented as of this encounter Plan of Treatment Not on file documented as of this encounter Visit Diagnoses Not on filedocumented in this encounter Additional Health Concerns Infection Onset Date Last Indicated Resolved Time MRSA Hx Comment:Added from external infection. Source: [facility] - [facility]. 09/23/2018 documented as of this encounter Care Teams Manager Universal Relationship Specialty Start Date End Date Juan Castillo MD [address] [place] [address] [place], [place] [phone] PCP - General Family Medicine 06/07/13 documented as of this encounter
--- OUTSIDE RECORDS SUMMARY | 2024-10-04 13:59 | XMS_ITS | Patient Health Summary ---
Author Organization [facility] Address [address] [place] [address] Care Team Providers Care Vessel Ordinary Seaman Name Role Phone Juan Castillo MD Primary Care Provider [phone] Note from [facility],non-owned Affiliates and Associated Physician Practices is amultiple site organization consisting of ambulatory clinics and hospital sitesin [place], [place], [place] and [place]. This disclosure is being madepursuant to the Care Everywhere program and may not contain all information available regarding this patient. Last updated 18.[facility] Allergies * Latex(Rash) -Medium Criticality Medications * Be aware that medications may not be up to date on this document. Alwaysverify current medications with the patient. * montelukast (SINGULAIR) 10 MG tablet Take 10 mg by mouth at bedtime. * loratadine (CLARITIN) 10 MG tablet Take 10 mg by mouth once daily. * budesonide-formoterol (SYMBICORT) 80-4.5 MCG/ACT inhaler Inhale 2 Puffs by mouth 2 times daily. * albuterol HFA (PROVENTIL;VENTOLIN;PROAIR) 108 (90 BASE) MCG/ACT inhaler Inhale 2 Puffs by mouth every 6 hours as needed. * albuterol-ipratropium (DUO-NEB) 0.5-2.5 (3) MG/3ML nebulizer solution(Started 06/25/2019) ipratropium 0.5 mg-albuterol 3 mg (2.5 mg base)/3 mL nebulization soln * levothyroxine (SYNTHROID) 50 MCG tablet(Started 10/04/2019) Take 75 mcg by mouth once daily Reasons: Underactive Thyroid * venlafaxine XR 24hr (EFFEXOR XR) 150 MG capsule venlafaxine ER 150 mg capsule,extended release 24 hr * magnesium 30 MG tablet Take 30 mg by mouth once daily * pyridoxine (VITAMIN B-6) 25 MG tablet Take 50 mg by mouth once daily * ondansetron (ZOFRAN) 4 MG tablet Take 4 mg by mouth every 6 hours as needed for Nausea/Vomiting Reasons: Nausea and Vomiting in * metoclopramide (REGLAN) 10 MG tablet Take 10 mg by mouth 3 times daily before meals Reasons: Nausea and Vomiting in * busPIRone (BUSPAR) 10 MG tablet Take 10 mg by mouth once Reasons: Major Depressive Disorder * FLUoxetine (PROZAC) 40 MG capsule Take 40 mg by mouth once daily Reasons: Depression * diphenhydrAMINE (BENADRYL) 25 MG capsule Take 25 mg by mouth at bedtime * aspirin (ASPIRIN) 81 MG chew tablet(Started 06/24/2020) Take 2 tablets by mouth once daily Reasons: preeclampsia prevention 11 refills by 06/24/2021 * lidocaine (Lidoderm) 5 % patch(Started 09/01/2024) Apply 1 (one) patch to skin every 24 hours Apply patch to most painful area and remove after 12 hours. May reapply a new patch 12 hours later. 2 refills by 08/31/2025 * Vit-DSS-Fe Fum-FA ( vitamin with iron) tablet(Started 09/02/2024) Take 1 (one) tablet by mouth once daily 3 refills by 09/02/2025 Active Problems Problem Noted Date Diagnosed Date Elevated blood pressure affe cting in third trimester, antepartum 08/29/2024 Abnormal maternal glucose tolerance, antepartum 06/24/2020 Prior with placental abruption, antepa rtum 06/24/2020 Oligohydramnios, antepartum 06/22/2020 Hypothyroid 06/22/2020 Suicidal ideation 06/22/2020 Supervision of high-risk of young ria igravida 06/22/2020 Depression 02/12/2018 Maternal morbid obesity, antepartum 03/08/2016 Encounter for anatomic survey 02/25/2016 Anxiety Resolved Problems Problem Noted Date Diagnosed Date [...] disorder (ADHD), 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 1 Anxiety 10/21/2015 06/22/2020 Shoulder instability 12/09/2013 020 Neck pain 08/29/2013 06/22/2020 Subjective tinnitus 11/28/2012 06/22/20 20 Dizziness 11/28/2012 06/22/2020 Chronic tension headache 11/28/2012 Asthma 10/08/2011 06/22/2020 Folate deficiency 10/08/2011 06/22/2020 Immunizations * DTAP/IPV(Given 08/16/2001, 05/04/1998) * DTaP VACCINE IM (6wk-6yrs)(Given 08/16/2001, 08/07/1998) * HEP B VACCINE, ADULT 3 DOSE(Given 05/13/2015, 02/10/1998, 1997, 1997) * HEP B VACCINE, PED/ADOL(Given 11/17/2015, 06/29/2015) * HIB-HAEMOPHILUS INFLUENZAE B CONJUGATE VACCINE(Given 08/07/1998, 1997, 1997, 1997) * Human Papilloma Virus Vaccine(Given 12/19/2008, 08/07/2008, 06/06/2008) * INFLUENZA VACCINE(Given 07/16/2018, 06/09/2017, 06/06/2016, 06/01/2015) * Immune Globulin (Gamastan/baygan)(Given 09/03/2016, 07/30/2016) * MENINGOCOCCAL CONJUGATE (MCV4P)(Given 06/01/2015) * MENINGOCOCCAL VACCINE(Given 08/07/2008) * MMR/VARICELLA(Given 08/16/2001, 08/07/1998) * Meningococcal B Recombinant 2 Dose, IM(Given 08/07/2008) * PNEUMOCOCCAL PPSV23(Given 09/04/2016) * POLIO OPV(Given 1997, 1997) * TDAP (7yrs+)(Given 09/09/2017, 06/21/2016, 10/24/2010, 06/06/2008, 1997, 1997, 1997) * VARICELLA(Given 12/06/2017, 05/04/1998) Social History Tobacco Use Types Packs/Day Years [...] and heating? Not hard at all 08/29/2024 [facility] [place] [facility] - Occupational Stress [...] any time in the past 12 m [facility], were you homeless or living in a [place] health care facility (including now)? No 08/29/2024 Estimated Date of Delivery Comme nts Yes 10/17/2024 Based on Ultraso und Sex and Gender Information Value Date Recorded Sex Assigned at Not on file Gender Identity Not on file Sexual Orientation Not on file Last Filed Vital Signs Vital Sign Reading Time Taken Comments Blood Pressure 97/62 08/31/2024 8:59 AM ORNAMENTAL IRONWORKER Pulse 101 08/31/2024 9:34 AM ORNAMENTAL IRONWORKER Temperature 37 ??C (98.6 ??F) 08/31/2024 8:59 AM ORNAMENTAL IRONWORKER Respiratory Rate 18 08/31/2024 8:59 AM ORNAMENTAL IRONWORKER Oxygen Saturation 99% 08/31/2024 8:59 AM ORNAMENTAL IRONWORKER Inhaled Oxygen Concentration - - Weight 136.1 kg (300 lb) 08/29/2024 7:50 PM ORNAMENTAL IRONWORKER Height 172.7 cm (5' 8 ) 08/29/2024 7:50 PM ORNAMENTAL IRONWORKER Body Mass Index 45.61 08/29/2024 7:50 PM ORNAMENTAL IRONWORKER Procedures * IMAGING/RADIOLOGY/XRAY RESULTS ORDER(Performed 09/02/2024) * PROTEIN URINE TIMED QUANTITATIVE(Performed 08/30/2024) Performed for Elevated blood pressure affecting in third trimester, antepartum ([facility]) * SONOGRAM - COMPLETE(Performed 08/30/2024) * US RETROPERITONEAL COMPLETE(Performed 08/30/2024) Performed for Elevated blood pressure affecting in third trimester, antepartum ([facility]), labor in third trimester without delivery ([facility]) * TRICHOMONAS VAGINALIS AMPLIFIED PROBE(Performed 08/29/2024) * CHLAMYDIA + GC AMPLIFIED PROBE(Performed 08/29/2024) * CULTURE STREP B(Performed 08/29/2024) * URINALYSIS REFLEX MICROSCOPIC REFLEX CULTURE(Performed 08/29/2024) Performed for Elevated blood pressure affecting in third trimester, antepartum ([facility]) * PROTEIN CREATININE RATIO URINE RANDOM PNL(Performed 08/29/2024) Performed for Elevated blood pressure affecting in third trimester, antepartum ([facility]) * BLOOD TYPE VERIFICATION(Performed 08/29/2024) * TYPE + SCREEN PANEL(Performed 08/29/2024) Performed for Elevated blood pressure affecting in third trimester, antepartum ([facility]) * LDH BLOOD(Performed 08/29/2024) Performed for Elevated blood pressure affecting in third trimester, antepartum ([facility]) * SYPHILIS ANTIBODY CASCADING REFLEX(Performed 08/29/2024) Performed for Elevated blood pressure affecting in third trimester, antepartum ([facility]) * COMPREHENSIVE METABOLIC PANEL(Performed 08/29/2024) Performed for Elevated blood pressure affecting in third trimester, antepartum ([facility]) * CBC W AUTO DIFFERENTIAL(Performed 08/29/2024) Performed for Elevated blood pressure affecting in third trimester, antepartum ([facility]) * SONOGRAM - COMPLETE(Performed 07/24/2020) Performed for Prior with placental abruption, antepartum ([facility]), Supervision of high-risk of young multigravida ([facility]), Encounter for anatomic survey ([facility]), Maternal morbid obesity, antepartum ([facility]), Oligohydramnios, antepartum, single or unspecified fetus ([facility]) * SONOGRAM - COMPLETE(Performed 06/24/2020) Performed for Encounter for anatomic survey ([facility]), Oligohydramnios, antepartum, single or unspecified fetus ([facility]), Supervision of high-risk of young multigravida ([facility]) * FIRST TRI NUCHAL TRANSLUCENCY W:SEQ SCREEN(Performed 03/04/2016) Performed for Supervision of normal first teen in first trimester ([facility]), Encounter for nuchal translucency testing ([facility]) * FIRST TRI NUCHAL TRANSLUCENCY W:SEQ SCREEN(Performed 02/29/2016) Performed for Uncomplicated asthma, unspecified asthma severity, Encounter for nuchal translucency testing ([facility]) * XR SHOULDER RIGHT 2VW OR MORE(Performed 01/10/2014) Performed for Shoulder instability * CT NECK SOFT TISSUE WO CONT(Performed 07/11/2013) Performed for Stylohyoid tendonitis, Neck pain * CULTURE MRSA(Performed 06/26/2013) Performed for Hx MRSA infection Results * IMAGING RADIOLOGY XRAY RESULTS ORDER (09/02/2024 10:35 PM ORNAMENTAL IRONWORKER) Anatomical Region Laterality Modality Other Narrative 09/02/2024 10:35 PM ORNAMENTAL IRONWORKER Ordered by an unspecified provider. Scanned Document IMAGING * PROTEIN URINE TIMED QUANTITATIVE (08/30/2024 7:41 PM ORNAMENTAL IRONWORKER) Volume 24 Hour Urine 1,900 mL 08/30/2024 8:12 PM ORNAMENTAL IRONWORKER [facility] Collection Time Hours 24 hrs 08/30/2024 8:[address] [facility] Protein 24 Hour Urine 144 <300 mg/24hr 08/30/2024 8:[address] [facility] Protein Urine 7.6 <11.9 mg/dL 08/30/2024 8:[address] [facility] Urine TIMED URINE SPECIMEN / Unknown Timed Urine Volume Measurement / Unknown 08/30/2024 7:41 PM ORNAMENTAL IRONWORKER 08/30/2024 7:55 PM ORNAMENTAL IRONWORKER Carlos Lee MD LAB - URINE CH EMISTRY ORDERABLES Performing Organization Address City/State/[facility] Co de Phone Number [facility] [address], [place] [id number] * SONOGRAM - COMPLETE (08/30/2024 8:15 AM ORNAMENTAL IRONWORKER) Only the most recent of3 resultswithin the time period is included. Linked Results Indication ======== Class III , [...] lb 1 ??oz EFW by ? Hadlock ([id number]) LGA Growth Overview Exam date ?GA ?BPD [...] view. RVOT view. LVOT view. 3-vessel view. 8-qtxntj-vtpvheu view. Situs. Bicaval view. Ductal arch view. [...] inpatient MFM team Coding ====== Procedures ? 37432: Umbilical Doppler ? 81562: US Preg Uterus Detailed ? 43565: Biophysical Profile [facility] PACS Anatomical Region Laterality Modality Other 08/30/2024 8:15 AM ORNAMENTAL IRONWORKER Carlos Lee MD M ORDERABLES * US Retroperitoneal Complete (08/30/2024 7:30 AM ORNAMENTAL IRONWORKER) Anatomical Region Laterality Modality Abdomen Ultrasound 08/30/2024 8:25 AM ORNAMENTAL IRONWORKER Impressions 08/30/2024 9:58 AM ORNAMENTAL IRONWORKER IMPRESSION: 1.Normal renal size. No evidence of nephrolithiasis, hydronephrosis, or solid renal mass. > Dictated by Krupa Nielson Dr, MD (vice president of recruiting). IMic MD have personally reviewed and interpreted this examination/study. > Interpreting Provider: Mic Bolton MD on 08/30/2024 9:58 AM Narrative 08/30/2024 9:58 AM ORNAMENTAL IRONWORKER PROCEDURE: ??US RETROPERITONEAL COMPLETE, DATE/TIME OF EXAM: ??08/30/2024 7:52 AM, LOCATION ??[facility] INDICATION: O16.3: Unspecified maternal hypertension, third trimester (HCC) O60.03: labor without delivery, third trimester ([facility]) ADDITIONAL CLINICAL INFORMATION: Ordering Provider Reason For [...] DATE/TIME OF EXAM: 08/30/2024 7:52 AM, LOCATION [facility] INDICATION: O16.3: Unspecified maternal hypertension, third trimester (HCC) O60.03: labor without delivery, third trimester ([facility]) ADDITIONAL CLINICAL INFORMATION: Ordering Provider Reason For [...] > Dictated by Krupa Nielson Dr, MD (vice president of recruiting). I, Mic Bolton MD have personally reviewed and interpreted this examination/study. > Interpreting Provider: Mic Bolton MD on 08/30/2024 9:58 AM Carlos Lee MD US ORDERABLES * TRICHOMONAS VAGINALIS AMPLIFIED PROBE (08/29/2024 10:21 PM ORNAMENTAL IRONWORKER) Trichomonas vaginalis Amplified Probe Negative Negative 08/30/2024 8:39 PM ORNAMENTAL IRONWORKER [facility] Other URINE / Unknown Collection / Unknown 08/29/2024 10:21 PM ORNAMENTAL IRONWORKER 08/29/2024 10:32 PM ORNAMENTAL IRONWORKER Narrative [facility] - 08/30/2024 8:39 PM ORNAMENTAL IRONWORKER This test was developed and its performance characteristics determined by the [facility], [facility]. Urine specimens tested by the [facility] have not been cleared or approved by [...] Lee MD LAB - MICROBIO LOGY ORDERABLES [facility] [address] [place], [place] [address], [facility] [phone] * CHLAMYDIA + GC AMPLIFIED PROBE (08/29/2024 10:20 PM ORNAMENTAL IRONWORKER) Chlamydia Amplified Probe Negative Negative 08/30/2024 8:37 PM ORNAMENTAL IRONWORKER [facility] GC Amplified Probe Negative Negative 08/30/2024 8:37 PM ORNAMENTAL IRONWORKER [facility] Microbiology URINE / Unknown Collection / Unknown 08/29/2024 10:20 PM ORNAMENTAL IRONWORKER 08/29/2024 10:38 PM ORNAMENTAL IRONWORKER Narrative [facility] - 08/30/2024 8:37 PM ORNAMENTAL IRONWORKER Results based on detection/no detection of ribosomal RNA by amplified method. Carlos Lee MD LAB - MICROBIO LOGY ORDERABLES [facility] [address] [place] [address], [facility] [phone] * CULTURE STREP B (08/29/2024 10:20 PM ORNAMENTAL IRONWORKER) Culture Strep B Negative for beta-hemolytic Streptococcus Group B NAHUN 09/02/2024 7:03 AM ORNAMENTAL IRONWORKER [facility] Microbiology MISCELLANEOUS SAMPLES / Unknown Collection / Unknown 08/29/2024 10:20 PM ORNAMENTAL IRONWORKER 08/29/2024 10:34 PM ORNAMENTAL IRONWORKER Carlos Lee MD LAB - MICROBIO LOGY ORDERABLES Performing Organization Address City/[facility]/ZIP Co de Phone Number [facility] [address] [place] [address], [facility] [phone] * (ABNORMAL) URINALYSIS REFLEX MICROSCOPIC REFLEX CULTURE (08/29/2024 8:47 PM ORNAMENTAL IRONWORKER) Color UA Yellow Yellow, Straw 08/29/2024 10:45 PM ORNAMENTAL IRONWORKER [facility] Clarity UA Clear Clear 08/29/2024 10:45 PM ORNAMENTAL IRONWORKER [facility] Glucose UA Normal Normal 08/29/2024 10:45 PM ORNAMENTAL IRONWORKER [facility] Bilirubin UA Negative Negative 08/29/2024 10:45 PM ORNAMENTAL IRONWORKER [facility] Ketone UA 2+(A) Negative 08/29/2024 10:45 PM ORNAMENTAL IRONWORKER [facility] Specific [place] UA 1.021 1.005 - 1.030 08/29/2024 10:45 PM ORNAMENTAL IRONWORKER [facility] Blood UA Negative Negative 08/29/2024 10:45 PM ORNAMENTAL IRONWORKER [facility] pH UA 5.5 5.0 - 9.0 pH 08/29/2024 10:45 PM ORNAMENTAL IRONWORKER [facility] Protein UA Negative Negative 08/29/2024 10:45 PM ORNAMENTAL IRONWORKER [facility] Urobilinogen UA Normal Normal mg/dL 024 10:45 PM ORNAMENTAL IRONWORKER [facility] Nitrite UA Negative Negative 08/29/2024 10:45 PM ORNAMENTAL IRONWORKER [facility] Leukocyte UA Negative Negative 08/29/2024 10:45 PM ORNAMENTAL IRONWORKER [facility] Urine URINE SPECIMEN OBTAINED BY CLEAN CATCH PROCEDURE / Unknown Collection / Unknown 08/29/2024 8:47 PM ORNAMENTAL IRONWORKER 08/29/2024 10:31 PM ORNAMENTAL IRONWORKER Narrative [facility] - 08/29/2024 10:45 PM ORNAMENTAL IRONWORKER Carlos Lee MD LAB - URINALYS IS ORDERABLES Performing Organization Address [facility] Co de Phone Number [facility] [address] [place] [address] * PROTEIN CREATININE RATIO URINE RANDOM PNL (08/29/2024 8:47 PM ORNAMENTAL IRONWORKER) Protein Urine 7.0 <11.9 mg/dL 08/29/2024 10:58 PM ORNAMENTAL IRONWORKER [facility] Creatinine Urine 83.54 mg/dL 08/29/2024 10:58 PM ORNAMENTAL IRONWORKER [facility] Protein/Creatin ine Ratio Urine 0.08 08/29/2024 10:58 PM ORNAMENTAL IRONWORKER [facility] Urine URINE SPECIMEN OBTAINED BY CLEAN CATCH PROCEDURE / Unknown Collection / Unknown 08/29/2024 8:47 PM ORNAMENTAL IRONWORKER 08/29/2024 10:31 PM ORNAMENTAL IRONWORKER Carlos Lee MD LAB - URINE CH EMISTRY ORDERABLES Performing Organization Address [facility] de Phone Number [facility] [address] [place] [address] * BLOOD TYPE VERIFICATION (08/29/2024 8:15 PM ORNAMENTAL IRONWORKER) ABO Rh A NEG 08/29/2024 9:1 6 PM ORNAMENTAL IRONWORKER [facility] Blood Bank BLOOD SPECIMEN / Unknown Lab Venipuncture / Unknown 08/29/2024 8:15 PM ORNAMENTAL IRONWORKER 08/29/2024 8:15 PM ORNAMENTAL IRONWORKER Carlos Lee MD LAB - BLOOD BA NK ORDERABLES Performing Organization Address [facility] Co de Phone Number [facility] [address] [place] [id number] [place] [address] * SYPHILIS ANTIBODY CASCADING REFLEX (08/29/2024 7:59 PM ORNAMENTAL IRONWORKER) Pathologist [facility] Treponema pallidum Antibody Non Reactive Non Reactive 08/29/2024 8:48 PM ORNAMENTAL IRONWORKER [facility] Comment: No Laboratory evidence of syphilis infection. ?? Note: ??Circulating antibodies may be low or undetectable in early infection. ??If recent exposure is suspected, re-draw sample in 2-4 weeks and repeat testing. Blood BLOOD SPECIMEN / Unknown Lab Venipuncture / Unknown 08/29/2024 7:59 PM ORNAMENTAL IRONWORKER 08/29/2024 8:04 PM ORNAMENTAL IRONWORKER Carlos Lee MD LAB - SEROLOGY ORDERABLES Performing Organization Address City/[facility] Co de Phone Number [facility] [address] [place] [address] * TYPE + SCREEN PANEL (08/29/2024 7:59 PM ORNAMENTAL IRONWORKER) [facility] ABO Rh A NEG 08/29/2024 8:43 PM ORNAMENTAL IRONWORKER [facility] Comment:No history; collect retype. Antibody Screen NEG 8:43 PM ORNAMENTAL IRONWORKER [facility] Blood Bank BLOOD SPECIMEN / Unknown Lab Venipuncture / Unknown 08/29/2024 7:59 PM ORNAMENTAL IRONWORKER 08/29/2024 8:04 PM ORNAMENTAL IRONWORKER Carlos Lee MD LAB - BLOOD BA NK ORDERABLES Performing Organization Address [facility] Co de Phone Number [facility] [address] [place] [address] * (ABNORMAL) CBC W AUTO DIFFERENTIAL (08/29/2024 7:59 PM ORNAMENTAL IRONWORKER) [facility] WBC 13.6(H) 4.0 - 10.7 x10E9/L 08/29/2024 8:09 PM ORNAMENTAL IRONWORKER [facility] RBC Count 3.66(L) 3.90 - 5.20 x10E12/L 08/29/2024 8:09 PM ORNAMENTAL IRONWORKER [facility] Hemoglobin 10.3(L) 11.9 - 15.8 g/dL 08/29/2024 8:[address] [facility] Hematocrit 31.5(L) 34.8 - 46.1 % 08/29/2024 8:[address] [facility] MCV 86.1 80.0 - 98.0 fL 08/29/2024 8:[address] [facility] MCH 28.1 26.7 - 33.6 pg 08/29/2024 8:[address] [facility] MCHC 32.7 31.7 - 36.3 g/dL 08/29/2024 8:[address] [facility] RDW-CV 13.0 11.3 - 14.8 % 08/29/2024 8:[address] [facility] Platelet Count 302 150 - 420 x10E9/L 08/29/2024 8:[address] [facility] MPV 9.4 7.8 - 11.4 fL 08/29/2024 8:[address] [facility] Neutrophil % 76.6(H) 41.0 - 74.0 % 08/29/2024 8:[address] [facility] Lymphocyte % 16.7(L) 17.0 - 47.0 % 08/29/2024 8:[address] [facility] Monocyte % 5.2 3.0 - 11.0 % 08/29/2024 8:[address] [facility] Eosinophil % 0.8 0.0 - 7.0 % 08/29/2024 8:[address] [facility] Basophil % 0.3 0.0 - 1.6 % 08/29/2024 8:[address] [facility] Immature Granulocytes % 0.4 0.0 - 1.0 % 08/29/2024 8:[address] [facility] Neutrophil Absolute 10.38(H) 1.60 - 7.50 x10E9/L 08/29/2024 8:[address] [facility] Lymphocyte Absolute 2.27 1.00 - 4.40 x10E9/L 08/29/2024 8:[address] [facility] Monocyte Absolute 0.71 0.15 - 1.00 x10E9/L 08/29/2024 8:[address] [facility] Eosinophil Absolute 0.11 0.00 - 0.60 x10E9/L 08/29/2024 8:[address] [facility] Basophil Absolute 0.04 0.00 - 0.13 x10E9/L 08/29/2024 8:[address] [facility] Blood BLOOD SPECIMEN / Unknown Lab Venipuncture / Unknown 08/29/2024 7:59 PM ORNAMENTAL IRONWORKER 08/29/2024 8:04 PM ORNAMENTAL IRONWORKER Carlos Lee MD LAB - HEMATOLO GY ORDERABLES [facility] [address] [place] [address] * (ABNORMAL) COMPREHENSIVE METABOLIC PANEL (08/29/2024 7:59 PM ORNAMENTAL IRONWORKER) Glucose 85 70 - 99 mg/dL 08/29/2024 8:[address] [facility] Sodium 137 136 - 145 mmol/L 08/29/2024 8:[address] [facility] Potassium 3.8 3.5 - 5.1 mmol/L 08/29/2024 8:[address] [facility] Chloride 111(H) 98 - 107 mmol/L 08/29/2024 8:[address] [facility] CO2 19(L) 22 - 29 mmol/L 08/29/2024 8:[address] [facility] Calcium 8.7 8.4 - 10.4 mg/dL 08/29/2024 8:[address] [facility] Anion Gap 7 6 - 16 mmol/L 08/29/2024 8:[address] [facility] BUN 9 5.3 - 18.7 mg/dL 08/29/2024 8:[address] [facility] Creatinine 0.57 0.57 - 1.11 mg/dL 08/29/2024 8:[address] [facility] Alkaline Phosphatase 122 40 - 150 U/L 08/29/2024 8:[address] [facility] ALT 9 0 - 55 U/L 08/29/2024 8:[address] [facility] AST 10 5 - 34 U/L 08/29/2024 8:[address] [facility] Protein Total 6.5 6.4 - 8.3 gm/dL 08/29/2024 8:[address] [facility] Albumin 2.5(L) 3.4 - 5.0 gm/dL 08/29/2024 8:31 PM [facility] Bilirubin Total 0.2 0.2 - 1.2 mg/dL 08/29/2024 8:31 PM [facility] eGFR by CKD-EPI >90 >=90 mL/min/1.7 3 m2 08/29/2024 8:31 PM ORNAMENTAL IRONWORKER [facility] Blood BLOOD SPECIMEN / Unknown Lab Venipuncture / Unknown 08/29/2024 7:59 PM ORNAMENTAL IRONWORKER 08/29/2024 8:04 PM ORNAMENTAL IRONWORKER Carlos Lee MD LAB - CHEMISTR Y ORDERABLES Performing Organization Address City/[facility]/ZIP Co de Phone Number [facility] [address] [place] [address] * LDH BLOOD (08/29/2024 7:59 PM ORNAMENTAL IRONWORKER) LDH 136 125 - 220 U/L 08/29/2024 8:31 PM ORNAMENTAL IRONWORKER [facility] Blood BLOOD SPECIMEN / Unknown Lab Venipuncture / Unknown 08/29/2024 7:59 PM ORNAMENTAL IRONWORKER 08/29/2024 8:04 PM ORNAMENTAL IRONWORKER Carlos Lee MD LAB - CHEMISTR Y ORDERABLES Performing Organization Address City/[facility] Co de Phone Number [facility] [address] [place] [address] * FIRST TRI NUCHAL TRANSLUCENCY W:SEQ SCREEN (03/04/2016 8:44 AM CDT) Only the most recent of2 resultswithin the time period is included. Anatomical Region Laterality Modality Other 03/04/2016 8:44 AM CDT Narrative 03/04/2016 1:25 PM CDT ? [facility] ? [facility] ?PHONE: ??FAX: ? Pat. Name: ?TRANG OLIVEIRA Pat. No: ?[id number] Study Date: ?? 03/04/2016 ??8:44am , Age: ? 1995, 21 Pregnancies: ?? 1 Height: ? 67 in Weight: ? 227 lb LMP: ?12/01/2015 GA by LMP: ?13w3d GA by 1st: ?13w3d GA by US: ? 13w1d GA Selected: ??13w3d (LMP) ZEB: ?09/06/2016 Referring MD: EMILEE KIM MD Sewing Machine Repairer: ??Modesta Contreras RDMS BMI: ?35.55 Hist/Ind: ? Nuchal Translucency ?Class II Obesity MEASUREMENTS & AGE ? GROWTH EVALUATION Measurement ??GA ? Range ? Srce %for GA Ratios ----- ---- ------- CRL ??7.0 cm 13w1d ([id number]) Hadl CRL 41% GA for sonogram 13w1d ([id number]) based on (CRL) Avg ? Markers for Chromosomal Abnormality: NT ?? 1.2 mm (Normal) Heart Rate: 148 bpm CLINICAL SUMMARY Study Number 2 IMPRESSION: 1) [place] gestation, 13w3d 2) CRL measurement is consistent with LMP-based ZEB of 09/06/16 3) No gross structural abnormalities were detected on first trimester anatomic survey 4) The nuchal translucency measures 1.2 ??mm 5) A circumvallate placenta is suspected RECOMMEND: 1) Await first trimester results of sequential screen for aneuploidy 2) Patient may return for 2nd blood draw to complete screen at 15-22 weeks (optimum 16-18 weeks) 3) anatomic survey around 20 weeks Thank you for allowing us the opportunity to care for your patient. Johnna Pillai MD <Electronic Signature> ??03/04/2016 01:23pm Juwan Arroyo MD [facility] ORDERABLES * XR SHOULDER 2+ VW RIGHT (01/10/2014 1:13 PM CDT) Anatomical Region Laterality Modality Upper Extremity Radiographic Halle ging 01/10/2014 1:31 PM CDT Impressions 01/10/2014 1:31 PM CDT Normal exam. Narrative 01/10/2014 1:31 PM CDT EXAMINATION: RIGHTXR SHOULDER 2+ VW RIGHT*[id number] dated 01/10/2014. HISTORY: Other joint derangement, not elsewhere classified, shoulder region. FINDINGS: Internal and extra-articular views of the right shoulder as well as an axillary view of the right shoulder were obtained. No prior examinations are available for comparison. The bone mineralization is normal. ??No fractures or dislocations are seen. ??No soft tissue swelling or radiopaque foreign bodies are noted. ??No other imaging abnormality is appreciated. Procedure Note Parag Salas MD - 01/10/2014 EXAMINATION: RIGHTXR SHOULDER 2+ VW RIGHT*[id number] dated 01/10/2014. HISTORY: Other joint derangement, not elsewhere classified, shoulder region. FINDINGS: Internal and extra-articular views of the right shoulder as well as an axillary view of the right shoulder were obtained. No prior examinations are available for comparison. The bone mineralization is normal. No fractures or dislocations are seen. No soft tissue swelling or radiopaque foreign bodies are noted. No other imaging abnormality is appreciated. IMPRESSION Normal exam. 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 Normal appearance of the styloid processes and stylohyoid ligaments. 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 [place] Journal of Neuroradiology (AJNR) 2001 22:7625-6021). Dictated by Jermaine More on 07/11/2013 11:00 AM I, Marlyn Urias, have personally reviewed the images and I agree with this report. 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 FINDINGS: No prior study is available for comparison. The right styloid process measures 2.4 cm in length and the left styloid process measures 1.4 cm in length. No ossification of the stylohyoid ligaments is seen on either side. No swelling of the muscle complex comprising the posterior belly of the digastrics and stylohyoid is seen on either side. No lymphadenopathy is seen. The muscles of the neck appear normal. The cervical internal carotid arteries and internal jugular veins appear normal. Fascial planes are preserved and the deep spaces of the neck appear normal. Soft tissue nodules in the parotid glands bilaterally measuring up to 5 mm short axis are most consistent with lymph nodes, likely reactive in nature. The visualized airway appears normal. The visualized portions of the posterior fossa and brain appear normal. The cervical spine appears normal. The visualized orbits and paranasal sinuses appear normal. The visualized lung apices are clear. Procedure Note Marlyn Urias MD - 07/11/2013 EXAMINATION: Computed tomography (CT) of the neck without contrast HISTORY: Bilateral neck pain with physical exam findings suggestive of stylohyoid tendinitis TECHNIQUE: CT of the neck was performed without contrast according to standard protocol. FINDINGS: No prior study is available for comparison. The right styloid process measures 2.4 cm in length and the left styloid process measures 1.4 cm in length. No ossification of the stylohyoid ligaments is seen on either side. No swelling of the muscle complex comprising the posterior belly of the digastrics and stylohyoid is seen on either side. No lymphadenopathy is seen. The muscles of the neck appear normal. The cervical internal carotid arteries and internal jugular veins appear normal. Fascial planes are preserved and the deep spaces of the neck appear normal. Soft tissue nodules in the parotid glands bilaterally measuring up to 5 mm short axis are most consistent with lymph nodes, likely reactive in nature. The visualized airway appears normal. The visualized portions of the posterior fossa and brain appear normal. The cervical spine appears normal. The visualized orbits and paranasal sinuses appear normal. The visualized lung apices are clear. IMPRESSION 1. Normal appearance of the styloid processes and stylohyoid ligaments. 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 [place] Journal of Neuroradiology (AJNR) 2001 22:2224-9671). Dictated by Jermaine More on 07/11/2013 11:00 AM I, Marlyn Urias, have personally reviewed the images and I agree with this report. Mj Carlisle MD CT ORDERABLES * CULTURE MRSA (06/26/2013 2:40 PM CDT) Culture Negative for MRSA 06/28/2013 5:20 AM CDT [facility] MICROBIOLOGY Microbiology SPECIMEN FROM NASAL FOSSAE / Unknown Collection / Unknown 06/26/2013 2:40 PM CDT 06/26/2013 4:28 PM CDT Mj Carlisle MD LAB - MICROBIOLOGY O RDERABLES [facility] MICROBIOLOGY [address] [place], [address] Care Teams Vessel Ordinary Seaman Relationship Specialty Start Date End Date Juan Castillo MD [address] [place] [address] [place] [address] PCP - General Family Medicine 06/07/13
[2024-10-04 14:07] LABS: Hematocrit 35.2 % (37.0-47.0); Hemoglobin 11.3 g/dL (12.0-15.0); Mean Corpuscular HGB Conc 32.1 g/dl (32-36); Mean Corpuscular Hemoglobin 27.7 pg (26-34); Mean Corpuscular Volume 86.3 fl (80-100); Mean Platelet Volume 9.1 fl (7.4-10.4); Platelet Count Result 345 k/mm3 (150-375); Red Blood Count 4.08 M/mm3 (4.2-5.4); White Blood Count 10.2 K/mm3 (4.5-10.0)
== END 2024-10-04 13:45 | disposition home or self-care (01) ==
LOC: ANHLAB 13:49
PROVIDERS: PCP Registered Nurse; Visit Provider Advanced Practice Midwife
DX: N93.9 Abnormal uterine and vaginal bleeding, unspecified (principal)
CPT/HCPCS: 36415; 85027

== ENCOUNTER 2024-10-08 16:15 | Emergency (ER) | payer OTHER, SELFPAY ==
--- NOTE | ~2024-10-08 | US_ITS ---
EXAM: PELVIC ULTRASOUND HISTORY: 12 days PP, bleeding, pain COMPARISON: None FINDINGS: UTERUS: 13 x 6 x 10.6 cm. Fluid filled endometrium demonstrating complex echogenicity. Doppler interrogation was performed on a single image without increased vascularity. RIGHT OVARY: The right ovary is unremarkable in echogenicity and size measuring 3.5 x 2.1 x 2.4 cm. Dopplerable flow is identified. LEFT OVARY: The left ovary is unremarkable in echogenicity and size measuring 2.1 x 1.1 x 1.7 cm Dopplerable flow is identified. No free fluid is identified within the pelvis. IMPRESSION: Fluid filled endometrium with complex echogenicity, consistent with patient's history and presentatio n. Doppler interrogation was performed on the single image without increased vascularity suggesting a ty pe 0 - type I RPOC, given the grayscale ultrasound appearance. Reviewed, dictated and finalized at location A. MOUNTER IMPRESSION: Fluid filled endometrium with complex echogenicity, consistent with patient's h istory and presentation. Doppler interrogation was performed on the single image without increased vascu larity suggesting a type 0 - type I RPOC, given the grayscale ultrasound appear ance.
--- OUTSIDE RECORDS SUMMARY | 2024-10-08 16:18 | XMS_ITS | Data Portability ---
Author Organization [facility] [place] Address [address] [place] [address] [address] [place] [address] Care Team Providers Care Reclamation Engineer Name Role Phone MELANIELLIE KAYLA Primary Care Provider Assessment Encounter Date Assessment Date Assessment LastModified by Organization Details LastModified Time 09/19/2024 09/19/2024 Patient is ___weeks . Discussed plan. [email or web address] Not available 09/19/2024 11:53:37 Plan of Treatment Reminders Order Date Submit Date Provider Last Modified By Organization Details Last Modified Time Details Appointments None recorded. Lab None recorded. Referral None recorded. Procedures None recorded. Surgeries None recorded. Imaging US, obstetric, biophysical profile + non-stress test 2024 [email or web address], [address], [place], [address], 17:16:50 non-stress test 2024 025 lauren khalil [place], [address], [place], [address], 03:06:11 US, obstetric, follow-up 2024 025 [email or web address] [place], [address], [place], [address], 20:17:34 US, obstetric, biophysical profile + non-stress test 2024 025 [email or web address] [place], [address], [place], [address], 20:17:34 US, pelvis 2024 025 [email or web address] [place], [address], [place], [address], 22:38:13 Medication Orders None recorded. Patient TargetsNo targets recorded. Patient InstructionsNo instructions recorded. Reason for Referral None Reported. Results Created Date Observation Date Name Description Value Unit Range Abnormal Flag Note LastModifiedBy Organization Detail LastModifiedTime 09/05/1909/05/2024 [facility], PHILLIP bacterial vaginosis (bv), tma Negati ve negati ve Not Available [facility] (Lab) [address] [place], [address], 09/06/2024 15:37:23 09/05/19 25 09/05/2024 [facility] SWAB [facility], PHILLIP orlando species, tma Negati ve negati ve Not Available [facility] (Lab) [address] [facility], [place], [address], 09/06/2024 15:37:23 09/05/19 25 09/05/2024 [facility]IP orlando glabrata, tma Negati ve negati ve Not Available [facility] (Lab) [address] [facility], [place], [address], 09/06/2024 15:37:23 09/05/19 25 09/05/2024 [facility] PHILLIP trichomonas vaginalis, tma Negati ve negati ve Not Available [facility] (Lab) [address] [place], [address], 09/06/2024 15:37:23 09/05/19 25 09/05/2024 [facility] PHILLIP chlamydia trachomatis, PCR Negati ve negati ve Not Available [facility] (Lab) [address] [facility], [place], [address], 09/06/2024 15:37:23 09/05/19 25 09/05/2024 WOMEN 'S [...] ded in this panel . Not Available [facility] (Lab) [address] [facility], [place], [address], 09/06/2024 15:37:23 08/20/20 24 08/20/2024 non-s tress test No observ ation record ed. [address] [facility] [address], [place], [address], 08/22/2024 09:29:03 08/22/20 24 08/22/2024 US, obste tric, follo w-up No observ ation record ed. [facility] [address], [place], [address], 08/22/2024 13:05:40 08/22/20 24 08/22/2024 US, obste tric, follo w-up No observ ation record ed. [email or web address] [address], [place], [address], 08/23/2024 08:54:20 09/03/20 24 08/30/2024 imagi ng/di agnos tic resul t No observ ation record ed. [facility] [address] [facility], [place], [address], 09/05/2024 14:18:39 09/05/19 25 09/05/2024 non-s tress test No observ ation record ed. [place] [address], [place], [address], 09/05/2024 15:36:53 09/05/19 25 09/05/2024 US, obste tric, bioph ysica l profi le + non-s tress test No observ ation record ed. [email or web address] [place] [address], [place], [address], 09/05/2024 18:24:02 09/05/19 25 09/05/2024 US, obste tric, bioph ysica l profi le + non-s tress test No observ ation record ed. [email or web address] [address], [place], [address], 09/07/2024 13:11:57 09/13/19 25 09/13/2024 US, obste tric, bioph ysica l profi le + non-s tress test No observ ation record ed. [email or web address] [place] [address], [place], [address], 09/13/2024 16:26:47 09/13/19 25 09/13/2024 US, obste tric, bioph ysica l profi le + non-s tress test No observ ation record ed. [email or web address] [address], [place], [address], 09/13/2024 17:48:23 09/13/19 25 09/13/2024 US, obste tric, bioph ysica l profi le + non-s tress test No observ ation record ed. [email or web address] [address], [place], [address], 09/13/2024 17:48:23 09/13/19 25 09/13/2024 non-s tress test No observ ation record ed. [email or web address] [place] [address], [place], [address], 09/13/2024 17:49:34 09/19/19 25 09/19/2024 US, obste tric, follo w-up No observ ation record ed. [email or web address] [place] [address], [place], [address], 09/19/2024 13:11:41 09/19/19 25 09/19/2024 US, obstbyrson tric, bioph ysica l profi le + non-s tress test No observ ation record ed. [email or web address] [place] [address], [place], [address], 09/19/2024 13:11:51 09/19/19 25 09/19/2024 US, obste tric, follo w-up No observ ation record ed. [email or web address] [address], [place], [address], 09/25/2024 07:32:54 09/19/19 25 09/19/2024 non-s tress test No observ ation record ed. [email or web address] [place] [address], [place], [address], 09/19/2024 12:38:56 09/19/19 non-s tress test No observ ation record ed. [email or web address] [place] [address], [place], [address], 09/19/2024 12:44:42 10/04/19 25 10/04/2024 US, pelvi s No observ ation record ed. [email or web address] [place] [address], [place], [address], 10/04/2024 17:38:08 10/04/19 25 10/04/2024 US, pelvi s No observ ation record ed. [email or web address] [address], [place], [address], 10/08/2024 09:49:32 Result Notes None recorded. Problems Name Problem SNOMED Code Status Onset Date Resolution Date Notes Provider Name and Address Organization Details Recorded Time Pregnanc y 00045560 Completed 202204/17/2023 MARY kennedy, [facility] 5 12:14:35 Placenta l abruptio n 472888998 Completed story unclear Jony Murillo [facility] 3 16:40:14 Group B Streptoc occus carrier 8596747466 103 Completed Positive in previous pregnanc y Ramonita Cadena MD [address], [place], [address], [facility] 3 12:29:04 RhD negative 942232477 Completed 08/28/22 , 03/18/23 Jony kennedy, [facility] 3 16:40:14 Asthma 858403021 Completed Jony Murillo null, [facility] 3 16:40:14 Anxiety 66641220 Completed Jony Murillo null, [facility] 3 16:40:13 Hypereme sis 529106641 Completed zofran pump Monirosie Murillo [facility], [facility] 3 16:40:14 Placenta circumva llata 1039374 Completed serial growth u/s Jony Murillo [facility], [facility] 3 16:40:14 Anemia of pregnanc y 82071549 Completed 2022 Jony Murillo [facility], [facility] 3 16:40:13 SARS-CoV -2 vaccinat ion declined 8241094215 Active 2021 Lucero Argueta [facility], [facility] 4 13:01:38 Bipolar disorder 81921584 Active 2016 Lucero Argueta [facility] 4 13:01:38 Chronic pain of right upper limb 4965547656 0439340 Active 2018 Lucero Argueta [facility], [facility] 4 13:01:38 Folic acid deficien cy 081494899 Active 2011 Lucero Argueta [facility] 4 13:01:38 Asthma 030265633 Active 2011 Lucero Argueta [facility] 4 13:01:38 Allergic rhinitis caused by pollen 62103244 Active 2018 Lucero Argueta [facility] 4 13:01:38 Chronic tension- type headache 980505814 Active 2012 Lucero Argueta [facility], [facility] 4 13:01:38 Dislocat ion of acromioc lavicula r joint 495882377 Active 2019 Lucero Argueta [facility] 4 13:01:38 Shoulder joint unstable 426785077 Active 2013 Lucero Argueta [facility], [facility] 4 13:01:38 Attentio n deficit hyperact ivity disorder , predomin antly inattent leah type 20258541 Active 2015 Lucero Argueta null, [facility] 4 13:01:38 Depressi ve disorder 55807583 Active 2017 Lucero Argueta [facility], [facility] 4 13:01:38 Anxiety 86286014 Active 2015 Lucero Argueta [facility], [facility] 4 13:01:38 Hyperlip idemia 29154615 Active 2021 Lucero Argueta [facility], [facility] 4 13:01:38 Subjecti ve tinnitus 44670433 Active 2012 Lucero Argueta [facility], [facility] 4 13:01:38 Marijuan a user 180716378 Active 2019 Lucero Argueta [facility], [facility] 4 13:01:38 Hypermob ility of joint 290943936 Active 2022 Lucero Argueta [facility], [facility] 4 13:01:38 Severe obesity 7739071658 9104 Active 2019 Lucero Argueta [facility], [facility] 4 13:01:38 Pregnanc y 70101786 Completed 202310/08/2024 MARY Raya null, [facility] 5 12:14:35 Mixed anxiety and depressi ve disorder 025374403 Completed Zuleika Minaya CNM [address], [place], [address], [facility] 4 14:02:49 Attentio n deficit hyperact ivity disorder 806144648 Completed Lucero Argueta [facility], [facility] 4 13:06:36 Anterior synechia e 09224831 Completed f/u 4 weeks Zuleika Minaya CNM [address], [place], [address], [facility] 4 13:48:01 Obesity 020754431 Completed antenata l testing @ 34 weeks weekly; BMI 42 Jony Murillo [facility], [facility] 4 15:33:48 Placenta circumva llata 7955652 Completed 2023 32wk growth u/s Jony Murillo [facility], [facility] 4 15:33:34 COVID-19 221695385 Completed 2023 ASA & serial growth Suzy Hassan [facility], [facility] 4 17:42:30 Prophyla ctic immunoth erapy Completed 2023 rhogam received 03/22/24 @ [facility] Monirosie Murillo [facility], [facility] 4 11:33:13 Hypereme sis 979065189 Completed history of in last 2 pregnanc ies Jony Murillo [facility], [facility] 4 15:33:20 Migraine 54966719 Completed Jony Murillo [facility], [facility] 4 15:34:21 Large for gestatio n age fetus 682695223 Completed 97% Joe Vazquez MD [address], [place], [address], [facility] 5 12:27:52 Placenta l abruptio n 621408500 Completed HISTORIC HEIKE Vazquez MD [address], [place], [address], [place] [facility] 5 12:27:33 Problem Notes None recorded. Procedures Surgical History Date Name Laterality Status Provider Name and Address Organization Details Recorded Time 4 Date of Last Pap Smear completed [facility] 11/22/2023 13:00:24 9 Date of [facility] 10:11:27 1 drainage of abdominal wall abscess completed Luceromonika Argueta [facility] 09/08/2022 10:21:31 Imaging Results Imaging Date Name Status LastModified by Organiz ation Details LastModified Time 08/20/2024 non-stress test completed [address] [facility] [address], [place], [address], 08/22/2024 09:29:03 08/22/2024 US, obstetric, follow-up completed [facility] [address], [place], [address], 08/22/2024 13:05:40 08/22/2024 US, obstetric, follow-up completed [address], [place], [address], 08/23/2024 08:54:20 08/30/2024 imaging/diagnos tic result completed [facility] [address] , [place], [address], 09/05/2024 14:18:39 09/05/2024 non-stress test completed [address], [place], [address], 09/05/2024 15:36:53 09/05/2024 US, obstetric, biophysical profile + non-stress test completed [address], [place], [address], 09/05/2024 18:24:02 09/05/2024 US, obstetric, biophysical profile + non-stress test completed [email or web address] [address], [place], [address], 09/07/2024 13:11:57 09/13/2024 US, obstetric, biophysical profile + non-stress test completed angelic [place] [address], [place], [address], 09/13/2024 16:26:47 09/13/2024 US, obstetric, biophysical profile + non-stress test completed [email or web address] [address], [place], [address], 09/13/2024 17:48:23 09/13/2024 US, obstetric, biophysical profile + non-stress test completed [email or web address] [address], [place], [address], 09/13/2024 17:48:23 09/13/2024 non-stress test completed [email or web address] [place] [address], [place], [address], 09/13/2024 17:49:34 09/19/2024 US, obstetric, follow-up completed [address], [place], [address], 09/19/2024 13:11:41 09/19/2024 US, obstetric, biophysical profile + non-stress test completed [address], [place], [address], 09/19/2024 13:11:51 09/19/2024 US, obstetric, follow-up completed [email or web address] [address], [place], [address], 09/25/2024 07:32:54 09/19/2024 non-stress test active [email or web address] [place] [address] [address], [place], [address], 09/19/2024 12:38:56 09/19/2024 non-stress test completed [address], [place], [address], 09/19/2024 12:44:42 10/04/2024 US, pelvis completed [place] [address], [place], [address], 10/04/2024 17:38:08 10/04/2024 US, pelvis completed [email or web address] [address], [place], [address], 10/08/2024 09:49:32 Procedure Notes None recorded. Medical Equipment None Reported. Allergies Allergen ID Allergen Name Allergen Category Reaction Reaction Severity Criticality Documentation Date Start Date Code Code System Note Provider Name and Address Organization Details Recorded Time 72320 latex environme nt,medica tion itching swelling moderate moderate Not available 09/08/2022 84301 91 RxNorm [address] [facility] 3 10:10:18 03532 Latex (substanc e) environme nt,medica tion hives rash Not available Not available Not available 04/12/20242019 36751 [address] [facility] 4 13:01:37 Medications Name Sig [...] Updated DateTime 5 171.45 cm 46.1 kg/m2 429773. 12 g 171.45 cm 46.1 kg/m2 047747. 12 g 128 mm[Hg] 82 mm[Hg] 128 mm[Hg] 88 mm[Hg] Lucero Argueta [facility] 5 17:48:17 Date Recorded Body weight Body height Body mass index (BMI) Body weight Systolic blood pressure Diastolic blood pressure Systolic blood pressure Diastolic blood pressure Provider Name and Address Organization Details Last Updated DateTime 5 292479. 76481 g 171.45 cm 46.1 kg/m2 288485. 12 g 124 mm[Hg] 82 mm[Hg] 124 mm[Hg] 82 mm[Hg] Daniela Remy [facility] 5 12:37:21 Social History Question Answer Notes LastModified by Organizat ion Details LastModified Time Tobacco Smoking Status Never Smoker Glodelia Sung brent, [facility] 11/25/2022 11:02:40 What Is Your Level Of Alcohol Consumption? None [email or web address] Information not available 09/08/2022 If You Are , What Was Your Level Of Alcohol Consumption Prior To ? Occasional [email or web address] Information not available 11/25/2022 Are You Blind Or Do You Have Difficulty Seeing? No [email or web address] Information n ot available 09/08/2022 What Is Your Level Of Caffeine Consumption? Occasional Information not available 09/08/2022 In The 14 Days Before Symptom Onset, Have You Had Close Contact With A Laboratory-confirm ed COVID-19 While That Case Was Ill? No [email or web address] Information n ot available 09/08/2022 In The 14 Days Before Symptom Onset, Have You Had Close Contact With A Person Who Is Under Investigation For COVID-19 While That Person Was Ill? No [email or web address] Information not available 09/08/2022 Have You Been To An Area Known To Be High Risk For COVID-19? No [email or web address] Information not available 09/08/2022 Are You Deaf Or Do You Have Serious Difficulty Hearing? No [email or web address] Information not available 09/08/2022 What Type Of Diet Are You Following? REGULAR [email or web address] Information n ot available 09/08/2022 Do You Use Your Seat Belt Or Car Seat Routinely? Yes Information not available 09/08/2022 Do You Have Smoke And Carbon Monoxide Detectors In Your Home? Yes [email or web address] Information not available 09/08/2022 Do You Feel Stressed (tense, Restless, Nervous, Or Anxious, Or Unable To Sleep At Night)? [id number] [email or web address] Information not available 09/08/2022 Do You Use Any Illicit Or Recreational Drugs? Yes Florence [email or web address] Information not available 09/08/2022 Do You Use Sunscreen Routinely? Yes [email or web address] Information not available 09/08/2022 Has Tobacco Cessation Counseling Been Provided? No [email or web address] Information not available 11/25/2022 Have You Used IV Drugs? No Information not available 09/08/2022 Do You Or Have You Ever Used Any Other Forms Of Tobacco Or Nicotine? No [email or web address] Information not available 11/25/2022 Sex: Unknown Functional Status Question Answer Note LastModified by Organizat ion Details LastModified Time Do you have difficulty walking or climbing stairs? No [email or web address] Information not available 11/25/2022 Are you able to walk? YESWOREST [email or web address] Information not available 09/08/2022 Are you able to care for yourself? Yes [email or web address] Information not available 11/25/2022 Do you have difficulty dressing or bathing? No [email or web address] Information not available 11/25/2022 What is your exercise level? Occasional [email or web address] Information not available 09/08/2022 Mental Status None recorded. Family History Relationship Description Onset Age of this Age Resolved Age Notes LastModified by Organization Details LastModified Time Maternal Grandmother Bipolar disorder [email or web address] Not available 2023 10:55:47 Maternal Grandmother Depressive disorder Not available 12/23 11:41:24 Maternal Grandmother Anxiety disorder [email or web address] Not available 12/23 11:41:24 Maternal Grandmother Lupus erythematosu s [email or web address] Not available 2023 10:55:47 Maternal Grandmother Alzheimer's disease [email or web address] Not available 2023 10:55:47 Maternal Grandmother Heart disease [email or web address] Not available 12/23 11:41:24 Mother Diabetes mellitus [email or web address] Not available 12/23 11:41:24 Mother Hypertension screening Not available 2023 10:55:47 Mother Asthma [email or web address] Not available 12/23/2022 11:41:24 Paternal Grandmother Heart disease [email or web address] Not available 12/23 11:41:24 Maternal Aunt Malignant tumor of breast [email or web address] Not available 12/23 11:41:24 Medical History Condition Response Allergies (Food, seasonal, environmental ) Y Other Y Drug/Latex Allergies/Reactions N Breast Cancer N Blood Transfusion N Lung Disease N Dermatologic Disorders N Defects or Inherited Disease N Breast Problem N Gestational Diabetes N Hematologic disorders N Anesthesia Complications N History of STI N Deep Vein Thrombosis N Polycystic ovary syndrome N Anxiety Disorder Y Autoimmune disease N Arthritis N Polyps Y Infertility N History of abnormal pap N Acid Reflux (GERD) N Cancer N Varicosities N Stroke N Neurologic/Epilepsy Y Endometriosis N High Cholesterol N Headaches Y Fibromyalgia N Kidney Disease N Heart Problems N Thyroid [...] Hib, unspecified formulation 8 completed [address] kennedy [facility] 04/12/2024 13:01:39 Hib, unspecified formulation 8 bijal kennedy, [facility] 04/12/2024 13:01:39 Hib, unspecified formulation [address] [facility] 04/12/2024 13:01:39 Hib, unspecified formulation [address] [facility] 04/12/2024 13:01:39 meningococcal B, unspecified [address] [facility] 04/12/2024 13:01:39 meningococcal, unknown serogroups [address] [facility] 04/12/2024 13:01:39 meningococcal, unknown serogroups 8 completed Lucero Argueta null, [facility] 04/12/2024 13:01:39 OPV, Unspecified 8 completed Lucero Argueta null, [facility] 04/12/2024 13:01:39 OPV, Unspecified 7 completed Lucero Argueta null, [facility] 04/12/2024 13:01:39 MMRV 8 completed Lucero Argueta null, [facility] 04/12/2024 13:01:39 MMRV 8 completed Lucero Argueta null, [facility] 04/12/2024 13:01:39 MMRV 1 completed Lucero Argueta null, [facility] 04/12/2024 13:01:39 MMRV 1 completed Lucero Argueta null, [facility] 04/12/2024 13:01:39 DTaP-IPV 8 completed Lucero Argueta null, [facility] 04/12/2024 13:01:39 DTaP-IPV 8 completed Lucero Argueta null, [facility] 04/12/2024 13:01:39 DTaP-IPV 1 completed Lucero Argueta null, [facility] 04/12/2024 13:01:39 DTaP-IPV 1 completed Lucero Argueta null, [facility] 04/12/2024 13:01:39 pneumococcal polysaccharide PPV23 7 completed Lucero Argueta null, [facility] 04/12/2024 13:01:39 influenza, unspecified formulation 5 completed Lucero Argueta null, [facility] 04/12/2024 13:01:39 influenza, unspecified formulation 5 completed Lucero Argueta null, [facility] 04/12/2024 13:01:39 influenza, unspecified formulation 6 completed Lucero Argueta null, [facility] 04/12/2024 13:01:39 influenza, unspecified formulation 6 completed Lucero Argueta null, [facility] 04/12/2024 13:01:39 influenza, unspecified formulation 7 completed Lucero Argueta null, [facility] 04/12/2024 13:01:39 influenza, unspecified formulation 7 completed Lucero Argueta null, [facility] 04/12/2024 13:01:39 influenza, unspecified formulation 8 completed Lucero Argueta null, [facility] 04/12/2024 13:01:39 influenza, unspecified formulation 8 completed Lucero Argueta null, [facility] 04/12/2024 13:01:39 Tdap 8 completed Lucero Argueta null, [facility] 04/12/2024 13:01:39 Tdap 8 completed Lucero Argueta null, [facility] 04/12/2024 13:01:39 Tdap 1 completed Lucero rAgueta null, [facility] 04/12/2024 13:01:39 Tdap 8 completed Lucero Argueta null, [facility] 04/12/2024 13:01:39 Tdap 8 completed Lucero Argueta null, [facility] 04/12/2024 13:01:39 Tdap 8 completed Lucero Duenastz null, [facility] 04/12/2024 13:01:39 Tdap 6 completed Lucero Argueta null, [facility] 04/12/2024 13:01:39 Tdap 6 completed Lucero Argueta null, [facility] 04/12/2024 13:01:39 Tdap 7 completed Lucero Argueta null, [facility] 04/12/2024 13:01:39 varicella 8 completed Lucero Argueta null, [facility] 04/12/2024 13:01:39 varicella 8 completed Lucero Duenastz null, [facility] 04/12/2024 13:01:39 DTP 8 completed Lucero Argueta null, [facility] 04/12/2024 13:01:39 DTP 8 completed Lucero Argueta null, [facility] 04/12/2024 13:01:39 DTP 7 completed Lucero Argueta null, [facility] 04/12/2024 13:01:39 Hep B, unspecified formulation 8 completed Lucero Argueta null, [facility] 04/12/2024 13:01:39 Hep B, unspecified formulation 7 completed Lucero Argueta null, [facility] 04/12/2024 13:01:39 Hep B, unspecified formulation 5 completed Lucero Argueta null, [facility] 04/12/2024 13:01:39 Hep B, unspecified formulation 7 completed Lucero Argueta null, [facility] 04/12/2024 13:01:39 HPV, unspecified formulation 9 completed Lucero Argueta null, [facility] 04/12/2024 13:01:39 HPV, unspecified formulation 8 completed Lucero Argueta null, [facility] 04/12/2024 13:01:39 HPV, unspecified formulation 8 completed Lucero Argueta null, [facility] 04/12/2024 13:01:39 Hep B, adolescent or pediatric 6 completed Lucero Argueta null, [facility] 04/12/2024 13:01:39 Hep B, adolescent or pediatric 8 completed Lucero Argueta null, [facility] 04/12/2024 13:01:39 Hep B, adolescent or pediatric 7 completed Lucero Argueta null, [facility] 04/12/2024 13:01:39 Hep B, adolescent or pediatric 7 completed Lucero Argueta null, [facility] 04/12/2024 13:01:40 Hep B, adolescent or pediatric 5 completed Lucero Argueta null, [facility] 04/12/2024 13:01:40 Hep B, adult 8 completed Luceromonika Argueta null, [facility] 04/12/2024 13:01:40 Hep B, adult 7 completed Luceromonika Argueta null, [facility] 04/12/2024 13:01:40 Hep B, adult 5 completed Lucero Argueta null, [facility] 04/12/2024 13:01:40 Hep B, adult 7 completed Lucero Argueta null, [facility] 04/12/2024 13:01:40 Hib ([facility]) 8 completed Lucero Argueta null, [facility] 04/12/2024 13:01:40 Hib (HbO) 8 completed Lucero Argueta null, [facility] 04/12/2024 13:01:40 Hib (HbO) 7 completed Lucero Argueta null, [facility] 04/12/2024 13:01:40 Hib (HbO) 8 completed Lucero Argueta null, [facility] 04/12/2024 13:01:40 meningococcal MCV4P 5 completed Lucero Argueta null, [facility] 04/12/2024 13:01:40 DTaP 8 completed Lucero Argueta null, [facility] 04/12/2024 13:01:40 DTaP 1 completed Luceor Argueta null, [facility] 04/12/2024 13:01:40 DTaP, unspecified formulation 8 completed Lucero Argueta null, [facility] 04/12/2024 13:01:40 DTaP, unspecified formulation 1 completed Lucero Argueta null, [facility] 04/12/2024 13:01:40 meningococcal MCV4, unspecified formulation 5 completed Lucero Argueta null, [facility] 04/12/2024 13:01:40 Influenza, split virus, quadrivalent, PF 0 completed Lucero Argueta null, [facility] 04/12/2024 13:01:40 Past Encounters Encounter ID Performer Location Encounter Start Date Encounter Closed Date Diagnosis/Indication Diagnosis SNOMED-CT Code Diagnosis ICD10 Code Diagnosis Note [id number] Alta Patino [place] [address] [address] 09/08/2022 10:03:44 09/08/2022 10:54:24 [id number] Nicole Zarate [place] [address] [address] 09/08/2022 10:04:06 09/08/2022 17:44:46 Hyperemesis gravidarum 85479088 O21.0 Little improvemen t with zofran or [...] d prior to 10 weeks. test positive 847873613 Z32.01 Risk factors addressed: Tobacco Cessation, Safe [...] cf/sma/nip t. Handouts given and discussed with patient. ildbirth classes recommende d.New OB sheet given.If previous , counseling .Pt verbalizes that she understand s the importance of above instructio ns.All questions were answered.P atient reminded to have annual well woman examinatio n and address preventati ve healthcare . Gynecologi c examination 69816602 Z01.419 Amenorrhea 11863292 N91. 2 [id number] Alta Patino [place] [address],[place] [address] 09/29/2022 10:03:57 09/29/2022 11:08:56 screening 597164397 Z36.82 [id number] Joe Vazquez MD [place] [address],[place] [address] 09/29/2022 10:05:14 09/29/2022 12:05:08 Routine care 536349982 Z34.91 [id number] Steph Tenorio [place] [address],[place] [address] 10/13/2022 10:04:45 10/13/2022 10:37:04 Threatened miscarriage 29749387 O20.0 Z3A.13 [id number] Zuleika Minaya [facility] [address],[place] [address] 10/28/2022 11:07:19 10/28/2022 11:57:48 Routine care 250471536 Z34.92 [id number] Lamar Cerna [place] [address],[place] [address] 11/09/2022 16:36:16 11/09/2022 17:25:39 Spotting per vagina in 059681795 O26.859 Z3A.17 [id number] Deanna Paintershahab qian [place] [address],[place] [address] 11/09/2022 16:37:29 11/09/2022 18:15:44 Routine care 967992761 Z34.91 Pt here for BP and BS [...] and pt to lab. Deanna molina, RN [id number] Alta Patino [place] [address],[place] [address] 11/25/2022 11:02:03 11/25/2022 13:35:21 screening 611048524 Z36.3 [id number] Zuleika Minaya [facility] [address],[place] [address] 11/25/2022 11:02:32 11/25/2022 13:35:09 Routine care 328403584 Z34.92 [facility] 211608494 R42 [id number] Alta Patino [place] [address],[place] [address] 12/23/2022 09:53:00 12/23/2022 11:22:59 screening 317704727 Z36.2 O43.119 Z3A.23 [id number] Zuleika Minaya [facility] [address],[place] [address] 12/23/2022 10:03:38 12/23/2022 12:34:52 Routine care 066829481 Z34.92 [id number] Steph Tenorio [place] [address],[place] [address] 01/20/2023 11:23:02 01/20/2023 15:32:00 screening 573617531 Z36.2 O43.112 Z3A.27 [id number] Zuleika Minaya [facility] [address],[place] [address] 01/20/2023 11:23:45 01/20/2023 15:31:05 Routine care 845417588 Z34.92 [id number] Joe Vazquez MD [place] [address],[place] [address] 02/03/2023 09:25:23 02/03/2023 10:35:56 Routine care 299809335 Z34.91 Pt here for BP and BS [...] pt to lab. Deanna Guillaume ier, RN [id number] [facility] [address],[place] [address] 02/17/2023 11:24:45 02/17/2023 12:12:29 Maternal obesity complicating , childbirth and the puerperium, antepartum 6584684439 07 O99.213 O43.119 Z3A.31 [id number] Ramonita Cadena MD [place] [address],[place] [address] 02/17/2023 11:25:04 02/20/2023 14:18:50 Routine care 046056264 Z34.83 Anemia of 2734 2003 O99.019 [id number] Joe Vazquez MD [place] [address],[place] [address] 03/02/2023 15:17:03 03/02/2023 16:16:18 Routine care 268612791 Z34.91 Pyelonephritis 69224691 N12 [id number] Suzy Hassan [place] [address],[place] [address] 03/17/2023 09:34:27 03/17/2023 10:48:08 Maternal obesity complicating , childbirth and the puerperium, antepartum 2104100715 07 O99.213 O43.113 Z3A.35 [id number] [facility] [address],[place] [address] 03/17/2023 09:34:50 03/17/2023 10:40:52 Maternal obesity complicating , childbirth and the puerperium, antepartum 5915576771 07 O99.213 O43.113 Z3A.35 [id number] Zuleika Minyaa [facility] [address],[place] [address] 03/17/2023 09:35:13 03/17/2023 12:18:55 Routine care 237592377 Z34.92 [id number] Aiyana [facility] [address],[place] [address] 03/24/2023 09:49:45 03/24/2023 10:54:26 Maternal obesity complicating , childbirth and the puerperium, antepartum 5673909836 07 O99.213 Z3A.36 [id number] Lamar Cerna [place] [address],[place] [address] 03/24/2023 09:50:47 03/24/2023 10:26:45 Maternal obesity complicating , childbirth and the puerperium, antepartum 5838901829 07 O99.213 Z3A.36 [id number] Zuleika Minaya [facility] [address],[place] [address] 03/24/2023 09:51:30 03/24/2023 11:11:53 Routine care 578875238 Z34.92 [id number] [facility] [address],[place] [address] 03/28/2023 09:49:46 03/28/2023 11:06:23 Reduced movement 462162504 O36.8199 [id number] [facility] [address],[place] [address] 03/31/2023 10:01:11 03/31/2023 10:30:16 Maternal obesity complicating , childbirth and the puerperium, antepartum 1007484911 07 O99.213 Z3A.37 [id number] Aiyana Mcwilliams [place] [address],[place] [address] 1 03/31/2023 10:01:44 03/31/2023 11:06:50 Maternal obesity complicating , childbirth and the puerperium, antepartum 1146800922 07 O99.213 Z3A.37 [id number] [facility] [address],[place] [address] 03/31/2023 10:03:08 03/31/2023 14:09:30 Routine care 423030753 Z34.92 [id number] Ramonita Cadena MD [place] [address],[place] [address] 04/10/2023 12:08:15 04/12/2023 18:02:19 Low back pain 768772913 M54.50 Inguinal pain 297100210 R10.2 Urinary incontinence 165 369316 R32 [id number] Lucero Argueta [place] [address],[place] [address] 05/05/2023 14:05:03 05/05/2023 14:44:09 care 036047146 Z39.2 monitor cycles, natural family planningph exxi as needed, ok for rx if desiresf.u . wwe 09/27 [id number] [facility] [address],[place] [address] 11/22/2023 10:46:31 11/22/2023 11:39:56 Gynecologic examination 00288445 Z01.419 Fatigue 78985357 R53.83 check labs [id number] [facility] [address],[place] [address] 02/27/2024 10:55:35 02/27/2024 11:49:28 Uterine size for dates discrepancy 643573518 O26.841 Z3A.01 [facility] [address],[place] [address] 03/13/2024 13:54:56 03/13/2024 14:25:48 [id number] Zuleika Minaya [facility] [address],[place] [address] 03/13/2024 13:55:48 03/13/2024 15:08:33 Amenorrhea 76053865 N91.2 + pregnancys tart vitamins Venereal d isease screening 670866778 Z11.3 Nausea and vomiting 1693 2000 R11.2 zofran as needed 4mg up to QID [id number] Lamar [facility] [address],[place] [address] 04/12/2024 11:52:58 04/12/2024 12:40:21 screening 846098642 Z36.82 Z3A.13 [id number] Zuleika Minaya [facility] [address],[place] [address] 04/12/2024 11:53:26 04/12/2024 14:19:07 Gestation period, 12 weeks 00501357 Z3A.12 continue vitamin [address] [place] [address],[place] [address] 05/10/2024 09:02:08 05/10/2024 09:41:03 Placenta circumvallata 2533385 O43.112 Z3A.17 [id number] Zuleika Minaya [facility] [address],[place] [address] 05/10/2024 09:07:28 05/10/2024 10:10:37 Gestation period, 33 weeks 10587255 Z3A.33 continue vitamin [facility] 622334521 Z34.92 screening 2437 72561 Z36.89 Gestation period, 17 weeks 63454658 Z3A.17 Intrauteri ne synechiae 765106845 N85.6 [id number] Zuleika Minaya [facility] [address],[place] [address] 05/24/2024 10:11:30 05/24/2024 11:20:12 Increased blood pressure 58376354 R03.0 Anxiety 38204309 F41.9 send to cachorro watson CNM/MIRTHA [id number] Steph Tenorio [place] [address],[place] [address] 05/31/2024 10:57:14 05/31/2024 12:18:05 screening for malformation 364822252 Z36.3 Z3A.20 [id number] Zuleika Minaya [facility] [address],[place] [address] 05/31/2024 10:58:11 05/31/2024 13:45:10 Gestation period, 20 weeks 71119307 Z3A.20 continue vitamin [id number] Zuleika Minaya [facility] [address],[place] [address] 06/26/2024 14:19:36 06/26/2024 15:06:18 Gestation period, 23 weeks 51979150 Z3A.23 [id number] Lamar Cerna [place] [address],[place] [address] 07/26/2024 09:44:42 07/26/2024 11:11:25 Maternal obesity complicating , childbirth and the puerperium, antepartum 8843009089 07 O99.213 Z86.16 O43.113 Z3A.28 [id number] Zuleika Minaya [facility] [address],[place] [address] 07/26/2024 09:45:23 07/26/2024 11:30:51 Gestation period, 28 weeks 56511424 Z3A.28 [id number] NICOLAS ANN MD [place] [address],[place] [address] 08/09/2024 15:53:52 08/09/2024 16:29:59 Placenta circumvallata 3656039 O43.119 - growth at 32 weeks Maternal o besity complicating , childbirth and the puerperium, antepartum 9648195729 07 O99.213 - testing at 34 weeks Prophylact ic immunotherapy 336877876 Z29.11 - needs Rhogam 09/09/23 Gestation period, 30 weeks 49971435 Z3A.30 [id number] [facility] [address],[place] [address] 08/22/2024 10:13:50 08/22/2024 11:07:40 Placenta circumvallata 5399502 O43.113 O35.3XX0 O99.213 Z3A.32 [id number] Joe Vazquez MD [place] [address],[place] [address] 08/22/2024 10:14:33 08/22/2024 11:57:50 Nausea and vomiting 26585691 R11.2 Routine an tenatal care 866042450 Z34.91 [id number] Chelsie Farooq [place] [address],[place] [address] 09/05/2024 14:14:59 09/05/2024 15:49:05 Maternal obesity complicating , childbirth and the puerperium, antepartum 8631379739 07 O99.213 - testing at 34 weeks [id number] [facility] [address],[place] [address] 09/05/2024 15:32:55 09/05/2024 16:15:04 Maternal obesity complicating , childbirth and the puerperium, antepartum 8471475449 07 O99.213 O16.3 Z3A.34 [id number] NICOLAS ANN MD [place] [address],[place] [address] 09/05/2024 15:33:06 09/05/2024 17:12:58 Large for gestation age fetus 453583190 O36.60X0 Placenta circumvallata 7166223 O43.119 - growth at 32 weeks Maternal o besity complicating , childbirth and the puerperium, antepartum 0657007466 07 O99.213 - testing at 34 weeks Attention deficit hyperactivity disorder 107019490 F90.9 [id number] [facility] [address],[place] [address] 09/13/2024 11:18:35 09/13/2024 11:57:40 Maternal obesity complicating , childbirth and the puerperium, antepartum 1015766389 07 O99.213 Z3A.35 [id number] Lucero Argueta [place] [address],[place] [address] 09/13/2024 11:18:50 09/16/2024 12:24:23 Maternal obesity complicating , childbirth and the puerperium, antepartum 2011109919 07 O99.210 [id number] [facility] [address],[place] [address] 09/13/2024 11:19:17 09/13/2024 13:45:58 Gestation period, 35 weeks 77255363 Z3A.35 [id number] Lamar [facility] [address],[place] [address] 09/19/2024 10:19:18 09/19/2024 11:01:52 Maternal obesity complicating , childbirth and the puerperium, antepartum 8249725852 07 O99.213 O36.60X0 O43.113 Z3A.36 [id number] Daniela Jonel [place] [address],[place] [address] 09/19/2024 10:19:43 09/19/2024 12:40:52 Maternal obesity complicating , childbirth and the puerperium, antepartum 0167046546 07 O99.210 [id number] Joe Vazquez MD [place] [address],[place] [address] 09/19/2024 10:20:11 09/19/2024 12:39:23 Routine care 307868365 Z34.91 [id number] Lamar [facility] [address],[place] [address] 10/04/2024 13:41:55 10/04/2024 14:23:24 Abnormal uterine bleeding 0579477790 9100 N93.9 Health Concerns Section Related Observation LastModified by Organization Detai ls LastModified Time None Recorded Concern Status LastModified by Organization Details LastModified Time None Recorded Advance Directives Directive None Recorded Payers Encounter Date Sequence Insurance Name Policy Number Policy Trujillo Covered Member ID Trujillo Member ID Guarantor Name 09/13/2024 1 [employer] LOCAL 520 H AND W FUND [id number] Emi Kious [id number] Emi Kious 09/13/2024 2 [facility] (MEDICAID HMO) [id number] Emi Kious [id number] Emi Kious 09/19/2024 1 [employer] LOCAL 520 H AND W FUND [id number] Emi Kious [id number] Emi Kious 09/19/2024 2 [facility] (MEDICAID HMO) [id number] Emi Kious [id number] Emi Kious 09/19/2024 1 [employer] - [employer] LOCAL 520 H AND W FUND [id number] Eim Kious [id number] Emi Kious 09/19/2024 2 [facility] (MEDICAID HMO) [id number] Emi Kious [id number] Emi Kious 09/19/2024 1 [employer] - [employer] LOCAL 520 H AND W FUND [id number] Emi Kious [id number] Emi Kious 09/19/2024 2 [facility] (MEDICAID HMO) [id number] Emi Kious [id number] Emi Kious 10/04/2024 1 [employer] - [employer] LOCAL 520 H AND W FUND [id number] Emi Kious [id number] Emi Kious 10/04/2024 2 [facility] (MEDICAID HMO) [id number] Emi Kious [id number] Emi Kious OBGyn Episode Ob Episode Information Episode Created Date Number of Fetuses Patient Bloodtype Patient rh Status Prepregnancy Weight lbs Domestic Partner Domestic Partner Phone Father Name Form Stripper Status 09/08/19 23 1 CLOSED Fetus Data First Name Last Name Admitted to NICU Weight (g) Sex Living Outcome Pediatric Complications Fetus ID Race Codes Race Delivery Type , Spontane ous 02033 Preston Calculation Initial Preston Date Initial Exam [...] Domestic Partner Domestic Partner Phone Father Name Form Stripper Status 09/08/19 23 1 CLOSED Fetus Data First Name Last Name Admitted to NICU Weight (g) Sex Living Outcome Pediatric Complications Fetus ID Race Codes Race Delivery Type , Spontane ous 88711 Preston Calculation Initial Preston Date Initial Exam [...] Domestic Partner Domestic Partner Phone Father Name Form Stripper Status 09/08/19 23 1 CLOSED Fetus Data First Name Last Name Admitted to NICU Weight (g) Sex Living Outcome Pediatric Complications Fetus ID Race Codes Race Delivery Type , Spontane ous 30083 Preston Calculation Initial Preston Date Initial Exam [...] Domestic Partner Domestic Partner Phone Father Name Form Stripper Status 09/29/19 23 1 A Negative 250 CLOSED Fetus Data First Name Last Name Admitted to NICU Weight (g) Sex Living Outcome Pediatric Complications Fetus ID Race Codes Race Delivery Type 3486.98 85 F true Full Term 17482 Vaginal Delivery Problems Problem Notes rhogam received at [facility] 08/28/22 r/t clots - passed SCHUC WNLmacrobid suppressive therapy for recent pyelonephritis Problem Name Start Date End Date Resolution Snomed Code Not e Asthma 247272592 Anxiety 85172752 Placenta circumvallata 5532095 serial growth u/s Placental abruption 535009288 story unclear RhD negative 353373746 2, 03/18/23 Hyperemesis 078030640 zofran p ump Anemia of 02/20/2023 [id number] Preston Calculation Initial Preston Date Initial Exam [...] Weight in lbs Pre/Post Dialysis Refused Weight 248.753653151744 BP Diastolic BP Location Tested BP Systolic [...] Weight in lbs Pre/Post Dialysis Refused Weight 251.52386176099 BP Diastolic BP Location Tested BP Systolic BP Type 77 119 Fetus Heart Rate Present A 150 Present Fetus Movement A No Comments patient states that had blee ding 2 weeks ago and nausea. was seen in [place] and had f/u US here, no bleeding [...] Weight in lbs Pre/Post Dialysis Refused Weight 253.017841016309 BP Diastolic BP Location Tested BP Systolic [...] Weight in lbs Pre/Post Dialysis Refused Weight 255.304891453917 BP Diastolic BP Location Tested BP Systolic [...] Weight in lbs Pre/Post Dialysis Refused Weight 256.790788726243 BP Diastolic BP Location Tested BP Systolic [...] Weight in lbs Pre/Post Dialysis Refused Weight 256.843899151511 BP Diastolic BP Location Tested BP Systolic [...] Weight in lbs Pre/Post Dialysis Refused Weight 254.374899972136 BP Diastolic BP Location Tested BP Systolic [...] Weight in lbs Pre/Post Dialysis Refused Weight 257.376949911724 BP Diastolic BP Location Tested BP Systolic [...] Weight in lbs Pre/Post Dialysis Refused Weight 263.681642617921 BP Diastolic BP Location Tested BP Systolic [...] Weight in lbs Pre/Post Dialysis Refused Weight 263.963674550836 BP Diastolic BP Location Tested BP Systolic [...] Weight in lbs Pre/Post Dialysis Refused Weight 267.740760932351 BP Diastolic BP Location Tested BP Systolic [...] Weight in lbs Pre/Post Dialysis Refused Weight 270.44140723501 BP Diastolic BP Location Tested BP Systolic BP Type 79 122 Fetus Heart Rate Present Fetus Movement A Yes Comments patient is having some contr actions, discharge and nausea. external os 5, labor precautions bpp 8/ Flowsheet Date 04/10/2023 [place] Score Blood Edema Fundus Height Fundus Units Glucose Ketones Leukocytes Nitrite Labor Signs Protein Cervic Dilation Cervic Effacement Cervic Station Type Weight in lbs Pre/Post Dialysis Refused Weight 253.256176708843 BP Diastolic BP Location Tested BP Systolic [...] Estim ated Date of Delivery false Thalassemia (Kyrgyz, British, Mediterranean, Or Background): MCV < 80 false Neural Tube Defect (Meningomyelocele, Spina Bifi da, Or Anencephaly) false Congenital Heart Defect false Down Syndrome false Kali-Sachs (eg, Confucianist, Cajun, Upper [place]) f alse Yuli Disease false Sickle Cell Disease Or Trait () false Hemophilia Or Other Blood Disorders false Muscular Dystrophy false Cystic Fibrosis false Toano's Chorea false Intellectual Disability/Autism false If Yes, [...] Post Complications Tubal Sterilization Discharge Date Comments amira None 38.2 false Zuleika Minaya CNM Anemia of , Anxiety, Asthma, Hyperemes is, Placenta circumval steve, RhD negative, prolonged rupture, precip labor Discharge Information Feeding Method Contraceptive Method Maternal HG B and HCT Levels Ob Episode Information Episode Created Date Number of Fetuses Patient Bloodtype Patient rh Status Prepregnancy Weight lbs Domestic Partner Domestic Partner Phone Father Name Form Stripper Status 04/12/20 24 1 A Negative 272 CLOSED Fetus Data First Name Last Name Admitted to NICU Weight (g) Sex Living Outcome Pediatric Complications Fetus ID Race Codes Race Delivery Type 3912.23 1 M 30474 Problems Problem Notes seizures only as a child due to head trauma? placental abruption with first Problem Name Start Date End Date Resolution Snomed Code Not e Large for gestation age fetus 667872578 97% Placental abruption 131143762 HISTORICAL Migraine 31115149 Placenta circumvallata 04/15/2024 774528 0 32wk growth u/s Prophylactic immunotherapy 04/18/2024 128891220 rhogam receive d 03/22/24 @ [facility] Attention deficit hyperactivity disorder 854841357 Obesity 576757618 testing @ 34 weeks weekly; BMI 42 COVID-19 04/17/2024 947364509 ASA & ser ial growth Hyperemesis 325483836 history of in last 2 pregnancies Mixed anxiety and depressive disorder 768067928 Anterior synechiae 96096718 f /u 4 weeks Preston Calculation Initial [...] Weight in lbs Pre/Post Dialysis Refused Weight 272.781863033302 BP Diastolic BP Location Tested BP Systolic [...] Type Weight in lbs Pre/Post Dialysis Refused 274.653929177083 BP Diastolic BP Location Tested BP Systolic [...] Type Weight in lbs Pre/Post Dialysis Refused 276.500044514160 BP Diastolic BP Location Tested BP Systolic BP Type 85 132 Fetus Heart Rate Present Fetus Movement A No Comments Patient states thta is havin g s lot of stress and anxiety, cramping, spotting and swelling. discussed stress, anxiety, no suicidal symptoms, f/u next ob visit, f/u with [facility] MERCHANDISE STOCKER for anxiety treatment Flowsheet Date 05/31/2024 [place] [...] Type Weight in lbs Pre/Post Dialysis Refused 279.995077958416 BP Diastolic BP Location Tested BP Systolic BP Type 85 122 Fetus Heart Rate Present Fetus Movement A Yes Comments Patient states that has some anxiety but is little better and is having some right side pain. reviewed education and precautions wants to wait on pysch MERCHANDISE STOCKER visit, will continue to monitor mood, +FM, anatomy complete Flowsheet Date 06/26/2024 [place] Score Blood Edema Fundus Height Fundus Units Glucose Ketones Leukocytes Nitrite Labor Signs Protein Cervic Dilation Cervic Effacement Cervic Station trace none Type Weight in lbs Pre/Post Dialysis Refused 285.887036085992 BP Diastolic BP Location Tested BP Systolic [...] Type Weight in lbs Pre/Post Dialysis Refused 290.2389996871 BP Diastolic BP Location Tested BP Systolic [...] Weight in lbs Pre/Post Dialysis Refused Weight 296.775692620152 BP Diastolic BP Location Tested BP Systolic BP Type 81 L arm 134 sitting Fetus Heart Rate Present Fetus Movement A Yes Comments Patient c/o of [place] , states gets hard to breath [...] Weight in lbs Pre/Post Dialysis Refused Weight 300.608453838128 BP Diastolic BP Location Tested BP Systolic [...] Weight in lbs Pre/Post Dialysis Refused Weight 301.250226607872 BP Diastolic BP Location Tested BP Systolic [...] patient request due to recent admission at [facility] for PTL; unchanged at 2cm. RTC 1 [...] Weight in lbs Pre/Post Dialysis Refused Weight 299.786539559306 BP Diastolic BP Location Tested BP Systolic BP Type 88 128 Fetus Heart Rate Present Fetus Movement Comments Flowsheet Date 09/13/2024 [place] Score Blood Edema Fundus Height Fundus Units Glucose Ketones Leukocytes Nitrite Labor Signs Protein Cervic Dilation Cervic Effacement Cervic Station Type Weight in lbs Pre/Post Dialysis Refused Weight 299.955273986614 BP Diastolic BP Location Tested BP Systolic [...] Weight in lbs Pre/Post Dialysis Refused Weight 299.705843896079 BP Diastolic BP Location Tested BP Systolic BP Type 82 R arm 124 sitting Fetus Heart Rate Present Fetus Movement Comments Flowsheet Date 09/19/2024 [place] Score Blood Edema Fundus Height Fundus Units Glucose Ketones Leukocytes Nitrite Labor Signs Protein Cervic Dilation Cervic Effacement Cervic Station 4cm Type Weight in lbs Pre/Post Dialysis Refused 299.2450856745 BP Diastolic BP Location Tested BP Systolic [...] Post Complications Tubal Sterilization Discharge Date Comments 5 37 Joe Vazquez MD Discharge Information Feeding Method Contraceptive Method Maternal HG B and HCT Levels Ob Episode Information Episode Created Date Number of Fetuses Patient Bloodtype Patient rh Status Prepregnancy Weight lbs Domestic Partner Domestic Partner Phone Father Name Form Stripper Status 09/08/19 23 1 CLOSED Fetus Data First Name Last Name Admitted to NICU Weight (g) Sex Living Outcome Pediatric Complications Fetus ID Race Codes Race Delivery Type 3486.76 1704 F Full Term 10871 Vaginal Delivery Preston Calculation Initial Preston Date [...] Domestic Partner Domestic Partner Phone Father Name Form Stripper Status 09/08/19 23 1 CLOSED Fetus Data First Name Last Name Admitted to NICU Weight (g) Sex Living Outcome Pediatric Complications Fetus ID Race Codes Race Delivery Type 3912.23 1 F Full Term 22204 Vaginal Delivery Preston Calculation Initial Preston Date [...]
--- OUTSIDE RECORDS SUMMARY | 2024-10-08 16:18 | XMS_ITS | Clinical Summary ---
Author Organization [facility] Address [address] [place] [address] Care Team Providers Care Electrotype Caster Name Role Phone Alana Sanchez [facility] Primary Care Provider [phone] Allergies Active Allergy Reactions Criticality Noted Date [...] (BMI) of 40.0 to 44.9 in adult ([facility]) 01/20/2020 Marijuana use 01/20/2020 Acromioclavicular joint separation, right, seque la 10/22/2019 Seasonal allergic rhinitis due to pollen 019 Chronic right shoulder pain 04/10/2019 Depressive disorder 02/12/2018 Bipolar affective disorder ([facility]) Anxiety 10/21/2015 Overview (08/02/2018): Date Onset: 10/21/2015 Attention deficit hyperactiv ity disorder (ADHD), 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 Overview (08/02/2018): Date Onset: 05/15/2015 Shoulder instability 12/09/2013 Chronic tension headache 11/28/2012 Subjective tinnitus 11/28/2012 Folate deficiency 10/08/2011 Overview (08/02/2018): Note: ADD Asthma ([facility]) 10/08/2011 Estimated Date of Delivery Comme nts Yes 10/16/2024 Resolved Problems Problem Noted Date Diagnosed Date Resolved Date ([facility]) 10/19/2020 01/14/20 22 Prior with placent al abruption, antepartum ([facility]) 06/24/2020 01/13/2022 Overview (08/21/2020): Last Assessment & Plan: Denies having hypertension and her last . We discussed the risk of recurrence of placental abruption and or hemorrhage. Maternal Medicine recommendations: 1. aspirin prescribed for preeclampsia risk reduction 2. recommend anticipation, by the referring trailer truck driver, of potential recurrence of placental abruption and or hemorrhage Abnormal maternal glucose to lerance, antepartum ([facility]) 06/24/2020 01/25/2024 Overview (08/21/2020): First-trimester glucose challenge test elevated with appropriate GTT. Last Assessment & Plan: At increased risk of gestational diabetes. Maternal Medicine recommendations: 1. repeat glucose testing at 26-28 weeks Oligohydramnios, antepartum ([facility]) 06/22/2020 01/13/2022 Overview (08/21/2020): 06/16/20 borderline GÓMEZ 9cm on outside scan. Hypothyroid 06/22/2020 01/25/2024 Overview (08/21/2020): Per PNR-SOGA checking labs q trimester. Last Assessment & Plan: Maternal Medicine recommendations: 1. reassess thyroid function every trimester Suicidal thoughts 06/01/2020 01/25/2024 Nausea and vomiting during p regnancy prior to 22 weeks gestation ([facility]) 05/15/2020 01/13/2022 Circumvallate placenta in se cond trimester ([facility]) 03/08/2016 09/18/2018 Obesity 03/08/2016 01/20/2020 Supervision of normal first teen in first trimester ([facility]) 02/25/2016 09/18/2018 Uncomplicated asthma ([facility]) 02/25/2016 09/18/2018 Neck pain 08/29/2013 12/28/2018 [...] Department Care Team Description 09/10/2024 10:00 AM SUPERVISOR ASSEMBLING Office Visit [facility] [address] [place], [place] [id number] Alana Sanchez FNP Cough (Pt is here for a cough, she has had this cough for about 2 weeks, pt thinks she may have bronchitis) 09/10/2024 Travel 08/29/2024 1:25 PM SUPERVISOR ASSEMBLING - 08/29/2024 6:56 PM SUPERVISOR ASSEMBLING Emergency [facility] Emergency Room [address] [place] [address] Saman Amado MD Flank Pain (33 weeks [...] Influenza Adult (Generic) 07/16/2018,02/2017,06/06/2016,06/01 MMR (Generic) 08/16/2001,08/07/1998 Ucmcwpy-Ypwkj-Qfzfbcx-Varicell Sc Inj 08/16/2001 ,08/07/1998 Meningococcal 08/07/2008 Meningococcal [...] Comments Blood Pressure 124/79 09/10/2024 9:55 AM SUPERVISOR ASSEMBLING Pulse 102 09/10/2024 9:55 AM SUPERVISOR ASSEMBLING Temperature 36.8 ??C (98.3 ??F) 09/10/2024 9:55 AM CS T Respiratory Rate 18 09/10/2024 9:55 AM SUPERVISOR ASSEMBLING Oxygen Saturation 98% 09/10/2024 9:55 AM SUPERVISOR ASSEMBLING Inhaled Oxygen Concentration - - Weight 137 kg (302 lb) 09/10/2024 9:55 AM SUPERVISOR ASSEMBLING Height 172.7 cm (5' 8 ) 09/10/2024 9:55 AM SUPERVISOR ASSEMBLING Body Mass Index 45.92 09/10/2024 9:55 AM SUPERVISOR ASSEMBLING Plan of Treatment Upcoming Encounters Date Type Department Care Team (Late st Contact Info) Description 01/24/2025 2:00 PM CDT Office Visit [facility] [address] [place], [place] [id number] Alana Sanchez [facility] [address] [place] [address] Health Maintenance Due Date Last Done Comments Pneumococcal Vaccine: Pediatrics (0 to 5 Years) and At-Risk Patients (6 to 64 Years) (2 of 2 - PCV) 09/04/2017 09/04/2016 PHQ-2 ([facility]) 04/28/2024 04/28/2023 COVID-19 Vaccine ( season) 2024 Influenza Adult (#1) 2024 06/02/2020, 07/16/2018, 07/16/2018, Additional history exists PHQ-2 ([facility] [place]) 09/04/2024 04/28/2023 Annual Physical 01/24/2025 01/25/2024, 01/02, [...] SCREEN RAPID STAT 08/29/2024 2:4 0 PM SUPERVISOR ASSEMBLING URINALYSIS, AUTO, COMPLETE STAT 08/29/2024 2:40 PM SUPERVISOR ASSEMBLING CRITICAL CARE Routine 08/29/2024 2:00 PM SUPERVISOR ASSEMBLING URIC ACID BLOOD STAT 08/29/2024 1:35 PM SUPERVISOR ASSEMBLING MAGNESIUM STAT 08/29/2024 1:35 PM SUPERVISOR ASSEMBLING LACTIC ACID W REFLEX (SEPSIS) STAT 08/29/2024 1:35 PM SUPERVISOR ASSEMBLING HCG QUANT (SERUM)-CHORIONIC GONADOTROPIN STAT 08/29/2024 1:35 PM SUPERVISOR ASSEMBLING LIPASE STAT 08/29/2024 1:35 PM SUPERVISOR ASSEMBLING COMPREHENSIVE METABOLIC PANEL STAT 08/29/2024 1:35 PM SUPERVISOR ASSEMBLING CBC W/DIFF AUTOMATED STAT 08/29/2024 1:35 PM SUPERVISOR ASSEMBLING HOLTER DOCUMENT (SCAN ORDER) 07/29/2024 OUTSIDE CYTOPATH CERV/VAG INTERPRET (PAP) (SCAN ORDER) 04/24/2019 from Last 3 Months or Most Recently Relevant to Health Maintenance Results * DRUG SCREEN RAPID (08/29/2024 2:40 PM SUPERVISOR ASSEMBLING) AMPHETAMINE (U) NONE DETECTED NONE DETECTED 08/29/2024 3:[address] [facility] BARBITURATES SCREEN (U) NONE DETECTED NONE DETECTED 08/29/2024 3:[address] [facility] BENZODIAZEPINES SCREEN (U) NONE DETECTED NONE DETECTED 08/29/2024 3:19 PM [facility] BUPRENORPHINE SCREEN (U) NONE DETECTED NONE DETECTED 08/29/2024 3:19 PM [facility] COCAINE METABOLITES (U) NONE DETECTED NONE DETECTED 08/29/2024 3:19 PM [facility] METHAMPHETAMINE (U) NONE DETECTED NONE DETECTED 08/29/2024 3:19 PM [facility] METHADONE (U) NONE DETECTED NONE DETECTED 08/29/2024 3:19 PM [facility] OPIATE SCREEN (U) NONE DETECTED NONE DETECTED 08/29/2024 3:19 PM [facility] OXYCODONE SCREEN (U) NONE DETECTED NONE DETECTED 08/29/2024 3:19 PM [facility] PHENCYCLIDINE PCP (U) NONE DETECTED NONE DETECTED 08/29/2024 3:19 PM [facility] CANNABINOIDS SCREEN (U) NONE DETECTED NONE DETECTED 08/29/2024 3:19 PM [facility] TRICYCLIC ANTIDEPRESSANT SCREEN (U) NONE DETECTED NONE DETECTED 08/29/2024 3:19 PM [facility] Comment: NOTE: RESULTS OF THIS DRUG [...] URINE SPECIMEN / Unknown 08/29/2024 2:40 PM SUPERVISOR ASSEMBLING Saman Amado MD URINE ORDERABLES Final Result Performing Organization Address [facility]/State/[facility] Co de Phone Number [facility] [address] [place] [address], * (ABNORMAL) URINALYSIS, AUTO, COMPLETE (08/29/2024 2:40 PM SUPERVISOR ASSEMBLING) COLOR (U) YELLOW 08/29/2024 3:16 PM [facility] TRANSPARENCY CLEAR 08/29/2024 3:16 PM [facility] SPECIFIC GRAVITY (U) 1.015 1.000 - 1.030 08/29/2024 3:16 PM [facility] U PH 6.0 5.0 - 9.0 08/29/2024 3:16 PM [facility] LEUKOCYTES (U) NEGATIVE NEGATIVE 08/29/2024 3:16 PM [facility] NITRITES NEGATIVE NEGATIVE 08/29/2024 3:16 PM [facility] PROTEIN RANDOM (U) NEGATIVE NEGATIVE 08/29/2024 3:[address] [facility] GLUCOSE (U) TRACE(A) NEGATIVE 08/29/2024 3:16 PM [facility] KETONES MG/DL (U) NEGATIVE NEGATIVE 08/29/2024 3:16 PM [facility] BILIRUBIN (U) NEGATIVE NEGATIVE 08/29/2024 3:16 PM [facility] BLOOD (U) NEGATIVE NEGATIVE 08/29/2024 3:16 PM [facility] WBC/HPF NONE SEEN 0 - 5 /HPF 08/29/2024 3:16 PM [facility] RBC/HPF NONE SEEN 0 - 5 /HPF 08/29/2024 3:16 PM [facility] EPI/HPF NONE SEEN /HPF 08/29/2024 3:16 PM [facility] URINE SPECIMEN OBTAINED BY CLEAN CATCH PROCEDURE / Unknown 08/29/2024 2:40 PM SUPERVISOR ASSEMBLING Saman Amado MD URINE ORDERABLES Final Result Performing Organization Address [facility]/State/[facility] Co de Phone Number [facility] [address] [place] [address], * Critical Care (08/29/2024 2:00 PM SUPERVISOR ASSEMBLING) Narrative Saman Amado MD - 08/29/2024 2:00 PM SUPERVISOR ASSEMBLING Saman Amado MD ? 08/29/2024 ??6:56 PM [...] ACID W REFLEX (SEPSIS) (08/29/2024 1:35 PM SUPERVISOR ASSEMBLING) Pathologist [facility] LACTIC ACID VENOUS 1.2 0.4 - 2.0 MMOL/L 08/29/2024 2:[address] [facility] 08/29/2024 1:35 PM SUPERVISOR ASSEMBLING Saman Amado MD LABORATORY Final R esult [facility] [address] [place] [address], [place] [phone] * (ABNORMAL) COMPREHENSIVE METABOLIC PANEL (08/29/2024 1:35 PM SUPERVISOR ASSEMBLING) [facility] GLUCOSE 105(H) 70 - 99 MG/DL 08/29/2024 2:28 PM [facility] BUN 9 7 - 18 MG/DL 08/29/2024 2:28 PM [facility] CREATININE S/P/B 0.75 0.55 - 1.02 MG/DL 08/29/2024 2:28 PM [facility] SODIUM S/P/B 139 136 - 145 MMOL/L 08/29/2024 2:28 PM [facility] POTASSIUM S/P/B 3.9 3.5 - 5.1 MMOL/L 08/29/2024 2:28 PM [facility] CHLORIDE S/P/B 106 100 - 108 MMOL/L 08/29/2024 2:28 PM [facility] CO2 21.4 21 - 32 MMOL/L 08/29/2024 2:28 PM [facility] CALCIUM S/P/B 8.9 8.5 - 10.1 MG/DL 08/29/2024 2:28 PM [facility] BILIRUBIN TOTAL S/P/B 0.2 0.2 - 1.2 MG/DL 08/29/2024 2:28 PM [facility] TOTAL PROTEIN S/P/B 6.4 6.4 - 8.2 G/DL 08/29/2024 2:28 PM [facility] ALBUMIN S/P/B 2.3(L) 3.4 - 5.0 G/DL 08/29/2024 2:28 PM [facility] AST 11(L) 15 - 37 U/L 08/29/2024 2:28 PM [facility] ALT 16 14 - 55 U/L 08/29/2024 2:28 PM [facility] ALKALINE PHOSPHATASE S/P/B 131 50 - 136 U/L 08/29/2024 2:28 PM [facility] ANION GAP 11.6 5 - 15 MMOL/L 08/29/2024 2:28 PM [facility] BUN CREATININE RATIO 12.0 6 - 26 08/29/2024 2:28 PM [facility] A/G RATIO 0.6(L) 1.0 - 2.0 RATIO 08/29/2024 2:28 PM [facility] GFR ESTIMATE >90 >90 ML/MIN/1.7 3 M2 08/29/2024 2:28 PM [facility] Comment: NOTE: eGFR is not calculated for patients <18 years of age. This is an estimated GFR calculation using the new CKD EPI creatinine equation without race and so does not require a correction factor for race. This estimated GFR should not be used for calculating drug doses. 08/29/2024 1:35 PM SUPERVISOR ASSEMBLING Saman Amado MD LABORATORY Final R esult Performing Organization Address [facility] de Phone Number [facility] [address] [place] [address], * (ABNORMAL) Quantitative HCG (08/29/2024 1:35 PM SUPERVISOR ASSEMBLING) Pathologist [facility] HCG QUANTITATIVE 14,919(H) 0 - 6 MIU/ML 08/29/2024 2:[address] [facility] Comment: WEEKS OF ? REFERENCE RANGES [...] MONTHS ?10,000 - 100,000 08/29/2024 1:35 PM SUPERVISOR ASSEMBLING Saman Amado MD LABORATORY Final R esult Performing Organization Address [facility] de Phone Number [facility] [address] [place] [address], [place] [phone] * (ABNORMAL) CBC W/DIFF AUTOMATED (08/29/2024 1:35 PM SUPERVISOR ASSEMBLING) [employer] Signature WBC 11.95(H) 4.4 - 11.0 x10'3/uL 08/29/2024 1:46 PM [facility] RBC 3.61(L) 4.50 - 5.10 x10'6/uL 08/29/2024 1:46 PM [facility] HGB 10.4(L) 12.3 - 15.3 G/DL 08/29/2024 1:46 PM [facility] HCT 30.3(L) 35.9 - 44.6 % 08/29/2024 1:46 PM [facility] MCV 83.9 80.0 - 96.0 FL 08/29/2024 1:46 PM [facility] MCH 28.8 25.3 - 30.9 PG 08/29/2024 1:46 PM [facility] MCHC 34.3(H) 31.0 - 34.1 G/DL 08/29/2024 1:46 PM [facility] RDW 13.0 12.4 - 15.1 % 08/29/2024 1:46 PM [facility] PLT 292 151 - 353 x10'3/uL 08/29/2024 1:46 PM [facility] MPV 9.3(L) 9.6 - 12.0 FL 08/29/2024 1:46 PM [facility] RBC MORPHOLOGY NORMAL 08/29/2024 1:46 PM [facility] PLT MORPH. NORMAL 08/29/2024 1:46 PM [facility] WBC MORPHOLOGY NORMAL 08/29/2024 1:[address] [facility] LYMPHOCYTES % 16.5 15.8 - 45.0 % 08/29/2024 1:46 PM [facility] NEUTROPHILS % 74.7(H) 42.1 - 71.9 % 08/29/2024 1:[address] [facility] MONOCYTES % 6.7 5.7 - 12.5 % 08/29/2024 1:[address] [facility] EOSINOPHILS 1.4 0.0 - 5.6 % 08/29/2024 1:[address] [facility] BASOPHILS 0.2 0.0 - 1.3 % 08/29/2024 1:[address] [facility] ABS. NEUTROPHILS 8.93(H) 1.40 - 6.00 x10'3/uL 08/29/2024 1:[address] [facility] IMMATURE GRANS % 0.5 0.0 - 0.5 % 08/29/2024 1:46 PM [facility] ABS. LYMPHOCYTES 1.97 0.80 - 4.70 x10'3/uL 08/29/2024 1:46 PM [facility] 08/29/2024 1:35 PM SUPERVISOR ASSEMBLING us Saman Amado MD LABORATORY Final R esult [facility] [address] [place] [address], * (ABNORMAL) MAGNESIUM (08/29/2024 1:35 PM SUPERVISOR ASSEMBLING) MAGNESIUM 1.5(L) 1.8 - 2.4 MG/DL 08/29/2024 5:[address] [facility] 08/29/2024 1:35 PM SUPERVISOR ASSEMBLING Saman Amado MD LABORATORY Final R esult Performing Organization Address City/[facility]/ZIP Co de Phone Number [facility] [address] [place] [address], [place] [phone] * LIPASE (08/29/2024 1:35 PM SUPERVISOR ASSEMBLING) LIPASE 19 16 - 77 UNITS/L 08/29/2024 2:[address] [facility] 08/29/2024 1:35 PM SUPERVISOR ASSEMBLING Saman Amado MD LABORATORY Final R esult Performing Organization Address [facility] de Phone Number [facility] [address] [place] [address], [place] [phone] * URIC ACID BLOOD (08/29/2024 1:35 PM SUPERVISOR ASSEMBLING) URIC ACID 4.8 2.6 - 6.0 MG/DL 08/29/2024 5:[address] [facility] 08/29/2024 1:35 PM SUPERVISOR ASSEMBLING Saman Amado MD LABORATORY Final R esult Performing Organization Address [facility]/ZIP Co de Phone Number [facility] [address] [place] [address], [place] [phone] * HOLTER DOCUMENT (SCAN ORDER) (07/29/2024) 07/29/2024 [...] Documents on File Type Date Recorded Patient [employer]fg [employer] Expl anation Legal Documents 09/22/2020 2:48 PM RECVD/C OMPLETED ATTY REQUEST FOR [facility] DOS 07/17/20-PRESENT * Full [...] 10:20 PM 07/10/2020 12:36 AM Care Teams Electrotype Caster Relationship Specialty Start Date End Date Alana Sanchez FNP [address] [place] [address] [place] [address] PCP - General NURSE PRACTITIONER 04/06/24
--- OUTSIDE RECORDS SUMMARY | 2024-10-08 16:18 | XMS_ITS | Encounter Summary ---
Author Organization [facility] Address [address] [place] [address] Care Team Providers Care Agriculture Department Chair Name Role Phone Juan Castillo MD Primary Care Provider [phone] Encounter Details Date Type Department Care Team (Late st Contact Info) Description 03/24/2016 Office Visit [facility] M[facility] & Care [address] [place] [address] [facility] Social History Tobacco Use Types Packs/Day [...] MRSA Hx Comment:Added from external infection. Source: [facility]. 09/23/2018 documented as of this encounter Care Teams Agriculture Department Chair Relationship Specialty Start Date End Date Juan Castillo MD [address] [place] [address] [place], [place] [id number] PCP - General Family Medicine 06/07/13 documented as of this encounter
--- OUTSIDE RECORDS SUMMARY | 2024-10-08 16:18 | XMS_ITS | Encounter Summary ---
Author Organization [facility] Address [facility] [place] [address] Care Team Providers Care Cushion Gum Applicator Name Role Phone John Sanchezhanie Aliya [facility] Primary Care Provider [phone] Alana Sanchez [facility] Primary Care Provider [phone] Encounter Details Date Type Department Care Team (Late st Contact Info) Description 03/01/2023 [employer] Message [facility] [address] [place] [id number] [employer], [facility] Provider Air Quality Message Social History Tobacco [...] Assessment Author Status No 10/20/2020 4:38 AM HUMANITIES INSTRUCTOR Activ e * RETIRED Are you blind or do you have serious difficulty seeing, even when wearing glasses? Answer Date of Assessment Author Status No 10/20/2020 4:38 AM HUMANITIES INSTRUCTOR Activ e * Do you have serious difficulty walking or climbing stairs? Answer Date of Assessment Author Status No 10/20/2020 4:38 AM HUMANITIES INSTRUCTOR Melody Nieto R N Active * Do you have difficulty dressing or bathing? Answer Date of Assessment Author Status No 10/20/2020 4:38 AM HUMANITIES INSTRUCTOR Melody Nieto R N Active * Because of a physical, mental, or emotional condition, do you have difficulty doing errands alone such as visiting a doctor's office or shopping? Answer Date of Assessment Author Status No 10/20/2020 4:38 AM HUMANITIES INSTRUCTOR Melody Nieto R N Active documented as of this [...] Description 01/24/2025 2:00 PM CDT Office Visit [facility] [address] [place] [address] Alana Sanchez FNP [address] [place] [address] documented as of this encounter Visit Diagnoses Not on filedocumented in this encounter Additional Health Concerns Infection Onset Date Last Indicated Resolved Time MRSA 09/23/2018 09/23/2018 COVID-19 Rule Out 04/17/2024 04/17/2024 04/17/2024 11:24 AM CDT COVID-19 Confirmed 04/17/2024 04/17/2024 12:32 AM CDT documented as of this encounter Care Teams Cushion Gum Applicator Relationship Specialty Start Date End Date Alana Sanchez FNP [address] [place] [address] [place] [address] PCP - General NURSE PRACTITIONER 07/31/18 03/21/24 Alana Sanchez FNP [address] [place] [address] [place] [address] PCP - General NURSE PRACTITIONER 04/06/24 documented as of this encounter
--- OUTSIDE RECORDS SUMMARY | 2024-10-08 16:18 | XMS_ITS | Clinical Summary ---
Author Organization [facility] Address [address] [place] [address] Care Team Providers Care Director Clinical Information Services Name Role Phone Juan Castillo MD Primary Care Provider [phone] Source Comments [facility],non-owned Affiliates and Associated Physician Practices is amultiple site organization consisting of ambulatory clinics and hospital sitesin [place], [place], [place] and [place]. This disclosure is being madepursuant to the Care Everywhere program and may not contain all information available regarding this patient. Last updated 18.[facility] [employer] Allergies Active Allergy Reactions Criticality Noted Date [...] reduction 2. recommend anticipation, by the referring science instructor, of potential recurrence of placental abruption and [...] 1. Reassess mood at visits 2. Notify Education Courses Sales Representative of fluoxetine use if continued into the [...] , limited weight gain is recommended. The [place] of Medicine recommends a total weight gain [...] Type Department Care Team Description 09/02/2024 Telephone [facility]/ EVALUATION UNIT [address] [place] [address]. [address] [place] [address] Gisela Arceo RN Hospital Follow-up 09/02/2024 Orders Only [facility] [address] [place] [address]. [address] [place] [address] Alva Johnson RN Elevated blood pressure affecting in third trimester, antepartum (HCC) 08/30/2024 Telephone [facility]/ [facility]ATION UNIT [address] [place] [address]. [address] [place] [address] Gisela Arceo RN Hospitalization 08/29/2024 7:30 PM [employer] - 08/31/2024 11:30 AM [employer] Hospital Encounter [facility] 5E ANTEPARTUM/MOTHER BABY [address] [place] [address] Carlos Lee MD Maternal Medicine Discharge Disposition: [...] and heating? Not hard at all 08/29/2024 [facility] [place] of Occupat ional Health - Occupational Stress [...] any time in the past [address] [facility], were you homeless or living in a senior living (including now)? No 08/29/2024 Estimated Date of Delivery Comme nts Yes 10/17/2024 Based on Ultraso und Sex and Gender Information Value Date Recorded Sex Assigned at Not on file Gender Identity Not on file Sexual Orientation Not on file Last Filed Vital Signs Vital Sign Reading Time Taken Comments Blood Pressure 97/62 08/31/2024 8:59 AM [employer] Pulse 101 08/31/2024 9:34 AM [employer] Temperature 37 ??C (98.6 ??F) 08/31/2024 8:59 AM [employer] Respiratory Rate 18 08/31/2024 8:59 AM [employer] Oxygen Saturation 99% 08/31/2024 8:59 AM [employer] Inhaled Oxygen Concentration - - Weight 136.1 kg (300 lb) 08/29/2024 7:50 PM [employer] Height 172.7 cm (5' 8 ) 08/29/2024 7:50 PM [employer] Body Mass Index 45.61 08/29/2024 7:50 PM [employer] Plan of Treatment Health Maintenance Due Date [...] Comments IMAGING/RADIOLOGY/XRAY RESULTS ORDER 09/02/2024 10:35 PM [employer] PROTEIN URINE TIMED QUANTITATIVE Routine 08/30/2024 7:41 PM [employer] Elevated blood pressure affecting in third trimester, antepartum (HCC) SONOGRAM - COMPLETE Routine 08/30/2024 8 :15 AM [employer] US RETROPERITONEAL COMPLETE STAT 08/30/2024 7:30 AM [employer] Elevated blood pressure affecting in third trimester, antepartum (HCC) labor in third trimester without delivery (HCC) TRICHOMONAS VAGINALIS AMPLIFIED PROBE Routine 08/29/2024 10:21 PM [employer] CHLAMYDIA + GC AMPLIFIED PROBE Routine 08/29/2024 10:20 PM [employer] CULTURE STREP B Routine 08/29/2024 10:20 PM [employer] URINALYSIS REFLEX MICROSCOPIC REFLEX CULTURE STAT 08/29/2024 8:47 PM [employer] Elevated blood pressure affecting in third trimester, antepartum (HCC) PROTEIN CREATININE RATIO URINE RANDOM PNL STAT 08/29/2024 8:47 PM [employer] Elevated blood pressure affecting in third trimester, antepartum (HCC) BLOOD TYPE VERIFICATION Routine 08/29/20 8:15 PM [employer] TYPE + SCREEN PANEL STAT 08/29/2024 7 :59 PM [employer] Elevated blood pressure affecting in third trimester, antepartum (HCC) LDH BLOOD STAT 08/29/2024 7:59 PM [employer] Elevated blood pressure affecting in third trimester, antepartum (HCC) SYPHILIS ANTIBODY CASCADING REFLEX STAT 08/29/2024 7:59 PM [employer] Elevated blood pressure affecting in third trimester, antepartum (HCC) COMPREHENSIVE METABOLIC PANEL STAT 08/29/2024 7:59 PM [employer] Elevated blood pressure affecting in third trimester, antepartum (HCC) CBC W AUTO DIFFERENTIAL STAT 08/29/20 7:59 PM [employer] Elevated blood pressure affecting in third trimester, antepartum (HCC) from Last 3 Months Results * IMAGING RADIOLOGY XRAY RESULTS ORDER (09/02/2024 10:35 PM [employer]) Anatomical Region Laterality Modality Other Narrative 09/02/2024 10:35 PM [employer] Ordered by an unspecified provider. Scanned Document IMAGING * PROTEIN URINE TIMED QUANTITATIVE (08/30/2024 7:41 PM [employer]) Volume 24 Hour Urine 1,900 mL 08/30/2024 8:12 PM [employer] [facility] Collection Time Hours 24 hrs 08/30/2024 8:12 PM [employer] [facility] Protein 24 Hour Urine 144 <300 mg/24hr 08/30/2024 8:12 PM [employer] [facility] Protein Urine 7.6 <11.9 mg/dL 08/30/2024 8:12 PM [employer] [facility] Urine TIMED URINE SPECIMEN / Unknown Timed Urine Volume Measurement / Unknown 08/30/2024 7:41 PM [employer] 08/30/2024 7:55 PM [employer] Carlos Lee MD LAB - URINE CH EMISTRY ORDERABLES Performing Organization Address City/State/[facility] Co de Phone Number [facility] [address] [place] [address] * SONOGRAM - COMPLETE (08/30/2024 8:15 AM [employer]) Linked Results Indication ======== Class III , [...] lb 1 ??oz EFW by ? Hadlock ([id number]) LGA Growth Overview Exam date ?GA ?BPD [...] view. RVOT view. LVOT view. 3-vessel view. 3-fmcowo-egbzsme view. Situs. Bicaval view. Ductal arch view. [...] inpatient MFM team Coding ====== Procedures ? 02738: Umbilical Doppler ? 45056: US Preg Uterus Detailed ? 10058: Biophysical Profile W/O NST [employer] publishing PACS Anatomical Region Laterality Modality Other 08/30/2024 8:15 AM [employer] Carlos Lee MD [facility] ORDERABLES * US Retroperitoneal Complete (08/30/2024 7:30 AM [employer]) Anatomical Region Laterality Modality Abdomen Ultrasound 08/30/2024 8:25 AM [employer] Impressions 08/30/2024 9:58 AM [employer] IMPRESSION: 1.Normal renal size. No evidence of nephrolithiasis, hydronephrosis, or solid renal mass. > Dictated by Krupa Nielson Dr, MD (radiology physician). I, Mic Bolton MD have personally reviewed and interpreted this examination/study. > Interpreting Provider: Mic Bolton MD on 08/30/2024 9:58 AM Narrative 08/30/2024 9:58 AM [employer] PROCEDURE: ??US RETROPERITONEAL COMPLETE, DATE/TIME OF EXAM: ??08/30/2024 7:52 AM, LOCATION ??[facility] INDICATION: O16.3: Unspecified maternal hypertension, third trimester (HCC) O60.03: labor without delivery, third trimester ([facility]) ADDITIONAL CLINICAL INFORMATION: Ordering Provider Reason For [...] DATE/TIME OF EXAM: 08/30/2024 7:52 AM, LOCATION [facility] INDICATION: O16.3: Unspecified maternal hypertension, third trimester (HCC) O60.03: labor without delivery, third trimester ([facility]) ADDITIONAL CLINICAL INFORMATION: Ordering Provider Reason For [...] > Dictated by Krupa Nielson Dr, MD (radiology physician). I, Mic Bolton MD have personally reviewed and interpreted this examination/study. > Interpreting Provider: Mic Bolton MD on 08/30/2024 9:58 AM Carlos Lee MD US ORDERABLES * TRICHOMONAS VAGINALIS AMPLIFIED PROBE (08/29/2024 10:21 PM [employer]) Trichomonas vaginalis Amplified Probe Negative Negative 08/30/2024 8:39 PM [employer] [facility] Other URINE / Unknown Collection / Unknown 08/29/2024 10:21 PM [employer] 08/29/2024 10:32 PM [employer] Narrative [facility] MICROBIOLOGY - 08/30/2024 8:39 PM [employer] This test was developed and its performance characteristics determined by the [facility]biology [facility], [facility] [place]. Urine specimens tested by the [facility] Cost have not been cleared or approved by [...] Lee MD LAB - MICROBIO LOGY ORDERABLES [facility] [address] [place] [address], [facility] [phone] * CHLAMYDIA + GC AMPLIFIED PROBE (08/29/2024 10:20 PM [employer]) Chlamydia Amplified Probe Negative Negative 08/30/2024 8:37 PM [employer] [facility] MICROBIOLOGY GC Amplified Probe Negative Negative 08/30/2024 8:37 PM [employer] [facility] MICROBIOLOGY Microbiology URINE / Unknown Collection / Unknown 08/29/2024 10:20 PM [employer] 08/29/2024 10:38 PM [employer] Narrative [facility] MICROBIOLOGY - 08/30/2024 8:37 PM [employer] Results based on detection/no detection of ribosomal RNA by amplified method. Carlos Lee MD LAB - MICROBIO LOGY ORDERABLES Performing Organization Address City/[facility]/ZIP Co de Phone Number [facility] MICROBIOLOGY [address] [place] [address], [facility] [phone] * CULTURE STREP B (08/29/2024 10:20 PM [employer]) Culture Strep B Negative for beta-hemolytic Streptococcus Group B NAHUN 09/02/2024 7:03 AM [employer] [facility] MICROBIOLOGY Microbiology MISCELLANEOUS SAMPLES / Unknown Collection / Unknown 08/29/2024 10:20 PM [employer] 08/29/2024 10:34 PM [employer] Carlos Lee MD LAB - MICROBIO LOGY ORDERABLES Performing Organization Address City/[facility] Co de Phone Number [facility] MICROBIOLOGY [address] [place] [address], [facility] [phone] * (ABNORMAL) URINALYSIS REFLEX MICROSCOPIC REFLEX CULTURE (08/29/2024 8:47 PM [employer]) Color UA Yellow Yellow, Straw 08/29/2024 10:45 PM [employer] [facility] Clarity UA Clear Clear 08/29/2024 10:45 PM [employer] [facility] Glucose UA Normal Normal 08/29/2024 10:45 PM [employer] [facility] Bilirubin UA Negative Negative 08/29/2024 10:45 PM [employer] [facility] Ketone UA 2+(A) Negative 08/29/2024 10:45 PM [employer] [facility] Specific [place] UA 1.021 1.005 - 1.030 08/29/2024 10:45 PM [employer] [facility] Blood UA Negative Negative 08/29/2024 10:45 PM [employer] [facility] pH UA 5.5 5.0 - 9.0 pH 08/29/2024 10:45 PM [employer] [facility] Protein UA Negative Negative 08/29/2024 10:45 PM [employer] [facility] Urobilinogen UA Normal Normal mg/dL 024 10:45 PM [employer] [facility] Nitrite UA Negative Negative 08/29/2024 10:45 PM [employer] [facility] Leukocyte UA Negative Negative 08/29/2024 10:45 PM [employer] [facility] Urine URINE SPECIMEN OBTAINED BY CLEAN CATCH PROCEDURE / Unknown Collection / Unknown 08/29/2024 8:47 PM [employer] 08/29/2024 10:31 PM [employer] Narrative [facility] - 08/29/2024 10:45 PM [employer] Carlos Lee MD LAB - URINALYS IS ORDERABLES [facility] [address] [place] [address] * PROTEIN CREATININE RATIO URINE RANDOM PNL (08/29/2024 8:47 PM [employer]) Pathologist [facility] Protein Urine 7.0 <11.9 mg/dL 08/29/2024 10:58 PM [employer] [facility] Creatinine Urine 83.54 mg/dL 08/29/2024 10:[address] [facility] Protein/Creatin ine Ratio Urine 0.08 08/29/2024 10:[address] [facility] Urine URINE SPECIMEN OBTAINED BY CLEAN CATCH PROCEDURE / Unknown Collection / Unknown 08/29/2024 8:47 PM [employer] 08/29/2024 10:31 PM [employer] Carlos Lee MD LAB - URINE CH EMISTRY ORDERABLES [facility] [address] [place] [address] * BLOOD TYPE VERIFICATION (08/29/2024 8:15 PM [employer]) ABO Rh A NEG 08/29/2024 9:1 6 PM [employer] [facility] Blood Bank BLOOD SPECIMEN / Unknown Lab Venipuncture / Unknown 08/29/2024 8:15 PM [employer] 08/29/2024 8:15 PM [employer] Carlos Lee MD LAB - BLOOD BA NK ORDERABLES Performing Organization Address [facility] Co de Phone Number [facility] [address] [place] [address] * SYPHILIS ANTIBODY CASCADING REFLEX (08/29/2024 7:59 PM [employer]) Pathologist [facility] Treponema pallidum Antibody Non Reactive Non Reactive 08/29/2024 8:48 PM [employer] [facility] Comment: No Laboratory evidence of syphilis infection. ?? Note: ??Circulating antibodies may be low or undetectable in early infection. ??If recent exposure is suspected, re-draw sample in 2-4 weeks and repeat testing. Blood BLOOD SPECIMEN / Unknown Lab Venipuncture / Unknown 08/29/2024 7:59 PM [employer] 08/29/2024 8:04 PM [employer] Carlos Lee MD LAB - SEROLOGY ORDERABLES Performing Organization Address [facility] de Phone Number [facility] [address] [place] [address] * TYPE + SCREEN PANEL (08/29/2024 7:59 PM [employer]) [facility] ABO Rh A NEG 08/29/2024 8:43 PM [employer] [facility] Comment:No history; collect retype. Antibody Screen NEG 8:43 PM [employer] [facility] Blood Bank BLOOD SPECIMEN / Unknown Lab Venipuncture / Unknown 08/29/2024 7:59 PM [employer] 08/29/2024 8:04 PM [employer] Carlos Lee MD LAB - BLOOD BA NK ORDERABLES Performing Organization Address [facility] de Phone Number [facility] [address] [place] [address] * (ABNORMAL) CBC W AUTO DIFFERENTIAL (08/29/2024 7:59 PM [employer]) [facility] WBC 13.6(H) 4.0 - 10.7 x10E9/L 08/29/2024 8:[address] [facility] RBC Count 3.66(L) 3.90 - 5.20 x10E12/L 08/29/2024 8:[address] [facility] Hemoglobin 10.3(L) 11.9 - 15.8 g/dL 08/29/2024 8:[address] [facility] Hematocrit 31.5(L) 34.8 - 46.1 % 08/29/2024 8:[address] [facility] MCV 86.1 80.0 - 98.0 fL 08/29/2024 8:[address] [facility] MCH 28.1 26.7 - 33.6 pg 08/29/2024 8:[address] [facility] MCHC 32.7 31.7 - 36.3 g/dL 08/29/2024 8:[address] [facility] RDW-CV 13.0 11.3 - 14.8 % 08/29/2024 8:[address] [facility] Platelet Count 302 150 - 420 x10E9/L 08/29/2024 8:[address] [facility] MPV 9.4 7.8 - 11.4 fL 08/29/2024 8:[address] [facility] Neutrophil % 76.6(H) 41.0 - 74.0 % 08/29/2024 8:[address] [facility] Lymphocyte % 16.7(L) 17.0 - 47.0 % 08/29/2024 8:[address] [facility] Monocyte % 5.2 3.0 - 11.0 % 08/29/2024 8:[address] [facility] Eosinophil % 0.8 0.0 - 7.0 % 08/29/2024 8:[address] [facility] Basophil % 0.3 0.0 - 1.6 % 08/29/2024 8:[address] [facility] Immature Granulocytes % 0.4 0.0 - 1.0 % 08/29/2024 8:[address] [facility] Neutrophil Absolute 10.38(H) 1.60 - 7.50 x10E9/L 08/29/2024 8:[address] [facility] Lymphocyte Absolute 2.27 1.00 - 4.40 x10E9/L 08/29/2024 8:[address] [facility] Monocyte Absolute 0.71 0.15 - 1.00 x10E9/L 08/29/2024 8:[address] [facility] Eosinophil Absolute 0.11 0.00 - 0.60 x10E9/L 08/29/2024 8:[address] [facility] Basophil Absolute 0.04 0.00 - 0.13 x10E9/L 08/29/2024 8:[address] [facility] Blood BLOOD SPECIMEN / Unknown Lab Venipuncture / Unknown 08/29/2024 7:59 PM [employer] 08/29/2024 8:04 PM [facility] Carlos Lee MD LAB - HEMATOLO GY ORDERABLES [facility] [address] [place], [place] [address] * (ABNORMAL) COMPREHENSIVE METABOLIC PANEL (08/29/2024 7:59 PM [employer]) [facility] Glucose 85 70 - 99 mg/dL 08/29/2024 8:[address] [facility] Sodium 137 136 - 145 mmol/L 08/29/2024 8:[address] [facility] Potassium 3.8 3.5 - 5.1 mmol/L 08/29/2024 8:[address] [facility] Chloride 111(H) 98 - 107 mmol/L 08/29/2024 8:[address] [facility] CO2 19(L) 22 - 29 mmol/L 08/29/2024 8:[address] [facility] Calcium 8.7 8.4 - 10.4 mg/dL 08/29/2024 8:[address] [facility] Anion Gap 7 6 - 16 mmol/L 08/29/2024 8:[address] [facility] BUN 9 5.3 - 18.7 mg/dL 08/29/2024 8:[address] [facility] Creatinine 0.57 0.57 - 1.11 mg/dL 08/29/2024 8:[address] [facility] Alkaline Phosphatase 122 40 - 150 U/L 08/29/2024 8:31 PM [employer] [facility] ALT 9 0 - 55 U/L 08/29/2024 8:31 PM [employer] [facility] AST 10 5 - 34 U/L 08/29/2024 8:31 PM [employer] [facility] Protein Total 6.5 6.4 - 8.3 gm/dL 08/29/2024 8:31 PM [employer] [facility] Albumin 2.5(L) 3.4 - 5.0 gm/dL 08/29/2024 8:31 PM [employer] [facility] Bilirubin Total 0.2 0.2 - 1.2 mg/dL 08/29/2024 8:31 PM [employer] [facility] eGFR by CKD-EPI >90 >=90 mL/min/1.7 3 m2 08/29/2024 8:31 PM [employer] [facility] Blood BLOOD SPECIMEN / Unknown Lab Venipuncture / Unknown 08/29/2024 7:59 PM [employer] 08/29/2024 8:04 PM [employer] Carlos Lee MD LAB - CHEMISTR Y ORDERABLES [facility] [address] [place] [address] * LDH BLOOD (08/29/2024 7:59 PM [employer]) LDH 136 125 - 220 U/L 08/29/2024 8:31 PM [employer] [facility] Blood BLOOD SPECIMEN / Unknown Lab Venipuncture / Unknown 08/29/2024 7:59 PM [employer] 08/29/2024 8:04 PM [employer] Carlos Lee MD LAB - CHEMISTR Y ORDERABLES Performing Organization Address City/[facility]/ZIP Co de Phone Number [facility] [address] [place] [address] from Last 3 Months Additional Health Concerns Infection Onset Date 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 Source: [facility]. 09/23/2018 Advance Directives * Full Code (Latest Code Status on File) Date Activated Date Inactivated Comments 08/29/2024 7:38 PM 08/31/2024 12:42 PM Care Teams Director Clinical Information Services Relationship Specialty Start Date End Date Juan Castillo MD [facility] [place] [address] PCP - General Family Medicine 06/07/13
--- OUTSIDE RECORDS SUMMARY | 2024-10-08 16:19 | XMS_ITS | Patient Health Summary ---
Author Organization [facility] Address [address] [place] [address] Care Team Providers Care Glass Handler Name Role Phone Juan Castillo MD Primary Care Provider Note from [facility],non-owned Affiliates and Associated Physician Practices is amultiple site organization consisting of ambulatory clinics and hospital sitesin [place], [place], [place] and [place]. This disclosure is being madepursuant to the Care Everywhere program and may not contain all information available regarding this patient. Last updated 18.[facility] Allergies * Latex(Rash) -Medium Criticality Medications * [...] and heating? Not hard at all 08/29/2024 [facility] [place] of Occupat ional Health - Occupational Stress [...] any time in the past 12 m [facility], were you homeless or living in a halfway (including now)? No 08/29/2024 Estimated Date of Delivery Comme nts Yes 10/17/2024 Based on Ultraso und Sex and Gender Information Value Date Recorded Sex Assigned at Not on file Gender Identity Not on file Sexual Orientation Not on file Last Filed Vital Signs Vital Sign Reading Time Taken Comments Blood Pressure 97/62 08/31/2024 8:59 AM COMPUTING CONSULTANT Pulse 101 08/31/2024 9:34 AM COMPUTING CONSULTANT Temperature 37 ??C (98.6 ??F) 08/31/2024 8:59 AM COMPUTING CONSULTANT Respiratory Rate 18 08/31/2024 8:59 AM COMPUTING CONSULTANT Oxygen Saturation 99% 08/31/2024 8:59 AM COMPUTING CONSULTANT Inhaled Oxygen Concentration - - Weight 136.1 kg (300 lb) 08/29/2024 7:50 PM COMPUTING CONSULTANT Height 172.7 cm (5' 8 ) 08/29/2024 7:50 PM COMPUTING CONSULTANT Body Mass Index 45.61 08/29/2024 7:50 PM COMPUTING CONSULTANT Procedures * IMAGING/RADIOLOGY/XRAY RESULTS ORDER(Performed 09/02/2024) * PROTEIN URINE TIMED QUANTITATIVE(Performed 08/30/2024) Performed for Elevated blood pressure affecting in third trimester, antepartum ([facility]) * SONOGRAM - COMPLETE(Performed 08/30/2024) * US RETROPERITONEAL COMPLETE(Performed 08/30/2024) Performed for Elevated blood pressure affecting in third trimester, antepartum ([facility]), labor in third trimester without delivery ([facility]) * TRICHOMONAS VAGINALIS AMPLIFIED PROBE(Performed 08/29/2024) * CHLAMYDIA + GC AMPLIFIED PROBE(Performed 08/29/2024) * CULTURE STREP B(Performed 08/29/2024) * URINALYSIS REFLEX MICROSCOPIC REFLEX CULTURE(Performed 08/29/2024) Performed for Elevated blood pressure affecting in third trimester, antepartum ([facility]) * PROTEIN CREATININE RATIO URINE RANDOM PNL(Performed 08/29/2024) Performed for Elevated blood pressure affecting in third trimester, antepartum ([facility]) * BLOOD TYPE VERIFICATION(Performed 08/29/2024) * TYPE + SCREEN PANEL(Performed 08/29/2024) Performed for Elevated blood pressure affecting in third trimester, antepartum ([facility]) * LDH BLOOD(Performed 08/29/2024) Performed for Elevated blood pressure affecting in third trimester, antepartum ([facility]) * SYPHILIS ANTIBODY CASCADING REFLEX(Performed 08/29/2024) Performed for Elevated blood pressure affecting in third trimester, antepartum ([facility]) * COMPREHENSIVE METABOLIC PANEL(Performed 08/29/2024) Performed for Elevated blood pressure affecting in third trimester, antepartum ([facility]) * CBC W AUTO DIFFERENTIAL(Performed 08/29/2024) Performed for Elevated blood pressure affecting in third trimester, antepartum ([facility]) * SONOGRAM - COMPLETE(Performed 07/24/2020) Performed for Prior with placental abruption, antepartum ([facility]), Supervision of high-risk of young multigravida ([facility]), Encounter for anatomic survey ([facility]), Maternal morbid obesity, antepartum ([facility]), Oligohydramnios, antepartum, single or unspecified fetus ([facility]) * SONOGRAM - COMPLETE(Performed 06/24/2020) Performed for Encounter for anatomic survey ([facility]), Oligohydramnios, antepartum, single or unspecified fetus ([facility]), Supervision of high-risk of young multigravida ([facility]) * FIRST TRI NUCHAL TRANSLUCENCY W:SEQ SCREEN(Performed 03/04/2016) Performed for Supervision of normal first teen in first trimester ([facility]), Encounter for nuchal translucency testing ([facility]) * FIRST TRI NUCHAL TRANSLUCENCY W:SEQ SCREEN(Performed 02/29/2016) Performed for Uncomplicated asthma, unspecified asthma severity, Encounter for nuchal translucency testing ([facility]) * XR SHOULDER RIGHT 2VW OR MORE(Performed 01/10/2014) Performed for Shoulder instability * CT NECK SOFT TISSUE WO CONT(Performed 07/11/2013) Performed for Stylohyoid tendonitis, Neck pain * CULTURE MRSA(Performed 06/26/2013) Performed for Hx MRSA infection Results * IMAGING RADIOLOGY XRAY RESULTS ORDER (09/02/2024 10:35 PM COMPUTING CONSULTANT) Anatomical Region Laterality Modality Other Narrative 09/02/2024 10:35 PM COMPUTING CONSULTANT Ordered by an unspecified provider. Scanned Document IMAGING * PROTEIN URINE TIMED QUANTITATIVE (08/30/2024 7:41 PM COMPUTING CONSULTANT) Volume 24 Hour Urine 1,900 mL 08/30/2024 8:12 PM COMPUTING CONSULTANT [facility] Collection Time Hours 24 hrs 08/30/2024 8:12 PM [facility] Protein 24 Hour Urine 144 <300 mg/24hr 08/30/2024 8:12 PM [facility] Protein Urine 7.6 <11.9 mg/dL 08/30/2024 8:12 PM [facility] Urine TIMED URINE SPECIMEN / Unknown Timed Urine Volume Measurement / Unknown 08/30/2024 7:41 PM COMPUTING CONSULTANT 08/30/2024 7:55 PM COMPUTING CONSULTANT Carlos Lee MD LAB - URINE CH EMISTRY ORDERABLES Performing Organization Address City/State/[facility] Co de Phone Number [facility] [address] [place], [place] [id number] * SONOGRAM - COMPLETE (08/30/2024 8:15 AM COMPUTING CONSULTANT) Only the most recent of3 resultswithin the [...] lb 1 ??oz EFW by ? Hadlock ([id number]) LGA Growth Overview Exam date ?GA ?BPD [...] view. RVOT view. LVOT view. 3-vessel view. 3-rvjfmb-apdqmhm view. Situs. Bicaval view. Ductal arch view. [...] inpatient MFM team Coding ====== Procedures ? 08777: Umbilical Doppler ? 54767: US Preg Uterus Detailed ? 91860: Biophysical Profile W/O [facility] Leondra music PACS Anatomical Region Laterality Modality Other 08/30/2024 8:15 AM COMPUTING CONSULTANT Carlos Lee MD M ORDERABLES * US Retroperitoneal Complete (08/30/2024 7:30 AM COMPUTING CONSULTANT) Anatomical Region Laterality Modality Abdomen Ultrasound 08/30/2024 8:25 AM COMPUTING CONSULTANT Impressions 08/30/2024 9:58 AM COMPUTING CONSULTANT IMPRESSION: 1.Normal renal size. No evidence of nephrolithiasis, hydronephrosis, or solid renal mass. > Dictated by Krupa Nielson Dr, MD (associate professor of radiology). IMic MD have personally reviewed and interpreted this examination/study. > Interpreting Provider: Mic Bolton MD on 08/30/2024 9:58 AM Narrative 08/30/2024 9:58 AM COMPUTING CONSULTANT PROCEDURE: ??US RETROPERITONEAL COMPLETE, DATE/TIME OF EXAM: ??08/30/2024 7:52 AM, LOCATION ??[facility] INDICATION: O16.3: Unspecified maternal hypertension, third trimester (HCC) O60.03: labor without delivery, third trimester ([facility]) ADDITIONAL CLINICAL INFORMATION: Ordering Provider Reason For [...] OF EXAM: 08/30/2024 7:52 AM, LOCATION [facility] INDICATION: O16.3: Unspecified maternal hypertension, third trimester (HCC) O60.03: labor without delivery, third trimester ([facility]) ADDITIONAL CLINICAL INFORMATION: Ordering Provider Reason For [...] > Dictated by Krupa Nielson Dr, MD (associate professor of radiology). I, Mic Bolton MD have personally reviewed and interpreted this examination/study. > Interpreting Provider: Mic Bolton MD on 08/30/2024 9:58 AM Carlos Lee MD US ORDERABLES * TRICHOMONAS VAGINALIS AMPLIFIED PROBE (08/29/2024 10:21 PM COMPUTING CONSULTANT) Trichomonas vaginalis Amplified Probe Negative Negative 08/30/2024 8:39 PM COMPUTING CONSULTANT [facility] Other URINE / Unknown Collection / Unknown 08/29/2024 10:21 PM COMPUTING CONSULTANT 08/29/2024 10:32 PM COMPUTING CONSULTANT Narrative [facility] - 08/30/2024 8:39 PM COMPUTING CONSULTANT This test was developed and its performance characteristics determined by the [facility], [facility]. Urine specimens tested by the [facility] [place] have not been cleared or approved by [...] Lee MD LAB - MICROBIO LOGY ORDERABLES [facility] [address] [place], [place] [address], [facility] [phone] * CHLAMYDIA + GC AMPLIFIED PROBE (08/29/2024 10:20 PM COMPUTING CONSULTANT) Chlamydia Amplified Probe Negative Negative 08/30/2024 8:37 PM COMPUTING CONSULTANT [facility] GC Amplified Probe Negative Negative 08/30/2024 8:37 PM COMPUTING CONSULTANT [facility] Microbiology URINE / Unknown Collection / Unknown 08/29/2024 10:20 PM COMPUTING CONSULTANT 08/29/2024 10:38 PM COMPUTING CONSULTANT Narrative [facility] - 08/30/2024 8:37 PM COMPUTING CONSULTANT Results based on detection/no detection of ribosomal RNA by amplified method. Carlos Lee MD LAB - MICROBIO LOGY ORDERABLES [facility] [address] [place] [address], [facility] [phone] * CULTURE STREP B (08/29/2024 10:20 PM COMPUTING CONSULTANT) Culture Strep B Negative for beta-hemolytic Streptococcus Group B NAHUN 09/02/2024 7:03 AM COMPUTING CONSULTANT [facility] Microbiology MISCELLANEOUS SAMPLES / Unknown Collection / Unknown 08/29/2024 10:20 PM COMPUTING CONSULTANT 08/29/2024 10:34 PM COMPUTING CONSULTANT Carlos Lee MD LAB - MICROBIO LOGY ORDERABLES Performing Organization Address City/[facility]/ZIP Co de Phone Number [facility] [address] [place] [address], [facility] [phone] * (ABNORMAL) URINALYSIS REFLEX MICROSCOPIC REFLEX CULTURE (08/29/2024 8:47 PM COMPUTING CONSULTANT) Color UA Yellow Yellow, Straw 08/29/2024 10:45 PM COMPUTING CONSULTANT [facility] Clarity UA Clear Clear 08/29/2024 10:45 PM COMPUTING CONSULTANT [facility] Glucose UA Normal Normal 08/29/2024 10:45 PM COMPUTING CONSULTANT [facility] Bilirubin UA Negative Negative 08/29/2024 10:45 PM COMPUTING CONSULTANT [facility] Ketone UA 2+(A) Negative 08/29/2024 10:45 PM COMPUTING CONSULTANT [facility] Specific [place] UA 1.021 1.005 - 1.030 08/29/2024 10:45 PM COMPUTING CONSULTANT [facility] Blood UA Negative Negative 08/29/2024 10:45 PM COMPUTING CONSULTANT [facility] pH UA 5.5 5.0 - 9.0 pH 08/29/2024 10:45 PM COMPUTING CONSULTANT [facility] Protein UA Negative Negative 08/29/2024 10:45 PM COMPUTING CONSULTANT [facility] Urobilinogen UA Normal Normal mg/dL 024 10:45 PM COMPUTING CONSULTANT [facility] Nitrite UA Negative Negative 08/29/2024 10:45 PM COMPUTING CONSULTANT [facility] Leukocyte UA Negative Negative 08/29/2024 10:45 PM COMPUTING CONSULTANT [facility] Urine URINE SPECIMEN OBTAINED BY CLEAN CATCH PROCEDURE / Unknown Collection / Unknown 08/29/2024 8:47 PM COMPUTING CONSULTANT 08/29/2024 10:31 PM COMPUTING CONSULTANT Narrative [facility] - 08/29/2024 10:45 PM COMPUTING CONSULTANT Carlos Lee MD LAB - URINALYS IS ORDERABLES Performing Organization Address [facility] Co de Phone Number [facility] [address] [place] [address] * PROTEIN CREATININE RATIO URINE RANDOM PNL (08/29/2024 8:47 PM COMPUTING CONSULTANT) Protein Urine 7.0 <11.9 mg/dL 08/29/2024 10:58 PM COMPUTING CONSULTANT [facility] Creatinine Urine 83.54 mg/dL 08/29/2024 10:58 PM COMPUTING CONSULTANT [facility] Protein/Creatin ine Ratio Urine 0.08 08/29/2024 10:58 PM COMPUTING CONSULTANT [facility] Urine URINE SPECIMEN OBTAINED BY CLEAN CATCH PROCEDURE / Unknown Collection / Unknown 08/29/2024 8:47 PM COMPUTING CONSULTANT 08/29/2024 10:31 PM COMPUTING CONSULTANT Carlos Lee MD LAB - URINE CH EMISTRY ORDERABLES Performing Organization Address [facility] de Phone Number [facility] [address] [place] [address] * BLOOD TYPE VERIFICATION (08/29/2024 8:15 PM COMPUTING CONSULTANT) ABO Rh A NEG 08/29/2024 9:1 6 PM COMPUTING CONSULTANT [facility] Blood Bank BLOOD SPECIMEN / Unknown Lab Venipuncture / Unknown 08/29/2024 8:15 PM COMPUTING CONSULTANT 08/29/2024 8:15 PM COMPUTING CONSULTANT Carlos Lee MD LAB - BLOOD BA NK ORDERABLES Performing Organization Address [facility] Co de Phone Number [facility] [address] [place] [phone] [place] [address] * SYPHILIS ANTIBODY CASCADING REFLEX (08/29/2024 7:59 PM COMPUTING CONSULTANT) Pathologist [facility] Treponema pallidum Antibody Non Reactive Non Reactive 08/29/2024 8:48 PM COMPUTING CONSULTANT [facility] Comment: No Laboratory evidence of syphilis infection. ?? Note: ??Circulating antibodies may be low or undetectable in early infection. ??If recent exposure is suspected, re-draw sample in 2-4 weeks and repeat testing. Blood BLOOD SPECIMEN / Unknown Lab Venipuncture / Unknown 08/29/2024 7:59 PM COMPUTING CONSULTANT 08/29/2024 8:04 PM COMPUTING CONSULTANT Carlos Lee MD LAB - SEROLOGY ORDERABLES Performing Organization Address City/[facility] Co de Phone Number [facility] [address] [place] [address] * TYPE + SCREEN PANEL (08/29/2024 7:59 PM COMPUTING CONSULTANT) [facility] ABO Rh A NEG 08/29/2024 8:43 PM COMPUTING CONSULTANT [facility] Comment:No history; collect retype. Antibody Screen NEG 8:43 PM COMPUTING CONSULTANT [facility] Blood Bank BLOOD SPECIMEN / Unknown Lab Venipuncture / Unknown 08/29/2024 7:59 PM COMPUTING CONSULTANT 08/29/2024 8:04 PM COMPUTING CONSULTANT Carlos Lee MD LAB - BLOOD BA NK ORDERABLES Performing Organization Address [facility] Co de Phone Number [facility] [address] [place] [address] * (ABNORMAL) CBC W AUTO DIFFERENTIAL (08/29/2024 7:59 PM COMPUTING CONSULTANT) [facility] WBC 13.6(H) 4.0 - 10.7 x10E9/L 08/29/2024 8:09 PM COMPUTING CONSULTANT [facility] RBC Count 3.66(L) 3.90 - 5.20 x10E12/L 08/29/2024 8:09 PM COMPUTING CONSULTANT [facility] Hemoglobin 10.3(L) 11.9 - 15.8 g/dL 08/29/2024 8:09 PM [facility] Hematocrit 31.5(L) 34.8 - 46.1 % 08/29/2024 8:09 PM [facility] MCV 86.1 80.0 - 98.0 fL 08/29/2024 8:09 PM [facility] MCH 28.1 26.7 - 33.6 pg 08/29/2024 8:09 PM [facility] MCHC 32.7 31.7 - 36.3 g/dL 08/29/2024 8:09 PM [facility] RDW-CV 13.0 11.3 - 14.8 % 08/29/2024 8:09 PM [facility] Platelet Count 302 150 - 420 x10E9/L 08/29/2024 8:09 PM [facility] MPV 9.4 7.8 - 11.4 fL 08/29/2024 8:09 PM [facility] Neutrophil % 76.6(H) 41.0 - 74.0 % 08/29/2024 8:09 PM [facility] Lymphocyte % 16.7(L) 17.0 - 47.0 % 08/29/2024 8:09 PM [facility] Monocyte % 5.2 3.0 - 11.0 % 08/29/2024 8:09 PM [facility] Eosinophil % 0.8 0.0 - 7.0 % 08/29/2024 8:09 PM [facility] Basophil % 0.3 0.0 - 1.6 % 08/29/2024 8:09 PM [facility] Immature Granulocytes % 0.4 0.0 - 1.0 % 08/29/2024 8:09 PM [facility] Neutrophil Absolute 10.38(H) 1.60 - 7.50 x10E9/L 08/29/2024 8:09 PM [facility] Lymphocyte Absolute 2.27 1.00 - 4.40 x10E9/L 08/29/2024 8:09 PM [facility] Monocyte Absolute 0.71 0.15 - 1.00 x10E9/L 08/29/2024 8:09 PM [facility] Eosinophil Absolute 0.11 0.00 - 0.60 x10E9/L 08/29/2024 8:09 PM [facility] Basophil Absolute 0.04 0.00 - 0.13 x10E9/L 08/29/2024 8:09 PM [facility] Blood BLOOD SPECIMEN / Unknown Lab Venipuncture / Unknown 08/29/2024 7:59 PM COMPUTING CONSULTANT 08/29/2024 8:04 PM COMPUTING CONSULTANT Carlos Lee MD LAB - HEMATOLO GY ORDERABLES [facility] [address] [place] [address] * (ABNORMAL) COMPREHENSIVE METABOLIC PANEL (08/29/2024 7:59 PM COMPUTING CONSULTANT) Glucose 85 70 - 99 mg/dL 08/29/2024 8:31 PM [facility] Sodium 137 136 - 145 mmol/L 08/29/2024 8:31 PM [facility] Potassium 3.8 3.5 - 5.1 mmol/L 08/29/2024 8:31 PM [facility] Chloride 111(H) 98 - 107 mmol/L 08/29/2024 8:31 PM [facility] CO2 19(L) 22 - 29 mmol/L 08/29/2024 8:31 PM [facility] Calcium 8.7 8.4 - 10.4 mg/dL 08/29/2024 8:31 PM [facility] Anion Gap 7 6 - 16 mmol/L 08/29/2024 8:31 PM [facility] BUN 9 5.3 - 18.7 mg/dL 08/29/2024 8:31 PM [facility] Creatinine 0.57 0.57 - 1.11 mg/dL 08/29/2024 8:31 PM [facility] Alkaline Phosphatase 122 40 - 150 U/L 08/29/2024 8:31 PM [facility] ALT 9 0 - 55 U/L 08/29/2024 8:31 PM [facility] AST 10 5 - 34 U/L 08/29/2024 8:31 PM [facility] Protein Total 6.5 6.4 - 8.3 gm/dL 08/29/2024 8:31 PM [facility] Albumin 2.5(L) 3.4 - 5.0 gm/dL 08/29/2024 8:31 PM COMPUTING CONSULTANT [facility] Bilirubin Total 0.2 0.2 - 1.2 mg/dL 08/29/2024 8:31 PM COMPUTING CONSULTANT [facility] eGFR by CKD-EPI >90 >=90 mL/min/1.7 3 m2 08/29/2024 8:31 PM COMPUTING CONSULTANT [facility] Blood BLOOD SPECIMEN / Unknown Lab Venipuncture / Unknown 08/29/2024 7:59 PM COMPUTING CONSULTANT 08/29/2024 8:04 PM COMPUTING CONSULTANT Carlos Lee MD LAB - CHEMISTR Y ORDERABLES Performing Organization Address City/[facility]/ZIP Co de Phone Number [facility] [address] [place] [address] * LDH BLOOD (08/29/2024 7:59 PM COMPUTING CONSULTANT) LDH 136 125 - 220 U/L 08/29/2024 8:31 PM COMPUTING CONSULTANT [facility] Blood BLOOD SPECIMEN / Unknown Lab Venipuncture / Unknown 08/29/2024 7:59 PM COMPUTING CONSULTANT 08/29/2024 8:04 PM COMPUTING CONSULTANT Carlos Lee MD LAB - CHEMISTR Y ORDERABLES Performing Organization Address City/[facility] Co de Phone Number [facility] [address] [place] [address] * FIRST TRI NUCHAL TRANSLUCENCY W:SEQ SCREEN (03/04/2016 8:44 AM CDT) Only the most recent of2 resultswithin the time period is included. Anatomical Region Laterality Modality Other 03/04/2016 8:44 AM CDT Narrative 03/04/2016 1:25 PM CDT ? [facility] ?PHONE: ??FAX: ? Pat. Name: ?TRNAG OLIVEIRA Pat. No: ?[id number] Study Date: ?? 03/04/2016 ??8:44am , Age: ? 1995, 21 Pregnancies: ?? 1 Height: ? 67 in Weight: ? 227 lb LMP: ?12/01/2015 GA by LMP: ?13w3d GA by 1st: ?13w3d GA by US: ? 13w1d GA Selected: ??13w3d (LMP) ZEB: ?09/06/2016 Referring MD: EMILEE KIM MD Production Engineer Track: ??Modesta Contreras RDMS BMI: ?35.55 Hist/Ind: ? Nuchal Translucency ?Class II Obesity MEASUREMENTS & AGE ? GROWTH EVALUATION Measurement ??GA ? Range ? Srce %for GA Ratios ----- ---- ------- CRL ??7.0 cm 13w1d (80i8z-13t7d) Hadl CRL 41% GA for sonogram 13w1d (04x7m-30j7m) based on (CRL) Avg ? Markers for [...] <Electronic Signature> ??03/04/2016 01:23pm Juwan Arroyo MD [facility] ORDERABLES * XR SHOULDER 2+ VW RIGHT (01/10/2014 1:13 PM CDT) Anatomical Region Laterality Modality Upper Extremity Radiographic Halle ging 01/10/2014 1:31 PM CDT Impressions 01/10/2014 1:31 PM CDT Normal exam. Narrative 01/10/2014 1:31 PM CDT EXAMINATION: RIGHTXR SHOULDER 2+ VW RIGHT*[id number] dated 01/10/2014. HISTORY: Other joint derangement, not [...] - 01/10/2014 EXAMINATION: RIGHTXR SHOULDER 2+ VW RIGHT*[id number] dated 01/10/2014. HISTORY: Other joint derangement, not [...] abnormality is appreciated. IMPRESSION Normal exam. Cosme oPllack MD DIAGNOSTIC IMAGING O RDERABLES * CT SOFT TISSUE NECK NON CONTRAST (07/11/2013 9:43 AM COMPUTING CONSULTANT) Anatomical Region Laterality Modality Head Computed Tomogra phy 07/11/2013 9:46 AM COMPUTING CONSULTANT Impressions 07/11/2013 11:27 AM COMPUTING CONSULTANT 1. Normal appearance of the styloid processes and stylohyoid ligaments. The normal length of the styloid process in an adult is approximately 2.5 cm and an elongated styloid typically measures greater than 3 cm in length (CT findings associated with [place] syndrome. [place] Journal of Neuroradiology (AJNR) 2001 22:6978-7258). Dictated by Jermaine More on 07/11/2013 11:00 AM I, Marlyn Urias, have personally reviewed the images and I agree with this report. Narrative 07/11/2013 11:27 AM COMPUTING CONSULTANT EXAMINATION: ??Computed tomography (CT) of the neck [...] cm in length (CT findings associated with [place] syndrome. [place] Journal of Neuroradiology (AJNR) 2001 22:8677-4704). Dictated by Jermaine More on 07/11/2013 11:00 AM I, Maryln Urias, have personally reviewed the images and I agree with this report. Mj Carlisle MD CT ORDERABLES * CULTURE MRSA (06/26/2013 2:40 PM CDT) Culture Negative for MRSA 06/28/2013 5:20 AM CDT [facility] Microbiology SPECIMEN FROM NASAL FOSSAE / Unknown Collection / Unknown 06/26/2013 2:40 PM CDT 06/26/2013 4:28 PM CDT Mj Carlisle MD LAB - MICROBIOLOGY O RDERABLES [facility] [address] [place], [address] Care Teams Glass Handler Relationship Specialty Start Date End Date Juan Castillo MD [address] [place] [address] [place] [address] PCP - General Family Medicine 06/07/13
--- OUTSIDE RECORDS SUMMARY | 2024-10-08 16:19 | XMS_ITS | Referral Summary ---
Author Organization [facility] Address [address] [place] [address] Care Team Providers Care Radio Repairer Name Role Phone Juan Castillo MD Primary Care Provider [phone] Source Comments [facility],non-owned Affiliates and Associated Physician Practices is amultiple site organization consisting of ambulatory clinics and hospital sitesin [place], [place] and [place]. This disclosure is being madepursuant to the Care Everywhere program and may not contain all information available regarding this patient. Last updated 18.[facility] Encounters Date Type Department Care Team Description 09/02/2024 Telephone [facility]/ EVALUATION UNIT [address] [place] [address]. [address] [place] [address] Gisela Arceo, RN Hospital Follow-up 09/02/2024 Orders Only [facility] [address] [place] [address]. [address] [place] [id number] Alva Johnson, HARISH Elevated blood pressure affecting in third trimester, antepartum (HCC) 08/29/2024 7:30 PM LOGISTICS SERVICE REPRESENTATIVE - 08/31/2024 11:30 AM LOGISTICS SERVICE REPRESENTATIVE Hospital Encounter [facility] 5E ANTEPARTUM/MOTHER BABY [address] [place] [id number] Carlos Lee MD Maternal Medicine Discharge Disposition: Home or Self Care 08/30/2024 Telephone [facility]ATION UNIT [address] [place] [address]. [address] [place] [id number] Gisela Arceo, RN Hospitalization 08/29/2024 Travel from [...] reduction 2. recommend anticipation, by the referring replenishment associate, of potential recurrence of placental abruption and [...] 1. Reassess mood at visits 2. Notify Touch Up Carver of fluoxetine use if continued into the [...] , limited weight gain is recommended. The [place] of Medicine recommends a total weight gain [...] and heating? Not hard at all 08/29/2024 [facility] [place] of Occupat ional Health - Occupational Stress [...] any time in the past 12 m [facility], were you homeless or living [...] Comments Blood Pressure 97/62 08/31/2024 8:59 AM LOGISTICS SERVICE REPRESENTATIVE Pulse 101 08/31/2024 9:34 AM LOGISTICS SERVICE REPRESENTATIVE Temperature 37 ??C (98.6 ??F) 08/31/2024 8:59 AM LOGISTICS SERVICE REPRESENTATIVE Respiratory Rate 18 08/31/2024 8:59 AM LOGISTICS SERVICE REPRESENTATIVE Oxygen Saturation 99% 08/31/2024 8:59 AM LOGISTICS SERVICE REPRESENTATIVE Inhaled Oxygen Concentration - - Weight 136.1 kg (300 lb) 08/29/2024 7:50 PM LOGISTICS SERVICE REPRESENTATIVE Height 172.7 cm (5' 8 ) 08/29/2024 7:50 PM LOGISTICS SERVICE REPRESENTATIVE Body Mass Index 45.61 08/29/2024 7:50 PM LOGISTICS SERVICE REPRESENTATIVE Functional Status Functional Status Response Date of [...] Comments IMAGING/RADIOLOGY/XRAY RESULTS ORDER 09/02/2024 10:35 PM LOGISTICS SERVICE REPRESENTATIVE PROTEIN URINE TIMED QUANTITATIVE Routine 08/30/2024 7:41 PM LOGISTICS SERVICE REPRESENTATIVE Elevated blood pressure affecting in third trimester, antepartum (HCC) SONOGRAM - COMPLETE Routine 08/30/2024 8 :15 AM LOGISTICS SERVICE REPRESENTATIVE US RETROPERITONEAL COMPLETE STAT 08/30/2024 7:30 AM LOGISTICS SERVICE REPRESENTATIVE Elevated blood pressure affecting in third trimester, antepartum (HCC) labor in third trimester without delivery (HCC) TRICHOMONAS VAGINALIS AMPLIFIED PROBE Routine 08/29/2024 10:21 PM LOGISTICS SERVICE REPRESENTATIVE CHLAMYDIA + GC AMPLIFIED PROBE Routine 08/29/2024 10:20 PM LOGISTICS SERVICE REPRESENTATIVE CULTURE STREP B Routine 08/29/2024 10:20 PM LOGISTICS SERVICE REPRESENTATIVE URINALYSIS REFLEX MICROSCOPIC REFLEX CULTURE STAT 08/29/2024 8:47 PM LOGISTICS SERVICE REPRESENTATIVE Elevated blood pressure affecting in third trimester, antepartum (HCC) PROTEIN CREATININE RATIO URINE RANDOM PNL STAT 08/29/2024 8:47 PM LOGISTICS SERVICE REPRESENTATIVE Elevated blood pressure affecting in third trimester, antepartum (HCC) BLOOD TYPE VERIFICATION Routine 08/29/20 8:15 PM LOGISTICS SERVICE REPRESENTATIVE TYPE + SCREEN PANEL STAT 08/29/2024 7 :59 PM LOGISTICS SERVICE REPRESENTATIVE Elevated blood pressure affecting in third trimester, antepartum (HCC) LDH BLOOD STAT 08/29/2024 7:59 PM LOGISTICS SERVICE REPRESENTATIVE Elevated blood pressure affecting in third trimester, antepartum (HCC) SYPHILIS ANTIBODY CASCADING REFLEX STAT 08/29/2024 7:59 PM LOGISTICS SERVICE REPRESENTATIVE Elevated blood pressure affecting in third trimester, antepartum (HCC) COMPREHENSIVE METABOLIC PANEL STAT 08/29/2024 7:59 PM LOGISTICS SERVICE REPRESENTATIVE Elevated blood pressure affecting in third trimester, antepartum (HCC) CBC W AUTO DIFFERENTIAL STAT 08/29/20 7:59 PM LOGISTICS SERVICE REPRESENTATIVE Elevated blood pressure affecting in third trimester, antepartum (HCC) from Last 3 Months Results * IMAGING RADIOLOGY XRAY RESULTS ORDER (09/02/2024 10:35 PM LOGISTICS SERVICE REPRESENTATIVE) Anatomical Region Laterality Modality Other Narrative 09/02/2024 10:35 PM LOGISTICS SERVICE REPRESENTATIVE Ordered by an unspecified provider. Scanned Document IMAGING * PROTEIN URINE TIMED QUANTITATIVE (08/30/2024 7:41 PM LOGISTICS SERVICE REPRESENTATIVE) Volume 24 Hour Urine 1,900 mL 08/30/2024 8:12 PM LOGISTICS SERVICE REPRESENTATIVE [facility] Collection Time Hours 24 hrs 08/30/2024 8:12 PM LOGISTICS SERVICE REPRESENTATIVE [facility] Protein 24 Hour Urine 144 <300 mg/24hr 08/30/2024 8:12 PM LOGISTICS SERVICE REPRESENTATIVE [facility] Protein Urine 7.6 <11.9 mg/dL 08/30/2024 8:12 PM LOGISTICS SERVICE REPRESENTATIVE [facility] Urine TIMED URINE SPECIMEN / Unknown Timed Urine Volume Measurement / Unknown 08/30/2024 7:41 PM LOGISTICS SERVICE REPRESENTATIVE 08/30/2024 7:55 PM LOGISTICS SERVICE REPRESENTATIVE Carlos Lee MD LAB - URINE CH EMISTRY ORDERABLES [facility] [address], [place] [id number] * SONOGRAM - COMPLETE (08/30/2024 8:15 AM LOGISTICS SERVICE REPRESENTATIVE) Linked Results Indication ======== Class III , [...] lb 1 ??oz EFW by ? Hadlock ([id number]) LGA Growth Overview Exam date ?GA ?BPD [...] view. RVOT view. LVOT view. 3-vessel view. 7-nwljip-nfenfvc view. Situs. Bicaval view. Ductal arch view. [...] studies as clinically indicated and per inpatient [facility] team Coding ====== Procedures ? 71445: Umbilical Doppler ? 92302: US Preg Uterus Detailed ? [id number]: Biophysical Profile W/O NST [facility] [employer] PACS Anatomical Region Laterality Modality Other 08/30/2024 8:15 AM LOGISTICS SERVICE REPRESENTATIVE Carlos Lee MD [facility] ORDERABLES * US Retroperitoneal Complete (08/30/2024 7:30 AM LOGISTICS SERVICE REPRESENTATIVE) Anatomical Region Laterality Modality Abdomen Ultrasound 08/30/2024 8:25 AM LOGISTICS SERVICE REPRESENTATIVE Impressions 08/30/2024 9:58 AM LOGISTICS SERVICE REPRESENTATIVE IMPRESSION: 1.Normal renal size. No evidence of nephrolithiasis, hydronephrosis, or solid renal mass. > Dictated by Krupa Nielson Dr, MD (president ergonomic consulting). I, Mic Bolton MD have personally reviewed and interpreted this examination/study. > Interpreting Provider: Mic Bolton MD on 08/30/2024 9:58 AM Narrative 08/30/2024 9:58 AM LOGISTICS SERVICE REPRESENTATIVE PROCEDURE: ??US RETROPERITONEAL COMPLETE, DATE/TIME OF EXAM: ??08/30/2024 7:52 AM, LOCATION ??[facility] INDICATION: O16.3: Unspecified maternal hypertension, third trimester (HCC) O60.03: labor without delivery, third trimester ([facility]) ADDITIONAL CLINICAL INFORMATION: Ordering Provider [...] DATE/TIME OF EXAM: 08/30/2024 7:52 AM, LOCATION [facility] INDICATION: O16.3: Unspecified maternal hypertension, third trimester (HCC) O60.03: labor without delivery, third trimester ([facility]) ADDITIONAL CLINICAL INFORMATION: Ordering Provider [...] > Dictated by Krupa Nielson Dr, MD (president ergonomic consulting). I, Mic Bolton MD have personally reviewed and interpreted this examination/study. > Interpreting Provider: Mic Bolton MD on 08/30/2024 9:58 AM Carlos Lee MD US ORDERABLES * TRICHOMONAS VAGINALIS AMPLIFIED PROBE (08/29/2024 10:21 PM LOGISTICS SERVICE REPRESENTATIVE) Trichomonas vaginalis Amplified Probe Negative Negative 08/30/2024 8:39 PM LOGISTICS SERVICE REPRESENTATIVE [facility]CRO[facility] Other URINE / Unknown Collection / Unknown 08/29/2024 10:21 PM LOGISTICS SERVICE REPRESENTATIVE 08/29/2024 10:32 PM LOGISTICS SERVICE REPRESENTATIVE Narrative [facility] - 08/30/2024 8:39 PM LOGISTICS SERVICE REPRESENTATIVE This test was developed and its performance characteristics determined by the [facility], [facility]. Urine specimens tested by the [facility] [place] have not been cleared or approved by [...] - MICROBIO LOGY ORDERABLES Performing Organization Address [facility] Co de Phone Number [facility]CRO[facility] [address] [place] [address], [facility] [phone] * CHLAMYDIA + GC AMPLIFIED PROBE (08/29/2024 10:20 PM LOGISTICS SERVICE REPRESENTATIVE) Chlamydia Amplified Probe Negative Negative 08/30/2024 8:37 PM LOGISTICS SERVICE REPRESENTATIVE [facility]CRO[facility] GC Amplified Probe Negative Negative 08/30/2024 8:37 PM LOGISTICS SERVICE REPRESENTATIVE [facility]CROBI[facility]Y Microbiology URINE / Unknown Collection / Unknown 08/29/2024 10:20 PM LOGISTICS SERVICE REPRESENTATIVE 08/29/2024 10:38 PM LOGISTICS SERVICE REPRESENTATIVE Narrative [facility]CROBI[facility] - 08/30/2024 8:37 PM LOGISTICS SERVICE REPRESENTATIVE Results based on detection/no detection of ribosomal RNA by amplified method. Carlos Lee MD LAB - MICROBIO LOGY ORDERABLES Performing Organization Address [facility] Phone Number [facility] [address] [place] [address], [facility] [phone] * CULTURE STREP B (08/29/2024 10:20 PM LOGISTICS SERVICE REPRESENTATIVE) Culture Strep B Negative for beta-hemolytic Streptococcus Group B NAHUN 09/02/2024 7:03 AM LOGISTICS SERVICE REPRESENTATIVE [facility] MICROBIOLOGY Microbiology MISCELLANEOUS SAMPLES / Unknown Collection / Unknown 08/29/2024 10:20 PM LOGISTICS SERVICE REPRESENTATIVE 08/29/2024 10:34 PM LOGISTICS SERVICE REPRESENTATIVE Carlos Lee MD LAB - MICROBIO LOGY ORDERABLES Performing Organization Address [facility] Co de Phone Number [facility] [address] [place] [address], [facility] [phone] * (ABNORMAL) URINALYSIS REFLEX MICROSCOPIC REFLEX CULTURE (08/29/2024 8:47 PM LOGISTICS SERVICE REPRESENTATIVE) Color UA Yellow Yellow, Straw 08/29/2024 10:45 PM LOGISTICS SERVICE REPRESENTATIVE [facility] Clarity UA Clear Clear 08/29/2024 10:45 PM LOGISTICS SERVICE REPRESENTATIVE [facility] Glucose UA Normal Normal 08/29/2024 10:45 PM LOGISTICS SERVICE REPRESENTATIVE [facility] Bilirubin UA Negative Negative 08/29/2024 10:45 PM LOGISTICS SERVICE REPRESENTATIVE [facility] Ketone UA 2+(A) Negative 08/29/2024 10:45 PM [facility] Specific [place] UA 1.021 1.005 - 1.030 08/29/2024 10:45 PM LOGISTICS SERVICE REPRESENTATIVE [facility] Blood UA Negative Negative 08/29/2024 10:45 PM [facility] pH UA 5.5 5.0 - 9.0 pH 08/29/2024 10:45 PM LOGISTICS SERVICE REPRESENTATIVE [facility] Protein UA Negative Negative 08/29/2024 10:45 PM LOGISTICS SERVICE REPRESENTATIVE [facility] Urobilinogen UA Normal Normal mg/dL 024 10:45 PM [facility] Nitrite UA Negative Negative 08/29/2024 10:45 PM [facility] Leukocyte UA Negative Negative 08/29/2024 10:45 PM [facility] Urine URINE SPECIMEN OBTAINED BY CLEAN CATCH PROCEDURE / Unknown Collection / Unknown 08/29/2024 8:47 PM LOGISTICS SERVICE REPRESENTATIVE 08/29/2024 10:31 PM LOGISTICS SERVICE REPRESENTATIVE Narrative [facility] - 08/29/2024 10:45 PM LOGISTICS SERVICE REPRESENTATIVE Carlos Lee MD LAB - URINALYS IS ORDERABLES [facility] [address], [place] [id number] * PROTEIN CREATININE RATIO URINE RANDOM PNL (08/29/2024 8:47 PM LOGISTICS SERVICE REPRESENTATIVE) Protein Urine 7.0 <11.9 mg/dL 08/29/2024 10:58 PM LOGISTICS SERVICE REPRESENTATIVE [facility] Creatinine Urine 83.54 mg/dL 08/29/2024 10:58 PM [facility] Protein/Creatin ine Ratio Urine 0.08 08/29/2024 10:58 PM LOGISTICS SERVICE REPRESENTATIVE [facility] Urine URINE SPECIMEN OBTAINED BY CLEAN CATCH PROCEDURE / Unknown Collection / Unknown 08/29/2024 8:47 PM LOGISTICS SERVICE REPRESENTATIVE 08/29/2024 10:31 PM LOGISTICS SERVICE REPRESENTATIVE Carlos Lee MD LAB - URINE CH EMISTRY ORDERABLES Performing Organization Address [facility] Co de Phone Number [facility] [address] [place] [address] * BLOOD TYPE VERIFICATION (08/29/2024 8:15 PM LOGISTICS SERVICE REPRESENTATIVE) ABO Rh A NEG 08/29/2024 9:1 6 PM LOGISTICS SERVICE REPRESENTATIVE [facility] Blood Bank BLOOD SPECIMEN / Unknown Lab Venipuncture / Unknown 08/29/2024 8:15 PM LOGISTICS SERVICE REPRESENTATIVE 08/29/2024 8:15 PM LOGISTICS SERVICE REPRESENTATIVE Carlos Lee MD LAB - BLOOD BA NK ORDERABLES Performing Organization Address [facility] Co de Phone Number [facility] [address] [place] [address] * SYPHILIS ANTIBODY CASCADING REFLEX (08/29/2024 7:59 PM LOGISTICS SERVICE REPRESENTATIVE) Treponema pallidum Antibody Non Reactive Non Reactive 08/29/2024 8:48 PM LOGISTICS SERVICE REPRESENTATIVE [facility] Comment: No Laboratory evidence of syphilis infection. ?? Note: ??Circulating antibodies may be low or undetectable in early infection. ??If recent exposure is suspected, re-draw sample in 2-4 weeks and repeat testing. Blood BLOOD SPECIMEN / Unknown Lab Venipuncture / Unknown 08/29/2024 7:59 PM LOGISTICS SERVICE REPRESENTATIVE 08/29/2024 8:04 PM LOGISTICS SERVICE REPRESENTATIVE Carlos Lee MD LAB - SEROLOGY ORDERABLES Performing Organization Address [facility] Co de Phone Number [facility] [address] [place] [address] * TYPE + SCREEN PANEL (08/29/2024 7:59 PM LOGISTICS SERVICE REPRESENTATIVE) ABO Rh A NEG 08/29/2024 8:43 PM [facility] Comment:No history; collect retype. Antibody Screen NEG 8:43 PM [facility] Blood Bank BLOOD SPECIMEN / Unknown Lab Venipuncture / Unknown 08/29/2024 7:59 PM LOGISTICS SERVICE REPRESENTATIVE 08/29/2024 8:04 PM LOGISTICS SERVICE REPRESENTATIVE Carlos Lee MD LAB - BLOOD BA NK ORDERABLES [facility] [address] [phone] * (ABNORMAL) CBC W AUTO DIFFERENTIAL (08/29/2024 7:59 PM LOGISTICS SERVICE REPRESENTATIVE) Pathologist [facility] WBC 13.6(H) 4.0 - 10.7 x10E9/L 08/29/2024 8:09 PM [facility] RBC Count 3.66(L) 3.90 - 5.20 x10E12/L 08/29/2024 8:09 PM [facility] Hemoglobin 10.3(L) 11.9 - 15.8 g/dL 08/29/2024 8:09 PM [facility] Hematocrit 31.5(L) 34.8 - 46.1 % 08/29/2024 8:09 PM [facility] MCV 86.1 80.0 - 98.0 fL 08/29/2024 8:09 PM [facility] MCH 28.1 26.7 - 33.6 pg 08/29/2024 8:09 PM [facility] MCHC 32.7 31.7 - 36.3 g/dL 08/29/2024 8:09 PM [facility] RDW-CV 13.0 11.3 - 14.8 % 08/29/2024 8:09 PM [facility] Platelet Count 302 150 - 420 x10E9/L 08/29/2024 8:09 PM [facility] MPV 9.4 7.8 - 11.4 fL 08/29/2024 8:09 PM [facility] Neutrophil % 76.6(H) 41.0 - 74.0 % 08/29/2024 8:09 PM [facility] Lymphocyte % 16.7(L) 17.0 - 47.0 % 08/29/2024 8:09 PM [facility] Monocyte % 5.2 3.0 - 11.0 % 08/29/2024 8:09 PM [facility] Eosinophil % 0.8 0.0 - 7.0 % 08/29/2024 8:09 PM [facility] Basophil % 0.3 0.0 - 1.6 % 08/29/2024 8:09 PM [facility] Immature Granulocytes % 0.4 0.0 - 1.0 % 08/29/2024 8:09 PM [facility] Neutrophil Absolute 10.38(H) 1.60 - 7.50 x10E9/L 08/29/2024 8:09 PM [facility] Lymphocyte Absolute 2.27 1.00 - 4.40 x10E9/L 08/29/2024 8:09 PM [facility] Monocyte Absolute 0.71 0.15 - 1.00 x10E9/L 08/29/2024 8:09 PM [facility] Eosinophil Absolute 0.11 0.00 - 0.60 x10E9/L 08/29/2024 8:09 PM [facility] Basophil Absolute 0.04 0.00 - 0.13 x10E9/L 08/29/2024 8:09 PM [facility] Blood BLOOD SPECIMEN / Unknown Lab Venipuncture / Unknown 08/29/2024 7:59 PM LOGISTICS SERVICE REPRESENTATIVE 08/29/2024 8:04 PM [facility] Carlos Lee MD LAB - HEMATOLO GY ORDERABLES [facility] [address] [place] [address] * (ABNORMAL) COMPREHENSIVE METABOLIC PANEL (08/29/2024 7:59 PM LOGISTICS SERVICE REPRESENTATIVE) [facility] Signature Glucose 85 70 - 99 mg/dL 08/29/2024 8:31 PM [facility] Sodium 137 136 - 145 mmol/L 08/29/2024 8:31 PM [facility] Potassium 3.8 3.5 - 5.1 mmol/L 08/29/2024 8:31 PM [facility] Chloride 111(H) 98 - 107 mmol/L 08/29/2024 8:31 PM [facility] CO2 19(L) 22 - 29 mmol/L 08/29/2024 8:31 PM [facility] Calcium 8.7 8.4 - 10.4 mg/dL 08/29/2024 8:31 PM [facility] Anion Gap 7 6 - 16 mmol/L 08/29/2024 8:31 PM [facility] BUN 9 5.3 - 18.7 mg/dL 08/29/2024 8:31 PM [facility] Creatinine 0.57 0.57 - 1.11 mg/dL 08/29/2024 8:31 PM [facility] Alkaline Phosphatase 122 40 - 150 U/L 08/29/2024 8:31 PM [facility] ALT 9 0 - 55 U/L 08/29/2024 8:31 PM [facility] AST 10 5 - 34 U/L 08/29/2024 8:31 PM [facility] Protein Total 6.5 6.4 - 8.3 gm/dL 08/29/2024 8:31 PM [facility] Albumin 2.5(L) 3.4 - 5.0 gm/dL 08/29/2024 8:31 PM [facility] Bilirubin Total 0.2 0.2 - 1.2 mg/dL 08/29/2024 8:31 PM [facility] eGFR by CKD-EPI >90 >=90 mL/min/1.7 3 m2 08/29/2024 8:31 PM [facility] Blood BLOOD SPECIMEN / Unknown Lab Venipuncture / Unknown 08/29/2024 7:59 PM LOGISTICS SERVICE REPRESENTATIVE 08/29/2024 8:04 PM [facility] Carlos Lee MD LAB - CHEMISTR Y ORDERABLES [facility] [address] [place] [address] * LDH BLOOD (08/29/2024 7:59 PM LOGISTICS SERVICE REPRESENTATIVE) LDH 136 125 - 220 U/L 08/29/2024 8:31 PM LOGISTICS SERVICE REPRESENTATIVE [facility] Blood BLOOD SPECIMEN / Unknown Lab Venipuncture / Unknown 08/29/2024 7:59 PM LOGISTICS SERVICE REPRESENTATIVE 08/29/2024 8:04 PM LOGISTICS SERVICE REPRESENTATIVE Carlos Lee MD LAB - CHEMISTR Y ORDERABLES [facility] [address] [place] [address] from Last 3 Months Additional Health Concerns Infection Onset Date 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 Source: [facility]. 09/23/2018 Advance Directives * Full Code (Latest Code Status on File) Date Activated Date Inactivated Comments 08/29/2024 7:38 PM 08/31/2024 12:42 PM Care Teams Radio Repairer Relationship Specialty Start Date End Date Juan Castillo MD [address] [place] [address] [place] [address] PCP - General Family Medicine 06/07/13
[2024-10-08 17:15] VITALS: BP 154/105; PULSE 91; RESP 18; TEMP 36.7; O2SAT 99
--- NOTE | 2024-10-08 17:15 | ED.FEMALEGU ---
HPI - Female Genitourinary General Chief complaint: Vaginal Bleeding Stated complaint: Vag bleeding-12 days post 1-depend an hour Time Seen by Provider: 10/08/24 17:15 Focused HPI: Patient is a 29 y/o female who presents to the ED with c/o vaginal bleeding. Patient is 12 days post s/p (09/26/24), precipitous delivery, very small tear, otherwise uncomplicated. . OBGYN is Zuleika Minaya with [facility]. Patient reports she has had intermittent bleeding since the delivery, but began having heavier bleeding on Monday. She was seen the OBGYN office and had ultrasound in office which she states showed blood clots in her uterus. Her hemoglobin at that time was 11.3. States today she passed a very large blood clot around 10:00 a.m. today. Began having heavier bleeding again around 2:00 p.m.. Has been filling pads/depends within 1 hour. States she is feeling very dizzy / lightheaded. Also reports having pressure in her lower abdomen, right hip pain. Denies fevers. Patient's blood type is A-. She did receive Rhogam throughout , baby is negative blood type. GENERAL: Well-appearing, morbidly obese with BMI of 44.4, and in no acute distress. HEAD: Normocephalic, atraumatic. CHEST: Clear to auscultation. ?No respiratory distress. HEART: Regular rate and rhythm.? NEURO: ?Alert and oriented x3. Patient screened in triage and initial orders placed.? ?Additional care and disposition to be based upon?diagnostic testing and treatment. Source: patient Mode of arrival: ambulatory Limitations: no limitations History of Present Illness HPI Narrative: Patient is a 29 y/o female who presents to the ED with c/o vaginal bleeding. Patient is 12 days post s/p (09/26/24), precipitous delivery, very small tear, otherwise uncomplicated. . OBGYN is Zuleika Minaya with [facility]. Patient reports she has had intermittent bleeding since the delivery, but began having heavier bleeding on Monday. She was seen the OBGYN office and had ultrasound in office which she states showed blood clots in her uterus. Her hemoglobin at that time was 11.3. States today she passed a very large blood clot around 10:00 a.m.. Began having heavier bleeding again around 2:00 p.m.. Has been filling pads/depends within 1 hour. States she is feeling very dizzy / lightheaded. Also reports having pressure in her lower abdomen, right hip pain. Denies fevers. Patient's blood type is A-. She did receive Rhogam throughout , baby is negative blood type. Related Data Home Medications ?Medication ?Instructions ?Recorded ?Confirmed ?Last Taken ?Type vit no.95-ferrous 1 tablet PO DAILY 02/25/23 09/26/24 09/24/24 History fumarate 28 mg-folic acid 800 mcg tablet () ipratropium 18 mcg-albuterol 103 1 spray inhalation PRN 03/23/23 09/26/24 Unknown History mcg/actuation aerosol inhaler Allergies Allergy/AdvReac Type Severity Reaction Status Date / Time latex Allergy Rash Verified 09/26/24 13:17 Review of Systems Review of Systems: All systems reviewed & are unremarkable except as noted in HPI. All systems reviewed & are unremarkable except as noted in HPI and below [facility] Past Medical History Medical History History of miscarriage Surgical History Surgical History No pertinent past surgical history Family History Family History Grandparent Heart disease Mother Diabetes mellitus Social History Social History Smoking status: Never smoker Substance use: never Other substance usage details: occasional to smoke, uses a topical regularly Do You Feel Safe in your Home?: Yes Lack of Transportation: No Lack of Food: Never True Current Housing: I Have Housing Concerned About Future Housing: No Difficulty Paying Gas/Electric Bills: No Difficulty Paying for Meds: No Currently Unemployed: No Education: Trade/Vocational Certificate Difficulty w/ Childcare or Family Care: No Spiritual care concerns: No Exam Narrative: GENERAL: Well-appearing, morbidly obese with BMI of 44.4, and in no acute distress. HEAD: Normocephalic, atraumatic. CHEST: Clear to auscultation. ?No respiratory distress. HEART: Regular rate and rhythm.? ABD: Mild diffuse tenderness throughout abdomen. No rebound. Normoactive BS SKIN: Warm dry and intact NEURO: ?Alert and oriented x3. Steady gait. No focal deficits. No ataxic movements PSYCHIATRIC: Normal mood and affect Course Vital Signs Vital signs: Vital Signs Temperature 98.0 F 10/08/24 17:15 Pulse Rate 91 10/08/24 17:15 Respiratory Rate 18 10/08/24 17:15 Blood Pressure 154/105 H 10/08/24 17:15 Pulse Oximetry 99 10/08/24 17:15 Temperature 98.3 F 10/08/24 20:25 Pulse Rate 89 10/09/24 01:02 Respiratory Rate 15 10/09/24 01:02 Blood Pressure 132/84 10/09/24 01:02 Pulse Oximetry 100 10/09/24 01:02 MDM - Female Genitourinary MDM Narrative Medical decision making narrative: MSE by MYLES in triage. Care resumed by myself. Vital signs have remained stable throughout ED stay. Patient is in no acute distress. She has passed a few more blood clots in the ED restroom and states bleeding has since slowed. CBC with white blood cell count of 11.8. Hemoglobin is stable at 11.5 today. Was 11.3 a few days ago. Pelvic ultrasound was obtained and showing: IMPRESSION: Fluid filled endometrium with complex echogenicity, consistent with patient's history and presentation. Doppler interrogation was performed on the single image without increased vascularity suggesting a type 0 - type I RPOC, given the grayscale ultrasound appearance. Discussed case with Dr. Concepcion [employer] loss control consultant for [facility], reviewed images herself. States in comparison to in office ultrasound on Monday, ultrasound today does not appear consistent with retained products. Given otherwise reassuring workup, stable labs/hemoglobin, feel patient can be discharged and have close outpatient follow-up. Office will call patient tomorrow. Discussed these recommendations with patient. She is in agreement. Feels comfortable going home. Again states bleeding has slowed significantly. Advised to continue to monitor bleeding, given strict return precautions. She agrees with plan. Discharged in stable condition. Vital signs stable at time of D/C. Patient ambulatory with a steady gait. Medical Records Attestation: I reviewed the patient's medical records. Lab Data Attestation: I reviewed the patient's lab results. 10/08/24 20:23 10/08/24 20:23 Labs: Lab Results 10/08/24 Range/Units 20:23 WBC 11.8 H (4.5-10.0) K/mm3 RBC 4.13 L (4.2-5.4) M/mm3 Hgb 11.5 L (12.0-15.0) g/dL Hct 35.6 L (37.0-47.0) % MCV 86.2 (80-100) fl MCH 27.8 (26-34) pg MCHC 32.3 (32-36) g/dl RDW 14.3 (11.5-14.5) % Plt Count 357 (150-375) k/mm3 MPV 9.1 (7.4-10.4) fl Immature Gran % (Auto) 0.3 (0-0.5) % Neut % (Auto) 69.0 (45.5-73.1) % Lymph % (Auto) 22.8 (18.3-44.2) % Colbert % (Auto) 5.2 (2.6-8.5) % Eos % (Auto) 2.2 (0-4.4) % Baso % (Auto) 0.5 (0.2-1.2) % Lymph # (Auto) 2.69 (0.9-3.2) K/mm3 Colbert # (Auto) 0.6 (0.1-0.6) K/mm3 Eos # (Auto) 0.3 (0-0.3) K/mm3 Baso # (Auto) 0.1 (0.0-0.1) K/mm3 Abs Immat Gran (auto) 0.04 H (0.00-0.031) K/mm3 Absolute Neuts (auto) 8.2 H (1.3-6.7) K/mm3 Absolute Nucleated RBC 0.000 (0.0-0.012) K/mm3 Nucleated RBC % 0.0 (0.0-0.2) % PT 13.5 (11.1-14.7) Seconds INR 1.0 APTT 27.7 (22.3-36.8) Seconds Sodium 137 (137-145) mmol/L Potassium 4.4 (3.4-5.0) mmol/L Chloride 104 (98-107) mmol/L Carbon Dioxide 25 (22-30) mmol/L Anion Gap 8 (4-12) mmol/L BUN 18 H (7-17) mg/dL Creatinine 0.64 L (0.7-1.0) mg/dL Estim Creat Clear Calc 163 ml/min Estimated GFR > 60 (59 - ) Glucose 93 (65-110) mg/dL Calcium 9.2 (8.4-10.2) mg/dL Total Bilirubin 0.5 (0.2-1.3) mg/dL AST 20 (14-36) U/L ALT 19 (6-35) U/L Alkaline Phosphatase 125 (38-126) U/L Total Protein 7.0 (6.3-8.2) g/dL Albumin 3.8 (3.5-5.1) g/dL Imaging Data Attestation: I personally reviewed and interpreted this imaging study as follows: Radiologist's impression: ITS Impressions Pelvis Ultrasound 10/08/24 18:04 IMPRESSION: Fluid filled endometrium with complex echogenicity, consistent with patient's history and presentation. Doppler interrogation was performed on the single image without increased vascularity suggesting a type 0 - type I RPOC, given the grayscale ultrasound appearance. Discharge Plan Discharge Clinical Impression: bleeding Qualifiers: hemorrhage type: unspecified Qualified Code(s): O72.1 - Other immediate hemorrhage Patient Disposition: Home, Self-Care Condition: Stable Instructions: Antibiotic Form, Abnormal (Dysfunctional) Uterine Bleeding (ED) Additional Instructions: Continue to monitor bleeding at home. The OBGYN office should be contacting you tomorrow to make a follow-up appointment. They are aware of your ED visit. Return to the ED if you experience worsening or severe bleeding, severe dizziness/lightheadedness, passing out, severe pain, unable to keep down food or drink, fevers, or any other symptoms of concern. Patient Language: Pashto Prescriptions: No Action PNV cmb#95-ferrous fumarate-FA [] 28 mg iron- 800 mcg Tablet 1 tablet PO DAILY ipratropium-albuterol 18-103 mcg/actuation Aerosol 1 spray INHALATION PRN Follow-up/Referrals: Daniel,MIRTHA Warner [Primary Care Provider] - Booker Concepcion MD [Physician] - (OBGYN) Time of Disposition: 00:29
[2024-10-08 20:25] VITALS: BP 144/97; PULSE 93; RESP 17; TEMP 36.8; O2SAT 98
[2024-10-08 20:36] LABS: Basophils Absolute Auto 0.1 K/mm3 (0.0-0.1); Basophils Percent Auto 0.5 % (0.2-1.2); Eosinophils Absolute Auto 0.3 K/mm3 (0-0.3); Eosinophils Percent Auto 2.2 % (0-4.4); Hematocrit 35.6 % (37.0-47.0); Hemoglobin 11.5 g/dL (12.0-15.0); Immature Granulocyte Absolute 0.04 K/mm3 (0.00-0.031); Immature Granulocyte Percent A 0.3 % (0-0.5); Lymphocytes Absolute Auto 2.69 K/mm3 (0.9-3.2); Lymphocytes Percent Auto 22.8 % (18.3-44.2); Mean Corpuscular HGB Conc 32.3 g/dl (32-36); Mean Corpuscular Hemoglobin 27.8 pg (26-34); Mean Corpuscular Volume 86.2 fl (80-100); Mean Platelet Volume 9.1 fl (7.4-10.4); Monocytes Absolute Auto 0.6 K/mm3 (0.1-0.6); Monocytes Percent Auto 5.2 % (2.6-8.5); Neutrophils Absolute Auto 8.2 K/mm3 (1.3-6.7); Platelet Count Result 357 k/mm3 (150-375); Red Blood Count 4.13 M/mm3 (4.2-5.4); Red Cell Distribution Width 14.3 % (11.5-14.5); White Blood Count 11.8 K/mm3 (4.5-10.0)
[2024-10-08 20:47] LABS: Partial Thromboplastin Time 27.7 Seconds (22.3-36.8); Prothrombin Time 13.5 Seconds (11.1-14.7)
[2024-10-08 20:49] LABS: Alanine Aminotransferase 19 U/L (6-35); Albumin Level 3.8 g/dL (3.5-5.1); Alkaline Phosphatase 125 U/L (38-126); Anion Gap 8 mmol/L (4-12); Aspartate Amino Transferase 20 U/L (14-36); Bilirubin,Total 0.5 mg/dL (0.2-1.3); Blood Urea Nitrogen 18 mg/dL (7-17); Calcium 9.2 mg/dL (8.4-10.2); Carbon Dioxide 25 mmol/L (22-30); Chloride 104 mmol/L (98-107); Estimated CRCL calculation 163 ml/min; Estimated Glomerular Filt Rate > 60; Glucose 93 mg/dL (65-110); Potassium 4.4 mmol/L (3.4-5.0); Sodium 137 mmol/L (137-145)
--- OUTSIDE RECORDS SUMMARY | 2024-10-08 22:54 | XMS_ITS | Clinical Summary ---
Author Organization [facility] Address [address] [place] [id number] Care Team Providers Care New Accounts Banking Representative Name Role Phone Alana Sanchez 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 Overview (08/02/2018): Date Onset: 05/15/2015 Shoulder instability 12/09/2013 Chronic tension headache 11/28/2012 Subjective tinnitus 11/28/2012 Folate deficiency 10/08/2011 Overview (08/02/2018): Note: ADD Asthma ([facility]) 10/08/2011 Estimated Date of Delivery Comme nts Yes 10/16/2024 Resolved Problems Problem Noted Date Diagnosed Date Resolved Date ([facility]) 10/19/2020 01/14/20 22 Prior with placent al abruption, antepartum ([facility]) 06/24/2020 01/13/2022 Overview (08/21/2020): Last Assessment & Plan: Denies having hypertension and her last . We discussed the risk of recurrence of placental abruption and or hemorrhage. Maternal Medicine recommendations: 1. aspirin prescribed for preeclampsia risk reduction 2. recommend anticipation, by the referring dairy and food laboratory assistant, of potential recurrence of placental abruption and or hemorrhage Abnormal maternal glucose to lerance, antepartum ([facility]) 06/24/2020 01/25/2024 Overview (08/21/2020): First-trimester glucose challenge test elevated with appropriate GTT. Last Assessment & Plan: At increased risk of gestational diabetes. Maternal Medicine recommendations: 1. repeat glucose testing at 26-28 weeks Oligohydramnios, antepartum ([facility]) 06/22/2020 01/13/2022 Overview (08/21/2020): 06/16/20 borderline GÓMEZ 9cm on outside scan. Hypothyroid 06/22/2020 01/25/2024 Overview (08/21/2020): Per PNR-SOGA checking labs q trimester. Last Assessment & Plan: Maternal Medicine recommendations: 1. reassess thyroid function every trimester Suicidal thoughts 06/01/2020 01/25/2024 Nausea and vomiting during p regnancy prior to 22 weeks gestation ([facility]) 05/15/2020 01/13/2022 Circumvallate placenta in se cond trimester ([facility]) 03/08/2016 09/18/2018 Obesity 03/08/2016 01/20/2020 Supervision of normal first teen in first trimester ([facility]) 02/25/2016 09/18/2018 Uncomplicated asthma ([facility]) 02/25/2016 09/18/2018 Neck pain 08/29/2013 12/28/2018 Encounter [...] Department Care Team Description 09/10/2024 10:00 AM [employer] Office Visit [facility] [address] [place], [place] [id number] Alana Sanchez FNP Cough (Pt is here for a cough, she has had this cough for about 2 weeks, pt thinks she may have bronchitis) 09/10/2024 Travel 08/29/2024 1:25 PM [employer] - 08/29/2024 6:56 PM [employer] Emergency [facility] Emergency Room [address] [place] [address] Saman Amado MD Flank Pain (33 weeks [...] Influenza Adult (Generic) 07/16/2018,02/2017,06/06/2016,06/01 MMR (Generic) 08/16/2001,08/07/1998 Laogdjq-Myagl-Hkwcaft-Varicell Sc Inj 08/16/2001 ,08/07/1998 Meningococcal 08/07/2008 Meningococcal [...] Comments Blood Pressure 124/79 09/10/2024 9:55 AM [employer] Pulse 102 09/10/2024 9:55 AM [employer] Temperature 36.8 ??C (98.3 ??F) 09/10/2024 9:55 AM CS T Respiratory Rate 18 09/10/2024 9:55 AM [employer] Oxygen Saturation 98% 09/10/2024 9:55 AM [employer] Inhaled Oxygen Concentration - - Weight 137 kg (302 lb) 09/10/2024 9:55 AM [employer] Height 172.7 cm (5' 8 ) 09/10/2024 9:55 AM [employer] Body Mass Index 45.92 09/10/2024 9:55 AM [employer] Plan of Treatment Upcoming Encounters Date Type Department Care Team (Late st Contact Info) Description 01/24/2025 2:00 PM CDT Office Visit [facility] [address] [place], [place] [id number] Alana Sanchez [facility] [address] [place] [address] Health Maintenance Due Date Last Done Comments Pneumococcal Vaccine: Pediatrics (0 to 5 Years) and At-Risk Patients (6 to 64 Years) (2 of 2 - PCV) 09/04/2017 09/04/2016 PHQ-2 (Physician Malone) 04/28/2024 04/28/2023 COVID-19 Vaccine ( season) 2024 Influenza Adult (#1) 2024 06/02/2020, 07/16/2018, 07/16/2018, Additional history exists PHQ-2 (Physician Malone) 09/04/2024 04/28/2023 Annual Physical 01/24/2025 01/25/2024, 01/02, [...] SCREEN RAPID STAT 08/29/2024 2:4 0 PM [employer] URINALYSIS, AUTO, COMPLETE STAT 08/29/2024 2:40 PM [employer] CRITICAL CARE Routine 08/29/2024 2:00 PM [employer] URIC ACID BLOOD STAT 08/29/2024 1:35 PM [employer] MAGNESIUM STAT 08/29/2024 1:35 PM [employer] LACTIC ACID W REFLEX (SEPSIS) STAT 08/29/2024 1:35 PM [employer] HCG QUANT (SERUM)-CHORIONIC GONADOTROPIN STAT 08/29/2024 1:35 PM [employer] LIPASE STAT 08/29/2024 1:35 PM [employer] COMPREHENSIVE METABOLIC PANEL STAT 08/29/2024 1:35 PM [employer] CBC W/DIFF AUTOMATED STAT 08/29/2024 1:35 PM [employer] HOLTER DOCUMENT (SCAN ORDER) 07/29/2024 OUTSIDE CYTOPATH CERV/VAG INTERPRET (PAP) (SCAN ORDER) 04/24/2019 from Last 3 Months or Most Recently Relevant to Health Maintenance Results * DRUG SCREEN RAPID (08/29/2024 2:40 PM [employer]) AMPHETAMINE (U) NONE DETECTED NONE DETECTED 08/29/2024 3:19 PM [employer] [facility] BARBITURATES SCREEN (U) NONE DETECTED NONE DETECTED 08/29/2024 3:19 PM [employer] [facility] BENZODIAZEPINES SCREEN (U) NONE DETECTED NONE DETECTED 08/29/2024 3:19 PM [facility] BUPRENORPHINE SCREEN (U) NONE DETECTED NONE DETECTED 08/29/2024 3:19 PM [facility] COCAINE METABOLITES (U) NONE DETECTED NONE DETECTED 08/29/2024 3:19 PM [facility] METHAMPHETAMINE (U) NONE DETECTED NONE DETECTED 08/29/2024 3:19 PM [facility] METHADONE (U) NONE DETECTED NONE DETECTED 08/29/2024 3:19 PM [facility] OPIATE SCREEN (U) NONE DETECTED NONE DETECTED 08/29/2024 3:19 PM [facility] OXYCODONE SCREEN (U) NONE DETECTED NONE DETECTED 08/29/2024 3:19 PM [facility] PHENCYCLIDINE PCP (U) NONE DETECTED NONE DETECTED 08/29/2024 3:19 PM [facility] CANNABINOIDS SCREEN (U) NONE DETECTED NONE DETECTED 08/29/2024 3:19 PM [facility] TRICYCLIC ANTIDEPRESSANT SCREEN (U) NONE DETECTED NONE DETECTED 08/29/2024 3:19 PM [facility] Comment: NOTE: RESULTS OF THIS DRUG [...] URINE SPECIMEN / Unknown 08/29/2024 2:40 PM [employer] Saman Amado MD URINE ORDERABLES Final Result Performing Organization Address [facility]/State/[facility] Co de Phone Number [facility] [address] [place] [address], * (ABNORMAL) URINALYSIS, AUTO, COMPLETE (08/29/2024 2:40 PM [employer]) COLOR (U) YELLOW 08/29/2024 3:16 PM [facility] TRANSPARENCY CLEAR 08/29/2024 3:16 PM [facility] SPECIFIC GRAVITY (U) 1.015 1.000 - 1.030 08/29/2024 3:16 PM [facility] U PH 6.0 5.0 - 9.0 08/29/2024 3:16 PM [facility] LEUKOCYTES (U) NEGATIVE NEGATIVE 08/29/2024 3:16 PM [facility] NITRITES NEGATIVE NEGATIVE 08/29/2024 3:16 PM [facility] PROTEIN RANDOM (U) NEGATIVE NEGATIVE 08/29/2024 3:16 PM [employer] [facility] GLUCOSE (U) TRACE(A) NEGATIVE 08/29/2024 3:16 PM [facility] KETONES MG/DL (U) NEGATIVE NEGATIVE 08/29/2024 3:16 PM [facility] BILIRUBIN (U) NEGATIVE NEGATIVE 08/29/2024 3:16 PM [facility] BLOOD (U) NEGATIVE NEGATIVE 08/29/2024 3:16 PM [facility] WBC/HPF NONE SEEN 0 - 5 /HPF 08/29/2024 3:16 PM [facility] RBC/HPF NONE SEEN 0 - 5 /HPF 08/29/2024 3:16 PM [facility] EPI/HPF NONE SEEN /HPF 08/29/2024 3:16 PM [facility] URINE SPECIMEN OBTAINED BY CLEAN CATCH PROCEDURE / Unknown 08/29/2024 2:40 PM [employer] Saman Amado MD URINE ORDERABLES Final Result Performing Organization Address [facility]/State/[facility] Co de Phone Number [facility] [address] [place] [address], * Critical Care (08/29/2024 2:00 PM [employer]) Narrative Saman Amado MD - 08/29/2024 2:00 PM [employer] Saman Amado MD ? 08/29/2024 ??6:56 PM [...] ACID W REFLEX (SEPSIS) (08/29/2024 1:35 PM [employer]) Pathologist [facility] LACTIC ACID VENOUS 1.2 0.4 - 2.0 MMOL/L 08/29/2024 2:16 PM [employer] [facility] 08/29/2024 1:35 PM [employer] Saman Amado MD LABORATORY Final R esult [facility] [address] [place] [address], [place] [phone] * (ABNORMAL) COMPREHENSIVE METABOLIC PANEL (08/29/2024 1:35 PM [employer]) [facility] GLUCOSE 105(H) 70 - 99 MG/DL 08/29/2024 2:28 PM [facility] BUN 9 7 - 18 MG/DL 08/29/2024 2:28 PM [facility] CREATININE S/P/B 0.75 0.55 - 1.02 MG/DL 08/29/2024 2:28 PM [facility] SODIUM S/P/B 139 136 - 145 MMOL/L 08/29/2024 2:28 PM [facility] POTASSIUM S/P/B 3.9 3.5 - 5.1 MMOL/L 08/29/2024 2:28 PM [facility] CHLORIDE S/P/B 106 100 - 108 MMOL/L 08/29/2024 2:28 PM [facility] CO2 21.4 21 - 32 MMOL/L 08/29/2024 2:28 PM [facility] CALCIUM S/P/B 8.9 8.5 - 10.1 MG/DL 08/29/2024 2:28 PM [facility] BILIRUBIN TOTAL S/P/B 0.2 0.2 - 1.2 MG/DL 08/29/2024 2:28 PM [facility] TOTAL PROTEIN S/P/B 6.4 6.4 - 8.2 G/DL 08/29/2024 2:28 PM [facility] ALBUMIN S/P/B 2.3(L) 3.4 - 5.0 G/DL 08/29/2024 2:28 PM [facility] AST 11(L) 15 - 37 U/L 08/29/2024 2:28 PM [facility] ALT 16 14 - 55 U/L 08/29/2024 2:28 PM [facility] ALKALINE PHOSPHATASE S/P/B 131 50 - 136 U/L 08/29/2024 2:28 PM [facility] ANION GAP 11.6 5 - 15 MMOL/L 08/29/2024 2:28 PM [facility] BUN CREATININE RATIO 12.0 6 - 26 08/29/2024 2:28 PM [facility] A/G RATIO 0.6(L) 1.0 - 2.0 RATIO 08/29/2024 2:28 PM [facility] GFR ESTIMATE >90 >90 ML/MIN/1.7 3 M2 08/29/2024 2:28 PM [facility] Comment: NOTE: eGFR is not calculated for patients <18 years of age. This is an estimated GFR calculation using the new CKD EPI creatinine equation without race and so does not require a correction factor for race. This estimated GFR should not be used for calculating drug doses. 08/29/2024 1:35 PM [employer] Saman Amado MD LABORATORY Final R esult Performing Organization Address [facility] de Phone Number [facility] [address] [place] [address], * (ABNORMAL) Quantitative HCG (08/29/2024 1:35 PM [employer]) Pathologist [facility] HCG QUANTITATIVE 14,919(H) 0 - 6 MIU/ML 08/29/2024 2:28 PM [employer] [facility] Comment: WEEKS OF ? REFERENCE [...] MONTHS ?10,000 - 100,000 08/29/2024 1:35 PM [employer] Saman Amado MD LABORATORY Final R esult Performing Organization Address [facility] de Phone Number [facility] [address] [place] [address], [place] [phone] * (ABNORMAL) CBC W/DIFF AUTOMATED (08/29/2024 1:35 PM [employer]) [facility] Signature WBC 11.95(H) 4.4 - 11.0 x10'3/uL 08/29/2024 1:46 PM [facility] RBC 3.61(L) 4.50 - 5.10 x10'6/uL 08/29/2024 1:46 PM [facility] HGB 10.4(L) 12.3 - 15.3 G/DL 08/29/2024 1:46 PM [facility] HCT 30.3(L) 35.9 - 44.6 % 08/29/2024 1:46 PM [facility] MCV 83.9 80.0 - 96.0 FL 08/29/2024 1:46 PM [facility] MCH 28.8 25.3 - 30.9 PG 08/29/2024 1:46 PM [facility] MCHC 34.3(H) 31.0 - 34.1 G/DL 08/29/2024 1:46 PM [facility] RDW 13.0 12.4 - 15.1 % 08/29/2024 1:46 PM [facility] PLT 292 151 - 353 x10'3/uL 08/29/2024 1:46 PM [facility] MPV 9.3(L) 9.6 - 12.0 FL 08/29/2024 1:46 PM [facility] RBC MORPHOLOGY NORMAL 08/29/2024 1:46 PM [facility] PLT MORPH. NORMAL 08/29/2024 1:46 PM [facility] WBC MORPHOLOGY NORMAL 08/29/2024 1:46 PM [employer] [facility] LYMPHOCYTES % 16.5 15.8 - 45.0 % 08/29/2024 1:46 PM [facility] NEUTROPHILS % 74.7(H) 42.1 - 71.9 % 08/29/2024 1:46 PM [employer] [facility] MONOCYTES % 6.7 5.7 - 12.5 % 08/29/2024 1:46 PM [employer] [facility] EOSINOPHILS 1.4 0.0 - 5.6 % 08/29/2024 1:46 PM [employer] [facility] BASOPHILS 0.2 0.0 - 1.3 % 08/29/2024 1:46 PM [employer] [facility] ABS. NEUTROPHILS 8.93(H) 1.40 - 6.00 x10'3/uL 08/29/2024 1:46 PM [employer] [facility] IMMATURE GRANS % 0.5 0.0 - 0.5 % 08/29/2024 1:46 PM [facility] ABS. LYMPHOCYTES 1.97 0.80 - 4.70 x10'3/uL 08/29/2024 1:46 PM [facility] 08/29/2024 1:35 PM [employer] us Saman Amado MD LABORATORY Final R esult [facility] [address] [place] [address], * (ABNORMAL) MAGNESIUM (08/29/2024 1:35 PM [employer]) MAGNESIUM 1.5(L) 1.8 - 2.4 MG/DL 08/29/2024 5:04 PM [employer] [facility] 08/29/2024 1:35 PM [employer] Saman Amado MD LABORATORY Final R esult Performing Organization Address City/[facility]/ZIP Co de Phone Number [facility] [address] [place] [address], [place] [phone] * LIPASE (08/29/2024 1:35 PM [employer]) LIPASE 19 16 - 77 UNITS/L 08/29/2024 2:28 PM [employer] [facility] 08/29/2024 1:35 PM [employer] Saman Amado MD LABORATORY Final R esult Performing Organization Address [facility] de Phone Number [facility] [address] [place] [address], [place] [phone] * URIC ACID BLOOD (08/29/2024 1:35 PM [employer]) URIC ACID 4.8 2.6 - 6.0 MG/DL 08/29/2024 5:16 PM [employer] [facility] 08/29/2024 1:35 PM [employer] Saman Amado MD LABORATORY Final R esult Performing Organization Address [facility]/ZIP Co de Phone Number [facility] [address] [place] [address], [place] [phone] * HOLTER DOCUMENT (SCAN ORDER) (07/29/2024) 07/29/2024 [...] Documents on File Type Date Recorded Patient Channel Man Expl anation Legal Documents 09/22/2020 2:48 PM RECVD/C OMPLETED ATTY REQUEST FOR [facility] LAW [employer]M DOS 07/17/20-PRESENT * Full Code [...] 10:20 PM 07/10/2020 12:36 AM Care Teams New Accounts Banking Representative Relationship Specialty Start Date End Date Alana Sanchez FNP [address] [place] [address] [place] [address] PCP - General NURSE PRACTITIONER 04/06/24
--- OUTSIDE RECORDS SUMMARY | 2024-10-08 22:54 | XMS_ITS | Referral Summary ---
Author Organization [facility] Address [address] [place] [address] Care Team Providers Care Manager Of Financial Name Role Phone Juan Castillo MD Primary Care Provider Source Comments [facility],non-owned Affiliates and Associated Physician Practices is amultiple site organization consisting of ambulatory clinics and hospital sitesin [place], [place], [place] and [place]. This disclosure is being madepursuant to the Care Everywhere program and may not contain all information available regarding this patient. Last updated 18.[facility] Encounters Date Type Department Care Team Description 09/02/2024 Telephone [facility] [address] [place] [address]. [address] [place] [address] Gisela Arceo, RN Hospital Follow-up 09/02/2024 Orders Only [facility] [address] [place] [address]. [address] [place] [id number] Alva Johnson, HARISH Elevated blood pressure affecting in third trimester, antepartum (HCC) 08/29/2024 7:30 PM DETENTION WORKER - 08/31/2024 11:30 AM DETENTION WORKER Hospital Encounter [facility] 5E ANTEPARTUM/MOTHER BABY [address] [id number] Carlos Lee MD Maternal Medicine Discharge Disposition: Home or Self Care 08/30/2024 Telephone [facility] [address] [place] [address]. [address] [place] [id number] Gisela Arceo, RN Hospitalization 08/29/2024 Travel from [...] reduction 2. recommend anticipation, by the referring circular saw operator, of potential recurrence of placental abruption and [...] 1. Reassess mood at visits 2. Notify Mortar Maker of fluoxetine use if continued into the [...] , limited weight gain is recommended. The [place] of Medicine recommends a total weight gain [...] and heating? Not hard at all 08/29/2024 [facility] [place] of Occupat ional Health - Occupational Stress [...] any time in the past 12 [facility], were you homeless or living in a intermediate (including now)? No 08/29/2024 Estimated Date of Delivery Comme nts Yes 10/17/2024 Based on Ultraso und Sex and Gender Information Value Date Recorded Sex Assigned at Not on file Gender Identity Not on file Sexual Orientation Not on file Last Filed Vital Signs Vital Sign Reading Time Taken Comments Blood Pressure 97/62 08/31/2024 8:59 AM DETENTION WORKER Pulse 101 08/31/2024 9:34 AM DETENTION WORKER Temperature 37 ??C (98.6 ??F) 08/31/2024 8:59 AM DETENTION WORKER Respiratory Rate 18 08/31/2024 8:59 AM DETENTION WORKER Oxygen Saturation 99% 08/31/2024 8:59 AM DETENTION WORKER Inhaled Oxygen Concentration - - Weight 136.1 kg (300 lb) 08/29/2024 7:50 PM DETENTION WORKER Height 172.7 cm (5' 8 ) 08/29/2024 7:50 PM DETENTION WORKER Body Mass Index 45.61 08/29/2024 7:50 PM DETENTION WORKER Functional Status Functional Status Response Date of [...] Comments IMAGING/RADIOLOGY/XRAY RESULTS ORDER 09/02/2024 10:35 PM DETENTION WORKER PROTEIN URINE TIMED QUANTITATIVE Routine 08/30/2024 7:41 PM DETENTION WORKER Elevated blood pressure affecting in third trimester, antepartum (HCC) SONOGRAM - COMPLETE Routine 08/30/2024 8 :15 AM DETENTION WORKER US RETROPERITONEAL COMPLETE STAT 08/30/2024 7:30 AM DETENTION WORKER Elevated blood pressure affecting in third trimester, antepartum (HCC) labor in third trimester without delivery (HCC) TRICHOMONAS VAGINALIS AMPLIFIED PROBE Routine 08/29/2024 10:21 PM DETENTION WORKER CHLAMYDIA + GC AMPLIFIED PROBE Routine 08/29/2024 10:20 PM DETENTION WORKER CULTURE STREP B Routine 08/29/2024 10:20 PM DETENTION WORKER URINALYSIS REFLEX MICROSCOPIC REFLEX CULTURE STAT 08/29/2024 8:47 PM DETENTION WORKER Elevated blood pressure affecting in third trimester, antepartum (HCC) PROTEIN CREATININE RATIO URINE RANDOM PNL STAT 08/29/2024 8:47 PM DETENTION WORKER Elevated blood pressure affecting in third trimester, antepartum (HCC) BLOOD TYPE VERIFICATION Routine 08/29/20 8:15 PM DETENTION WORKER TYPE + SCREEN PANEL STAT 08/29/2024 7 :59 PM DETENTION WORKER Elevated blood pressure affecting in third trimester, antepartum (HCC) LDH BLOOD STAT 08/29/2024 7:59 PM DETENTION WORKER Elevated blood pressure affecting in third trimester, antepartum (HCC) SYPHILIS ANTIBODY CASCADING REFLEX STAT 08/29/2024 7:59 PM DETENTION WORKER Elevated blood pressure affecting in third trimester, antepartum (HCC) COMPREHENSIVE METABOLIC PANEL STAT 08/29/2024 7:59 PM DETENTION WORKER Elevated blood pressure affecting in third trimester, antepartum (HCC) CBC W AUTO DIFFERENTIAL STAT 08/29/20 7:59 PM DETENTION WORKER Elevated blood pressure affecting in third trimester, antepartum (HCC) from Last 3 Months Results * IMAGING RADIOLOGY XRAY RESULTS ORDER (09/02/2024 10:35 PM DETENTION WORKER) Anatomical Region Laterality Modality Other Narrative 09/02/2024 10:35 PM DETENTION WORKER Ordered by an unspecified provider. Scanned Document IMAGING * PROTEIN URINE TIMED QUANTITATIVE (08/30/2024 7:41 PM DETENTION WORKER) Volume 24 Hour Urine 1,900 mL 08/30/2024 8:12 PM DETENTION WORKER [facility] Collection Time Hours 24 hrs 08/30/2024 8:12 PM DETENTION WORKER [facility] Protein 24 Hour Urine 144 <300 mg/24hr 08/30/2024 8:12 PM DETENTION WORKER [facility] Protein Urine 7.6 <11.9 mg/dL 08/30/2024 8:12 PM DETENTION WORKER [facility] Urine TIMED URINE SPECIMEN / Unknown Timed Urine Volume Measurement / Unknown 08/30/2024 7:41 PM DETENTION WORKER 08/30/2024 7:55 PM DETENTION WORKER Carlos Lee MD LAB - URINE CH EMISTRY ORDERABLES [facility] [address] [place], [place] [id number] * SONOGRAM - COMPLETE (08/30/2024 8:15 AM DETENTION WORKER) Linked Results Indication ======== Class III , [...] lb 1 ??oz EFW by ? Hadlock ([id number]) LGA Growth Overview Exam date ?GA ?BPD [...] view. RVOT view. LVOT view. 3-vessel view. 8-gxynch-wokzhml view. Situs. Bicaval view. Ductal arch view. [...] studies as clinically indicated and per inpatient [facility] team Coding ====== Procedures ? 14400: Umbilical Doppler ? 40699: US Preg Uterus Detailed ? 61798: Biophysical Profile W/O NST [facility] PACS Anatomical Region Laterality Modality Other 08/30/2024 8:15 AM DETENTION WORKER Carlos Lee MD [facility] ORDERABLES * US Retroperitoneal Complete (08/30/2024 7:30 AM DETENTION WORKER) Anatomical Region Laterality Modality Abdomen Ultrasound 08/30/2024 8:25 AM DETENTION WORKER Impressions 08/30/2024 9:58 AM DETENTION WORKER IMPRESSION: 1.Normal renal size. No evidence of nephrolithiasis, hydronephrosis, or solid renal mass. > Dictated by Krupa Nielson Dr, MD (residential treatment counselor). I, Mic Bolton MD have personally reviewed and interpreted this examination/study. > Interpreting Provider: Mic Bolton MD on 08/30/2024 9:58 AM Narrative 08/30/2024 9:58 AM DETENTION WORKER PROCEDURE: ??US RETROPERITONEAL COMPLETE, DATE/TIME OF EXAM: ??08/30/2024 7:52 AM, LOCATION ??[facility] INDICATION: O16.3: Unspecified maternal hypertension, third trimester (HCC) O60.03: labor without delivery, third trimester ([facility]) ADDITIONAL CLINICAL INFORMATION: Ordering Provider Reason For [...] DATE/TIME OF EXAM: 08/30/2024 7:52 AM, LOCATION [facility] INDICATION: O16.3: Unspecified maternal hypertension, third trimester (HCC) O60.03: labor without delivery, third trimester ([facility]) ADDITIONAL CLINICAL INFORMATION: Ordering Provider Reason For [...] Dictated by Krupa Nielson Dr, MD (residential treatment counselor). I, Mic Bolton MD have personally reviewed and interpreted this examination/study. > Interpreting Provider: iMc Bolton MD on 08/30/2024 9:58 AM Carlos Lee MD US ORDERABLES * TRICHOMONAS VAGINALIS AMPLIFIED PROBE (08/29/2024 10:21 PM DETENTION WORKER) Trichomonas vaginalis Amplified Probe Negative Negative 08/30/2024 8:39 PM DETENTION WORKER [facility] Other URINE / Unknown Collection / Unknown 08/29/2024 10:21 PM DETENTION WORKER 08/29/2024 10:32 PM DETENTION WORKER Narrative [facility] - 08/30/2024 8:39 PM DETENTION WORKER This test was developed and its performance characteristics determined by the [facility], [facility]. Urine specimens tested by the [facility] [place] have not been cleared or approved by [...] - MICROBIO LOGY ORDERABLES Performing Organization Address [facility] Co de Phone Number [facility] [address] [place] [address], [facility] [phone] * CHLAMYDIA + GC AMPLIFIED PROBE (08/29/2024 10:20 PM DETENTION WORKER) Chlamydia Amplified Probe Negative Negative 08/30/2024 8:37 PM DETENTION WORKER [facility] GC Amplified Probe Negative Negative 08/30/2024 8:37 PM DETENTION WORKER [facility] Microbiology URINE / Unknown Collection / Unknown 08/29/2024 10:20 PM DETENTION WORKER 08/29/2024 10:38 PM DETENTION WORKER Narrative [facility] - 08/30/2024 8:37 PM DETENTION WORKER Results based on detection/no detection of ribosomal RNA by amplified method. Carlos Lee MD LAB - MICROBIO LOGY ORDERABLES Performing Organization Address [facility] Phone Number [facility] [address] [place] [address], [facility] [phone] * CULTURE STREP B (08/29/2024 10:20 PM DETENTION WORKER) Culture Strep B Negative for beta-hemolytic Streptococcus Group B NAHUN 09/02/2024 7:03 AM DETENTION WORKER [facility] Microbiology MISCELLANEOUS SAMPLES / Unknown Collection / Unknown 08/29/2024 10:20 PM DETENTION WORKER 08/29/2024 10:34 PM DETENTION WORKER Carlos Lee MD LAB - MICROBIO LOGY ORDERABLES Performing Organization Address [facility] Co de Phone Number [facility] [address] [place] [address], [facility] [phone] * (ABNORMAL) URINALYSIS REFLEX MICROSCOPIC REFLEX CULTURE (08/29/2024 8:47 PM DETENTION WORKER) Color UA Yellow Yellow, Straw 08/29/2024 10:45 PM DETENTION WORKER [facility] Clarity UA Clear Clear 08/29/2024 10:45 PM DETENTION WORKER [facility] Glucose UA Normal Normal 08/29/2024 10:45 PM DETENTION WORKER [facility] Bilirubin UA Negative Negative 08/29/2024 10:45 PM DETENTION WORKER [facility] Ketone UA 2+(A) Negative 08/29/2024 10:45 PM [facility] Specific [place] UA 1.021 1.005 - 1.030 08/29/2024 10:45 PM DETENTION WORKER [facility] Blood UA Negative Negative 08/29/2024 10:45 PM [facility] pH UA 5.5 5.0 - 9.0 pH 08/29/2024 10:45 PM DETENTION WORKER [facility] Protein UA Negative Negative 08/29/2024 10:45 PM DETENTION WORKER [facility] Urobilinogen UA Normal Normal mg/dL 024 10:45 PM [facility] Nitrite UA Negative Negative 08/29/2024 10:45 PM [facility] Leukocyte UA Negative Negative 08/29/2024 10:45 PM [facility] Urine URINE SPECIMEN OBTAINED BY CLEAN CATCH PROCEDURE / Unknown Collection / Unknown 08/29/2024 8:47 PM DETENTION WORKER 08/29/2024 10:31 PM DETENTION WORKER Narrative [facility] - 08/29/2024 10:45 PM DETENTION WORKER Carlos Lee MD LAB - URINALYS IS ORDERABLES [facility] [address] [place], [place] [id number] * PROTEIN CREATININE RATIO URINE RANDOM PNL (08/29/2024 8:47 PM DETENTION WORKER) Protein Urine 7.0 <11.9 mg/dL 08/29/2024 10:58 PM DETENTION WORKER [facility] Creatinine Urine 83.54 mg/dL 08/29/2024 10:58 PM [facility] Protein/Creatin ine Ratio Urine 0.08 08/29/2024 10:58 PM DETENTION WORKER [facility] Urine URINE SPECIMEN OBTAINED BY CLEAN CATCH PROCEDURE / Unknown Collection / Unknown 08/29/2024 8:47 PM DETENTION WORKER 08/29/2024 10:31 PM DETENTION WORKER Carlos Lee MD LAB - URINE CH EMISTRY ORDERABLES Performing Organization Address [facility] Co de Phone Number [facility] [address] [place] [address] * BLOOD TYPE VERIFICATION (08/29/2024 8:15 PM DETENTION WORKER) ABO Rh A NEG 08/29/2024 9:1 6 PM DETENTION WORKER [facility] Blood Bank BLOOD SPECIMEN / Unknown Lab Venipuncture / Unknown 08/29/2024 8:15 PM DETENTION WORKER 08/29/2024 8:15 PM DETENTION WORKER Carlos Lee MD LAB - BLOOD BA NK ORDERABLES Performing Organization Address [facility] Co de Phone Number [facility] [address] [place] [address] * SYPHILIS ANTIBODY CASCADING REFLEX (08/29/2024 7:59 PM DETENTION WORKER) Treponema pallidum Antibody Non Reactive Non Reactive 08/29/2024 8:48 PM DETENTION WORKER [facility] Comment: No Laboratory evidence of syphilis infection. ?? Note: ??Circulating antibodies may be low or undetectable in early infection. ??If recent exposure is suspected, re-draw sample in 2-4 weeks and repeat testing. Blood BLOOD SPECIMEN / Unknown Lab Venipuncture / Unknown 08/29/2024 7:59 PM DETENTION WORKER 08/29/2024 8:04 PM DETENTION WORKER Carlos Lee MD LAB - SEROLOGY ORDERABLES Performing Organization Address [facility] Co de Phone Number [facility] [address] [place] [address] * TYPE + SCREEN PANEL (08/29/2024 7:59 PM DETENTION WORKER) ABO Rh A NEG 08/29/2024 8:43 PM [facility] Comment:No history; collect retype. Antibody Screen NEG 8:43 PM [facility] Blood Bank BLOOD SPECIMEN / Unknown Lab Venipuncture / Unknown 08/29/2024 7:59 PM DETENTION WORKER 08/29/2024 8:04 PM DETENTION WORKER Carlos Lee MD LAB - BLOOD BA NK ORDERABLES [facility] [address] [phone] * (ABNORMAL) CBC W AUTO DIFFERENTIAL (08/29/2024 7:59 PM DETENTION WORKER) Pathologist [facility] WBC 13.6(H) 4.0 - 10.7 x10E9/L 08/29/2024 8:09 PM [facility] RBC Count 3.66(L) 3.90 - 5.20 x10E12/L 08/29/2024 8:09 PM [facility] Hemoglobin 10.3(L) 11.9 - 15.8 g/dL 08/29/2024 8:09 PM [facility] Hematocrit 31.5(L) 34.8 - 46.1 % 08/29/2024 8:09 PM [facility] MCV 86.1 80.0 - 98.0 fL 08/29/2024 8:09 PM [facility] MCH 28.1 26.7 - 33.6 pg 08/29/2024 8:09 PM [facility] MCHC 32.7 31.7 - 36.3 g/dL 08/29/2024 8:09 PM [facility] RDW-CV 13.0 11.3 - 14.8 % 08/29/2024 8:09 PM [facility] Platelet Count 302 150 - 420 x10E9/L 08/29/2024 8:09 PM [facility] MPV 9.4 7.8 - 11.4 fL 08/29/2024 8:09 PM [facility] Neutrophil % 76.6(H) 41.0 - 74.0 % 08/29/2024 8:09 PM [facility] Lymphocyte % 16.7(L) 17.0 - 47.0 % 08/29/2024 8:09 PM [facility] Monocyte % 5.2 3.0 - 11.0 % 08/29/2024 8:09 PM [facility] Eosinophil % 0.8 0.0 - 7.0 % 08/29/2024 8:09 PM [facility] Basophil % 0.3 0.0 - 1.6 % 08/29/2024 8:09 PM [facility] Immature Granulocytes % 0.4 0.0 - 1.0 % 08/29/2024 8:09 PM [facility] Neutrophil Absolute 10.38(H) 1.60 - 7.50 x10E9/L 08/29/2024 8:09 PM [facility] Lymphocyte Absolute 2.27 1.00 - 4.40 x10E9/L 08/29/2024 8:09 PM [facility] Monocyte Absolute 0.71 0.15 - 1.00 x10E9/L 08/29/2024 8:09 PM [facility] Eosinophil Absolute 0.11 0.00 - 0.60 x10E9/L 08/29/2024 8:09 PM [facility] Basophil Absolute 0.04 0.00 - 0.13 x10E9/L 08/29/2024 8:09 PM [facility] Blood BLOOD SPECIMEN / Unknown Lab Venipuncture / Unknown 08/29/2024 7:59 PM DETENTION WORKER 08/29/2024 8:04 PM [facility] Carlos Lee MD LAB - HEMATOLO GY ORDERABLES [facility] [address] [place] [address] * (ABNORMAL) COMPREHENSIVE METABOLIC PANEL (08/29/2024 7:59 PM DETENTION WORKER) [facility] Signature Glucose 85 70 - 99 mg/dL 08/29/2024 8:31 PM [facility] Sodium 137 136 - 145 mmol/L 08/29/2024 8:31 PM [facility] Potassium 3.8 3.5 - 5.1 mmol/L 08/29/2024 8:31 PM [facility] Chloride 111(H) 98 - 107 mmol/L 08/29/2024 8:31 PM [facility] CO2 19(L) 22 - 29 mmol/L 08/29/2024 8:31 PM [facility] Calcium 8.7 8.4 - 10.4 mg/dL 08/29/2024 8:31 PM [facility] Anion Gap 7 6 - 16 mmol/L 08/29/2024 8:31 PM [facility] BUN 9 5.3 - 18.7 mg/dL 08/29/2024 8:31 PM [facility] Creatinine 0.57 0.57 - 1.11 mg/dL 08/29/2024 8:31 PM [facility] Alkaline Phosphatase 122 40 - 150 U/L 08/29/2024 8:31 PM [facility] ALT 9 0 - 55 U/L 08/29/2024 8:31 PM [facility] AST 10 5 - 34 U/L 08/29/2024 8:31 PM [facility] Protein Total 6.5 6.4 - 8.3 gm/dL 08/29/2024 8:31 PM [facility] Albumin 2.5(L) 3.4 - 5.0 gm/dL 08/29/2024 8:31 PM [facility] Bilirubin Total 0.2 0.2 - 1.2 mg/dL 08/29/2024 8:31 PM [facility] eGFR by CKD-EPI >90 >=90 mL/min/1.7 3 m2 08/29/2024 8:31 PM [facility] Blood BLOOD SPECIMEN / Unknown Lab Venipuncture / Unknown 08/29/2024 7:59 PM DETENTION WORKER 08/29/2024 8:04 PM [facility] Carlos Lee MD LAB - CHEMISTR Y ORDERABLES [facility] [address] [place] [address] * LDH BLOOD (08/29/2024 7:59 PM DETENTION WORKER) LDH 136 125 - 220 U/L 08/29/2024 8:31 PM DETENTION WORKER [facility] Blood BLOOD SPECIMEN / Unknown Lab Venipuncture / Unknown 08/29/2024 7:59 PM DETENTION WORKER 08/29/2024 8:04 PM DETENTION WORKER Carlos Lee MD LAB - CHEMISTR Y ORDERABLES [facility] [address] [place] [address] from Last 3 Months Additional Health Concerns Infection Onset Date 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 Source: [facility]. 09/23/2018 Advance Directives * Full Code (Latest Code Status on File) Date Activated Date Inactivated Comments 08/29/2024 7:38 PM 08/31/2024 12:42 PM Care Teams Manager Of Financial Relationship Specialty Start Date End Date Juan Castillo MD [address] [place] [address] [place] [address] PCP - General Family Medicine 06/07/13
--- OUTSIDE RECORDS SUMMARY | 2024-10-08 22:54 | XMS_ITS | Encounter Summary ---
Author Organization [facility] Address [address] [address] Care Team Providers Care Inspector Machine Cut Glass Name Role Phone Juan Castillo MD Primary Care Provider [phone] Encounter Details Date Type Department Care Team (Late st Contact Info) Description 03/24/2016 Office Visit [facility] Maternal & Care [address] [place] [id number] [facility] Social History Tobacco Use [...] MRSA Hx Comment:Added from external infection. Source: [facility] - [facility]. 09/23/2018 documented as of this encounter Care Teams Inspector Machine Cut Glass Relationship Specialty Start Date End Date Juan Castillo MD [address] [place] [address] [place], [place] [phone] PCP - General Family Medicine 06/07/13 documented as of this encounter
--- OUTSIDE RECORDS SUMMARY | 2024-10-08 22:54 | XMS_ITS | Encounter Summary ---
Author Organization [facility] Address formerly [facility] [place] [address] Care Team Providers Care Furniture Refinisher Name Role Phone John Sanchezhanie Aliya [facility] Primary Care Provider [phone] Alana Sanchez [facility] Primary Care Provider [phone] Encounter Details Date Type Department Care Team (Late st Contact Info) Description 03/01/2023 Brightbox Charge Message [facility] [address] [place] [id number] [employer], [facility] Provider [...] Assessment Author Status No 10/20/2020 4:38 AM COOPERATIVE EDUCATION COORDINATOR Activ e * RETIRED Are you blind or do you have serious difficulty seeing, even when wearing glasses? Answer Date of Assessment Author Status No 10/20/2020 4:38 AM COOPERATIVE EDUCATION COORDINATOR Activ e * Do you have serious difficulty walking or climbing stairs? Answer Date of Assessment Author Status No 10/20/2020 4:38 AM COOPERATIVE EDUCATION COORDINATOR Melody Nieto R N Active * Do you have difficulty dressing or bathing? Answer Date of Assessment Author Status No 10/20/2020 4:38 AM COOPERATIVE EDUCATION COORDINATOR Melody Nieto R N Active * Because of a physical, mental, or emotional condition, do you have difficulty doing errands alone such as visiting a doctor's office or shopping? Answer Date of Assessment Author Status No 10/20/2020 4:38 AM COOPERATIVE EDUCATION COORDINATOR Melody Nieto R N Active documented as [...] Description 01/24/2025 2:00 PM CDT Office Visit [facility] [address] [place] [address] Alana Sanchez FNP [address] [place] [address] documented as of this encounter Visit Diagnoses Not on filedocumented in this encounter Additional Health Concerns Infection Onset Date Last Indicated Resolved Time MRSA 09/23/2018 09/23/2018 COVID-19 Rule Out 04/17/2024 04/17/2024 04/17/2024 11:24 AM CDT COVID-19 Confirmed 04/17/2024 04/17/2024 12:32 AM CDT documented as of this encounter Care Teams Furniture Refinisher Relationship Specialty Start Date End Date Alana Sanchez FNP [address] [place] [address] [place] [address] PCP - General NURSE PRACTITIONER 07/31/18 03/21/24 Alana Sanchez FNP [address] [place] [address] [place] [address] PCP - General NURSE PRACTITIONER 04/06/24 documented as of this encounter
--- OUTSIDE RECORDS SUMMARY | 2024-10-08 22:54 | XMS_ITS | Clinical Summary ---
Author Organization [facility] Address [address] [facility] [place] [address] Care Team Providers Care Sheet Taker Name Role Phone Juan Castillo MD Primary Care Provider [phone] Source Comments [facility],non-owned Affiliates and Associated Physician Practices is amultiple site organization consisting of ambulatory clinics and hospital sitesin [place], [place], [place] and [place]. This disclosure is being madepursuant to the Care Everywhere program and may not contain all information available regarding this patient. Last updated 18.[facility] [place] Allergies Active Allergy Reactions Criticality Noted Date [...] reduction 2. recommend anticipation, by the referring manager long term care, of potential recurrence of placental abruption and [...] 1. Reassess mood at visits 2. 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 The [facility] of Medicine recommends a total weight gain [...] Type Department Care Team Description 09/02/2024 Telephone [facility] MATERNAL/ EVALUATION UNIT [address] [place] [address]. [address] [place] [address] Gisela Arceo RN Hospital Follow-up 09/02/2024 Orders Only [facility] MATERNAL/ EVALUATION UNIT [address] [place] [address]. [address] [place] [address] Alva Johnson RN Elevated blood pressure affecting in third trimester, antepartum (HCC) 08/30/2024 Telephone [facility] MATERNAL/ EVALUATION UNIT [address] [place] [address]. [address] [place] [address] Gisela Arceo RN Hospitalization 08/29/2024 7:30 PM STATE MANAGER - 08/31/2024 11:30 AM STATE MANAGER Hospital Encounter [facility] 5E ANTEPARTUM/MOTHER BABY [address] [place] [address] Carlos Lee MD Maternal Medicine Discharge Disposition: [...] and heating? Not hard at all 08/29/2024 [facility] of Occupat ional Health - Occupational Stress [...] any time in the past 12 m [facility], were you homeless or living in a snf (including now)? No 08/29/2024 Estimated Date of Delivery Comme nts Yes 10/17/2024 Based on Ultraso und Sex and Gender Information Value Date Recorded Sex Assigned at Not on file Gender Identity Not on file Sexual Orientation Not on file Last Filed Vital Signs Vital Sign Reading Time Taken Comments Blood Pressure 97/62 08/31/2024 8:59 AM STATE MANAGER Pulse 101 08/31/2024 9:34 AM STATE MANAGER Temperature 37 ??C (98.6 ??F) 08/31/2024 8:59 AM STATE MANAGER Respiratory Rate 18 08/31/2024 8:59 AM STATE MANAGER Oxygen Saturation 99% 08/31/2024 8:59 AM STATE MANAGER Inhaled Oxygen Concentration - - Weight 136.1 kg (300 lb) 08/29/2024 7:50 PM STATE MANAGER Height 172.7 cm (5' 8 ) 08/29/2024 7:50 PM STATE MANAGER Body Mass Index 45.61 08/29/2024 7:50 PM STATE MANAGER Plan of Treatment Health Maintenance Due Date [...] Comments IMAGING/RADIOLOGY/XRAY RESULTS ORDER 09/02/2024 10:35 PM STATE MANAGER PROTEIN URINE TIMED QUANTITATIVE Routine 08/30/2024 7:41 PM STATE MANAGER Elevated blood pressure affecting in third trimester, antepartum (HCC) SONOGRAM - COMPLETE Routine 08/30/2024 8 :15 AM STATE MANAGER US RETROPERITONEAL COMPLETE STAT 08/30/2024 7:30 AM STATE MANAGER Elevated blood pressure affecting in third trimester, antepartum (HCC) labor in third trimester without delivery (HCC) TRICHOMONAS VAGINALIS AMPLIFIED PROBE Routine 08/29/2024 10:21 PM STATE MANAGER CHLAMYDIA + GC AMPLIFIED PROBE Routine 08/29/2024 10:20 PM STATE MANAGER CULTURE STREP B Routine 08/29/2024 10:20 PM STATE MANAGER URINALYSIS REFLEX MICROSCOPIC REFLEX CULTURE STAT 08/29/2024 8:47 PM STATE MANAGER Elevated blood pressure affecting in third trimester, antepartum (HCC) PROTEIN CREATININE RATIO URINE RANDOM PNL STAT 08/29/2024 8:47 PM STATE MANAGER Elevated blood pressure affecting in third trimester, antepartum (HCC) BLOOD TYPE VERIFICATION Routine 08/29/20 8:15 PM STATE MANAGER TYPE + SCREEN PANEL STAT 08/29/2024 7 :59 PM STATE MANAGER Elevated blood pressure affecting in third trimester, antepartum (HCC) LDH BLOOD STAT 08/29/2024 7:59 PM STATE MANAGER Elevated blood pressure affecting in third trimester, antepartum (HCC) SYPHILIS ANTIBODY CASCADING REFLEX STAT 08/29/2024 7:59 PM STATE MANAGER Elevated blood pressure affecting in third trimester, antepartum (HCC) COMPREHENSIVE METABOLIC PANEL STAT 08/29/2024 7:59 PM STATE MANAGER Elevated blood pressure affecting in third trimester, antepartum (HCC) CBC W AUTO DIFFERENTIAL STAT 08/29/20 7:59 PM STATE MANAGER Elevated blood pressure affecting in third trimester, antepartum (HCC) from Last 3 Months Results * IMAGING RADIOLOGY XRAY RESULTS ORDER (09/02/2024 10:35 PM STATE MANAGER) Anatomical Region Laterality Modality Other Narrative 09/02/2024 10:35 PM STATE MANAGER Ordered by an unspecified provider. Scanned Document IMAGING * PROTEIN URINE TIMED QUANTITATIVE (08/30/2024 7:41 PM STATE MANAGER) Volume 24 Hour Urine 1,900 mL 08/30/2024 8:12 PM STATE MANAGER [facility] Collection Time Hours 24 hrs 08/30/2024 8:12 PM STATE MANAGER [facility] Protein 24 Hour Urine 144 <300 mg/24hr 08/30/2024 8:12 PM STATE MANAGER [facility] Protein Urine 7.6 <11.9 mg/dL 08/30/2024 8:12 PM STATE MANAGER [facility] Urine TIMED URINE SPECIMEN / Unknown Timed Urine Volume Measurement / Unknown 08/30/2024 7:41 PM STATE MANAGER 08/30/2024 7:55 PM STATE MANAGER Carlos Lee MD LAB - URINE CH EMISTRY ORDERABLES Performing Organization Address City/State/[facility] Co de Phone Number [facility] [address] [place] [address] * SONOGRAM - COMPLETE (08/30/2024 8:15 AM STATE MANAGER) Linked Results Indication ======== Class III , [...] lb 1 ??oz EFW by ? Hadlock ([id number]) LGA Growth Overview Exam date ?GA ?BPD [...] view. RVOT view. LVOT view. 3-vessel view. 7-rlcohw-fammexf view. Situs. Bicaval view. Ductal arch view. [...] inpatient MFM team Coding ====== Procedures ? 08739: Umbilical Doppler ? 17805: US Preg Uterus Detailed ? 77294: Biophysical Profile W/O NST [employer] PACS Anatomical Region Laterality Modality Other 08/30/2024 8:15 AM STATE MANAGER Carlos Lee MD [facility] ORDERABLES * US Retroperitoneal Complete (08/30/2024 7:30 AM STATE MANAGER) Anatomical Region Laterality Modality Abdomen Ultrasound 08/30/2024 8:25 AM STATE MANAGER Impressions 08/30/2024 9:58 AM STATE MANAGER IMPRESSION: 1.Normal renal size. No evidence of nephrolithiasis, hydronephrosis, or solid renal mass. > Dictated by Krupa Nielson Dr, MD (cardiac cath lab radiology technologist). I, Mic Bolton MD have personally reviewed and interpreted this examination/study. > Interpreting Provider: Mic Bolton MD on 08/30/2024 9:58 AM Narrative 08/30/2024 9:58 AM STATE MANAGER PROCEDURE: ??US RETROPERITONEAL COMPLETE, DATE/TIME OF EXAM: ??08/30/2024 7:52 AM, LOCATION ??[facility] INDICATION: O16.3: Unspecified maternal hypertension, third trimester (HCC) O60.03: labor without delivery, third trimester ([facility]) ADDITIONAL CLINICAL INFORMATION: Ordering Provider Reason For [...] OF EXAM: 08/30/2024 7:52 AM, LOCATION [facility] INDICATION: O16.3: Unspecified maternal hypertension, third trimester (HCC) O60.03: labor without delivery, third trimester ([facility]) ADDITIONAL CLINICAL INFORMATION: Ordering Provider Reason For [...] > Dictated by Krupa Nielson Dr, MD (cardiac cath lab radiology technologist). I, Mic Bolton MD have personally reviewed and interpreted this examination/study. > Interpreting Provider: Mic Bolton MD on 08/30/2024 9:58 AM Carlos Lee MD US ORDERABLES * TRICHOMONAS VAGINALIS AMPLIFIED PROBE (08/29/2024 10:21 PM STATE MANAGER) Trichomonas vaginalis Amplified Probe Negative Negative 08/30/2024 8:39 PM STATE MANAGER [facility] Other URINE / Unknown Collection / Unknown 08/29/2024 10:21 PM STATE MANAGER 08/29/2024 10:32 PM STATE MANAGER Narrative [facility] MICRO[facility]OLOG[facility] - 08/30/2024 8:39 PM STATE MANAGER This test was developed and its performance characteristics determined by the [facility], [facility] [place] [facility] [place]. Urine specimens tested by the [facility] [place] have not been cleared or approved by [...] Lee MD LAB - MICROBIO LOGY ORDERABLES [facility] [address] [place] [address], [facility] [phone] * CHLAMYDIA + GC AMPLIFIED PROBE (08/29/2024 10:20 PM STATE MANAGER) Chlamydia Amplified Probe Negative Negative 08/30/2024 8:37 PM STATE MANAGER [facility] MICROBIOLOGY GC Amplified Probe Negative Negative 08/30/2024 8:37 PM STATE MANAGER [facility] MICROBIOLOGY Microbiology URINE / Unknown Collection / Unknown 08/29/2024 10:20 PM STATE MANAGER 08/29/2024 10:38 PM STATE MANAGER Narrative [facility] MICROBIOLOGY - 08/30/2024 8:37 PM STATE MANAGER Results based on detection/no detection of ribosomal RNA by amplified method. Carlos Lee MD LAB - MICROBIO LOGY ORDERABLES Performing Organization Address City/[facility]/ZIP Co de Phone Number [facility] MICROBIOLOGY [address] [place] [address], [facility] [phone] * CULTURE STREP B (08/29/2024 10:20 PM STATE MANAGER) Culture Strep B Negative for beta-hemolytic Streptococcus Group B NAHUN 09/02/2024 7:03 AM STATE MANAGER [facility] MICROBIOLOGY Microbiology MISCELLANEOUS SAMPLES / Unknown Collection / Unknown 08/29/2024 10:20 PM STATE MANAGER 08/29/2024 10:34 PM STATE MANAGER Carlos Lee MD LAB - MICROBIO LOGY ORDERABLES Performing Organization Address City/[facility] Co de Phone Number [facility] MICROBIOLOGY [address] [place] [address], [facility] [phone] * (ABNORMAL) URINALYSIS REFLEX MICROSCOPIC REFLEX CULTURE (08/29/2024 8:47 PM STATE MANAGER) Color UA Yellow Yellow, Straw 08/29/2024 10:45 PM STATE MANAGER [facility] Clarity UA Clear Clear 08/29/2024 10:45 PM STATE MANAGER [facility] Glucose UA Normal Normal 08/29/2024 10:45 PM STATE MANAGER [facility] Bilirubin UA Negative Negative 08/29/2024 10:45 PM STATE MANAGER [facility] Ketone UA 2+(A) Negative 08/29/2024 10:45 PM STATE MANAGER [facility] Specific [place] UA 1.021 1.005 - 1.030 08/29/2024 10:45 PM STATE MANAGER [facility] Blood UA Negative Negative 08/29/2024 10:45 PM STATE MANAGER [facility] pH UA 5.5 5.0 - 9.0 pH 08/29/2024 10:45 PM STATE MANAGER [facility] Protein UA Negative Negative 08/29/2024 10:45 PM STATE MANAGER [facility] Urobilinogen UA Normal Normal mg/dL 024 10:45 PM STATE MANAGER [facility] Nitrite UA Negative Negative 08/29/2024 10:45 PM STATE MANAGER [facility] Leukocyte UA Negative Negative 08/29/2024 10:45 PM STATE MANAGER [facility] Urine URINE SPECIMEN OBTAINED BY CLEAN CATCH PROCEDURE / Unknown Collection / Unknown 08/29/2024 8:47 PM STATE MANAGER 08/29/2024 10:31 PM STATE MANAGER Narrative [facility] - 08/29/2024 10:45 PM STATE MANAGER Carlos Lee MD LAB - URINALYS IS ORDERABLES [facility] [address] [place] [address] * PROTEIN CREATININE RATIO URINE RANDOM PNL (08/29/2024 8:47 PM STATE MANAGER) Pathologist [facility] Protein Urine 7.0 <11.9 mg/dL 08/29/2024 10:58 PM STATE MANAGER [facility] Creatinine Urine 83.54 mg/dL 08/29/2024 10:[address] [facility] Protein/Creatin ine Ratio Urine 0.08 08/29/2024 10:[address] [facility] Urine URINE SPECIMEN OBTAINED BY CLEAN CATCH PROCEDURE / Unknown Collection / Unknown 08/29/2024 8:47 PM STATE MANAGER 08/29/2024 10:31 PM STATE MANAGER Carlos Lee MD LAB - URINE CH EMISTRY ORDERABLES [facility] [address] [place] [address] * BLOOD TYPE VERIFICATION (08/29/2024 8:15 PM STATE MANAGER) ABO Rh A NEG 08/29/2024 9:1 6 PM STATE MANAGER [facility] Blood Bank BLOOD SPECIMEN / Unknown Lab Venipuncture / Unknown 08/29/2024 8:15 PM STATE MANAGER 08/29/2024 8:15 PM STATE MANAGER Carlos Lee MD LAB - BLOOD BA NK ORDERABLES Performing Organization Address [facility] Co de Phone Number [facility] [address] [place] [address] * SYPHILIS ANTIBODY CASCADING REFLEX (08/29/2024 7:59 PM STATE MANAGER) Pathologist [facility] Treponema pallidum Antibody Non Reactive Non Reactive 08/29/2024 8:48 PM STATE MANAGER [facility] Comment: No Laboratory evidence of syphilis infection. ?? Note: ??Circulating antibodies may be low or undetectable in early infection. ??If recent exposure is suspected, re-draw sample in 2-4 weeks and repeat testing. Blood BLOOD SPECIMEN / Unknown Lab Venipuncture / Unknown 08/29/2024 7:59 PM STATE MANAGER 08/29/2024 8:04 PM STATE MANAGER Carlos Lee MD LAB - SEROLOGY ORDERABLES Performing Organization Address [facility] de Phone Number [facility] [address] [place] [address] * TYPE + SCREEN PANEL (08/29/2024 7:59 PM STATE MANAGER) [facility] ABO Rh A NEG 08/29/2024 8:43 PM STATE MANAGER [facility] Comment:No history; collect retype. Antibody Screen NEG 8:43 PM STATE MANAGER [facility] Blood Bank BLOOD SPECIMEN / Unknown Lab Venipuncture / Unknown 08/29/2024 7:59 PM STATE MANAGER 08/29/2024 8:04 PM STATE MANAGER Carlos Lee MD LAB - BLOOD BA NK ORDERABLES Performing Organization Address [facility] de Phone Number [facility] [address] [place] [address] * (ABNORMAL) CBC W AUTO DIFFERENTIAL (08/29/2024 7:59 PM STATE MANAGER) [facility] WBC 13.6(H) 4.0 - 10.7 x10E9/L 08/29/2024 8:[address] [facility] RBC Count 3.66(L) 3.90 - 5.20 x10E12/L 08/29/2024 8:[address] [facility] Hemoglobin 10.3(L) 11.9 - 15.8 g/dL 08/29/2024 8:[address] [facility] Hematocrit 31.5(L) 34.8 - 46.1 % 08/29/2024 8:[address] [facility] MCV 86.1 80.0 - 98.0 fL 08/29/2024 8:[address] [facility] MCH 28.1 26.7 - 33.6 pg 08/29/2024 8:[address] [facility] MCHC 32.7 31.7 - 36.3 g/dL 08/29/2024 8:[address] [facility] RDW-CV 13.0 11.3 - 14.8 % 08/29/2024 8:[address] [facility] Platelet Count 302 150 - 420 x10E9/L 08/29/2024 8:[address] [facility] MPV 9.4 7.8 - 11.4 fL 08/29/2024 8:[address] [facility] Neutrophil % 76.6(H) 41.0 - 74.0 % 08/29/2024 8:[address] [facility] Lymphocyte % 16.7(L) 17.0 - 47.0 % 08/29/2024 8:[address] [facility] Monocyte % 5.2 3.0 - 11.0 % 08/29/2024 8:[address] [facility] Eosinophil % 0.8 0.0 - 7.0 % 08/29/2024 8:[address] [facility] Basophil % 0.3 0.0 - 1.6 % 08/29/2024 8:[address] [facility] Immature Granulocytes % 0.4 0.0 - 1.0 % 08/29/2024 8:[address] [facility] Neutrophil Absolute 10.38(H) 1.60 - 7.50 x10E9/L 08/29/2024 8:[address] [facility] Lymphocyte Absolute 2.27 1.00 - 4.40 x10E9/L 08/29/2024 8:[address] [facility] Monocyte Absolute 0.71 0.15 - 1.00 x10E9/L 08/29/2024 8:[address] [facility] Eosinophil Absolute 0.11 0.00 - 0.60 x10E9/L 08/29/2024 8:[address] [facility] Basophil Absolute 0.04 0.00 - 0.13 x10E9/L 08/29/2024 8:[address] [facility] Blood BLOOD SPECIMEN / Unknown Lab Venipuncture / Unknown 08/29/2024 7:59 PM STATE MANAGER 08/29/2024 8:04 PM [facility] Carlos Lee MD LAB - HEMATOLO GY ORDERABLES [facility] [address] [place], [place] [id number] * (ABNORMAL) COMPREHENSIVE METABOLIC PANEL (08/29/2024 7:59 PM STATE MANAGER) [facility] Glucose 85 70 - 99 mg/dL 08/29/2024 8:[address] [facility] Sodium 137 136 - 145 mmol/L 08/29/2024 8:[address] [facility] Potassium 3.8 3.5 - 5.1 mmol/L 08/29/2024 8:[address] [facility] Chloride 111(H) 98 - 107 mmol/L 08/29/2024 8:[address] [facility] CO2 19(L) 22 - 29 mmol/L 08/29/2024 8:[address] [facility] Calcium 8.7 8.4 - 10.4 mg/dL 08/29/2024 8:[address] [facility] Anion Gap 7 6 - 16 mmol/L 08/29/2024 8:[address] [facility] BUN 9 5.3 - 18.7 mg/dL 08/29/2024 8:[address] [facility] Creatinine 0.57 0.57 - 1.11 mg/dL 08/29/2024 8:[address] [facility] Alkaline Phosphatase 122 40 - 150 U/L 08/29/2024 8:31 PM STATE MANAGER [facility] ALT 9 0 - 55 U/L 08/29/2024 8:31 PM STATE MANAGER [facility] AST 10 5 - 34 U/L 08/29/2024 8:31 PM STATE MANAGER [facility] Protein Total 6.5 6.4 - 8.3 gm/dL 08/29/2024 8:31 PM STATE MANAGER [facility] Albumin 2.5(L) 3.4 - 5.0 gm/dL 08/29/2024 8:31 PM STATE MANAGER [facility] Bilirubin Total 0.2 0.2 - 1.2 mg/dL 08/29/2024 8:31 PM STATE MANAGER [facility] eGFR by CKD-EPI >90 >=90 mL/min/1.7 3 m2 08/29/2024 8:31 PM STATE MANAGER [facility] Blood BLOOD SPECIMEN / Unknown Lab Venipuncture / Unknown 08/29/2024 7:59 PM STATE MANAGER 08/29/2024 8:04 PM STATE MANAGER Carlos Lee MD LAB - CHEMISTR Y ORDERABLES [facility] [address] [place] [address] * LDH BLOOD (08/29/2024 7:59 PM STATE MANAGER) LDH 136 125 - 220 U/L 08/29/2024 8:31 PM STATE MANAGER [facility] Blood BLOOD SPECIMEN / Unknown Lab Venipuncture / Unknown 08/29/2024 7:59 PM STATE MANAGER 08/29/2024 8:04 PM STATE MANAGER Carlos Lee MD LAB - CHEMISTR Y ORDERABLES Performing Organization Address City/[facility]/ZIP Co de Phone Number [facility] [address] [place] [address] from Last 3 Months Additional Health Concerns Infection Onset Date 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 Source: [facility]. 09/23/2018 Advance Directives * Full Code (Latest Code Status on File) Date Activated Date Inactivated Comments 08/29/2024 7:38 PM 08/31/2024 12:42 PM Care Teams Sheet Taker Relationship Specialty Start Date End Date Juan Castillo MD [facility] [place] [address] PCP - General Family Medicine 06/07/13
--- OUTSIDE RECORDS SUMMARY | 2024-10-08 22:54 | XMS_ITS | Patient Health Summary ---
Author Organization [facility] Address [address] [place] [address] Care Team Providers Care Certified Tower Climber Name Role Phone Juan Castillo MD Primary Care Provider [phone] Note from [facility],non-owned Affiliates and Associated Physician Practices is amultiple site organization consisting of ambulatory clinics and hospital sitesin [place], [place], [place] and [place]. This disclosure is being madepursuant to the Care Everywhere program and may not contain all information available regarding this patient. Last updated 18.[facility] Allergies * Latex(Rash) -Medium Criticality Medications * [...] and heating? Not hard at all 08/29/2024 [facility] of Occupat ional Health - Occupational Stress [...] any time in the past 12 m [facility], were you homeless or living in a alf (including now)? No 08/29/2024 Estimated Date of Delivery Comme nts Yes 10/17/2024 Based on Ultraso und Sex and Gender Information Value Date Recorded Sex Assigned at Not on file Gender Identity Not on file Sexual Orientation Not on file Last Filed Vital Signs Vital Sign Reading Time Taken Comments Blood Pressure 97/62 08/31/2024 8:59 AM AIRPLANE FLIGHT ATTENDANT Pulse 101 08/31/2024 9:34 AM AIRPLANE FLIGHT ATTENDANT Temperature 37 ??C (98.6 ??F) 08/31/2024 8:59 AM AIRPLANE FLIGHT ATTENDANT Respiratory Rate 18 08/31/2024 8:59 AM AIRPLANE FLIGHT ATTENDANT Oxygen Saturation 99% 08/31/2024 8:59 AM AIRPLANE FLIGHT ATTENDANT Inhaled Oxygen Concentration - - Weight 136.1 kg (300 lb) 08/29/2024 7:50 PM AIRPLANE FLIGHT ATTENDANT Height 172.7 cm (5' 8 ) 08/29/2024 7:50 PM AIRPLANE FLIGHT ATTENDANT Body Mass Index 45.61 08/29/2024 7:50 PM AIRPLANE FLIGHT ATTENDANT Procedures * IMAGING/RADIOLOGY/XRAY RESULTS ORDER(Performed 09/02/2024) * PROTEIN URINE TIMED QUANTITATIVE(Performed 08/30/2024) Performed for Elevated blood pressure affecting in third trimester, antepartum ([facility]) * SONOGRAM - COMPLETE(Performed 08/30/2024) * US RETROPERITONEAL COMPLETE(Performed 08/30/2024) Performed for Elevated blood pressure affecting in third trimester, antepartum ([facility]), labor in third trimester without delivery ([facility]) * TRICHOMONAS VAGINALIS AMPLIFIED PROBE(Performed 08/29/2024) * CHLAMYDIA + GC AMPLIFIED PROBE(Performed 08/29/2024) * CULTURE STREP B(Performed 08/29/2024) * URINALYSIS REFLEX MICROSCOPIC REFLEX CULTURE(Performed 08/29/2024) Performed for Elevated blood pressure affecting in third trimester, antepartum ([facility]) * PROTEIN CREATININE RATIO URINE RANDOM PNL(Performed 08/29/2024) Performed for Elevated blood pressure affecting in third trimester, antepartum ([facility]) * BLOOD TYPE VERIFICATION(Performed 08/29/2024) * TYPE + SCREEN PANEL(Performed 08/29/2024) Performed for Elevated blood pressure affecting in third trimester, antepartum ([facility]) * LDH BLOOD(Performed 08/29/2024) Performed for Elevated blood pressure affecting in third trimester, antepartum ([facility]) * SYPHILIS ANTIBODY CASCADING REFLEX(Performed 08/29/2024) Performed for Elevated blood pressure affecting in third trimester, antepartum ([facility]) * COMPREHENSIVE METABOLIC PANEL(Performed 08/29/2024) Performed for Elevated blood pressure affecting in third trimester, antepartum ([facility]) * CBC W AUTO DIFFERENTIAL(Performed 08/29/2024) Performed for Elevated blood pressure affecting in third trimester, antepartum ([facility]) * SONOGRAM - COMPLETE(Performed 07/24/2020) Performed for Prior with placental abruption, antepartum ([facility]), Supervision of high-risk of young multigravida ([facility]), Encounter for anatomic survey ([facility]), Maternal morbid obesity, antepartum ([facility]), Oligohydramnios, antepartum, single or unspecified fetus ([facility]) * SONOGRAM - COMPLETE(Performed 06/24/2020) Performed for Encounter for anatomic survey ([facility]), Oligohydramnios, antepartum, single or unspecified fetus ([facility]), Supervision of high-risk of young multigravida ([facility]) * FIRST TRI NUCHAL TRANSLUCENCY W:SEQ SCREEN(Performed 03/04/2016) Performed for Supervision of normal first teen in first trimester ([facility]), Encounter for nuchal translucency testing ([facility]) * FIRST TRI NUCHAL TRANSLUCENCY W:SEQ SCREEN(Performed 02/29/2016) Performed for Uncomplicated asthma, unspecified asthma severity, Encounter for nuchal translucency testing ([facility]) * XR SHOULDER RIGHT 2VW OR MORE(Performed 01/10/2014) Performed for Shoulder instability * CT NECK SOFT TISSUE WO CONT(Performed 07/11/2013) Performed for Stylohyoid tendonitis, Neck pain * CULTURE MRSA(Performed 06/26/2013) Performed for Hx MRSA infection Results * IMAGING RADIOLOGY XRAY RESULTS ORDER (09/02/2024 10:35 PM AIRPLANE FLIGHT ATTENDANT) Anatomical Region Laterality Modality Other Narrative 09/02/2024 10:35 PM AIRPLANE FLIGHT ATTENDANT Ordered by an unspecified provider. Scanned Document IMAGING * PROTEIN URINE TIMED QUANTITATIVE (08/30/2024 7:41 PM AIRPLANE FLIGHT ATTENDANT) Volume 24 Hour Urine 1,900 mL 08/30/2024 8:12 PM AIRPLANE FLIGHT ATTENDANT [facility] Collection Time Hours 24 hrs 08/30/2024 8:12 PM [facility] Protein 24 Hour Urine 144 <300 mg/24hr 08/30/2024 8:12 PM [facility] Protein Urine 7.6 <11.9 mg/dL 08/30/2024 8:12 PM [facility] Urine TIMED URINE SPECIMEN / Unknown Timed Urine Volume Measurement / Unknown 08/30/2024 7:41 PM AIRPLANE FLIGHT ATTENDANT 08/30/2024 7:55 PM AIRPLANE FLIGHT ATTENDANT Carlos Lee MD LAB - URINE CH EMISTRY ORDERABLES Performing Organization Address City/State/[facility] Co de Phone Number [facility] [address], [place] [id number] * SONOGRAM - COMPLETE (08/30/2024 8:15 AM AIRPLANE FLIGHT ATTENDANT) Only the most recent of3 resultswithin the [...] lb 1 ??oz EFW by ? Hadlock ([id number]) LGA Growth Overview Exam date ?GA ?BPD [...] view. RVOT view. LVOT view. 3-vessel view. 1-jpfpev-nkklpjz view. Situs. Bicaval view. Ductal arch view. [...] inpatient MFM team Coding ====== Procedures ? 40756: Umbilical Doppler ? 33859: US Preg Uterus Detailed ? 11719: Biophysical Profile W/O NST [facility] [employer] PACS Anatomical Region Laterality Modality Other 08/30/2024 8:15 AM AIRPLANE FLIGHT ATTENDANT Carlos Lee MD M ORDERABLES * US Retroperitoneal Complete (08/30/2024 7:30 AM AIRPLANE FLIGHT ATTENDANT) Anatomical Region Laterality Modality Abdomen Ultrasound 08/30/2024 8:25 AM AIRPLANE FLIGHT ATTENDANT Impressions 08/30/2024 9:58 AM AIRPLANE FLIGHT ATTENDANT IMPRESSION: 1.Normal renal size. No evidence of nephrolithiasis, hydronephrosis, or solid renal mass. > Dictated by Krupa Nielson Dr, MD (residential real estate appraiser). IMic MD have personally reviewed and interpreted this examination/study. > Interpreting Provider: Mic Bolton MD on 08/30/2024 9:58 AM Narrative 08/30/2024 9:58 AM AIRPLANE FLIGHT ATTENDANT PROCEDURE: ??US RETROPERITONEAL COMPLETE, DATE/TIME OF EXAM: ??08/30/2024 7:52 AM, LOCATION ??[facility] INDICATION: O16.3: Unspecified maternal hypertension, third trimester (HCC) O60.03: labor without delivery, third trimester ([facility]) ADDITIONAL CLINICAL INFORMATION: Ordering Provider Reason [...] (HCC) O60.03: labor without delivery, third trimester ([facility]) ADDITIONAL CLINICAL INFORMATION: Ordering Provider Reason [...] Dictated by Krupa Nielson Dr, MD (residential real estate appraiser). I, Mic Bolton MD have personally reviewed and interpreted this examination/study. > Interpreting Provider: Mic Bolton MD on 08/30/2024 9:58 AM Carlos Lee MD US ORDERABLES * TRICHOMONAS VAGINALIS AMPLIFIED PROBE (08/29/2024 10:21 PM AIRPLANE FLIGHT ATTENDANT) Trichomonas vaginalis Amplified Probe Negative Negative 08/30/2024 8:39 PM AIRPLANE FLIGHT ATTENDANT [facility] Other URINE / Unknown Collection / Unknown 08/29/2024 10:21 PM AIRPLANE FLIGHT ATTENDANT 08/29/2024 10:32 PM AIRPLANE FLIGHT ATTENDANT Narrative [facility] - 08/30/2024 8:39 PM AIRPLANE FLIGHT ATTENDANT This test was developed and its performance characteristics determined by the [facility], [facility]. Urine specimens tested by the [facility] have not been cleared or approved by [...] Lee MD LAB - MICROBIO LOGY ORDERABLES [facility]CROBIOLOG[facility] [address] [place], [place] [address], [facility] [phone] * CHLAMYDIA + GC AMPLIFIED PROBE (08/29/2024 10:20 PM AIRPLANE FLIGHT ATTENDANT) Chlamydia Amplified Probe Negative Negative 08/30/2024 8:37 PM AIRPLANE FLIGHT ATTENDANT [facility] GC Amplified Probe Negative Negative 08/30/2024 8:37 PM AIRPLANE FLIGHT ATTENDANT [facility]CRO[facility] Microbiology URINE / Unknown Collection / Unknown 08/29/2024 10:20 PM AIRPLANE FLIGHT ATTENDANT 08/29/2024 10:38 PM AIRPLANE FLIGHT ATTENDANT Narrative [facility]CROBI[facility] - 08/30/2024 8:37 PM AIRPLANE FLIGHT ATTENDANT Results based on detection/no detection of ribosomal RNA by amplified method. Carlos Lee MD LAB - MICROBIO LOGY ORDERABLES [facility]CRO[facility] [address] [place] [address], [facility] [phone] * CULTURE STREP B (08/29/2024 10:20 PM AIRPLANE FLIGHT ATTENDANT) Culture Strep B Negative for beta-hemolytic Streptococcus Group B NAHUN 09/02/2024 7:03 AM AIRPLANE FLIGHT ATTENDANT [facility]CROBIOLOG[facility] Microbiology MISCELLANEOUS SAMPLES / Unknown Collection / Unknown 08/29/2024 10:20 PM AIRPLANE FLIGHT ATTENDANT 08/29/2024 10:34 PM AIRPLANE FLIGHT ATTENDANT Carlos Lee MD LAB - MICROBIO LOGY ORDERABLES Performing Organization Address City/[facility]/ZIP Co de Phone Number [facility]CROBIOLOG[facility] [address] [place] [address], [facility] [phone] * (ABNORMAL) URINALYSIS REFLEX MICROSCOPIC REFLEX CULTURE (08/29/2024 8:47 PM AIRPLANE FLIGHT ATTENDANT) Color UA Yellow Yellow, Straw 08/29/2024 10:45 PM AIRPLANE FLIGHT ATTENDANT [facility] Clarity UA Clear Clear 08/29/2024 10:45 PM AIRPLANE FLIGHT ATTENDANT [facility] Glucose UA Normal Normal 08/29/2024 10:45 PM AIRPLANE FLIGHT ATTENDANT [facility] Bilirubin UA Negative Negative 08/29/2024 10:45 PM AIRPLANE FLIGHT ATTENDANT [facility] Ketone UA 2+(A) Negative 08/29/2024 10:45 PM AIRPLANE FLIGHT ATTENDANT [facility] Specific Corbett UA 1.021 1.005 - 1.030 08/29/2024 10:45 PM AIRPLANE FLIGHT ATTENDANT [facility] Blood UA Negative Negative 08/29/2024 10:45 PM AIRPLANE FLIGHT ATTENDANT [facility] pH UA 5.5 5.0 - 9.0 pH 08/29/2024 10:45 PM AIRPLANE FLIGHT ATTENDANT [facility] Protein UA Negative Negative 08/29/2024 10:45 PM AIRPLANE FLIGHT ATTENDANT [facility] Urobilinogen UA Normal Normal mg/dL 024 10:45 PM AIRPLANE FLIGHT ATTENDANT [facility] Nitrite UA Negative Negative 08/29/2024 10:45 PM AIRPLANE FLIGHT ATTENDANT [facility] Leukocyte UA Negative Negative 08/29/2024 10:45 PM AIRPLANE FLIGHT ATTENDANT [facility] Urine URINE SPECIMEN OBTAINED BY CLEAN CATCH PROCEDURE / Unknown Collection / Unknown 08/29/2024 8:47 PM AIRPLANE FLIGHT ATTENDANT 08/29/2024 10:31 PM AIRPLANE FLIGHT ATTENDANT Narrative [facility] - 08/29/2024 10:45 PM AIRPLANE FLIGHT ATTENDANT Carlos Lee MD LAB - URINALYS IS ORDERABLES Performing Organization Address [facility] Co de Phone Number [facility] [address] [place] [address] * PROTEIN CREATININE RATIO URINE RANDOM PNL (08/29/2024 8:47 PM AIRPLANE FLIGHT ATTENDANT) Protein Urine 7.0 <11.9 mg/dL 08/29/2024 10:58 PM AIRPLANE FLIGHT ATTENDANT [facility] Creatinine Urine 83.54 mg/dL 08/29/2024 10:58 PM AIRPLANE FLIGHT ATTENDANT [facility] Protein/Creatin ine Ratio Urine 0.08 08/29/2024 10:58 PM AIRPLANE FLIGHT ATTENDANT [facility] Urine URINE SPECIMEN OBTAINED BY CLEAN CATCH PROCEDURE / Unknown Collection / Unknown 08/29/2024 8:47 PM AIRPLANE FLIGHT ATTENDANT 08/29/2024 10:31 PM AIRPLANE FLIGHT ATTENDANT Carlos Lee MD LAB - URINE CH EMISTRY ORDERABLES Performing Organization Address [facility] de Phone Number [facility] [address] [place] [address] * BLOOD TYPE VERIFICATION (08/29/2024 8:15 PM AIRPLANE FLIGHT ATTENDANT) ABO Rh A NEG 08/29/2024 9:1 6 PM AIRPLANE FLIGHT ATTENDANT [facility] Blood Bank BLOOD SPECIMEN / Unknown Lab Venipuncture / Unknown 08/29/2024 8:15 PM AIRPLANE FLIGHT ATTENDANT 08/29/2024 8:15 PM AIRPLANE FLIGHT ATTENDANT Carlos Lee MD LAB - BLOOD BA NK ORDERABLES Performing Organization Address [facility] Co de Phone Number [facility] [address] [place] [phone] [place] [address] * SYPHILIS ANTIBODY CASCADING REFLEX (08/29/2024 7:59 PM AIRPLANE FLIGHT ATTENDANT) Pathologist [facility] Treponema pallidum Antibody Non Reactive Non Reactive 08/29/2024 8:48 PM AIRPLANE FLIGHT ATTENDANT [facility] Comment: No Laboratory evidence of syphilis infection. ?? Note: ??Circulating antibodies may be low or undetectable in early infection. ??If recent exposure is suspected, re-draw sample in 2-4 weeks and repeat testing. Blood BLOOD SPECIMEN / Unknown Lab Venipuncture / Unknown 08/29/2024 7:59 PM AIRPLANE FLIGHT ATTENDANT 08/29/2024 8:04 PM AIRPLANE FLIGHT ATTENDANT Carlos Lee MD LAB - SEROLOGY ORDERABLES Performing Organization Address City/[facility] Co de Phone Number [facility] [address] [place] [address] * TYPE + SCREEN PANEL (08/29/2024 7:59 PM AIRPLANE FLIGHT ATTENDANT) [facility] ABO Rh A NEG 08/29/2024 8:43 PM AIRPLANE FLIGHT ATTENDANT [facility] Comment:No history; collect retype. Antibody Screen NEG 8:43 PM AIRPLANE FLIGHT ATTENDANT [facility] Blood Bank BLOOD SPECIMEN / Unknown Lab Venipuncture / Unknown 08/29/2024 7:59 PM AIRPLANE FLIGHT ATTENDANT 08/29/2024 8:04 PM AIRPLANE FLIGHT ATTENDANT Carlos Lee MD LAB - BLOOD BA NK ORDERABLES Performing Organization Address [facility] Co de Phone Number [facility] [address] [place] [address] * (ABNORMAL) CBC W AUTO DIFFERENTIAL (08/29/2024 7:59 PM AIRPLANE FLIGHT ATTENDANT) [facility] WBC 13.6(H) 4.0 - 10.7 x10E9/L 08/29/2024 8:09 PM AIRPLANE FLIGHT ATTENDANT [facility] RBC Count 3.66(L) 3.90 - 5.20 x10E12/L 08/29/2024 8:09 PM AIRPLANE FLIGHT ATTENDANT [facility] Hemoglobin 10.3(L) 11.9 - 15.8 g/dL 08/29/2024 8:09 PM [facility] Hematocrit 31.5(L) 34.8 - 46.1 % 08/29/2024 8:09 PM [facility] MCV 86.1 80.0 - 98.0 fL 08/29/2024 8:09 PM [facility] MCH 28.1 26.7 - 33.6 pg 08/29/2024 8:09 PM [facility] MCHC 32.7 31.7 - 36.3 g/dL 08/29/2024 8:09 PM [facility] RDW-CV 13.0 11.3 - 14.8 % 08/29/2024 8:09 PM [facility] Platelet Count 302 150 - 420 x10E9/L 08/29/2024 8:09 PM [facility] MPV 9.4 7.8 - 11.4 fL 08/29/2024 8:09 PM [facility] Neutrophil % 76.6(H) 41.0 - 74.0 % 08/29/2024 8:09 PM [facility] Lymphocyte % 16.7(L) 17.0 - 47.0 % 08/29/2024 8:09 PM [facility] Monocyte % 5.2 3.0 - 11.0 % 08/29/2024 8:09 PM [facility] Eosinophil % 0.8 0.0 - 7.0 % 08/29/2024 8:09 PM [facility] Basophil % 0.3 0.0 - 1.6 % 08/29/2024 8:09 PM [facility] Immature Granulocytes % 0.4 0.0 - 1.0 % 08/29/2024 8:09 PM [facility] Neutrophil Absolute 10.38(H) 1.60 - 7.50 x10E9/L 08/29/2024 8:09 PM [facility] Lymphocyte Absolute 2.27 1.00 - 4.40 x10E9/L 08/29/2024 8:09 PM [facility] Monocyte Absolute 0.71 0.15 - 1.00 x10E9/L 08/29/2024 8:09 PM [facility] Eosinophil Absolute 0.11 0.00 - 0.60 x10E9/L 08/29/2024 8:09 PM [facility] Basophil Absolute 0.04 0.00 - 0.13 x10E9/L 08/29/2024 8:09 PM [facility] Blood BLOOD SPECIMEN / Unknown Lab Venipuncture / Unknown 08/29/2024 7:59 PM AIRPLANE FLIGHT ATTENDANT 08/29/2024 8:04 PM AIRPLANE FLIGHT ATTENDANT Carlos Lee MD LAB - HEMATOLO GY ORDERABLES [facility] [address] [place] [address] * (ABNORMAL) COMPREHENSIVE METABOLIC PANEL (08/29/2024 7:59 PM AIRPLANE FLIGHT ATTENDANT) Glucose 85 70 - 99 mg/dL 08/29/2024 8:31 PM [facility] Sodium 137 136 - 145 mmol/L 08/29/2024 8:31 PM [facility] Potassium 3.8 3.5 - 5.1 mmol/L 08/29/2024 8:31 PM [facility] Chloride 111(H) 98 - 107 mmol/L 08/29/2024 8:31 PM [facility] CO2 19(L) 22 - 29 mmol/L 08/29/2024 8:31 PM [facility] Calcium 8.7 8.4 - 10.4 mg/dL 08/29/2024 8:31 PM [facility] Anion Gap 7 6 - 16 mmol/L 08/29/2024 8:31 PM [facility] BUN 9 5.3 - 18.7 mg/dL 08/29/2024 8:31 PM [facility] Creatinine 0.57 0.57 - 1.11 mg/dL 08/29/2024 8:31 PM [facility] Alkaline Phosphatase 122 40 - 150 U/L 08/29/2024 8:31 PM [facility] ALT 9 0 - 55 U/L 08/29/2024 8:31 PM [facility] AST 10 5 - 34 U/L 08/29/2024 8:31 PM [facility] Protein Total 6.5 6.4 - 8.3 gm/dL 08/29/2024 8:31 PM [facility] Albumin 2.5(L) 3.4 - 5.0 gm/dL 08/29/2024 8:31 PM AIRPLANE FLIGHT ATTENDANT [facility] Bilirubin Total 0.2 0.2 - 1.2 mg/dL 08/29/2024 8:31 PM AIRPLANE FLIGHT ATTENDANT [facility] eGFR by CKD-EPI >90 >=90 mL/min/1.7 3 m2 08/29/2024 8:31 PM AIRPLANE FLIGHT ATTENDANT [facility] Blood BLOOD SPECIMEN / Unknown Lab Venipuncture / Unknown 08/29/2024 7:59 PM AIRPLANE FLIGHT ATTENDANT 08/29/2024 8:04 PM AIRPLANE FLIGHT ATTENDANT Carlos Lee MD LAB - CHEMISTR Y ORDERABLES Performing Organization Address City/[facility]/ZIP Co de Phone Number [facility] [address] [place] [address] * LDH BLOOD (08/29/2024 7:59 PM AIRPLANE FLIGHT ATTENDANT) LDH 136 125 - 220 U/L 08/29/2024 8:31 PM AIRPLANE FLIGHT ATTENDANT [facility] Blood BLOOD SPECIMEN / Unknown Lab Venipuncture / Unknown 08/29/2024 7:59 PM AIRPLANE FLIGHT ATTENDANT 08/29/2024 8:04 PM AIRPLANE FLIGHT ATTENDANT Carlos Lee MD LAB - CHEMISTR Y ORDERABLES Performing Organization Address City/[facility] Co de Phone Number [facility] [address] [place] [address] * FIRST TRI NUCHAL TRANSLUCENCY W:SEQ SCREEN (03/04/2016 8:44 AM CDT) Only the most recent of2 resultswithin the time period is included. Anatomical Region Laterality Modality Other 03/04/2016 8:44 AM CDT Narrative 03/04/2016 1:25 PM CDT ? [facility] ?PHONE: ??FAX: ? Pat. Name: ?TRANG OLIVEIRA Pat. No: ?[id number] Study Date: ?? 03/04/2016 ??8:44am , Age: ? 1995, 21 Pregnancies: ?? 1 Height: ? 67 in Weight: ? 227 lb LMP: ?12/01/2015 GA by LMP: ?13w3d GA by 1st: ?13w3d GA by US: ? 13w1d GA Selected: ??13w3d (LMP) ZEB: ?09/06/2016 Referring MD: EMILEE KIM MD Stockroom Clerk: ??Modesta Contreras RDMS BMI: ?35.55 Hist/Ind: ? Nuchal Translucency ?Class II Obesity MEASUREMENTS & AGE ? GROWTH EVALUATION Measurement ??GA ? Range ? Srce %for GA Ratios ----- ---- ------- CRL ??7.0 cm 13w1d (71d5n-17l3q) Hadl CRL 41% GA for sonogram 13w1d (95g9p-18r3s) based on (CRL) Avg ? Markers for [...] <Electronic Signature> ??03/04/2016 01:23pm Juwan Arroyo MD [facility] ORDERABLES * XR SHOULDER 2+ VW RIGHT (01/10/2014 1:13 PM CDT) Anatomical Region Laterality Modality Upper Extremity Radiographic Halle ging 01/10/2014 1:31 PM CDT Impressions 01/10/2014 1:31 PM CDT Normal exam. Narrative 01/10/2014 1:31 PM CDT EXAMINATION: RIGHTXR SHOULDER 2+ VW RIGHT*[id number] dated 01/10/2014. HISTORY: Other joint derangement, not [...] imaging abnormality is appreciated. Procedure Note Parag aSlas MD - 01/10/2014 EXAMINATION: RIGHTXR SHOULDER 2+ VW RIGHT*[id number] dated 01/10/2014. HISTORY: Other joint derangement, not [...] TISSUE NECK NON CONTRAST (07/11/2013 9:43 AM AIRPLANE FLIGHT ATTENDANT) Anatomical Region Laterality Modality Head Computed Tomogra phy 07/11/2013 9:46 AM AIRPLANE FLIGHT ATTENDANT Impressions 07/11/2013 11:27 AM AIRPLANE FLIGHT ATTENDANT 1. Normal appearance of the styloid processes and stylohyoid ligaments. The normal length of the styloid process in an adult is approximately 2.5 cm and an elongated styloid typically measures greater than 3 cm in length (CT findings associated with [place] syndrome. [place] Journal of Neuroradiology (AJNR) 2001 22:9047-8887). Dictated by Jermaine More on 07/11/2013 11:00 AM I, Marlyn Urias, have personally reviewed the images and I agree with this report. Narrative 07/11/2013 11:[address] AIRPLANE FLIGHT ATTENDANT EXAMINATION: ??Computed tomography (CT) of the neck [...] cm in length (CT findings associated with [place] syndrome. [place] Journal of Neuroradiology (AJNR) 2001 22:2030-8241). Dictated by Jermaine More on 07/11/2013 11:00 AM I, Marlyn Urias, have personally reviewed the images and I agree with this report. Mj Carlisle MD CT ORDERABLES * CULTURE MRSA (06/26/2013 2:40 PM CDT) Culture Negative for MRSA 06/28/2013 5:20 AM CDT [facility] Microbiology SPECIMEN FROM NASAL FOSSAE / Unknown Collection / Unknown 06/26/2013 2:40 PM CDT 06/26/2013 4:28 PM CDT Mj Carlisle MD LAB - MICROBIOLOGY O RDERABLES [facility] [address] [place], [address] Care Teams Certified Tower Climber Relationship Specialty Start Date End Date Juan Castillo MD [address] [place] [address] [place] [address] PCP - General Family Medicine 06/07/13
[2024-10-08 23:08] VITALS: BP 136/74; PULSE 95; RESP 15; O2SAT 100
[2024-10-09 01:02] VITALS: BP 132/84; PULSE 89; RESP 15; O2SAT 100
== END 2024-10-09 01:03 | disposition home or self-care (01) ==
PROVIDERS: Emergency Provider Physician Assistant; PCP Registered Nurse
DX: O72.1 Other immediate postpartum hemorrhage (principal)
CPT/HCPCS: 36415; 76856; 80053; 85025; 85610; 85730; 99284